=== PATIENT | male | born 1940 | race Caucasian/White ===

== ENCOUNTER → 2017-07-28 07:55 | Outpatient (CLI) | payer MEDICARE, SELFPAY ==
[2017-07-28 10:51] LABS: Cholesterol 126 mg/dL (200); High Density Lipoprotein 48 mg/dL; Triglycerides 82 mg/dL; Very Low Density Lipoprotein 16 mg/dL (5-40)
== END ==
PROVIDERS: Family Provider Family Medicine; PCP Family Medicine; Visit Provider Family Medicine
DX: E78.00 Pure hypercholesterolemia, unspecified (principal)
CPT/HCPCS: 36415; 80061

== ENCOUNTER → 2018-01-21 07:41 | Outpatient (CLI) | payer MEDICARE, SELFPAY ==
[2017-02-25 01:54] VITALS: BMI 25.9
[2018-01-21 10:23] LABS: Hematocrit 43.2 % (40-54); Hemoglobin 14.1 g/dl (13.0-16.5); Mean Corp Hgb Conc 32.6 g/gl (32-36); Mean Corpuscular Hgb 30.5 pg (27.0-32.0); Mean Corpuscular Volume 93.3 fL (80-94); Mean Platelet Vol. 9.7 fl (6.2-12.0); Platelet Count 169 K/mm3 (150-450); RBC Distribution Width CV 12.7 % (11.6-14.6); RBC Distribution Width SD 43.3 fl (35.1-43.9); Red Blood Count 4.63 M/mm3 (4.6-6.2); Scan Indicated on CBC? Y/N NO; White Blood Count 5.7 K/mm3 (4.4-11.0)
[2018-01-21 10:32] LABS: Anion Gap 6 (5-15); BUN 16 mg/dL (7-18); BUN/Creat Ratio 15.7 RATIO (10-20); Calcium,Total 9.2 mg/dL (8.5-10.1); Chloride 107 mmol/L (98-107); Cholesterol 136 mg/dL (200); Creatinine, Serum 1.02 mg/dL (0.70-1.30); EST Glomerular Filtration Rate 76 mL/min (>60); Est Glom Filt Rate - Afr Amer 92 mL/min (>60); Glucose 89 mg/dL (74-106); High Density Lipoprotein 54 mg/dL; Potassium 4.4 mmol/L (3.5-5.1); Sodium Level 144 mmol/L (136-145); Triglycerides 78 mg/dL; Very Low Density Lipoprotein 16 mg/dL (5-40)
== END ==
PROVIDERS: Family Provider Family Medicine; PCP Family Medicine; Referring Provider Family Medicine; Visit Provider Family Medicine
DX: E78.00 Pure hypercholesterolemia, unspecified (principal); I77.9 Disorder of arteries and arterioles, unspecified
CPT/HCPCS: 36415; 80048; 80061; 85027

== ENCOUNTER → 2018-02-02 09:51 | Outpatient (CLI) | payer MEDICARE, SELFPAY ==
--- NOTE | 2018-02-02 09:55 | CDU_ITS ---
Reason For Study: carotid artery disease Rt. Velocities/BP Lt. Velocities/BP Prox CCA 103/18.2 cm/sec. Prox CCA 112/20.5 cm/sec. Mid CCA 106/22.3 cm/sec. Mid CCA 79.7/14.7 cm/sec. Dist CCA 88.5/18.8 cm/sec. Dist CCA 73.3/14.1 cm/sec. Prox ICA 69.8/20.5 cm/sec. Prox ICA 69.8/13.5 cm/sec. Mid ICA 89.7/28.7 cm/sec. Mid ICA 69.2/21.7 cm/sec. Dist ICA 101/33.4 cm/sec. Dist ICA 82.7/26.4 cm/sec. Rt. ICA/CCA = 1.0. Lt. ICA/CCA = 1.0. Prox ECA 69.2/11.7 cm/sec. Prox ECA 77.4/12.3 cm/sec. Rt. Vert. 37.7/11.4 cm/sec. Lt. Vert. 39.3/9.82 cm/sec. Right Extracranial There is intimal thickening but no significant atherosclerotic plaque noted in the right common carotid artery. There is heterogeneous, irregular atherosclerotic plaque noted in the right internal carotid artery. There is intimal thickening but no significant atherosclerotic plaque noted in the right external carotid artery. Antegrade flow is noted in the right vertebral artery. Left Extracranial There is intimal thickening but no significant atherosclerotic plaque noted in the left common carotid artery. There is heterogeneous, smooth atherosclerotic plaque noted in the left internal carotid artery. There is intimal thickening but no significant atherosclerotic plaque noted in the left external carotid artery. Antegrade flow is noted in the left vertebral artery. Procedure Carotid Duplex [id number]. The exam was diagnostic. Exam performed in department. Interpretation Summary Minimal irregular plague in the proximal right internal carotid with <50% stenosis. Minimal smooth plague within the proximal left internal carotid with <50% stenosis. Normal flow bilateral external carotids Patent and antegrade bilateral vertebrals Ordering Physician: Benito Salas Performed By: Pepito Martinez RVT
== END ==
PROVIDERS: Family Provider Family Medicine; PCP Family Medicine; Referring Provider Family Medicine; Visit Provider Family Medicine
DX: R55 Syncope and collapse (principal); I77.9 Disorder of arteries and arterioles, unspecified
CPT/HCPCS: 93880

== ENCOUNTER → 2018-06-29 | Outpatient (CLI) | payer MEDICARE, SELFPAY ==
[2018-06-29 10:54] LABS: AST(SGOT) 16 U/L (15-37); Cholesterol 120 mg/dL (200); Glucose 89 mg/dL (74-106); High Density Lipoprotein 50 mg/dL; PSA,Total - Annual Screen 1.22 ng/mL (0.00-4.00); Triglycerides 102 mg/dL; Very Low Density Lipoprotein 20 mg/dL (5-40)
== END | disposition home or self-care (01) ==
PROVIDERS: Family Provider Family Medicine; PCP Family Medicine; Referring Provider Family Medicine; Visit Provider Family Medicine
DX: I77.9 Disorder of arteries and arterioles, unspecified (principal); Z12.5 Encounter for screening for malignant neoplasm of prostate; E78.00 Pure hypercholesterolemia, unspecified
CPT/HCPCS: 36415; 80061; 82947; 84153; 84450; G0103

== ENCOUNTER → 2018-08-17 | Outpatient (CLI) | payer MEDICARE, SELFPAY ==
[2017-02-25 01:54] VITALS: BMI 25.9
--- NOTE | 2018-08-17 11:48 | RAD_ITS ---
STUDY: X-RAY CHEST REASON FOR EXAM: Male, 77 years old. Hemoptysis TECHNIQUE: PA and lateral views of the chest. COMPARISON: None. FINDINGS: The lungs are clear and expanded. There is no demonstrated pleural abnormality. Normal size heart. Normal mediastinum and deja. Normal visualized pulmonary arteries. Normal visualized aortic arch and descending thoracic aorta. Normal visualized thoracic spine. Normal visualized ribs, clavicles, and shoulders. There is no demonstrated abnormality of the visualized soft tissue structures of the upper abdomen. RAD/Chest PA and Lateral IMPRESSION: Normal x-ray examination of the chest. Electronically Signed: Dino Gilman MD at 12:19 EDT , Service support ,
== END | disposition home or self-care (01) ==
LOC: MTRAD 11:46
PROVIDERS: Family Provider Family Medicine; PCP Family Medicine; Referring Provider Family Medicine; Visit Provider Family Medicine
DX: R04.2 Hemoptysis (principal)
CPT/HCPCS: 71046

== ENCOUNTER → 2019-02-03 11:01 | Outpatient (CLI) | payer MEDICARE, SELFPAY ==
[2017-02-25 01:54] VITALS: BMI 25.9
--- NOTE | 2019-02-03 11:05 | RAD_ITS ---
STUDY: X-RAY - RIGHT KNEE REASON FOR EXAM: Male, 78 years old. Pain TECHNIQUE: 4 view(s) of the knee. COMPARISON: None. FINDINGS: Normal visualized distal femur. There is depressed medial tibial condyle without fracture line soft tissue swelling likely chronic. Normal fibula Normal proximal tibiofibular articulation. Narrowed medial femorotibial compartment. Normal lateral femorotibial compartment. Normal patellofemoral articulation. The soft tissue structures are unremarkable. RAD/Knee 4 or More Views IMPRESSION: Degenerative changes. No evidence for acute fracture Electronically Signed: Bronson Florez MD at 22:53 EST , Service support ,
== END ==
PROVIDERS: Family Provider Family Medicine; PCP Family Medicine; Referring Provider Family Medicine; Visit Provider Family Medicine
DX: M17.11 Unilateral primary osteoarthritis, right knee (principal)
CPT/HCPCS: 73564

== ENCOUNTER 2019-04-18 11:00 | Outpatient (RCR) | payer MEDICARE, SELFPAY ==
--- NOTE | 2019-03-23 13:38 | HP.PTEVAL_ITS ---
Patient's Visit Information RACHEL CAGE is a 78 year old M referred to Physical Therapy by Jerald Umanzor MD with a diagnosis of Right Knee Pain. Date of Evaluation: 03/23/19 Physical Therapist: Grisel Williamson DPT - Visit Plan Frequency: 2x /Week Duration: 4 Weeks Plan: Focus on LE and core s/s - Subjective Findings: Patient reports that he was here for PT in 2016 for knee pain- then went back last year to the MD for right knee pain and they gave him an anti- inflam and it went away- this episode has been a couple of months. Insidious onset- Pain is located on the right knee under the knee cap, and posterior knee. Pain depends on what he is doing. Agg: Sitting and then go to stand up it takes awhile to get moving again then he is okay, bending his knee. Usually walks on his TM for 4-5 days a week-down the stairs bothered him. occasionally he was having pain radiating down the leg to the ankle but that has subsided. He did not do another round of steriods. Has not had an injection in the knee. Has not seen Ortho here through his primary care. X-rays which showed mild degeneration. Worst: 3/10 Best: 0/10. Describes the pain as dull and achy and sharp and shooting depending on what he is doing. Compensating with the left LE. Sleep: not disturbed. PMHx: cholesterol. Meds: Baby asprin, torvastatin - Objective Posture: FH, RS, increased kyphosis. Gait: no deviation. HR/TR: able. SLS: 3 sec each side then LOB. Palpation: tender along medial joint line. Sensation: WNL. ROM:5-100 degrees pain at end range flexion. Strength: Ankle: 5/5, Knee: extn: 4+/5, Flxb: 4/5 Hip: 4+/5 throughout. Core: fair. Flex HS: severe, Gastroc: moderate. Special Test: Blanca: positive - Goals Goal 1:: Patient will be I with HEP and progression Goal Time Frame: 4-6 Weeks Goal 2:: Patient will maintain proper posture t/o tx session to demo increased lumbar s/s Goal Time Frame: 4-6 Weeks Goal 3:: Patient will asc/desc 8 stairs with good control Goal Time Frame: 4-6 Weeks Goal 4:: Patient will report 0/10 pain for 1 week Goal Time Frame: 4-6 Weeks - Rehabilitation Potential Physical Therapy Diagnosis: Patient presents with hypomobility- he has decreased pain free ROM, strength, flex and muscular endurance leading to increased pain with aDL's. Rehabilitation Potential: Good - Anticipated Interventions Patient/Client Instruction: Educate patient on: Benefits of Fitness Program Therapeutic Exercise to Include: Strength training, Endurance training, Balance training, Agility training, Body mechanics, Postural training, Flexibilty training, Gait and locomotor training, Passive ROM, Active ROM, Dynamic Lumbar Stabilization TENS: Yes Cryotherapy (ice pack, ice massage): Yes Thermo therapy (hot pack): Yes Ultrasound (thermal/non thermal): Yes Thank you for the opportunity to evaluate your patient. For Medicare and Medicare HMO plans, please review the plan of care and approve it. It will need to be FAXED BACK to us at [phone] for Medicare purposes. For Medicare only, by signing this I certify the plan of care. Please let me know if there are questions or concerns regarding this plan of care. Physician Signature: Date:
--- NOTE | 2019-04-18 11:22 | HP.PTDCSUM ---
HP - PT D/C Summary It has been my pleasure to treat RACHEL CAGE under orders from Jerald Umanzor MD, for the diagnosis of Right Knee Pain for a total of 8 visit(s). Discharge Date: Please see the following information for a summary of their discharge status. - Subjective Subjective: Patient reports that he is still having problems with the ROM- he gets a sharp/shooting pain. Pain is located along medial and lateral joint line. Does not have an apt to go back and see the MD-Has not had a cortisone injection in the knee- but did do pills about a year ago. Has not seen Ortho only his PCP. - Pain R knee Pain Intensity (Out of 10): 2 R powell Pain Intensity (Out of 10): 1 - Overall Improvement % Improvement: 1 - Objective Objective/Function: Posture: FH, RS, increased kyphosis. Gait: no deviation. HR/TR: able. SLS: 3 sec each side then LOB. Palpation: tender along medial joint line. Sensation: WNL. ROM:5-90 degrees pain at end range flexion. Strength: Ankle: 5/5, Knee: extn: 4+/5, Flxb: 4/5 Hip: 4+/5 throughout. Core: fair. Flex HS: severe, Gastroc: moderate. Special Test: Blanca: positive - Goals Goal 1:: Patient will be I with HEP and progression Goal Progress: Goal Met Goal 2:: Patient will maintain proper posture t/o tx session to demo increased lumbar s/s Goal Progress: Progressing Goal 3:: Patient will asc/desc 8 stairs with good control Goal Progress: Progressing Goal 4:: Patient will report 0/10 pain for 1 week Goal Progress: Not Progressing - Plan Plan: Discharge- return to MD for further evaluation - D/C Information If there are questions or concerns regarding this patient's physical therapy, please feel free to call me at [phone]. Thank you for the referral of this patient. Sincerely, Grisel Williamson DPT
== END 2019-04-18 19:00 | disposition home or self-care (01) ==
LOC: PT 11:00
PROVIDERS: PCP Family Medicine; Referring Provider Family Medicine; Visit Provider Family Medicine
DX: M25.561 Pain in right knee (principal); M17.11 Unilateral primary osteoarthritis, right knee
CPT/HCPCS: 97110; 97161; 97164

== ENCOUNTER → 2019-08-03 08:56 | Outpatient (CLI) | payer MEDICARE, SELFPAY ==
[2017-02-25 01:54] VITALS: BMI 25.9
[2019-08-03 10:37] LABS: ALB/GLOB Ratio 1.2 RATIO (0.9-2.4); AST(SGOT) 19 U/L (15-37); Alanine Aminotransfer ALT/SGPT 31 U/L (16-61); Albumin, Serum 3.9 g/dL (3.2-5.0); Alkaline Phosphatase 61 U/L (45-117); Anion Gap 4 (5-15); BUN 16 mg/dL (7-18); BUN/Creat Ratio 17.9 RATIO (10-20); Calcium,Total 9.1 mg/dL (8.5-10.1); Chloride 105 mmol/L (98-107); Cholesterol 123 mg/dL (200); EST Glomerular Filtration Rate 88 mL/min (>60); Est Glom Filt Rate - Afr Amer 106 mL/min (>60); Globulin 3.2 g/dL (2.2-4.2); Glucose 105 mg/dL (74-106); High Density Lipoprotein 52 mg/dL; Potassium 4.3 mmol/L (3.5-5.1); Protein, Total 7.1 g/dL (6.4-8.2); Sodium Level 140 mmol/L (136-145); Triglycerides 77 mg/dL; Very Low Density Lipoprotein 15 mg/dL (5-40)
== END ==
PROVIDERS: PCP Family Medicine; Referring Provider Family Medicine; Visit Provider Family Medicine
DX: E78.00 Pure hypercholesterolemia, unspecified (principal)
CPT/HCPCS: 36415; 80053; 80061

== ENCOUNTER → 2019-08-09 09:37 | Outpatient (CLI) | payer MEDICARE, SELFPAY ==
--- NOTE | 2019-08-09 09:45 | CDU_ITS ---
Reason For Study: carotid artery stenosis Rt. Velocities/BP Lt. Velocities/BP Prox CCA 124.0/16.3 cm/sec. Prox CCA 116.2/10..6 cm/sec. Mid CCA 76.0/13.4 cm/sec. Mid CCA 94.1/11.8 cm/sec. Dist CCA 78.5/18.3 cm/sec. Dist CCA 72.0/15.5 cm/sec. Prox ICA 68.0/13.1 cm/sec. Prox ICA 94.4/14.6 cm/sec. Mid ICA 88.5/18.2 cm/sec. Mid ICA 83.4/20.8 cm/sec. Dist ICA 150.9/43.1 cm/sec. Dist ICA 80.9/18.3 cm/sec. Rt. ICA/CCA = 150.9/124.0=1.2. Lt. ICA/CCA = 94.4/116.2=0.8. Prox ECA 80.9/4.8 cm/sec. Prox ECA 99.0/9.3 cm/sec. Rt. Vert. 46.2/*15.6 cm/sec. Lt. Vert. 58.8/14.6 cm/sec. Right Extracranial There is intimal thickening but no significant atherosclerotic plaque noted in the right common carotid artery. There is heterogeneous, irregular atherosclerotic plaque noted in the right internal carotid artery. There is intimal thickening but no significant atherosclerotic plaque noted in the right external carotid artery. Antegrade flow is noted in the right vertebral artery. Left Extracranial There is intimal thickening but no significant atherosclerotic plaque noted in the left common carotid artery. There is heterogeneous, smooth atherosclerotic plaque noted in the left internal carotid artery. There is intimal thickening but no significant atherosclerotic plaque noted in the left external carotid artery. Antegrade flow is noted in the left vertebral artery. Procedure Carotid Duplex [id number]. Exam performed in department. Interpretation Summary Minimal irregular plaque at the proximal right internal carotid artery <50% stenosis proximal right internal carotid Velocities elevated in the distal right internal carotid but this is at the extent of the imaging and I am not sure of any significance <50% stenosis right external carotid Minimal smooth plaque within the left carotid bulb and proximal internal carotid artery with less than 50% stenosis. <50% stenosis left exterrnal carotid Patent, antegrade vertebrals bilaterally No significant change from February 02, 2018 Ordering Physician: Jerald Umanzor Referring Physician: Jerald Umanzor Performed By: Nallely Roblero, RDCS, RVT
== END ==
PROVIDERS: PCP Family Medicine; Referring Provider Family Medicine; Visit Provider Family Medicine
DX: I65.23 Occlusion and stenosis of bilateral carotid arteries (principal); I73.9 Peripheral vascular disease, unspecified
CPT/HCPCS: 93880

== ENCOUNTER → 2019-12-23 08:40 | Outpatient (CLI) | payer MEDICARE, SELFPAY ==
--- NOTE | 2019-12-23 08:50 | US_ITS ---
STUDY: SUPERFICIAL ULTRASOUND - RIGHT POPLITEAL FOSSA. REASON FOR EXAM: Male, 79 years old. RT KNEE MASS IN POP FOSSA -- R/O BAKERS CYST TECHNIQUE: A superficial ultrasound was performed with real-time and static mendez-scale imaging. COMPARISON: None. FINDINGS: There is a 3 cm x 2.9 cm x 1 cm popliteal cyst. US/Ext Non Vasc Limited/Soft Tiss IMPRESSION: 3 cm x 2.9 cm x 1 cm popliteal cyst. Electronically Signed: Demetris Freeman, at 13:33 EST , Service support ,
== END ==
PROVIDERS: PCP Family Medicine; Referring Provider Family Medicine; Visit Provider Family Medicine
DX: M71.21 Synovial cyst of popliteal space [Baker], right knee (principal)
CPT/HCPCS: 76882

== ENCOUNTER → 2020-08-07 08:09 | Outpatient (CLI) | payer MEDICARE, SELFPAY ==
[2017-02-25 01:54] VITALS: BMI 25.9
[2020-08-07 10:43] LABS: ALB/GLOB Ratio 1.3 RATIO (0.9-2.4); AST(SGOT) 16 U/L (15-37); Alanine Aminotransfer ALT/SGPT 28 U/L (16-61); Alkaline Phosphatase 62 U/L (45-117); Anion Gap 5 (5-15); BUN 18 mg/dL (7-18); BUN/Creat Ratio 16.8 RATIO (10-20); Calcium,Total 8.9 mg/dL (8.5-10.1); Chloride 106 mmol/L (98-107); Cholesterol 129 mg/dL (200); Creatinine, Serum 1.07 mg/dL (0.70-1.30); EST Glomerular Filtration Rate 71 mL/min (>60); Est Glom Filt Rate - Afr Amer 86 mL/min (>60); Glucose 113 mg/dL (74-106); High Density Lipoprotein 56 mg/dL; Potassium 4.2 mmol/L (3.5-5.1); Sodium Level 140 mmol/L (136-145); Triglycerides 82 mg/dL; Very Low Density Lipoprotein 16 mg/dL (5-40)
== END ==
PROVIDERS: PCP Family Medicine; Referring Provider Family Medicine; Visit Provider Family Medicine
DX: E78.00 Pure hypercholesterolemia, unspecified (principal)
CPT/HCPCS: 36415; 80053; 80061

== ENCOUNTER → 2020-12-20 12:41 | Outpatient (CLI) | payer MEDICARE, SELFPAY ==
--- NOTE | 2020-12-20 12:45 | RAD_ITS ---
STUDY: X-RAY - LEFT SHOULDER REASON FOR EXAM: Male, 80 years old. Shoulder pain. TECHNIQUE: 4 view(s) of the shoulder. COMPARISON: None. FINDINGS: Osteopenia. Moderate arthrosis of the glenohumeral joint with small osteophytes. Mild arthrosis of the AC joint. Normal acromion. Sclerosis and cystic change of the greater tuberosity of the humeral head. The soft tissue structures are unremarkable. Normal visualized pulmonary apex. 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 Sclerosis and cystic change of the greater tuberosity of the humeral head. No acute abnormality or erosive changes. Electronically Signed: Buck Mcfarland MD at 13:14 EDT , Service support ,
== END ==
PROVIDERS: PCP Family Medicine; Referring Provider Family Medicine; Visit Provider Family Medicine
DX: M25.512 Pain in left shoulder (principal)
CPT/HCPCS: 73030

== ENCOUNTER 2021-01-17 10:40 | Outpatient (RCR) | payer MEDICARE, SELFPAY ==
--- NOTE | 2021-01-17 12:12 | HP.PTEVAL_ITS ---
Patient's Visit Information RACHEL CAGE is a 80 year old M referred to Physical Therapy by Dr. Jerald Umanzor MD with a diagnosis of l shoulder pain. Date of Evaluation: 01/17/21 Physical Therapist: Franklin Isabel DPT, OCS, CSCS - Visit Plan Duration: one f/u visit Plan: f/u in 3 weeks as needed to ensure progress with ROM and strength. - Subjective Banged up L shoulder halloween night and it hurts. Doctor said he needs to strengthen the shoulder muscles. Doctor said bursitis. Had cotisone shot 3 days ago which may have helped ROM. it was hurt tripping on front door step threshold. Balance is fine. Landed on L shoulder. x rays were OK. Pain now is 0/10 most of time and only if he reaches up and out. Transiently 9/10. retired. Activities are normal outside of sexual activity is diificult sometimes and he avoids lifting and raking. - Pain L shoulder Pain Intensity (Out of 10): 0 Pain Intensity Range: 0, 9 - Objective Posture is forward head and scap B, slightly elevated L scap. Tender supraspinatus insertion in bursal area. cervical AROM is WFL and without pain. AROM R shoulder normal and painfree. AROM L shoulder elelvation 135 flexion and 140 abd with painful arc. ext rotation 40 L and 65 R, IR full but painful L. elbow and wrist B WNL. PROM to 150 felxion before pain. + empty can L. + painful arc L. -ext rotation lag test L. slight + drop arm L. strength R 4+/5, L ext rotation 3+ pain, IR 4+, bi and tri 4+, flexion 4- pain, abd 4- and painful on L. + HK and neer impingement test. - Goals Goal 1:: full aROM without pain L shoulder Goal Time Frame: 2-4 Weeks Goal 2:: I appropriate strength ex and progression to supplement his injection and improved posture. Goal Time Frame: 2-4 Weeks Goal 3:: Patient feel 90% back to normal activity Goal Time Frame: 2-4 Weeks - Rehabilitation Potential Physical Therapy Diagnosis: L shoulder pain limiting function and comfort. Rehabilitation Potential: Fair - Anticipated Interventions Patient/Client Instruction: Educate patient on: Condition, Plan of Care For the Purpose of:: To decrease pain, To increase ROM, To improve muscle performance and motor function Therapeutic Exercise to Include: Strength training, Postural training, Passive ROM, Active ROM For the Purpose of:: To decrease pain, To increase ROM, To improve muscle performance and motor function Thank you for the opportunity to evaluate your patient. For Medicare and Medicare HMO plans, please review the plan of care and approve it. It will need to be FAXED BACK to us at [phone] for Medicare purposes. For Medicare only, by signing this I certify the plan of care. Please let me know if there are questions or concerns regarding this plan of care. Physician Signature: Da te:
--- NOTE | 2021-04-03 11:15 | HP.PT.NRP ---
RACHEL CAGE was seen in my office for initial evaluation on 01/17/21. The following Plan of Care was established for this patient: Initial Duration: one f/u visit Patient/Client Instruction: Educate patient on: Condition, Plan of Care For the Purpose of:: To decrease pain, To increase ROM, To improve muscle performance and motor function Therapeutic Exercise to Include: Strength training, Postural training, Passive ROM, Active ROM For the Purpose of:: To decrease pain, To increase ROM, To improve muscle performance and motor function This patient was last seen in our office 01/17/21. Pertinent comments regarding their Physical therapy will appear below: Pt seen one visit of POC and was to f/u three weeks later to ensure progress. He did not schedule or attend that visit. At this point, it has been over two months and i will discontinue due to nonattendance. At this point I will be discontinuing this patient from physical therapy. I would be happy to see this patient again in the future if found appropriate by the physician. Thank you! Franklin Isabel, DPT, OCS, CSCS
== END 2021-01-17 19:00 | disposition home or self-care (01) ==
LOC: PT 10:40
PROVIDERS: PCP Family Medicine; Referring Provider Family Medicine; Visit Provider Family Medicine
DX: M25.519 Pain in unspecified shoulder (principal)
CPT/HCPCS: 97110; 97161

== ENCOUNTER 2021-02-09 09:40 | Emergency (ER) | payer MEDICARE, SELFPAY ==
[2021-02-09 09:41] VITALS: BP 166/87; PULSE 73; RESP 16; TEMP 36.6; O2SAT 98; BMI 26.4
--- NOTE | 2021-02-09 09:50 | EKG12_ITS ---
Test Reason : DIZZINESS Blood Pressure : / mmHG Vent. Rate : 069 BPM Atrial Rate : 069 BPM P-R Int : 206 ms QRS Dur : 104 ms QT Int : 386 ms P-R-T Axes : 056 017 062 degrees QTc Int : 413 ms Normal sinus rhythm Normal ECG Confirmed by PRASHANTH REYES MD ([id number]), make up editor SIA SHEFFIELD ([id number]) on 02/12/2021 9:56:16 AM Referred By: PC Confirmed By:PRASHANTH REYES MD
--- NOTE | 2021-02-09 10:11 | CT_ITS ---
STUDY: CTA HEAD AND NECK WITH CONTRAST REASON FOR EXAM: Male, 80 years old. vertigo RADIATION DOSAGE (If Supplied By Facility): CTDIvol = ( 24.01 ) mGy, DLP = ( 1558.66 ) mGycm TECHNIQUE: CT angiography was performed with a multi-detector CT scanner. Data acquisition was obtained from the skull base through the vertex following intravenous administration of IV 100mL Isovue-370. MIP images were reconstructed from the axial data set. Post-processing of the angiographic images was performed, with multiplanar reformation and 3D reconstruction. Individualized dose optimization techniques were used for this CT. COMPARISON: No relevant priors. FINDINGS: Aorta has a normal branching pattern. Right brachycephalic, right subclavian, right common carotid, left common carotid and left occluded arteries are patent. There is mild atherosclerosis with scattered calcified and lipid rich plaque. Vertebral arteries arise bilaterally from the subclavian arteries and are patent in the cervical intraosseous segments. Right vertebral is dominant, left is smaller. Intradural vertebral arteries, basilar, superior cerebellar and posterior cerebral arteries and proximal branches are patent. Bilateral base of skull carotids, bifurcations, anterior and middle cerebral arteries and proximal branches are patent. 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 Left posterior communicating artery is moderate, right not well seen likely miniscule. Dural venous sinuses are patent. Refer to same day CT head report for description of right frontal abnormality. There is a 1 cm thyroglossal duct cyst along the superior border of the thyroid cartilage. Vocal cords are normal. Pharyngeal mucosal surfaces are normal. Cervical spine is intact and aligned with multilevel mild thecal sac stenosis, moderate at C6-C7. There are scattered multilevel various degree moderate/moderate severe foraminal stenoses bilaterally. IMPRESSION: 1. Patent craniocervical arteries. 2. Right frontal lobe abnormality, refer to CT head report. 3. 1 cm thyroglossal duct cyst. ENT outpatient referral advised. 4. Moderate spondylotic C6-C7 thecal sac compression. Outpatient neurosurgical referral advised. Electronically Signed: Candie Jackson MD at 11:16 EST Tel , Service support , STUDY: CT BRAIN WITHOUT CONTRAST REASON FOR EXAM: Male, 80 years old. Vertigo dizziness TBI RADIATION DOSAGE (If Supplied By Facility): CTDIvol = ( 44.99 ) mGy, DLP = ( 796.11 ) mGycm TECHNIQUE: Transaxial CT imaging of the brain was performed without administration of intravenous contrast material. Individualized dose optimization techniques were used for this CT. COMPARISON: 24 February 2017 FINDINGS: Appearance is comparable to prior from 3 years ago. There is extensive right frontal encephalomalacia. There is underlying right anterior cribriform plate dehiscence with a mildly hyperdense rounded structure extending from the anterior ethmoid sinus intracranially. Intracranial portion measures 2.1 cm. This likely represents ethmoid sinus mucocele or polypoid mucosal change. Remainder the paranasal sinuses are clear. Orbits are normal. There is moderate chronic white matter ischemic ventricular hypodensity. There are no extra parenchymal fluid collections, hydrocephalus or herniation. Skull vault is intact. CT/CTA Head AND Neck W/ Contrast IMPRESSION: 1. No acute abnormality. 2. Stable since 3 years prior. 3. Right frontal encephalomalacia. 4. 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 Outpatient neurosurgical and ENT referral advised. 5. Moderate chronic white matter atherosclerotic change. Electronically Signed: Candie Jackson MD at 11:19 EST Tel , Service support ,
[2021-02-09 10:18] LABS: Bacteria 0 SEEN /hpf (None Seen); Mucous, Urine 0 SEEN /hpf (<or=2+); Red Blood Cells-Urine 0 SEEN /hpf (0-5); Squamous Epithelial Cells - UA 0 SEEN /hpf (0-5); White Blood Cells 0 SEEN /hpf (0-5)
[2021-02-09 10:19] LABS: Absolute Lymphocyte Count 2.06 X10^3/uL (0.83-4.51); Basophil# 0.03 X10^3/uL; Basophil% 0.5 % (0-1); Eosinophil# 0.09 X10^3/uL; Eosinophils% 1.6 % (0-5); Hematocrit 43.5 % (40-54); Hemoglobin 14.9 g/dL (13.0-16.5); Lymphocyte # 2.06 X10^3/ul (0.83-4.51); Lymphocyte % 37.1 % (19-41); Mean Corp Hgb Conc 34.3 g/dL (32-36); Mean Corpuscular Hgb 31.2 pg (27.0-32.0); Mean Platelet Vol. 9.4 fl (6.2-12.0); Monocyte# 0.42 X10^3/uL; Monocyte% 7.6 % (0-10); NRBC Flagged by Analyzer 0 % (0-5); Neutrophil # 2.95 X10^3/uL (2.7-7.7); Platelet Count 174 K/mm3 (150-450); RBC Distribution Width CV 12.6 % (11.6-14.6); RBC Distribution Width SD 41.5 fl (35.1-43.9); Red Blood Count 4.78 M/mm3 (4.6-6.2); White Blood Count 5.6 K/mm3 (4.4-11.0)
[2021-02-09] MEDS: Meclizine HCl 25 MG Tablet PO (10:19)
[2021-02-09 10:21] LABS: Color, Urine Yellow (Yellow); Glucose, Dipstick Normal (Normal); Ketone-Dipstick Negative (Negative); Leukocyte Esterase-Dipstick Negative /ul (Negative); Nitrite-Dipstick Negative (Negative); Occult Blood-Urine Negative /ul (Negative); Protein-Dipstick Negative (Negative); Specific Gravity, Urine 1.015 (1.002-1.030); Urine Bilirubin Dipstick Negative (Negative); Urine Clarity Clear (Clear); Urine Urobilinogen Normal (Normal)
--- NOTE | 2021-02-09 10:25 | EX.ED.DYSGE1 ---
HPI History of Present Illness Chief Complaint: Dizziness Informant: patient Narrative Narrative: Patient is a 80-year-old male with history of traumatic brain injury with encephalomalacia and hyperlipidemia as well as vertigo presenting with dizziness. Patient states normally when he gets up in the morning he sits in his bed for about 10 seconds and then stands up and goes about his day. He notes this morning when he tried to sit up in bed he felt very dizzy. He states it felt like the room was spinning/he was on a boat. This lasted for over an hour. He called EMS who brought him to the emergency room. 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 He is worried he has complete occlusion of his carotid arteries now. Chart review shows that patient was admitted for rule out posterior circulation stroke due to vertigo but his work-up was largely negative and he was discharged home to follow-up with ENT. Carotid duplex reviewed from 08/09/2019 shows less than 50% stenosis of bilateral external carotid arteries. PFSH PFSH Home Medications aspirin 81 mg PO DAILY@0800 02/15/14 [History Last Taken 02/24/17] atorvastatin 20 mg PO QHS #30 tab 02/25/17 [Rx Last Taken Unknown] meclizine 25 mg PO TID PRN #14 tab 02/09/21 [Rx Last Taken Unknown] meloxicam 7.5 mg PO DAILY 02/09/21 [History Last Taken Unknown] Allergy/AdvReac Type Severity Reaction Status Date / Time No Known Allergies Allergy Verified 02/09/21 09:45 Social History Smoking Status: Never smoker ROS ROS ED Review of Systems ROS Unobtainable: other Details: dizziness Constitutional Constitutional ED: Denies chills or fever(s) Eyes Eyes: Denies blurry vision, change in vision or diplopia ENT ENT ED: Denies ear pain, rhinorrhea or sore throat Cardiovascular Cardiovascular: Denies chest pain or palpitations Respiratory/Chest Respiratory/Chest: Denies cough or dyspnea Gastrointestinal Gastrointestinal: Denies abdominal pain, nausea or vomiting Genitourinary Genitourinary ED: Denies dysuria or hematuria Musculoskeletal Musculoskeletal: Denies arthralgias or myalgias Integumentary Denies rash Neurologic Neurologic: Denies headache(s), paresthesias or weakness EXAM Physical Exam Const Vital Signs: 02/09/21 09:41 02/09/21 09:43 Temperature 97.9 F Temperature Source Temporal Pulse Rate 73 Respiratory Rate 16 Respiratory Effort Normal Non-Labored Respiratory Pattern Normal Blood Pressure 166/87 H Blood Pressure Mean 113 Pulse Ox 98 Oxygen Delivery Method Room Air Positive well nourished and well developed General Appearance ED: well developed HEENT Reports TM's clear and moist mucous membranes Negative for trauma or tenderness Tympanic Membrane ED: Yes TM's clear Eyes PERRL and EOMs intact bilaterally Eyes Narrative: Bilateral horizontal fatiguing nystagmus, rightward gaze more pronounced leftward gaze Neck supple and no JVD Chest Wall inspection of chest normal Resp normal respiratory effort and clear to auscultation bilaterally Cardio regular rate, regular rhythm and no murmurs GI normal to inspection, nondistended, normoactive bowel sounds Extremity normal to inspection General Extremety ED: Negative for edema or tenderness General Extremity: Negative for edema Neuro oriented x3, CN's II-XII intact bilaterally and no sensory deficits noted Neuro Narrative: NIH equals 0. Normal coordination. Normal [id number]. Sensorium / Orientation: alert Motor Exam: strength 5/5 throughout Psych mental status grossly normal Skin no rashes or lesions noted and no wounds MDM MDM MDM Narrative Medical decision making narrative: Patient evaluated for an episode of what sounds like vertigo earlier this morning. His symptoms of pretty much resolved since then. He had a similar episode 3 years ago where he was admitted. He had a MRI to rule out posterior circulation at that time. It was felt to likely be peripheral vertigo and he was discharged home. Patient has a normal neurologic exam. He is steady on his feet. He is given a dose of meclizine. He does have incidental findings on his CT, see comments below. Patient will be given a prescription for Antivert and referral to ENT personal findings. He is counseled on this. Patient is asymptomatic while in the emergency room. I do not feel that extended observation in the hospital or further MRI is indicated as I suspect this is peripheral vertigo. Lab Data Labs: Laboratory Results - last 24 hr 02/09/21 02/09/21 02/09/21 09:45 09:45 10:15 WBC 5.6 RBC 4.78 Hgb 14.9 Hct 43.5 MCV 91.0 MCH 31.2 MCHC 34.3 RDW Std Deviation 41.5 RDW Coeff of Eduard 12.6 Plt Count 174 MPV 9.4 Immature Gran % (Auto) 0.200 Neut % (Auto) 53.0 Lymph % (Auto) 37.1 Grundy % (Auto) 7.6 Eos % (Auto) 1.6 Baso % (Auto) 0.5 Absolute Neuts (auto) 3.0 Absolute Lymphs (auto) 2.06 Nucleated RBC % 0 Sodium 141 Potassium 3.9 Chloride 106 Carbon Dioxide 29.0 Anion Gap 6 BUN 14 Creatinine 1.01 Estim Creat Clear Calc 64.20 Est GFR (MDRD) Af Amer 92 Est GFR (MDRD) Non-Af 76 BUN/Creatinine Ratio 13.9 Glucose 117 H Calcium 9.2 Total Bilirubin 0.80 AST 32 ALT 39 Alkaline Phosphatase 68 Troponin I High Sens 13 Total Protein 7.7 Albumin 4.2 Globulin 3.5 Albumin/Globulin Ratio 1.2 Urine Color Yellow Urine Clarity Clear Urine pH 6.0 Ur Specific [place] 1.015 Urine Protein Negative Urine Glucose (UA) Normal Urine Ketones Negative Urine Occult Blood Negative Urine Nitrite Negative Urine Bilirubin Negative Urine Urobilinogen Normal Ur Leukocyte Esterase Negative Urine RBC 0 SEEN Urine WBC 0 SEEN Ur Squamous Epith Cells 0 SEEN Urine Bacteria 0 SEEN Urine Mucus 0 SEEN Radiography Diagnostic Testing: Clinical Impression(s) from Imaging Studies Head/Neck CTA 02/09/21 10:11 IMPRESSION: 1. No acute abnormality. 2. Stable since 3 years prior. 3. Right frontal encephalomalacia. 4. 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 Outpatient neurosurgical and ENT referral advised. 5. Moderate chronic white matter atherosclerotic change. Electronically Signed: Candie Jackson MD at 11:19 EST Tel , Service support , Rhythm Strip Rhythm Strip: Sinus Rhythm Rate: 69 Ectopy: None EKG Initial EKG: Attestation: I personally reviewed and interpreted this EKG as follows: Interpretation: Sinus Rhythm Comments: Normal sinus rhythm at rate of 69 SC interval 206 Normal QRS and QTc Normal axis Normal ST segments Discharge Plan Triage Chief Complaint: Dizziness ED Provider: Godman,Maryellen Dx/Rx/DC Orders Clinical Impression: Vertigo Instructions: ED BPV Vertigo Prescriptions: New meclizine 25 mg tablet 25 mg PO TID PRN (Reason: dizziness) Qty: 14 RF: 0 No Action aspirin 81 MG tablet,chewable 81 mg PO DAILY@0800 RF: 0 atorvastatin 20 MG tablet 20 mg PO QHS Qty: 30 RF: 0 meloxicam 7.5 mg tablet 7.5 mg PO DAILY RF: 0 Primary Care Provider: Jerald Umanzor Referrals: Jerald Umanzor MD [Primary Care Provider] - Franklin Chi MD [STAFF PHYSICIAN] - As soon as possible Activity Restrictions/Additional Instructions: Your CT showed an incidental finding of your cribriform plate which is near the sinuses. Please follow-up with ENT doctor for further evaluation of this as well as your vertigo. Disposition Disposition: Home, Self Care
[2021-02-09 10:32] LABS: ALB/GLOB Ratio 1.2 RATIO (0.9-2.4); AST(SGOT) 32 U/L (15-37); Alanine Aminotransfer ALT/SGPT 39 U/L (16-61); Albumin, Serum 4.2 g/dL (3.2-5.0); Alkaline Phosphatase 68 U/L (45-117); Anion Gap 6 (5-15); BUN 14 mg/dL (7-18); BUN/Creat Ratio 13.9 RATIO (10-20); Calcium,Total 9.2 mg/dL (8.5-10.1); Chloride 106 mmol/L (98-107); Creatinine, Serum 1.01 mg/dL (0.70-1.30); EST Glomerular Filtration Rate 76 mL/min (>60); Est Glom Filt Rate - Afr Amer 92 mL/min (>60); Globulin 3.5 g/dL (2.2-4.2); Glucose 117 mg/dL (74-106); Potassium 3.9 mmol/L (3.5-5.1); Protein, Total 7.7 g/dL (6.4-8.2); Sodium Level 141 mmol/L (136-145); Troponin-I HS 13 pg/mL (3.0-78.0)
== END 2021-02-09 12:16 | disposition home or self-care (01) ==
PROVIDERS: Emergency Provider Emergency Medicine; PCP Family Medicine
DX: R42 Dizziness and giddiness (principal); G93.89 Other specified disorders of brain; E78.5 Hyperlipidemia, unspecified; I65.23 Occlusion and stenosis of bilateral carotid arteries; M47.812 Spondylosis without myelopathy or radiculopathy, cervical region; Q89.2 Congenital malformations of other endocrine glands; Z87.820 Personal history of traumatic brain injury; Z79.82 Long term (current) use of aspirin; Z79.899 Other long term (current) drug therapy
CPT/HCPCS: 70496; 70498; 80053; 81001; 84484; 85025; 93005; 99285; Q9967; A4216

== ENCOUNTER 2021-04-12 10:20 | Day surgery (SDC) | payer MEDICARE, SELFPAY ==
[2021-04-12] VITALS (8 sets, daily range): BP systolic 136–165; BP diastolic 73–93; PULSE 68–91; RESP 16; TEMP 36.4–37.3; O2SAT 96–100; BMI 26.7
--- NOTE | 2021-04-12 11:08 | HP.PCM_ITS ---
History and Physical Date of Admission: 04/12/21 HISTORY AND PHYSICAL ? RACHEL Sandoval 1940 ? ? REFERRING PHYSICIAN: Self ? CHIEF COMPLAINT: Consult (Bilateral Inguinal Hernias) ? HPI: Rachel is a 79 year old male with a complaint of a bulge ?and discomfort ?in his right inguinal region and left inguinal region. ?The patient notes discomfort in this area mostly in the right inguinal area occasionally with coughing or lifting. ?The symptoms have increased, over the past 6 months. ? The patient notes no symptoms of bowel obstruction and denies nausea or vomiting. The patient was seen by his primary care physician ?who felt the patient has a hernia. ?Rachel was referred for evaluation and treatment. ? The patient presents today wanting information about repair of his hernias. ?The patient is an avid golfer would like to postpone hernia repair at least till the end of golf season. ? ? PAST MEDICAL HISTORY PAST MEDICAL HISTORY Diagnosis Date ? Arthritis ? ? Benign paroxysmal positional vertigo ? ? Hyperlipemia ? ? Inguinal hernia ? ? ? PAST SURGICAL HISTORY PAST SURGICAL HISTORY Procedure Laterality Date ? APPENDECTOMY ? 02/15/14 ? SHOULDER SURGERY HX ? ? ? age 19 ? ? ? CURRENT MEDICATIONS Current Outpatient Medications Medication Sig ? MELOXICAM ORAL Take by mouth as needed. ? meclizine HCl (MECLIZINE ORAL) Take by mouth. Did not Start yet ? Tadalafil (CIALIS) 20 mg tab(s) Take 20 mg by mouth once daily. Takes as needed. ? ? atorvastatin (LIPITOR) 20 mg tablet Take 20 mg by mouth once daily. ? Zinc Gluconate 100 mg tab Take by mouth. ? Sennosides (SENNA) 8.6 mg cap Take by mouth. ? MULTI-VITAMIN ORAL Take by mouth. ? GLUC WEEKS 2KCL/CHONDR/VIT C/DANIELLE (HSUFJYGL-LTNBMRWNNRB-BOL C-MN ORAL) Take by mouth. ? aspirin, enteric coated (ASPIRIN, ENTERIC COATED) 81 mg EC tablet Take 81 mg by mouth once daily. ? SAW PALMETTO ORAL Take by mouth. ? CALCIUM CARBONATE/VITAMIN D3 (CALCIUM + D ORAL) Take by mouth. ? No current facility-administered medications for this visit. ? ? ALLERGIES: Patient has no known allergies. ? PERSONAL HISTORY: SOCIAL HISTORY Social History ? Tobacco Use ? Smoking status: Never Smoker ? Smokeless tobacco: Never Used Vaping Use ? Vaping Use: Never used Substance Use Topics ? Alcohol use: No ? Drug use: Never ? FAMILY HISTORY: FAMILY HISTORY FAMILY HISTORY Problem Relation Age of Onset ? Cancer Mother ? ? unsure type ? Cancer Father ? ? unsure type ? No Known Problems Sister ? ? No Known Problems Brother ? ? No Known Problems Brother ? ? No Known Problems Brother ? ? No Known Problems Maternal Grandmother ? ? No Known Problems Maternal Grandfather ? ? No Known Problems Paternal Grandmother ? ? No Known Problems Paternal Grandfather ? ? ? REVIEW OF SYMPTOMS: The review of systems data was entered by the nurse and reviewed by me ? Nursing Notes: Cyndi Nair 03/25/2021 3:07 PM Signed REVIEW OF SYSTEMS: General: The patient denies fatigue, denies weight loss, denies weight gain, denies feeling hot, and denies feelings of cold. Eyes: The patient denies glaucoma, denies eye injury/surgery, wears glasses or contacts. Ear/Nose/Throat: The patient denies allergies, denies hayfever, denies ear infections, and denies bloody noses. Cardiovascular: The patient denies chest pain, denies heart disease, denies high blood pressure,denies cardiac stent, denies prior heart attack, denies irregular heart beat, NOTES high cholesterol, denies poor circulation, denies heart failure, other cardiac issues, denies claudication, denies cold feet, denies peripheral arterial stent. Respiratory: The patient denies tuberculosis, denies pneumonia, denies frequent cough, denies pulmonary embolism, denies shortness of breath, and denies coughing up blood. Gastrointestinal: The patient denies difficulty swallowing, denies acid reflux, denies ulcers, denies vomiting, denies jaundice/hepatitis, denies gallbladder problems, denies black or tarry stools, NOTES hemorrhoids, denies bleeding from rectum, denies diverticulitis, denies constipation, denies diarrhea, denies loss of stool control, and NOTES hernias. Kidney/Bladder: The patient denies kidney stones, denies urine infections, and denies bloody urine. Skin: The patient denies a history of skin cancer, denies bleeding/changing moles, and denies a history of skin rash. Neurologic: The patient denies a history of epilepsy/convulsions, denies headaches, denies head/spinal injuries, and denies stroke/TIA. Psychiatric: The patient denies psychiatric medications, denies depression, and denies voices, denies substance abuse. Endocrine: The patient denies thyroid disorders, denies diabetes, and denies hormonal problems. Hematologic: The patient denies a history of bruising, denies bleeding, and denies anemia, denies blood clots. Infections: The patient denies a history of measles and mumps, denies rheumatic fever, and denies sexually transmitted diseases. Musculoskeletal: The patient denies back pain/injury, denies back problems, denies sciatica, NOTES knee/foot trouble, NOTES arthritis, or denies gout. ? ? When was patient's last Mammogram screening? N/A ? Last Colonoscopy: None ? Cyndi Nair ? PHYSICAL EXAMINATION: ? General: The patient is 80 year old male, well nourished, well hydrated in no acute distress. The patient is oriented to time, place, and person. ? VITALS: Blood pressure 152/98, pulse 95, temperature 36.9 ?C (98.5 ?F), height 180.3 cm (5' 11), weight 85.7 kg (189 lb), SpO2 98 %. Body mass index is 26.36 kg/m?. ? HEENT: Normal cephalic, ataumatic, pupils are equally round, sclera are anicteric, mucous membranes are moist, oropharynx is clear. Neck has no masses, asymmetry or lymphadenopathy. Thyroid is unremarkable. ? Respiratory: Clear to auscultation and percussion. Normal respiratory excursion and pattern. ? Cardiac: Examination is regular rate and rhythm. ? Abdominal exam: Soft, nontender, with no palpable masses. No hepatosplenomegaly. A moderate reducible bilateral inguinal hernias present, no umbilical hernia is noted ? Rectal exam: exam deferred ? Extremities: no clubbing, cyanosis or edema. No adenopathy. ? Other: ? ? LABORATORY VALUES: As Noted ? RADIOLOGIC STUDIES: As Noted ? Assessment IMPRESSION: bilateral inguinal hernias ? PLAN: My plan is to perform a robotic assisted laparoscopic bilateral inguinal hernia repair with mesh. The planned surgical procedure was discussed extensively with the patient. The risks, benefits, anticipated outcomes and possible complications were mentioned. Rachel michelands that all hernia repair surgery has a chance of recurrence and/or chronic post operative pain. My staff has also explained the procedure in understandable terms and the patient was given the option to take printed material concerning the planned procedure. The patient had the opportunity to ask questions concerning the planned procedure. The patient freely consents to the planned procedure. ? Diagnoses: (K40.20) Non-recurrent bilateral inguinal hernia without obstruction or gangrene (primary encounter diagnosis) ? Anticipated CPT Code: laparoscopic bilateral inguinal hernia repair with mesh - 79617 x 2-000 ? Anticipated Anesthetic: General ? Patient weight: Blood pressure 152/98, pulse 95, temperature 36.9 ?C (98.5 ?F), height 180.3 cm (5' 11), weight 85.7 kg (189 lb), SpO2 98 %. BMI: Body mass index is 26.36 kg/m?. ? Planned antibiotic: Ancef 2gm IVPB senior application programmer to OR ? SCDs needed - Yes Return to Clinic: The patient is instructed to follow-up with me 1 week post operatively. ? COVID (Procedure Consent) Procedure Criteria ? Procedure Criteria: Yes Elective The surgeon/proceduralist and patient have discussed in detail the risk of exposure to and/or potential harm posed by the COVID-19 virus with having a surgery/procedure at this time versus the risk of? delaying the surgery/procedure. It is not possible to know either the risk of delaying the surgery or procedure or chance of getting an infection with perfect accuracy, but a joint decision was made between the patient and the surgeon/proceduralist ?to proceed at this time with the scheduled surgery/procedure as indicated on the consent form. ? ? Silver Layton III, MD I have re-examined the patient. There are no clinical changes since date of exam.
[2021-04-12] MEDS: Lactated Ringers 1,000 ML 30 ML IV ×2 (11:11→13:30)
[2021-04-12] MEDS: Cefazolin 2 GM in 0.9% Normal Saline 100 ML IV (12:44)
[2021-04-12] MEDS: Bupivacaine Mpf 0.5% 30 ML VIAL (14:05)
--- NOTE | 2021-04-12 14:23 | PCM.OPRPT ---
Problems Associated Problem List Diagnoses (1) Bilateral inguinal hernia without obstruction or gangrene: Report of Operation Date of Procedure: 04/12/21 Pre-Operative Diagnosis: Bilateral inguinal hernias Post-Operative Diagnosis: Same Surgery/Procedure Performed:: Robotic assisted laparoscopic bilateral inguinal hernia repair with mesh Surgeon: Silver Layton electronics computer mechanic: Ruperto Martinez Type of Anesthesia: General Anesthesiologist: Clement Ennis Estimated Blood Loss (mL): < 25 cc Description of Procedure: Patient was brought into the operating room. Placed in the supine position. Under excellent general anesthetic a Wood catheter was placed abdomen was then sterilely prepped and draped in the usual fashion. Local was injected above the umbilicus. Dissection was carried down to the fascia. The fascia was grasped with a [place]. Varies needle was placed inside the abdomen. The abdomen was insufflated to 15 torr. #8 trocar was placed it was flank by 2 other #8 trochars both placed under direct visualization. Patient was then placed in the headdown position. The robot was brought in and docked appropriately. I broke scrub and then went to the console. Scissors were placed in the right hand grasper was placed in the left hand. I dissected the peritoneum on the right dissecting down to Rohit's ligament bringing a direct inguinal hernia back into the operating field. I then dissected further laterally dissecting the cord and vessel structures free and then further laterally after that. I then went to the left side in similar fashion scored the peritoneum. Dissected down to Rohit's ligament and the pubic tubercle dissecting all this free and then bringing back in another smaller direct inguinal hernia. I then dissected the cord and vessel structures freed and then dissected further laterally. I placed 2 large protack meshes into the operating field covering the defect completely on both the left and right side. They laid completely flat. I had excellent hemostasis. I then reperitonealized the area starting on the right side with a 3 OV lock and on the left side in similar fashion. Both needles were retrieved without difficulty. Instruments were retrieved trochars were removed good and the stasis was noted. Skin incisions were closed with subcuticular stitches of 4-0 Monocryl. Steri-Strips were applied sterile dressings were applied. Wood catheter was removed. Patient tolerated the procedure well. Admit VTE Documentation VTE Present on Admission: No VTE Mechan Device Prophylaxis: SCD's VTE Pharm Prophylaxis ordered?: No Reason prophylaxis not ordered:: Treatment Not Indicated
--- NOTE | 2021-04-12 15:02 | DCINST_ITS ---
Discharge Instructions Procedure Hernia Diet Discharge Diet: Light diet - advance as tolerated Activity Discharge Activity: Return to Normal Activity, May Drive (when you are no longer taking narcotic pain medications.) and May Shower (with the bandage in place 1-2 days after surgery.) Lifting Restrictions: 20 pounds for 8 weeks. Additional Activity Instructions:: Climbing stairs is fine, walking is e ncouraged. Sitting in bed may be uncomfortable. Sitting up using your lateral muscles (sitting up sideways) is usually more comfortable. Do not drive, work heavy equipment of sign legal documents for 24 hours. If your hernia repair was an ingunial repair, you may have scrotal swelling, an ice pack and/or athletic support can provide more comfort. Pain medications may cause nausea, you should typically eat light foods as you take your pain medications. Pain medications may also cause constipation. If you have difficulty with this, discuss with your doctor. Dressing / Incision Call your doctor if your incision/area has: Continuous Slow Oozing, Sudden Increased Bleeding, Increased Pain/ Swelling, Increased Redness and Foul Smelling Discharge Call your doctor if you observe: Fever of 101 or Higher Suture Line Care: Avoid Pulling/Pushing and Avoid Pinching/Bending Additional Dressing/Incision Instructions:: Leave the operative bandage on for 2-3 days. When you remove the bandage, leave the steri-strips on place until your follow up appointment or they fall off. Follow Up Care Please Follow Up With: Danni Andre PA-C When: Call office to schedule an appointment to be seen in 7 days. Test Results: Test results from this visit will be discussed in further detail at your follow-up appointment, if applicable. Discharge Plan Admission Attending Provider: Silver Layton Primary Care Provider: Jerald Umanzor Discharge Orders/Prescriptions Prescriptions: New oxycodone-acetaminophen [Percocet] 5-325 mg tablet 1 tab PO Q4H PRN (Reason: pain) 5 Days Qty: 20 RF: 0 No Action aspirin 81 MG tablet,chewable 81 mg PO DAILY@0800 RF: 0 atorvastatin 20 MG tablet 20 mg PO QHS Qty: 30 RF: 0 meloxicam 7.5 mg tablet 7.5 mg PO DAILY PRN (Reason: shoulder pain) RF: 0 meclizine 25 mg tablet 25 mg PO TID PRN (Reason: dizziness) Qty: 14 RF: 0 senna 600 mg Tablet 600 mg PO QHS RF: 0 Men's Multivitamin 400-20-300 mcg Tablet 1 tab PO DAILY RF: 0 Referrals / Follow Up: Jerald Umanzor MD [Primary Care Provider] - Danni Andre PAAbdulkadirC [PHYSICIAN CUSTOMER OPERATIONS REPRESENTATIVE] - Disposition Disposition (needs filled in before D/C Order can be placed): Home, Self Care
== END 2021-04-12 23:59 | disposition home or self-care (01) ==
LOC: SDC 10:25 → AC 10:25
PROVIDERS: PCP Family Medicine; Referring Provider Surgery; Visit Provider Surgery
PROC: (CPT 840; principal; 2021-04-12 12:10)
DX: K40.20 Bilateral inguinal hernia, without obstruction or gangrene, not specified as recurrent (principal); E78.5 Hyperlipidemia, unspecified; M19.90 Unspecified osteoarthritis, unspecified site; Z79.82 Long term (current) use of aspirin; Z79.899 Other long term (current) drug therapy
CPT/HCPCS: 00840; 49650; S2900; J7120; J2405

== ENCOUNTER 2021-08-23 09:45 | Outpatient (RCR) | payer MEDICARE, SELFPAY ==
--- NOTE | 2021-08-23 10:31 | HP.PTEVAL_ITS ---
Patient's Visit Information RACHEL CAGE is a 80 year old M referred to Physical Therapy by Dr. Jerald Umanzor MD with a diagnosis of BPPV. Date of Evaluation: 08/23/21 Physical Therapist: Franklin Isabel, ZAKIAT, OCS, CSCS - Visit Plan Plan: d/c, pt to contact doctor if dizzyness worsens or limits activity. presents with possible orthostatic hypotension problems but no obvious vestibular issues. No further PT required. - Subjective Has still some minor issues with veritgo. Had an issue 3 yrs ago where he got dizzy and called 911 which happened again this past [place]. Those lasted a few hours of spinning. it went away itself. has been apprehensive with movement since then. Looking up to gargle is hesitant. If looks up to fast he can feel it described as quick loss of equilibrium lasting a few seconds. feels good walking in between. no falls due to dizzyness. Activities: pretty normal. Standing too quick can cause it . blood pressure is normal on meds. Retired. Works out a little bit. Enjoys [employer] and [employer]. Sleep is good. - Objective Walks in and out of PT I, trasnfers I and normal. has some quick dizzyness sitting up from lying down for 2 seconds. cervical aROM WFL and without pain. UE aROM WFL. - B hallpike juan alberto. - roll test. no nystagmus or dizzyness until sitting up from each side. Oculomotor: no nystagmus with gaze or head shake. - skew eye deviation. - ocular tilt. - head thrust. normal convergence. normal pursuit. normal saccades. VOR is asymptomatic H and V 30 seconds and good eye movement. Overall vestibular system looks clear. Explained possibilities of orthostatic causing dizzyness and what to look for in this and safety with arising. - Balance/Special Test Scores Functional Gait Assessment Score: 29 % Disability: 3.3400 Dizziness Score: 16 - Rehabilitation Potential Physical Therapy Diagnosis: No obvious signs of vestibular problems - Anticipated Interventions Thank you for the opportunity to evaluate your patient. For Medicare and Medicare HMO plans, please review the plan of care and approve it. It will need to be FAXED BACK to us at [phone] for Medicare purposes. For Medicare only, by signing this I certify the plan of care. Please let me know if there are questions or concerns regarding this plan of care. Physician Signature: Date:
== END 2021-08-23 19:00 | disposition home or self-care (01) ==
LOC: PT 09:45
PROVIDERS: PCP Family Medicine; Visit Provider Family Medicine
DX: H81.10 Benign paroxysmal vertigo, unspecified ear (principal)
CPT/HCPCS: 97162

== ENCOUNTER → 2021-10-15 | Outpatient (CLI) | payer MEDICARE, SELFPAY ==
[2021-10-15 08:31] LABS: Bacteria 0 SEEN /hpf (None Seen); Mucous, Urine 0 SEEN /hpf (<or=2+); Red Blood Cells-Urine 0 SEEN /hpf (0-5); Squamous Epithelial Cells - UA 0 SEEN /hpf (0-5); White Blood Cells 0 SEEN /hpf (0-5)
[2021-10-15 10:16] LABS: Color, Urine Yellow (Yellow); Glucose, Dipstick Normal (Normal); Ketone-Dipstick Negative (Negative); Leukocyte Esterase-Dipstick Negative /ul (Negative); Nitrite-Dipstick Negative (Negative); Occult Blood-Urine Negative /ul (Negative); Protein-Dipstick Negative (Negative); Specific Gravity, Urine 1.015 (1.002-1.030); Urine Bilirubin Dipstick Negative (Negative); Urine Clarity Clear (Clear); Urine Urobilinogen Normal (Normal); Urine pH 6.5 (5.0 - 8.0)
[2021-10-15 10:29] LABS: ALB/GLOB Ratio 1.1 RATIO (0.9-2.4); AST(SGOT) 14 U/L (15-37); Alanine Aminotransfer ALT/SGPT 30 U/L (16-61); Albumin, Serum 3.8 g/dL (3.2-5.0); Alkaline Phosphatase 64 U/L (45-117); Anion Gap 7 (5-15); BUN 15 mg/dL (7-18); BUN/Creat Ratio 14.9 RATIO (10-20); Calcium,Total 9.1 mg/dL (8.5-10.1); Chloride 104 mmol/L (98-107); Cholesterol 127 mg/dL (200); Creatinine, Serum 1.01 mg/dL (0.70-1.30); EST Glomerular Filtration Rate 76 mL/min (>60); Est Glom Filt Rate - Afr Amer 92 mL/min (>60); Globulin 3.5 g/dL (2.2-4.2); Glucose 92 mg/dL (74-106); High Density Lipoprotein 53 mg/dL; Potassium 4.1 mmol/L (3.5-5.1); Protein, Total 7.3 g/dL (6.4-8.2); Sodium Level 143 mmol/L (136-145); Triglycerides 84 mg/dL; Very Low Density Lipoprotein 17 mg/dL (5-40)
== END | disposition home or self-care (01) ==
PROVIDERS: PCP Family Medicine; Referring Provider Family Medicine; Visit Provider Family Medicine
DX: R42 Dizziness and giddiness (principal); E78.00 Pure hypercholesterolemia, unspecified
CPT/HCPCS: 36415; 80053; 80061; 81001

== ENCOUNTER → 2022-06-19 | Outpatient (CLI) | payer MEDICARE, SELFPAY ==
--- NOTE | 2022-06-18 | LES_PTH ---
PATIENT: RACHEL CAGE LOC: [facility] U#:[id number] AGE/SX: 81/M ROOM: RE06/19/[address]: Dr. George Umanzor MD : 1940 BED: DIS: 06/19/2022 SPEC #: [id number] RECD: 06/19/22 10:02 STATUS: ZHAO BURNSSuyapa #: [id number] TANYA: 06/18/22 00:[address]: George Umanzor DEPT: SURGICAL PATHOLOGY RECD BY: Carine Franklin Tissues: A - Skin of chest B - Skin of face, NOS Procedures: Surgery Specimen Level IV HEADER OPERATION: Punch biopsy chest, biopsy left cheek PRE-OP DIAGNOSIS: ? melanoma, ? BCC TISSUE SUBMITTED: A ? Chest, B ? Left cheek MICROSCOPIC DIAGNOSIS A. Skin lesion of chest, punch biopsy: Benign melanophages present. No evidence of malignancy. See comment. B. Skin lesion of left cheek, shave biopsy: Very superficial fragments of squamous epithelium with solar elastosis, hyperkeratosis and parakeratosis. Organisms consistent with tenia. Organisms consistent with Demodex folliculorum. See comment. AM:lance 06/20/2022 COMMENT A. Immunohistochemistry ([id number]) supports the above diagnosis. B. The lesion is present at the site. Complete excision is recommended for definitive classification. MICROSCOPIC DESCRIPTION Slides are reviewed. GROSS DESCRIPTION A - Received in fixative is one container labeled with the patient's name and designated chest. The specimen consists of a dark curtis punch biopsy of skin measuring 0.5 x 0.5 x 0.3 cm. The specimen is totally submitted in one cassette. B - Received in fixative is one container labeled with the patient's name and designated left cheek. The specimen consists of a light curtis shave biopsy of skin measuring 0.3 x 0.3 x 0.1 cm. The specimen is totally submitted in one cassette. / AM:lance 06/19/2022 TC:3 CPT: 65134 x2
--- NOTE | 2022-06-18 | IMM_PTH ---
PATIENT: RACHEL CAGE LOC: [facility] U#:[id number] AGE/SX: 81/M ROOM: RE06/19/[address]: Dr. George Umanzor MD : 1940 BED: DIS: 06/19/2022 SPEC #: [id number] RECD: 06/20/22 13:32 STATUS: ZHAO RESuyapa #: [id number] TANYA: 06/18/22 00:[address]: George Umanzor DEPT: IMMUNOHISTOCHEMISTRY RECD BY: Pamela Mckeon Tissues: A - Skin of chest Procedures: CK5-6 (add) MELAN-A (add) S100 (initial) CD68 (ADD) PHYSICIAN & INSTITUTION [place] [id number] SPECIMEN INFORMATION: Tissue Source: A - Chest Clinical Info: Chest lesion Specimen Number: [id number] CPT code: 86759, 58113 x3 METHODOLOGY: Deparaffinized sections of prefer/formalin-fixed tissue or PAP/DQ stained slides are incubated with monoclonal/polyclonal antibodies/oligonucleotide probes. Localization is made via biotin free immunoperoxidase method. Appropriate controls are performed and reacted as expected. Results on target cell population are indicated in the following table: RESULTS: ANTIBODY / CLONE RESULT Block A S-100 (4C4.9) negative Melan A (A103) negative CD68 (KP-1) negative CK5-6 (D5 & 1684) negative These tests were developed and their performance characteristics determined by [facility]. They may not have been cleared or approved by the U.S. Food and Drug Administration. The FDA has determined that such clearance or approval is not necessary. The above immunohistochemical/dualISH markers are ordered and reviewed by the Pathologist. INTERPRETATION: A. Chest, punch biopsy: No evidence of malignancy. AM:lance 06/23/2022
== END | disposition home or self-care (01) ==
LOC: LABSPEC 10:17
PROVIDERS: PCP Family Medicine; Referring Provider Family Medicine; Visit Provider Family Medicine
DX: C43.39 Malignant melanoma of other parts of face (principal)
CPT/HCPCS: 88305; 88341; 88342

== ENCOUNTER 2022-12-09 12:30 | Outpatient (RCR) | payer MEDICARE, SELFPAY ==
--- NOTE | 2022-09-23 13:15 | HP.PTEVAL ---
Patient's Visit Information Visit Information Visit Information: RACHEL CAGE is a 81 year old M referred to Physical Therapy by Dr. Chino Doe MD with a diagnosis of Bilateral Knee Pain. Date of Evaluation: 09/23/22 Physical Therapist: Grisel Williamson DPT Visit Plan Frequency: 1x/Week Duration: 6 Weeks Plan: Patient to be I with HEP- follow up in 4 weeks- call if questions HEP Given IE: SLS, HR/RT,Sit to Stand, HS Stretch, Gastroc Stretch, Step Up, Step Down, Inchworms Subjective Subjective: Patient reports that he has knee pain on both- bone on bone when he goes up/down the stairs. He went to the MD for injections 6-8 months ago which helped 95% better- they are now 85% better- they are pretty much staying the same. Coming down stairs is more iffy than going up- its more that its unstable- right more than left. On a normal basis they don't bother him. He is more here just to get a tune up of the exercises from 3 years ago that he still has. Occasionally he is does the inchworms with a green band. Worst: 03/28 Agg: going down the stairs, twisting when he is turning it catches. Most of the time he is painfree. He does not wear any sort of braces. He is not normally active. He likes to golf 1x a week- he golfs all over- rides in a cart-18 holes. Does not feel that his knees are a limiting factor of his life. No cane or walker. Sleep: not disturbed- does have leg cramps- only drinks 1-2 bottles of water a day. No falls- rarely- very conscious of his dizziness and gets up slowly. Fully I with all ADL's. Objective Objective: Objective: Posture: FH, RS- can correct but does not maintain Gait: no deviation noted HR/TR: able without UE A Edema: no significant swelling noted today SLS: 15 sec- mild increase in sway Stairs: asc/desc 8'' recip with 1 HR- poor control with descent Palpation: not tender to touch ROM:0-145 degrees Strength: Core: fair minus, Hip: 4+/5 throughout, Knee: Extn: 4+ Flex: 4+ Ankle: 5/5 Flex: HS: severe Gastroc: severe Sit to Stand: able without UE Balance/Special Test Scores Lower Extremity Functional Score: 55 Goals Goal 1:: Patient will be I with HEP and progression Goal Time Frame: 4-6 Weeks Goal 2:: Patient will asc/desc 8 recip with good mechanics and no HR Goal Time Frame: 4-6 Weeks Goal 3:: Patient will SLS for 30 sec without LOB Goal Time Frame: 4-6 Weeks Goal 4:: Patient will report 80% Improvement Goal Time Frame: 4-6 Weeks Rehabilitation Potential Physical Therapy Diagnosis: Patient presents with hypomobility- he has decreased LE and core strength/stabilization, flex and muscular endurance leading to decreased ability to perform ADL's Rehabilitation Potential: Good Anticipated Interventions Patient/Client Instruction: Educate patient on: Benefits of Fitness Program Therapeutic Exercise to Include: Strength training, Endurance training, Balance training, Coordination, Agility training, Body mechanics, Postural training, Flexibilty training, Gait and locomotor training, Dynamic Lumbar Stabilization and Scapular Strength/Stabilization Text: Thank you for the opportunity to evaluate your patient. For Medicare and Medicare HMO plans, please review the plan of care and approve it. It will need to be FAXED BACK to us at [phone] for Medicare purposes. For Medicare only, by signing this I certify the plan of care. Please let me know if there are questions or concerns regarding this plan of care. Physician Signature: Date:
--- NOTE | 2022-12-09 14:24 | HP.PTEVAL2_ITS ---
Patient's Visit Information Visit Information Visit Information: RACHEL CAGE is a 82 year old M referred to Physical Therapy by Dr. Chino Doe MD with a diagnosis of SPINAL STENOSIS LUMBAR REGION,SPONDYLOSIS ,LUMBAR REGION ,DDD LUMBAR. Date of Evaluation: 12/09/22 Physical Therapist: Rachel Marley, PT, Cert MDT, OCS Visit Plan Frequency: 2x /Week Duration: 4 Weeks Plan: WILL TRY HEP ON OWN PT INTERVETIONS POSTURAL EX'S ,DLS ,LE FLEXABILITY AND MODIFICATION ACTIVITY Subjective Subjective: This 82 y/o male presents to physical therapy with lumbar pain. Patient had episode of back pain when attempting to get OOB ~ 1 month seen recommended PT and did x-rays showed spinal stenosis and DDD. No medication. Aggravating factors not specific. Alleviating factors rest watch how I lift. Denies paresthesia/tingling. Bowel/bladder - Sleeping good. No h/o back pain. Patient recently seen for knees . Patient pain goals to manage pain. Patient has no h/o PT except knees and vertigo. Location right lumbar. Patient goals no pain. SOCIAL: VOCATION: retired HOBBIES: golfing Objective Objective: POSTURE: mild forward posture GAIT: reciprocal pattern mild forward posture NEURO: denies paresthesia/tingling ,reflexes L3-4,L4-5,L5-S1 1/3 PALAPTION: unremarkable FLEXABLITY : hamstrings min tight MMT: quads/hamstrings /hip flexion 4/5 ,ankle 5/5 LUMBAR ROM: flexion min/mod loss ,side glides mod loss Special Tests Slump test left side: Negative Slump test right side: Negative Left Straight Leg Raise: Negative Right Straight Leg Raise: Negative Flexion - Mechanical Response: No effect Flexion - Symptoms During Testing: No effect Flexion - Symptoms After Testing: No effect Extension - Mechanical Response: No effect Extension - Symptoms During Testing: No effect Extension - Symptoms After Testing: No effect Right Side Glides - Mechanical Response: No effect Right Side [place] - Symptoms During Testing: No effect Right Side [place] - Symptoms After Testing: No effect Left Side [place] - Mechanical Response: No effect Left Side [place] - Symptoms During Testing: No effect Left Side [place] - Symptoms After Testing: No effect Goals Goal 1:: Patient to be I with HEP LUMBAR Goal Time Frame: 4-6 Weeks Goal 2:: Patient to improve lumbar ROM for function of recovery for ADLS and golfing Goal Time Frame: 4-6 Weeks Goal 3:: Patient to demonstrate 50% improvement with increase function and less pain. Goal Time Frame: 4-6 Weeks Goal 4:: Patient to improve lumbar oswestry score by 5 points or > improve QOL. Goal Time Frame: 4-6 Weeks Rehabilitation Potential Physical Therapy Diagnosis: This patient stenosis with episode of lumbar pain with decrease ROM ,postural and flexibility thus will benefit from PT and HEP Rehabilitation Potential: Good Anticipated Interventions Patient/Client Instruction: Educate patient on: Condition and Plan of Care For the Purpose of:: To decrease pain, To increase ROM, To improve muscle performance and motor function, To improve ability to perform ADL's, To increase tolerance to activity/condition/position, To improve ability of physical actions for home/community/work/leisure, To improve health of tissue and To prevent re- injury Therapeutic Exercise to Include: Strength training, Endurance training, Coordination, Postural training, Flexibilty training and Dynamic Lumbar Stabilization For the Purpose of:: To decrease pain, To increase ROM, To improve muscle performance and motor function, To increase tolerance to activity/condition/position, To improve ability of physical actions for home/community/work/leisure, To improve health of tissue, To decrease soft tissue restriction, To increase flexibility/ROM, To improve balance and To improve tolerance to ADL's text: Thank you for the opportunity to evaluate your patient. For Medicare and Medicare HMO plans, please review the plan of care and approve it. It will need to be FAXED BACK to us at [phone] for Medicare purposes. For Medicare only, by signing this I certify the plan of care. Please let me know if there are questions or concerns regarding this plan of care. Physician Signature: Date:
== END 2022-12-09 19:00 | disposition home or self-care (01) ==
LOC: PT 12:30
PROVIDERS: PCP Family Medicine; Referring Provider Specialist; Visit Provider Specialist
DX: M17.0 Bilateral primary osteoarthritis of knee
CPT/HCPCS: 97110; 97162

== ENCOUNTER → 2024-01-28 | Outpatient (CLI) | payer MEDICARE, SELFPAY ==
[2024-01-28 15:58] LABS: ALB/GLOB Ratio 1.2 RATIO (0.9-2.4); AST(SGOT) 15 U/L (15-37); Alanine Aminotransfer ALT/SGPT 21 U/L (16-61); Alkaline Phosphatase 72 U/L (45-117); Anion Gap 5 (5-15); BUN 16 mg/dL (7-18); BUN/Creat Ratio 17.6 RATIO (10-20); Calcium,Total 9.4 mg/dL (8.5-10.1); Chloride 104 mmol/L (98-107); Cholesterol 128 mg/dL (200); Creatinine, Serum 0.91 mg/dL (0.70-1.30); EST Glomerular Filtration Rate 85 mL/min (>60); Est Glom Filt Rate - Afr Amer 103 mL/min (>60); Globulin 3.4 g/dL (2.2-4.2); Glucose 100 mg/dL (74-106); High Density Lipoprotein 55 mg/dL; Potassium 3.8 mmol/L (3.5-5.1); Protein, Total 7.4 g/dL (6.4-8.2); Sodium Level 138 mmol/L (136-145); Triglycerides 110 mg/dL; Very Low Density Lipoprotein 22 mg/dL (5-40)
== END | disposition home or self-care (01) ==
PROVIDERS: PCP Family Medicine; Referring Provider Family Medicine; Visit Provider Family Medicine
DX: E78.5 Hyperlipidemia, unspecified (principal)
CPT/HCPCS: 36415; 80053; 80061

== ENCOUNTER 2024-05-06 15:39 | Emergency (ER) | payer MEDICARE, SELFPAY ==
[2024-05-06] VITALS (7 sets, daily range): BP systolic 133–168; BP diastolic 70–100; PULSE 76–101; RESP 14–20; TEMP 35.7–36.8; O2SAT 97–98; BMI 25.4; BMI 24.7
--- NOTE | 2024-05-06 16:04 | CT_ITS ---
EXAM: STROKE BRAIN/HEAD WITHOUT CONT CLINICAL HISTORY: 83 y/o M with NEURO DEFICIT, ACUTE, STROKE SUSPECTED. Patient reports approximately 20-30 minute episode of difficulty with word finding last night. COMPARISON: CTA head and neck 02/09/2021 TECHNIQUE: Routine CT imaging of the head without IV contrast. Additional multiplanar reformats were obtained. Dose reduction techniques were used including intermediate exposure control (AEC),iterative reconstruction technique, and/or mA and/or KV dose adjustments based on patient's size. FINDINGS: Mild generalized cerebral and cerebellar volume loss with concordant prominence of the ventricles and subarachnoid spaces. Moderate patchy supratentorial white matter hypodensities. 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 The mendez-white matter interfaces are otherwise maintained. No acute intracranial hemorrhage or herniation. Mucous retention cyst or polyp within the right anterior ethmoid air cell. The orbits, visualized paranasal sinuses and mastoids are otherwise unremarkable. No acute calvarial fracture or scalp hematoma. CT/STROKE Brain/Head without Cont IMPRESSION: 1. No acute intracranial finding. 2. Findings of chronic microvascular ischemic changes and age-related changes. Findings were discussed via telephone by Dr. Cee with Dr. Waters at 5:05 p. m. on 05/06/2024. Reading Location: [id number]
--- NOTE | 2024-05-06 16:04 | EKG12_ITS ---
Test Reason : Blood Pressure : */* mmHG Vent. Rate : 92 BPM Atrial Rate : 92 BPM P-R Int : 220 ms QRS Dur : 106 ms QT Int : 364 ms P-R-T Axes : 27 14 61 degrees QTcB Int : 450 ms Sinus rhythm with 1st degree A-V block Otherwise normal ECG Confirmed by AMY STATON, PRASHANTH ([id number]), commissioning editor SIA SHEFFIELD ([id number]) on 05/09/2024 6:45:46 AM Referred By: Confirmed By: PRASHANTH REYES MD
--- NOTE | 2024-05-06 16:05 | CT_ITS ---
PROCEDURE: STROKE CTA HEAD AND NECK W/CON 05/06/2024 REASON FOR EXAM: NEURO DEFICIT, ACUTE, STROKE SUSPECTED TECHNIQUE: CTA imaging of the head and neck from the aortic arch to the skull vertex with intravenous contrast. Coronal and Sagittal reconstruction series were provided. 3D, 3D post processing, 3D reconstructions, Maximum intensity projection (MIPs) Volume rendering and Shaded surface rendering was provided. CONTRAST: Isovue-300 VOLUME: 100ML One or more dose reduction techniques were used (e.g., Automated exposure control, adjustment of the mA and/or kV according to patient size, use of iterative reconstruction technique). RADIATION DOSE SUMMARY: CTDlvol: 46 mGy DLP: 709 mGycm COMPARISON: Same-day CT head, CTA head and neck 02/09/2021. FINDINGS: See separately dictated same day CT head for discussion of nonvascular findings. Moderate mixed atherosclerotic plaque throughout the aortic arch and its branch vessels. Standard aortic arch branch vessel pattern. Dominant right vertebral artery. The bilateral vertebral arteries are patent without focal stenosis or occlusion. Mild calcific atherosclerosis of the right common carotid artery resulting in less than 50% narrowing by NASCET criteria. Moderate mixed atherosclerotic plaque of the left common carotid artery resulting in approximately 50% narrowing by NASCET criteria. Minimal calcific plaque of the bilateral internal carotid and intracranial carotid arteries. No focal stenosis or occlusion. The anterior, middle and posterior cerebral arteries are widely patent. Patent left [id number]. No arteriovenous malformation or aneurysm. Major venous structures: Unremarkable. Other findings: Partially visualized left apical pleural thickening. Cervical spondylosis. Multiple periapical lucencies. CT/STROKE CTA Head AND Neck W/Con IMPRESSION: 1. No large vessel occlusion, AVM or aneurysm. 2. Approximately 50% narrowing of the left common carotid artery. Unremarkable right common carotid artery. 3. Partially visualized left apical pleural thickening, which is indeterminate in etiology. Correlation with patient history and prior imaging recommended. Reading Location: [id number]
--- NOTE | 2024-05-06 16:20 | EDS_ITS ---
HPI History of Present Illness Chief Complaint: Neuro S/Sx Detail of Chief Complaint: Expressive aphasia Informant: patient and spouse/S.O. Onset/Context/Timing Onset: Yesterday (2199) Context: Sudden Onset Timing: Intermittent and Lasts (15 to 20 minutes) Quality and Location: Positive for Expressive Aphasia Onset: Last evening 2199 Current Severity: Gone Maximum Severity: Severe Worsened by: Nothing Relieved by: Nothing Associated Symptoms Associated Symptoms: Positive for Headache (Patient did report mild right-sided headache. Headache has resolved); Negative for Nausea, Vomiting or Chest Pain Narrative Narrative: Patient is an 83-year-old male. He has history of elevated cholesterol. He has arthritis. He states he had trouble speaking last evening. This started abruptly and lasted approximately 15 to 20 minutes. states his words did not make sense. They were not slurred. He did have a slight right-sided headache. He has no history of headaches. He is never smoked. There is no history of recent trauma. He is on a baby aspirin and statin. He denied double vision blurred vision loss of vision. He states he has pr oblems with vision left eye and needs cataract surgery. He denies ringing in ears or decreased hearing. He no trouble with swallowing. He denies cardiac or respiratory symptoms. He denied abdominal pain, nausea vomiting or diarrhea. He denied paresthesia, anesthesia or motor weakness upper lower extremity. He does have history of vertigo and takes meclizine for dizziness. He denies history of TIA or CVA. Review of prior records indicates he had an echo which were revealed no PFO in 2018. He had Dopplers of his carotids 2019 which revealed less than 50% stenosis. Prior similar symptoms: No Recent Illness/Hospitalization: No PFSH PFSH Medical History Viral URI History of steroid therapy Wears glasses Arthritis Vertigo Non-smoker Leg cramps History of echocardiogram Home Medications ?Medication ?Instructions ?Recorded ?Last Taken ?Type aspirin 81 mg chewable tablet 81 mg PO DAILY@0800 HEAR T 02/15/14 04/06/21 History atorvastatin 20 mg tablet 20 mg PO QHS #30 tabs Unknown Rx meclizine 25 mg tablet 25 mg PO TID PRN dizziness # 14 tabs 02/09/21 Unknown Rx meloxicam 7.5 mg tablet 7.5 mg PO DAILY PRN shoulder pain 02/09/21 Unknown History cpgosuie-fqwukary-katmy acid 400 1 tab PO DAILY supple ment 04/05/21 Unknown History mcg-vit K 20 mcg-lycop 300 mcg tablet (Men's Multivitamin) senna 600 mg tablet 600 mg PO QHS stool softener 04/05/21 Unknown History oxycodone-acetaminophen 5 mg-325 1 tab PO Q4H PRN pain 5 days #20 04/12/21 Unknown Rx mg tablet (Percocet) tabs atorvastatin 40 mg tablet 40 mg PO DAILY #30 tabs 04/17 03/12 Unknown Rx Allergy/AdvReac Type Severity Reaction Status Date / Time No Known Allergies Allergy Verified 05/06/24 15:40 Family History no significant family his Surgical History History of appendectomy History of shoulder surgery Social History (Updated 05/06/24 @ 16:[address] Issa Waters MD) household members: spouse Smoking Status: Never smoker ROS ROS ED Constitutional Constitutional ED: Denies chills, fever(s), subjective or sweats Eyes Eyes: Denies blurry vision, change in vision or diplopia ENT ENT ED: Denies ear pain, rhinorrhea or sore throat Cardiovascular Cardiovascular: Denies chest pain or palpitations Respiratory/Chest Respiratory/Chest: Denies cough, dyspnea or dyspnea on exertion Gastrointestinal Gastrointestinal: Denies abdominal pain, nausea or vomiting Musculoskeletal Musculoskeletal: Denies arthralgias or myalgias Integumentary Denies rash Neurologic Neurologic: Reports headache(s); Denies paresthesias or weakness Hematologic/Lymphatic Hematologic/Lymphatic: Denies easy bleeding or easy bruising EXAM Physical Exam Const Vital Signs: 05/06/24 15:40 05/06/24 16:04 05/06/24 16:15 Temperature 96.2 F L Temperature Source Temporal Pulse Rate 101 H 95 Respiratory Rate 14 Blood Pressure 133/70 H 162/100 H Blood Pressure Mean 91 120 Pulse Ox 98 98 Oxygen Delivery Method Room Air Room Air Room Air 05/06/24 16:34 05/06/24 17:04 05/06/24 17:30 Temperature Temperature Source Pulse Rate 79 76 76 Respiratory Rate 16 14 20 H Blood Pressure 151/95 H 168/93 H 149/86 H Blood Pressure Mean 113 118 107 Pulse Ox 98 97 97 Oxygen Delivery Method Room Air 05/06/24 18:14 Temperature Temperature Source Pulse Rate 76 Respiratory Rate 16 Blood Pressure 153/87 H Blood Pressure Mean 109 Pulse Ox 97 Oxygen Delivery Method Negative for well nourished or well developed General Appearance ED: NAD; Negative for well developed HEENT Reports moist mucous membranes atraumatic Eyes PERRL and EOMs intact bilaterally Eyes Narrative: There is no nystagmus. General Eye ED: Negative for pale conjunctiva or scleral icterus Neck no lymphadenopathy, supple and no JVD Neck Narrative: There are no carotid bruits. Chest Wall inspection of chest normal Resp normal respiratory effort and clear to auscultation bilaterally Cardio no murmurs Rate: regular rate Rhythm: regular rhythm Heart Sounds: S1 normal and S2 normal GI normal to inspection, nondistended, normoactive bowel sounds, soft to palpation, non-tender, non-distended and no masses Extremity normal to inspection Extremity Narrative: Right knee is slightly larger in size. He had prior surgery in the right side. Neuro oriented x3, CN's II-XII intact bilaterally and no sensory deficits noted [place] Coma Scale: document GCS findings Spontaneous Obeys Commands Oriented 15 Sensorium / Orientation: alert Motor Exam: strength 5/5 throughout Psych mental status grossly normal Skin General Skin Exam: Negative for jaundice Lesions: no lesions Rashes: no rashes NIHSS NIHSS Initial: 1a Level of Consciousness: 0 1b LOC Questions (Score 2 if aphasic/stupor): 0 1c LOC Commands (Only score 1st attempt): 0 2 Best Gaze (If aphasic, use reflexive mvmts.): 0 3 Visual: 0 4 Facial Palsy: 0 5 Motor Arm Right (UN = amputation/fusion): 0 5 Motor Arm Left: 0 6 Motor Leg Right: 0 6 Motor Leg Left: 0 7 Limb ataxia (Only + if out of proportion): 0 8 Sensory (Aphasia/stupor=0 or 1, coma=2): 0 9 Best Language: 0 10 Dysarthria (mute, coma=2, intubated=UN): 0 11 Extinction and Inattention (only scored if +): 0 Total Score: 0 MDM MDM MDM Narrative Medical decision making narrative: Patient presents with symptoms consistent with expressive aphasia last evening. Stroke order set was initiated. Will discuss case with stroke neurologist. Patient has low risk for future events. Will discuss specifically with neurologist whether patient needs to be admitted for rapid inpatient evaluation versus outpatient evaluation. Lab Data Labs: Laboratory Results - last 24 hr 05/06/24 05/06/24 16:10 18:16 WBC 4.9 RBC 4.17 L Hgb 12.6 L Hct 38.2 L MCV 91.6 MCH 30.2 MCHC 33.0 RDW Std Deviation 43.5 RDW Coeff of Eduard 12.9 Plt Count 205 MPV 9.4 Immature Gran % (Auto) 0.200 Neut % (Auto) 57.8 Lymph % (Auto) 28.7 [place] % (Auto) 10.7 H Eos % (Auto) 1.6 Baso % (Auto) 1.0 Absolute Neuts (auto) 2.8 Absolute Lymphs (auto) 1.40 Nucleated RBC % 0 PT 13.9 INR 1.1 APTT 34.8 Sodium 139 Potassium 4.2 Chloride 103 Carbon Dioxide 26.8 Anion Gap 10 BUN 18 Creatinine 0.92 Estim Creat Clear Calc 67.07 Est GFR (MDRD) Non-Af 84 BUN/Creatinine Ratio 19.1 Glucose 103 H Calcium 9.2 Troponin T High Sens 17 Troponin T Hi Sens 2 Hr 18 Radiography Diagnostic Testing: Clinical Impression(s) from Imaging Studies Brain CT 05/06/24 16:04 IMPRESSION: 1. No acute intracranial finding. 2. Findings of chronic microvascular ischemic changes and age-related changes. Findings were discussed via telephone by Dr. Cee with Dr. Waters at 5:05 p.m. on 05/06/2024. Reading Location: [facility] Head/Neck CTA 05/06/24 16:05 IMPRESSION: 1. No large vessel occlusion, AVM or aneurysm. 2. Approximately 50% narrowing of the left common carotid artery. Unremarkable right common carotid artery. 3. Partially visualized left apical pleural thickening, which is indeterminate in etiology. Correlation with patient history and prior imaging recommended. Reading Location: [facility] Management Discussion w/another healthcare provider: [place] Line Attendant (Spoke with the stroke neurologist at [facility]. He is in agreement patient can be worked up as an outpatien t. He agrees to increase in his statin dose.), Radiologist (Radiologist contacted me regarding the CT of the head without contrast and CTA of the head and neck. These reported verbally as negative. The written report for the unenhanced scan has been completed and reviewed.) and PCP (Spoke with Dr. George Villalba. He will complete workup as an outpatient. He was informed of patient's history physical recommendations by neurologist.) Treatment and Re-Evaluation Narrative: [place] was asked to page the [facility] stroke neurologist regarding patient and asked specifically if he will need an inpatient workup or if he can be safely discharged for outpatient workup with close follow-up with his doctor. If the latter is the case we will contact his physician Dr. George Umanzor. Stroke Documentation Questions Stroke Team Activated: No Reviewed Inclusion/Exclusion criteria: No IV Thrombolytic Administered: No No contraindications from thrombolytic administration: No Discharge Plan Triage Chief Complaint: Neuro S/Sx ED Provider: Issa Waters Dx/Rx/DC Orders Clinical Impression: Brain TIA, Expressive aphasia, Hypercholesterolemia, Elevated blood-pressure reading without diagnosis of hypertension Instructions: ED Hypertension, To Be Confirmed, ED TIA: Transient Ischemic Attack Prescriptions: New atorvastatin 40 mg tablet 40 mg PO DAILY Qty: 30 2RF No Action aspirin 81 MG tablet,chewable 81 mg PO DAILY@0800 Patient Comments: heart health atorvastatin 20 MG tablet 20 mg PO QHS Qty: 30 0RF meloxicam 7.5 mg tablet 7.5 mg PO DAILY PRN (Reason: shoulder pain) Patient Comments: Take1 TABLET by mouth twice a day meclizine 25 mg tablet 25 mg PO TID PRN (Reason: dizziness) Qty: 14 0RF senna 600 mg Tablet 600 mg PO QHS Men's Multivitamin 400-20-300 mcg Tablet 1 tab PO DAILY oxycodone-acetaminophen [Percocet] 5-325 mg tablet 1 tab PO Q4H PRN (Reason: pain) 5 Days Qty: 20 0RF Primary Care Provider: George Umanzor Referrals: George Umanzor MD [Primary Care Provider] - Print Language: Hong Konger Disposition Disposition: Home, Self Care
[2024-05-06 16:31] LABS: Absolute Neutrophil Count 2.8 X10^3/uL (2.0-7.7); Basophil# 0.05 X10^3/uL; Eosinophil# 0.08 X10^3/uL; Eosinophils% 1.6 % (0-5); Hematocrit 38.2 % (40-54); Hemoglobin 12.6 g/dL (13.0-16.5); Lymphocyte % 28.7 % (19-41); Mean Corpuscular Hgb 30.2 pg (27.0-32.0); Mean Corpuscular Volume 91.6 fL (80-94); Mean Platelet Vol. 9.4 fl (6.2-12.0); Monocyte# 0.52 X10^3/uL; Monocyte% 10.7 % (0-10); NRBC Flagged by Analyzer 0 % (0-5); Neutrophil # 2.81 X10^3/uL (2.7-7.7); Neutrophil % 57.8 % (47-70); Platelet Count 205 K/mm3 (150-450); RBC Distribution Width CV 12.9 % (11.6-14.6); RBC Distribution Width SD 43.5 fl (35.1-43.9); Red Blood Count 4.17 M/mm3 (4.6-6.2); White Blood Count 4.9 K/mm3 (4.4-11.0)
[2024-05-06 16:35] LABS: International Normalized Ratio 1.1; Prothrombin Time (Protime)PT. 13.9 SECONDS (11.7-14.9)
[2024-05-06 16:36] LABS: Partial Thromboplast Time 34.8 Seconds (24.1-36.2)
[2024-05-06 16:45] LABS: Anion Gap 10 (5-15); BUN 18 mg/dL (4-19); BUN/Creat Ratio 19.1 RATIO (10-20); Calcium,Total 9.2 mg/dL (7.6-11.0); Carbon Dioxide 26.8 mmol/L (21.0-32.0); Chloride 103 mmol/L (98-108); Creatinine, Serum 0.92 mg/dL (0.70-1.20); EST Glomerular Filtration Rate 84 (>60); Estimated Creatinine Clearance 67.07 ml/min (50-250); Glucose 103 mg/dL (70-99); Potassium 4.2 mmol/L (3.3-5.1); Sodium Level 139 mmol/L (133-145); Troponin T High Sensitivity 17 ng/L (<=22)
--- NOTE | 2024-05-06 17:54 | ED.RN ---
per dr. bright [facility]
[2024-05-06 18:54] LABS: Troponin T High Sens 2 HR 18 ng/L (<=22)
== END 2024-05-06 19:41 | disposition home or self-care (01) ==
PROVIDERS: Emergency Provider Emergency Medicine; PCP Family Medicine; Visit Provider Emergency Medicine
DX: I63.9 Cerebral infarction, unspecified (principal); R47.01 Aphasia; E78.00 Pure hypercholesterolemia, unspecified; Z79.82 Long term (current) use of aspirin; R03.0 Elevated blood-pressure reading, without diagnosis of hypertension; Z90.49 Acquired absence of other specified parts of digestive tract
CPT/HCPCS: 70450; 70496; 70498; 80048; 84484; 85025; 85610; 85730; 93005; 99284; Q9967; A4216

== ENCOUNTER 2024-05-14 15:17 | Observation (INO) | payer MEDICARE, SELFPAY ==
[2024-05-14] VITALS (12 sets, daily range): BP systolic 147–166; BP diastolic 71–92; PULSE 77–98; RESP 16–18; TEMP 36.3–36.7; O2SAT 96–99; BMI 25.3; BMI 24.9
--- NOTE | 2024-05-14 15:23 | CT_ITS ---
PROCEDURE: STROKE BRAIN/HEAD WITHOUT CONT N/A REASON FOR EXAM: NEURO DEFICIT, ACUTE, STROKE SUSPECTED TECHNIQUE: Head CT without intravenous contrast. Coronal and Sagittal reconstruction series were provided. One or more dose reduction techniques were used (e.g., Automated exposure control, adjustment of the mA and/or kV according to patient size, use of iterative reconstruction technique. RADIATION DOSE SUMMARY: CTDlvol: 44.99 mGy DLP: 812.98 mGycm FINDINGS: Brain: No mass, mass effect or intra-axial hemorrhage. No extra-axial hemorrhage. There is moderate periventricular and deep white matter hypoattenuation suggesting microangiopathy (small-vessel ischemic disease). CSF Spaces: Ventricles and sulci are prominent indicating age-related involution. 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 No acute process. No hemorrhage. Reading [facility]
--- NOTE | 2024-05-14 15:23 | CT_ITS ---
PROCEDURE: STROKE CTA HEAD AND NECK W/CON 05/14/2024 REASON FOR EXAM: NEURO DEFICIT, ACUTE, STROKE SUSPECTED TECHNIQUE: CTA imaging of the head and neck from the aortic arch to the skull vertex with intravenous contrast. Coronal and Sagittal reconstruction series were provided. 3D, 3D post processing, 3D reconstructions, Maximum intensity projection (MIPs) Volume rendering and Shaded surface rendering was provided. CONTRAST: VOLUME: 100mL IV One or more dose reduction techniques were used (e.g., Automated exposure control, adjustment of the mA and/or kV according to patient size, use of iterative reconstruction technique). # of known CTs in the past 12 months: 1 # of known Cardiac Nuclear Medicine Studies in the past 12 months: 0 RADIATION DOSE SUMMARY: CTDlvol: 18.55 mGy DLP: 726.54 mGycm CONTRAST: VOLUME: 100mL IV COMPARISON: Stroke CTA of 05/06/2024 FINDINGS: Aortic Arch: Moderate mixed plaque throughout the aortic arch and its branch vessels. Usual aortic arch branch vessel configuration. The right vertebral artery. Both vertebral arteries are patent lacking any focal stenosis or occlusion Carotids: Mild calcific plaque in the right CCA resulting in less than 50% narrowing by NASCET criteria. Moderate mixed plaque of the left CCA resulting in approximately 50% narrowing by NASCET criteria. Minimal calcific plaque at the bilateral ICA and intracranial carotid arteries. No focal stenosis or occlusion. The anterior middle and posterior cerebral arteries are widely patent. Patent left [id number] no arterial venous malformation or aneurysm. Major venous structures: Unremarkable. Other: Partially visible left apical pleural thickening, cervical spondylosis and multiple periapical lucencies. CT/STROKE CTA Head AND Neck W/Con IMPRESSION: 1. No large vessel occlusion, AVM or aneurysm.. 2. Narrowing of the left common carotid approaching 50%. Unremarkable right C CA. 9 partially visualized left apical pleural thickening of indeterminate etiology [facility]
--- NOTE | 2024-05-14 15:23 | EKG12_ITS ---
Test Reason : STROKE TEAM Blood Pressure : */* mmHG Vent. Rate : 75 BPM Atrial Rate : 75 BPM P-R Int : 196 ms QRS Dur : 96 ms QT Int : 390 ms P-R-T Axes : 51 10 56 degrees QTcB Int : 435 ms Normal sinus rhythm Normal ECG When compared with ECG of 06-May-2024 16:16, No significant change was found Confirmed by Collin See ([id number]), associate editor SIA SHEFFIELD ([id number]) on 05/19/2024 10:03:57 AM Referred By: Confirmed By: Collin See
--- NOTE | 2024-05-14 15:27 | ED.VIS.STROK ---
HPI History of Present Illness Chief Complaint: Stroke Alert Informant: patient and friend Narrative Narrative: Presents to the ED private vehicle stroke team initiated in triage.patient reported 30 minutes prior to arrival 2:45 PM no slight right-sided headache and feeling of his left hand falling asleep and same symptoms left facial region. There was no weakness. No speech changes. Patient on baby aspirin therapy. He then states 1 week ago he was in the ED he states he had dizziness and trouble getting his words out worked up in the ED and diagnosed with TIA. States he was not admitted. Denies any dizziness or speech issues today. After evaluation the patient did review records, diagnosed with TIA 8 days ago symptoms started day before for what he explained. CT brain negative CT angiogram approximate 50% left common carotid stenosis. No LVO. He had a statin increased per discussion with stroke neurologist plan for outpatient workup at that time. PFSH PFS Medical History Viral URI History of steroid therapy Wears glasses Arthritis Vertigo Non-smoker Leg cramps History of echocardiogram Home Medications ?Medication ?Instructions ?Recorded ?Last Taken ?Type aspirin 81 mg chewable tablet 81 mg PO DAILY@0800 HEART 02/15/14 04/06/21 History meloxicam 7.5 mg tablet 7.5 mg PO DAILY PRN shoulder pain 02/09/21 Unknown History atorvastatin 40 mg tablet 40 mg PO DAILY #30 tabs 05/06/24 Unknown Rx cholecalciferol (vitamin D3) 25 25 mcg PO DAILY 05/14/24 05/13/24 History mcg (1,000 unit) capsule (Vitamin D3) oxycodone 5 mg tablet 5 - 10 mg PO Q6H PRN pain 05/14/24 04/30/24 History Allergy/AdvReac Type Severity Reaction Status Date / Time No Known Allergies Allergy Verified 05/14/24 15:18 Surgical History History of appendectomy History of shoulder surgery Social History household members: spouse Smoking Status: Never smoker ROS ROS ED Constitutional Constitutional ED: Denies chills, fever(s) or sweats ENT ENT ED: Denies sore throat Cardiovascular Cardiovascular: Denies chest pain, leg edema, palpitations or racing heartbeat Respiratory/Chest Respiratory/Chest: Denies cough, dyspnea or dyspnea on exertion Gastrointestinal Gastrointestinal: Denies abdominal pain, diarrhea, nausea or vomiting Genitourinary Genitourinary ED: Denies dysuria, hematuria or urinary frequency Musculoskeletal Musculoskeletal: Denies back pain, extremity pain or neck pain Integumentary Denies rash or wounds Neurologic Neurologic: Reports headache(s) and paresthesias; Denies weakness EXAM Physical Exam Const Vital Signs: 05/14/24 15:17 05/14/24 15:18 05/14/24 15:38 Temperature 97.8 F Temperature Source Oral Pulse Rate 82 80 Respiratory Rate 16 16 Blood Pressure 160/85 H 160/85 H Blood Pressure Mean 110 110 Pulse Ox 98 98 Oxygen Delivery Method Room Air Room Air Room Air Oxygen Flow Rate (L/min) 05/14/24 15:38 05/14/24 15:53 05/14/24 16:11 Temperature Temperature Source Pulse Rate 77 77 Respiratory Rate 18 18 18 Blood Pressure 149/86 H 166/87 H Blood Pressure Mean 107 113 Pulse Ox 96 96 Oxygen Delivery Method Room Air Room Air Oxygen Flow Rate (L/min) 18 05/14/24 16:23 05/14/24 16:30 Temperature Temperature Source Pulse Rate 81 78 Respiratory Rate 16 16 Blood Pressure 160/88 H 149/88 H Blood Pressure Mean 112 108 Pulse Ox 97 97 Oxygen Delivery Method Room Air Room Air Oxygen Flow Rate (L/min) Positive well nourished and well developed General Appearance ED: well developed and NAD HEENT Reports moist mucous membranes normocephalic and atraumatic Eyes General Eye ED: Yes normal appearance of both eyes Neck full ROM Chest Wall Chest: Negative for tenderness Resp normal respiratory effort and normal air movement Effort and Inspection: symmetric chest movement; Negative for respiratory distress Cardio regular rate, regular rhythm and no murmurs Peripheral Pulses: pulses 2+ throughout GI normal to inspection, nondistended, normoactive bowel sounds and non-tender Palpation: Negative for guarding or rebound tenderness present Extremity normal to inspection General Extremety ED: Negative for edema or tenderness General Extremity: Negative for edema Neuro oriented x3, CN's II-XII intact bilaterally and no sensory deficits noted Sensorium / Orientation: awake and alert Skin no rashes or lesions noted and no wounds NIHSS NIHSS Initial: 1a Level of Consciousness: 0 1b LOC Questions (Score 2 if aphasic/stupor): 0 1c LOC Commands (Only score 1st attempt): 0 2 Best Gaze (If aphasic, use reflexive mvmts.): 0 3 Visual: 0 4 Facial Palsy: 0 5 Motor Arm Right (UN = amputation/fusion): 0 5 Motor Arm Left: 0 6 Motor Leg Right: 0 6 Motor Leg Left: 0 7 Limb ataxia (Only + if out of proportion): 0 8 Sensory (Aphasia/stupor=0 or 1, coma=2): 0 9 Best Language: 0 10 Dysarthria (mute, coma=2, intubated=UN): 0 11 Extinction and Inattention (only scored if +): 0 Total Score: 0 MDM MDM MDM Narrative Medical decision making narrative: Interventions / MDM: Differential diagnosis: TIA, paresthesias Diagnosis considered but do not suspect: Intracranial hemorrhage however CT negative. My EKG interpretation: Sinus rate of 75, no ST changes. Imaging independently reviewed and interpreted by myself: CT brain: No intracranial hemorrhage also discussed with radiologist. CT angiogram head and neck: External documents reviewed:ED visit from 05/06 2024, CT head and CT angiogram Of head on 05/06/24 noting left common carotid 50% stenosis. Test considered but not ordered:N/A ED course: Stroke team continued, sent for CT head and CT angiogram. Current NIH of 0. 1538: Patient returned from CT on my try read of CT brain no intracranial hemorrhage. CT angiogram results are pending. Further discussion with him he did follow-up with his PCP this past Thursday he has a 14-day Holter monitor placed. He has been taking his medications. No MRI studies have been ordered. He had carotid stenosis at 50% he states no for a while. 1615: Patient evaluate by telestroke with nursing in the room. Recommended MRI studies. No TNK as symptoms resolved. CT angiogram results noting stable carotid stenosis percent on the left. Discussed with hospitalist Dr. Green for admission. Re-evaluation: stable Disposition discussed with patient/family/significant other: Patient in the interim received call from radiologist, no intracranial hemorrhage microvascular disease on CT brain. Case discussed with consulting clinician: N/A This note was generated with [employer] (formerly [employer]ation software. It may contain incorrect words, spelling, and punctuation that were not noted in checking the note before signing. Lab Data Attestation: I reviewed the patient's lab results. Labs: Laboratory Results - last 24 hr 05/14/24 15:25 WBC 6.3 RBC 4.35 L Hgb 13.3 Hct 39.4 L MCV 90.6 MCH 30.6 MCHC 33.8 RDW Std Deviation 42.5 RDW Coeff of Eduard 12.9 Plt Count 204 MPV 9.1 Immature Gran % (Auto) 0.300 Neut % (Auto) 54.4 Lymph % (Auto) 33.7 [place] % (Auto) 9.7 Eos % (Auto) 1.3 Baso % (Auto) 0.6 Absolute Neuts (auto) 3.4 Absolute Lymphs (auto) 2.11 Nucleated RBC % 0 PT 13.9 INR 1.1 APTT 36.0 Sodium 140 Potassium 4.2 Chloride 104 Carbon Dioxide 25.2 Anion Gap 11 BUN 14 Creatinine 0.87 Estim Creat Clear Calc 70.92 Est GFR (MDRD) Non-Af 87 BUN/Creatinine Ratio 16.1 Glucose 106 H Calcium 9.3 Troponin T High Sens 20 D Radiography Diagnostic Testing: Clinical Impression(s) from Imaging Studies Brain CT 05/14/24 15:23 IMPRESSION: 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 No acute process. No hemorrhage. Reading Location: [facility] Head/Neck CTA 05/14/24 15:23 IMPRESSION: 1. No large vessel occlusion, AVM or aneurysm.. 2. Narrowing of the left common carotid approaching 50%. Unremarkable right CCA. 9 partially visualized left apical pleural thickening of indeterminate etiology Reading Location: [facility] Critical Care Time Critical Care Time: Yes Critical care time (excluding procedures): 30-74 minutes, Discussing w/Patient &/or Family/First Breaker Feeder, Discussing w/Consultants, Arranging Admission or Transfer, Performing Direct Patient Care at Bedside and - (31 minutes) Discharge Plan Triage Chief Complaint: Stroke Alert ED Provider: Abiel Dunne Dx/Rx/DC Orders Clinical Impression: Paresthesia, Brain TIA, Headache, Carotid artery disease Primary Care Provider: George Umanzor Disposition Disposition: Acute Care Hospital [facility]
[2024-05-14 15:37] LABS: Absolute Lymphocyte Count 2.11 X10^3/uL (0.83-4.51); Absolute Neutrophil Count 3.4 X10^3/uL (2.0-7.7); Basophil# 0.04 X10^3/uL; Basophil% 0.6 % (0-1); Eosinophil# 0.08 X10^3/uL; Eosinophils% 1.3 % (0-5); Hematocrit 39.4 % (40-54); Hemoglobin 13.3 g/dL (13.0-16.5); Lymphocyte # 2.11 X10^3/ul (0.83-4.51); Lymphocyte % 33.7 % (19-41); Mean Corp Hgb Conc 33.8 g/dL (32-36); Mean Corpuscular Hgb 30.6 pg (27.0-32.0); Mean Corpuscular Volume 90.6 fL (80-94); Mean Platelet Vol. 9.1 fl (6.2-12.0); Monocyte# 0.61 X10^3/uL; Monocyte% 9.7 % (0-10); NRBC Flagged by Analyzer 0 % (0-5); Neutrophil # 3.41 X10^3/uL (2.7-7.7); Neutrophil % 54.4 % (47-70); Platelet Count 204 K/mm3 (150-450); RBC Distribution Width CV 12.9 % (11.6-14.6); RBC Distribution Width SD 42.5 fl (35.1-43.9); Red Blood Count 4.35 M/mm3 (4.6-6.2); White Blood Count 6.3 K/mm3 (4.4-11.0)
--- NOTE | 2024-05-14 15:40 | CM.ED ---
Social Work: Date of referral: 05/14/24 Reason for referral: Stroke Alert workers compensation claims adjuster responded to stroke alert and stayed with patient's significant other (S/O) outside of triage while patient was receiving medical care/treatment. workers compensation claims adjuster provided emotional support; S/O stated they were just here last week. S/O was calm, responded to emotional support and denied any further needs at this time. Kathleen Whitaker, ACCOUNTS CLERK, PNEUMATIC TUBE OPERATOR
[2024-05-14 15:48] LABS: International Normalized Ratio 1.1; Prothrombin Time (Protime)PT. 13.9 SECONDS (11.7-14.9)
[2024-05-14 16:12] LABS: Anion Gap 11 (5-15); BUN 14 mg/dL (4-19); BUN/Creat Ratio 16.1 RATIO (10-20); Calcium,Total 9.3 mg/dL (7.6-11.0); Carbon Dioxide 25.2 mmol/L (21.0-32.0); Chloride 104 mmol/L (98-108); Creatinine, Serum 0.87 mg/dL (0.70-1.20); EST Glomerular Filtration Rate 87 (>60); Estimated Creatinine Clearance 70.92 ml/min (50-250); Glucose 106 mg/dL (70-99); Potassium 4.2 mmol/L (3.3-5.1); Sodium Level 140 mmol/L (133-145); Troponin T High Sensitivity 20 ng/L (<=22)
--- NOTE | 2024-05-14 16:44 | PCM.HP.STD ---
HPI - General General Date of Admission: 05/14/24 Date of Service: 05/14/24 Chief Complaint: numbness on left hand and left face HPI Narrative RACHEL CAGE, is a Patient is an 83-year-old male with a history of arthritis and hyperlipidemia who presented [facility] 05/14/2024 as a stroke alert initiated in triage. 30 minutes prior to arrival at 2:45 PM patient noticed abnormal feeling in his left hand and felt the same symptoms in the left facial region with no speech changes or weakness but did feel little bit lightheaded. Patient chronically on a baby aspirin and reported that 1 week ago he was in the ED with dizziness and trouble getting his words out and was diagnosed with a TIA but was not admitted at that time as he was stable and he had his statin increased as per discussion with the stroke neurologist at that time with plan for outpatient workup. Patient's symptoms resolved after 10 to 20 minutes and were not present in the ED. In the ED NIH of 0, CT of the head with no acute process and CT angio with no LVO, does have carotid stenosis reports that this is not new. Reportedly after his recent TIA diagnosis he followed up with his PCP and had a 14-day Holter monitor placed and reports compliance with this medication. No MRIs have been ordered. Teleneurologist in the ED evaluated, patient completely asymptomatic with resolution of symptoms. Was felt that this may be TIA versus migraine was recommended to give 300 mg of Plavix once and aspirin 81 mg and admit to the hospital for further workup. In the ED patient vitally stable and labs unremarkable hospitalist contacted for admission. Patient evaluated with family member at bedside, he reports that in around 245 he developed a feeling of numbness and tingling/almost like the area fell asleep on his left hand particularly near his second and third finger and down slightly onto his hand with no symptoms traveling up his hand or in his fourth or fifth fingers, at the same time he developed left-sided perioral numbness and tingling, he felt a little bit lightheaded which resolved and denies any headache during this time. Symptoms completely resolved after 10 to 20 minutes and have not recurred. These are different than the symptoms he had 8 days ago when he had dizziness and difficulty getting words out. ROS otherwise negative. [facility]LY [facility] Medical History Viral URI History of steroid therapy Wears glasses Arthritis Vertigo Non-smoker Leg cramps History of echocardiogram Home Medications ?Medication ?Instructions ?Recorded ?Last Taken ?Type aspirin 81 mg chewable tablet 81 mg PO DAILY@0800 HEART 02/15/14 05/13/24 History meloxicam 7.5 mg tablet 7.5 mg PO DAILY PRN shoulder pain 02/09/21 05/13/24 History atorvastatin 40 mg tablet 40 mg PO DAILY #30 tabs 05/06/24 05/13/24 Rx cholecalciferol (vitamin D3) 25 25 mcg PO DAILY 05/14/24 05/13/24 History mcg (1,000 unit) capsule (Vitamin D3) oxycodone 5 mg tablet 5 - 10 mg PO Q6H PRN pain 05/14/24 04/30/24 History Allergy/AdvReac Type Severity Reaction Status Date / Time No Known Allergies Allergy Verified 05/14/24 15:18 Surgical History History of appendectomy History of shoulder surgery Social History household members: spouse Smoking Status: Never smoker ROS ROS Narrative General: Denies fever/chills HENT: Denies headache, denies stuffy nose, denies sore throat EYES: Denies changes in vision Resp: Denies cough, denies shortness of breath Cardiac: Denies chest pain GI: Denies abdominal pain, denies changes in bowel, denies nausea/vomiting : Denies changes in urination Extremity: Denies swelling MSK: Denies weakness Neuro: Denies any numbness/tingling, lightheaded feeling and paresthesias on left side of face and hand have resolved, occasionally will feel off balance for a couple of seconds but this is not changed and is not new Heme: Denies any bleeding or bruising Skin: Denies rashes Psychiatric: No complaints voiced Vital Signs Vital Signs Vital Signs: 05/14/24 15:17 05/14/24 15:18 05/14/24 15:38 Temperature 97.8 F Temperature Source Oral Pulse Rate 82 80 Respiratory Rate 16 16 Blood Pressure 160/85 H 160/85 H Blood Pressure Mean 110 110 Pulse Ox 98 98 Oxygen Delivery Method Room Air Room Air Room Air Oxygen Flow Rate (L/min) 05/14/24 15:38 05/14/24 15:53 05/14/24 16:11 Temperature Temperature Source Pulse Rate 77 77 Respiratory Rate 18 18 18 Blood Pressure 149/86 H 166/87 H Blood Pressure Mean 107 113 Pulse Ox 96 96 Oxygen Delivery Method Room Air Room Air Oxygen Flow Rate (L/min) 18 Weight Weight: 82.463 kg Body Mass Index (BMI) 25.3 Physical Exam Narrative General: Alert, oriented, no apparent distress HEENT: Atraumatic, normocephalic Eyes: Anicteric, normal conjunctiva, extraocular movements intact, pupils equal Neck: Supple Respiratory: Clear to auscultation bilaterally, normal respiratory effort Cardiovascular: Regular rate and rhythm GI: Soft, nontender, nondistended Extremities: No edema Musculoskeletal: Strength 5 out of 5 in right upper extremity, 5 out of 5 left upper extremity, 5 out of 5 right lower extremity, 5 out of 5 left lower extremity Neuro: No overt focal neurological deficits, cranial nerves II through XII intact, [id number] without significant difficulty bilaterally though very slightly slower with the left hand, did seem to pause for a couple of seconds after asking patient to do something before he did it almost as if he had a little bit of difficulty comprehending but unsure if there could be a hearing component or if this is a processing component Skin: No rashes appreciated Psych: Cooperative Results Lab / Micro Data 05/14/24 15:25 05/14/24 15:25 Labs: Laboratory Results - last 24 hr 05/14/24 15:25: WBC 6.3, RBC 4.35 L, Hgb 13.3, Hct 39.4 L, MCV 90.6, MCH 30.6, MCHC 33.8, RDW Std Deviation 42.5, RDW Coeff of Eduard 12.9, Plt Count 204, MPV 9.1, Immature Gran % (Auto) 0.300, Neut % (Auto) 54.4, Lymph % (Auto) 33.7, [place] % (Auto) 9.7, Eos % (Auto) 1.3, Baso % (Auto) 0.6, Absolute Neuts (auto) 3.4, Absolute Lymphs (auto) 2.11, Nucleated RBC % 0, PT 13.9, INR 1.1, APTT 36.0, Sodium 140, Potassium 4.2, Chloride 104, Carbon Dioxide 25.2, Anion Gap 11, BUN 14, Creatinine 0.87, Estim Creat Clear Calc 70.92, Est GFR (MDRD) Non-Af 87, BUN/Creatinine Ratio 16.1, Glucose 106 H, Calcium 9.3, Troponin T High Sens 20 D Imaging Radiology Impression Brain CT 05/14/24 15:23 IMPRESSION: 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 No acute process. No hemorrhage. Reading Location: [facility] Head/Neck CTA 05/14/24 15:23 IMPRESSION: 1. No large vessel occlusion, AVM or aneurysm.. 2. Narrowing of the left common carotid approaching 50%. Unremarkable right CCA. 9 partially visualized left apical pleural thickening of indeterminate etiology Reading Location: [facility] Assessment & Plan Assessment/Plan (1) Neurologic abnormality: PLAN: Plan # Left hand and left perioral paresthesias with brief lightheadedness -Admit to tele -CT head w/ no acute process -CTA head and neck with no LVO -MRI ordered -NIH q4hr -Loaded with Plavix per neuro recommendations, asa, statin -Echo ordered -PT/OT/Speech eval -Teleneuro consult ordered -Hold BP medications to allow for permissive hypertension for 24 hours unless SBP greater than 220 or DBP greater than 120 or until stroke is ruled out #DVT ppx: SCDs Franchesca Green MD Charges/Coding Visit Charges Inpatient E&M: 95072 Init Hosp L1
[2024-05-14] MEDS: Clopidogrel Bisulfate 300 MG Tablet PO (18:59)
[2024-05-14 19:34] LABS: Bedside Glucose 109 mg/dL (74-106)
[2024-05-14] MEDS: Atorvastatin Calcium 40 MG Tablet PO (20:53)
[2024-05-14] MEDS: 0.9% Saline Lock 10 ML Syringe IV (20:53)
[2024-05-14 21:12] LABS: Troponin T High Sens 2 HR 16 ng/L (<=22)
[2024-05-14 22:44] LABS: Troponin T High Sens 4 HR 17 ng/L (<=22)
[2024-05-15 00:30] VITALS: BP 158/95; PULSE 77; RESP 14; TEMP 36.7; O2SAT 98
[2024-05-15 07:14] LABS: Absolute Lymphocyte Count 1.45 X10^3/uL (0.83-4.51); Absolute Neutrophil Count 2.6 X10^3/uL (2.0-7.7); Basophil# 0.05 X10^3/uL; Eosinophil# 0.14 X10^3/uL; Eosinophils% 2.9 % (0-5); Lymphocyte # 1.45 X10^3/ul (0.83-4.51); Mean Corp Hgb Conc 34.2 g/dL (32-36); Mean Corpuscular Hgb 30.7 pg (27.0-32.0); Mean Corpuscular Volume 89.6 fL (80-94); Mean Platelet Vol. 9.7 fl (6.2-12.0); Monocyte# 0.54 X10^3/uL; Monocyte% 11.2 % (0-10); NRBC Flagged by Analyzer 0 % (0-5); Neutrophil # 2.64 X10^3/uL (2.7-7.7); Neutrophil % 54.7 % (47-70); Platelet Count 204 K/mm3 (150-450); RBC Distribution Width CV 12.8 % (11.6-14.6); RBC Distribution Width SD 42.2 fl (35.1-43.9); Red Blood Count 4.24 M/mm3 (4.6-6.2); White Blood Count 4.8 K/mm3 (4.4-11.0)
[2024-05-15 07:37] LABS: Hemoglobin A1c 5.6 % (<=5.6)
[2024-05-15 07:48] LABS: Anion Gap 12 (5-15); BUN 10 mg/dL (4-19); BUN/Creat Ratio 13.9 RATIO (10-20); Calcium,Total 9.3 mg/dL (7.6-11.0); Carbon Dioxide 22.6 mmol/L (21.0-32.0); Chloride 105 mmol/L (98-108); Cholesterol 113 mg/dL (<=200); Creatinine, Serum 0.75 mg/dL (0.70-1.20); EST Glomerular Filtration Rate 91 (>60); Estimated Creatinine Clearance 77.13 ml/min (50-250); Glucose 91 mg/dL (70-99); High Density Lipoprotein 46 mg/dL; Low Density Lipoprotein Calc. 52 mg/dL; Potassium 4.1 mmol/L (3.3-5.1); Sodium Level 140 mmol/L (133-145); Triglycerides 76 mg/dL; Very Low Density Lipoprotein 15 mg/dL (5-40); cholesterol:hdl ratio screen 2.45
[2024-05-15 08:15] LABS: International Normalized Ratio 1.1; Prothrombin Time (Protime)PT. 14.2 SECONDS (11.7-14.9)
[2024-05-15] MEDS: Aspirin 81 MG TAB.CHEW PO (08:26)
[2024-05-15 08:30] VITALS: BP 160/93; PULSE 86; RESP 17; TEMP 36.6; O2SAT 97
--- NOTE | 2024-05-15 08:57 | PCM.PN.HOSP ---
Reason for Visit Reason for Visit: Diagnoses Other symptoms and signs involving the nervous system (05/14/24) Subjective Subjective No further numbness. Objective Data Objective Data Vital Signs: Vital Signs Temp Pulse Resp BP Pulse Ox O2 Del Method O2 Flow Rate 36.6 C 86 17 160/93 H 97 Room Air 18 05/15/24 08:30 05/15/24 08:30 05/15/24 08:30 05/15/24 08:30 05/15/24 08:30 05/15/24 08:30 05/14/24 15:53 Oxygen Flow Rate (L/min) 18 Oxygen Delivery Method Room Air Weight: 81.1 kg Body Mass Index (BMI) 24.9 Intake & Output: Intake and Output for Last 24 Hours 05/13/24 05/14/24 05/15/24 23:59 23:59 23:59 Intake Total 420 / 420 Balance 420 / 420 Lab / Micro Data 05/15/24 04:48 05/15/24 04:48 Labs: Laboratory Results - last 24 hr 05/14/24 15:20: POC Glucose 109 H 05/14/24 15:25: WBC 6.3, RBC 4.35 L, Hgb 13.3, Hct 39.4 L, MCV 90.6, MCH 30.6, MCHC 33.8, RDW Std Deviation 42.5, RDW Coeff of Eduard 12.9, Plt Count 204, MPV 9.1, Immature Gran % (Auto) 0.300, Neut % (Auto) 54.4, Lymph % (Auto) 33.7, [place] % (Auto) 9.7, Eos % (Auto) 1.3, Baso % (Auto) 0.6, Absolute Neuts (auto) 3.4, Absolute Lymphs (auto) 2.11, Nucleated RBC % 0, PT 13.9, INR 1.1, APTT 36.0, Sodium 140, Potassium 4.2, Chloride 104, Carbon Dioxide 25.2, Anion Gap 11, BUN 14, Creatinine 0.87, Estim Creat Clear Calc 70.92, Est GFR (MDRD) Non-Af 87, BUN/Creatinine Ratio 16.1, Glucose 106 H, Calcium 9.3, Troponin T High Sens 20 D, Troponin T Hi Sens 2 Hr Cancelled, Troponin T Hi Sens 4Hr Cancelled 05/14/24 20:35: Troponin T Hi Sens 2 Hr 16 05/14/24 22:21: Troponin T Hi Sens 4Hr 17 05/15/24 04:48: WBC 4.8, RBC 4.24 L, Hgb 13.0, Hct 38.0 L, MCV 89.6, MCH 30.7, MCHC 34.2, RDW Std Deviation 42.2, RDW Coeff of Eduard 12.8, Plt Count 204, MPV 9.7, Immature Gran % (Auto) 0.200, Neut % (Auto) 54.7, Lymph % (Auto) 30.0, [place] % (Auto) 11.2 H, Eos % (Auto) 2.9, Baso % (Auto) 1.0, Absolute Neuts (auto) 2.6, Absolute Lymphs (auto) 1.45, Nucleated RBC % 0, PT 14.2, INR 1.1, Sodium 140, Potassium 4.1, Chloride 105, Carbon Dioxide 22.6, Anion Gap 12, BUN 10, Creatinine 0.75, Estim Creat Clear Calc 77.13, Est GFR (MDRD) Non-Af 91, BUN/Creatinine Ratio 13.9, Glucose 91, Hemoglobin A1c 5.6 L, Calcium 9.3, Triglycerides 76, Cholesterol 113, LDL Cholesterol, Calc 52, VLDL Cholesterol 15, HDL Cholesterol 46, Cholesterol/HDL Ratio 2.45, TSH 12.300 H Radiography Diagnostic Testing: Radiology Impression Brain CT 05/14/24 15:23 IMPRESSION: 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 No acute process. No hemorrhage. Reading Location: [facility] Head/Neck CTA 05/14/24 15:23 IMPRESSION: 1. No large vessel occlusion, AVM or aneurysm.. 2. Narrowing of the left common carotid approaching 50%. Unremarkable right CCA. 9 partially visualized left apical pleural thickening of indeterminate etiology Reading Location: [facility] Physical Exam Const alert and no apparent distress HEENT head/scalp atraumatic and moist oral mucous membranes HEENT Narrative: normal gait. Neuro moves all extremities Sensorium / Orientation: awake Assessment & Plan Assessment/Plan (1) Brain TIA: PLAN: Left face and hand paresthesias Neuro consulted Check TTE, therapy evals. 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 Charges/Coding Visit Charges Inpatient E&M: 60185 Subs Hosp L2
[2024-05-15 12:25] VITALS: BP 140/86; PULSE 94; RESP 16; TEMP 36.6; O2SAT 99
--- NOTE | 2024-05-15 14:48 | NEURO.PNOTE ---
Assessment and Plan: Neuro Assessment/Plan 83 y/o man with h/o arthritis, DLD p/w after an episode of numbness/tingling in left hand (first two fingers) for 2 mins and then left perioral numbness along with mild lightheadedness. He reports of another episode a week ago with trouble with balance/dizziness and trouble getting out words. Workup- A1c-5.6. LDL-52. CTA- left CCA-50% stenosis. MRI brain - no acute stroke. Diagnosis: Possible TIA Plan: Increase ASA to 325mg daily along with statin. Follow up TTE. OT/PT/[facility] Please call us for any acute finding. I personally attended this patient and spent a total time of 35 minutes evaluating this patient including clinical assessment, review of chart, medical history imaging, and determining appropriate treatment and workup. Subject: Neurology Subjective No acute events overnight. This AM, patient reports feeling better with NIHSS-0. Workup- A1c-5.6. LDL-52. CTA- left CCA-50% stenosis. MRI brain - no acute stroke. NIHSS NIHSS Nursing Documentation NIHSS Nursing Documentation: NIHSS: Ischemic Stroke/TIA Start: 05/14/24 17:45 Text: For PCU Patients: NIH and Neuro Check every 4 Status: Active hours, PRN and with change in RN caregiver. Freq: [id number] Protocol: Activity Type Activity Date Activity User E-sign Co-sign Detail Recorded Client Recorded Date Recorded By Document 05/15/24 12:25 ML [id number] 05/15/24 12:30 ML 05/15/24 12:25 NIH Stroke Scale [NIHSS] A score of 0 is normal or asymptomatic . Total possible score is 42. Inpatient: RN or Physician to activate a stroke alert for onset of new stroke symptoms or with NIHSS increase >/= 3 points. Following change in neurological status, NIHSS will be performed per physician order or more frequently PRN. -1a. Level of Consciousness Alert; keenly responsive -1b. LOC Questions Answers BOTH questions correctly. -1c. LOC Commands Performs both tasks correctly . -2. Best Gaze Normal -3. Visual No visual loss -4. Facial Palsy Normal symmetrical movements -5a. Left Arm No drift; arm holds 90 (or 45 ) degrees for full 10 seconds -5b. Right Arm No drift; arm holds 90 (or 45 ) degrees for full 10 seconds -6a. Left Leg No drift; leg holds 30-degree position for full 5 seconds -6b. Right Leg No drift; leg holds 30-degree position for full 5 seconds -7. Limb Ataxia Absent -8. Sensory Normal; no sensory loss -9. Best Language No aphasia; normal -10. Dysarthria Normal -11. Extinction and Inattention No abnormality -Total 0 Query Text:A score of 0 is normal or asymptomatic. Total possible score is 42 . ED: Notify Physician for NIHSS increase by > / = 3 points. Inpatient: RN or Physician to activate a stroke alert for NIHSS increase of > / = 3 points. Coma Scale [Assess] -Eye Opening Spontaneous -Motor Obeys Commands -Verbal Oriented [Total] -Coma Scale Total 15 NIHSS 1a. Level of Consciousness: Alert; keenly responsive 1b. LOC Questions: Answers BOTH questions correctly. 1c. LOC Commands: Performs both tasks correctly. 2. Best Gaze: Normal 3. Visual: No visual loss 4. Facial Palsy: Normal symmetrical movements 5a. Left Arm: No drift; arm holds 90 (or 45) degrees for full 10 seconds 5b. Right Arm: No drift; arm holds 90 (or 45) degrees for full 10 seconds 6a. Left Leg: No drift; leg holds 30-degree position for full 5 seconds 6b. Right Leg: No drift; leg holds 30-degree position for full 5 seconds 7. Limb Ataxia: Absent 8. Sensory: Normal; no sensory loss 9. Best Language: No aphasia; normal 10. Dysarthria: Normal 11. Extinction and Inattention: No abnormality Total: 0 EEG Results Procedure Details EEG Procedure Details: RACHEL CAGE is a 83 year old M with a past medical history of , who presents for evaluation of Electroencephalogram on DATE at TIME Objective Data Objective Data Vital Signs: Vital Signs Temp Pulse Resp BP Pulse Ox O2 Del Method O2 Flow Rate 97.9 F 94 16 140/86 H 99 Room Air 18 05/15/24 12:05/15/24 12:05/15/24 12:05/15/24 12:05/15/24 12:05/15/24 12:05/14/24 15:53 Oxygen Flow Rate (L/min) 18 Oxygen Delivery Method Room Air Weight: 81.1 kg Body Mass Index (BMI) 24.9 Intake & Output: Intake and Output for Last 24 Hours 05/13/24 05/14/24 05/15/24 23:59 23:59 23:59 Intake Total 420 / 420 Balance 420 / 420 Lab / Micro Data 05/15/24 04:48 05/15/24 04:48 Labs: Laboratory Results - last 24 hr 05/14/24 15:20: POC Glucose 109 H 05/14/24 15:25: WBC 6.3, RBC 4.35 L, Hgb 13.3, Hct 39.4 L, MCV 90.6, MCH 30.6, MCHC 33.8, RDW Std Deviation 42.5, RDW Coeff of Eduard 12.9, Plt Count 204, MPV 9.1, Immature Gran % (Auto) 0.300, Neut % (Auto) 54.4, Lymph % (Auto) 33.7, [place] % (Auto) 9.7, Eos % (Auto) 1.3, Baso % (Auto) 0.6, Absolute Neuts (auto) 3.4, Absolute Lymphs (auto) 2.11, Nucleated RBC % 0, PT 13.9, INR 1.1, APTT 36.0, Sodium 140, Potassium 4.2, Chloride 104, Carbon Dioxide 25.2, Anion Gap 11, BUN 14, Creatinine 0.87, Estim Creat Clear Calc 70.92, Est GFR (MDRD) Non-Af 87, BUN/Creatinine Ratio 16.1, Glucose 106 H, Calcium 9.3, Troponin T High Sens 20 D, Troponin T Hi Sens 2 Hr Cancelled, Troponin T Hi Sens 4Hr Cancelled 05/14/24 20:35: Troponin T Hi Sens 2 Hr 16 05/14/24 22:21: Troponin T Hi Sens 4Hr 17 05/15/24 04:48: WBC 4.8, RBC 4.24 L, Hgb 13.0, Hct 38.0 L, MCV 89.6, MCH 30.7, MCHC 34.2, RDW Std Deviation 42.2, RDW Coeff of Eduard 12.8, Plt Count 204, MPV 9.7, Immature Gran % (Auto) 0.200, Neut % (Auto) 54.7, Lymph % (Auto) 30.0, [place] % (Auto) 11.2 H, Eos % (Auto) 2.9, Baso % (Auto) 1.0, Absolute Neuts (auto) 2.6, Absolute Lymphs (auto) 1.45, Nucleated RBC % 0, PT 14.2, INR 1.1, Sodium 140, Potassium 4.1, Chloride 105, Carbon Dioxide 22.6, Anion Gap 12, BUN 10, Creatinine 0.75, Estim Creat Clear Calc 77.13, Est GFR (MDRD) Non-Af 91, BUN/Creatinine Ratio 13.9, Glucose 91, Hemoglobin A1c 5.6 L, Calcium 9.3, Triglycerides 76, Cholesterol 113, LDL Cholesterol, Calc 52, VLDL Cholesterol 15, HDL Cholesterol 46, Cholesterol/HDL Ratio 2.45, TSH 12.300 H Radiography Diagnostic Testing: Radiology Impression Brain CT 05/14/24 15:23 IMPRESSION: 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 No acute process. No hemorrhage. Reading Location: [facility] Head/Neck CTA 05/14/24 15:23 IMPRESSION: 1. No large vessel occlusion, AVM or aneurysm.. 2. Narrowing of the left common carotid approaching 50%. Unremarkable right CCA. 9 partially visualized left apical pleural thickening of indeterminate etiology Reading Location: [facility] Brain MRI 05/15/24 17:01 IMPRESSION: No restricted diffusion to indicate acute infarct. 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 Reading Location: [facility] Physical Exam Narrative General: The patient appears nutritionally appropriate, well-groomed, and appears comfortable in no acute distress. Mental Status:? The patient?s mental status was normal including orientation.? Language was intact.? Cranial nerves:? Visual arnold full, and extra-ocular motion was intact. Symmetric face. Motor: Normal strength in all extremities. Sensation: Intact to touch in all extremities.? Coordination:? Bilateral finger to nose was normal.? There was no dysmetria. Gait:? deferred.
[2024-05-15] MEDS: Aspirin 325 MG Tablet PO (15:35)
[2024-05-15 15:40] VITALS: BP 146/86; PULSE 88; RESP 16; TEMP 36.6; O2SAT 98
--- NOTE | 2024-05-15 15:43 | PCM.DC.SUM ---
Providers Date of Admission: 05/14/24 Primary Care Physician: Dr. George Umanzor MD Consultations 05/14/24 17:45 Consult: Tele-Neurology Routine Consulting Provider: [facility] Reason for Consult: TIA r/o, stroke call in ED EMERGENT Consult: No MD Notified: Yes Date Notified: 05/14/24 Time Notified: 22:44 Method of Notification: Answering Service Nursing Unit Staff Notify [facility] of Tele-Neurology Consult: Yes Reason For Visit: TIA/CVA R/O Diagnosis Discharge Diagnosis (1) Brain TIA: Status: Acute Code(s): G45.9 - Transient cerebral ischemic attack, unspecified Plan: Left face and hand paresthesias Neuro consulted Check TTE, therapy evals. 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 Medications at Discharge Home Medications meloxicam 7.5 mg tablet 7.5 mg PO DAILY PRN shoulder pain 02/09/21 atorvastatin 40 mg tablet 40 mg PO DAILY #30 tabs 05/06/24 cholecalciferol (vitamin D3) 25 mcg (1,000 unit) capsule (Vitamin D3) 25 mcg PO DAILY 05/14/24 oxycodone 5 mg tablet 5 - 10 mg PO Q6H PRN pain 05/14/24 aspirin 325 mg tablet 325 mg PO BREAKFAST #0 tabs 05/15/24 Hospital Course Operations None Procedures None Summary of Care Provided Minutes Spent on Discharge: 40 Hospital Course: Patient presents with left index and middle finger and left face paresthesias. Symptoms resolved and patient had no further issues. So he presented to the emergency room for further workup for stroke. She underwent CAT scan of the head, CT of the head and neck and brain MRI. No acute stroke were noted however patient has had history of left MCA and right WAYNE stroke. Previous MRI from 2018, and on posttraumatic changes to the right side which is likely where that prior stroke was. Patient adamantly denies any head trauma. Patient was seen by neurology who recommends a TTE as well as full dose aspirin from the regular aspirin that he is taking daily. Patient had symptoms about a week ago that was seen by his primary care doctor and had an echo ordered. Echo is already ordered for May 31. Given the fact that no acute stroke was noted and patient is asymptomatic at this time I think it is reasonable for him to be discharged home to have his echocardiogram and then to follow-up with neurology as outpatient. Patient was in agreement to the plan but patient was offered the opportunity to stay in the hospital to have 2D echocardiogram performed on the . Weight / BMI Weight Weight: 81.1 kg Body Mass Index (BMI) 24.9 ABG / Lab / Microbiology Data 05/15/24 04:48 05/15/24 04:48 Laboratory: Laboratory Results - last 24 hr 05/14/24 15:20: POC Glucose 109 H 05/14/24 15:25: PT 13.9, INR 1.1, APTT 36.0, Sodium 140, Potassium 4.2, Chloride 104, Carbon Dioxide 25.2, Anion Gap 11, BUN 14, Creatinine 0.87, Estim Creat Clear Calc 70.92, Est GFR (MDRD) Non-Af 87, BUN/Creatinine Ratio 16.1, Glucose 106 H, Calcium 9.3, Troponin T High Sens 20 D, Troponin T Hi Sens 2 Hr Cancelled, Troponin T Hi Sens 4Hr Cancelled 05/14/24 20:35: Troponin T Hi Sens 2 Hr 16 05/14/24 22:21: Troponin T Hi Sens 4Hr 17 05/15/24 04:48: WBC 4.8, RBC 4.24 L, Hgb 13.0, Hct 38.0 L, MCV 89.6, MCH 30.7, MCHC 34.2, RDW Std Deviation 42.2, RDW Coeff of Eduard 12.8, Plt Count 204, MPV 9.7, Immature Gran % (Auto) 0.200, Neut % (Auto) 54.7, Lymph % (Auto) 30.0, [place] % (Auto) 11.2 H, Eos % (Auto) 2.9, Baso % (Auto) 1.0, Absolute Neuts (auto) 2.6, Absolute Lymphs (auto) 1.45, Nucleated RBC % 0, PT 14.2, INR 1.1, Sodium 140, Potassium 4.1, Chloride 105, Carbon Dioxide 22.6, Anion Gap 12, BUN 10, Creatinine 0.75, Estim Creat Clear Calc 77.13, Est GFR (MDRD) Non-Af 91, BUN/Creatinine Ratio 13.9, Glucose 91, Hemoglobin A1c 5.6 L, Calcium 9.3, Triglycerides 76, Cholesterol 113, LDL Cholesterol, Calc 52, VLDL Cholesterol 15, HDL Cholesterol 46, Cholesterol/HDL Ratio 2.45, TSH 12.300 H Radiography Diagnostic Testing: Radiology Impression Brain CT 05/14/24 15:23 IMPRESSION: 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 No acute process. No hemorrhage. Reading Location: [employer] Head/Neck CTA 05/14/24 15:23 IMPRESSION: 1. No large vessel occlusion, AVM or aneurysm.. 2. Narrowing of the left common carotid approaching 50%. Unremarkable right CCA. 9 partially visualized left apical pleural thickening of indeterminate etiology Reading Location: [employer] Brain MRI 05/15/24 17:01 IMPRESSION: No restricted diffusion to indicate acute infarct. 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 Reading Location: [facility] D/C Instructions Discharge Diet: Low fat / Low cholesterol DC O2, CPAP, BIPAP Needs Home O2 Discharge instructions: No Meaningful Use Info Meaningful Use Meaningful Use Diagnoses (Choose all that apply): Ischemic CVA CVA Therapy Assessed for PT,OT and/or ST?: Yes Ischemic Stroke Antithrombotic order at d/c?: Yes Dx of Atrial fib/flutter?: No Anticoagulant at discharge?: No Reason anticoagulant not ordered: Treatment not Indicated Statin Dosing Therapy Reference: STATIN DOSE THERAPY REFERENCE: * Patients > 75 years receive moderate or high dose statin therapy. * Patients 75 years or YOUNGER should receive HIGH intensity statin dose unless contraindicated. You will be required to document reason for non-treatment if statin daily dose does not meet guidelines. HIGH DOSE STATIN THERAPY DAILY Atorvastatin > than or = to 40 mg Rosuvastatin > than or = to 20 mg Amlodipine + Atorvastatin > than or = to 2.5/40 mg Ezetimibe + Simvastatin 10/80 mg Simvastatin 80mg Statins at discharge?: Yes Primary Dx Acute Ischemic CVA?: Yes IV thrombolytic ordered during stay?: No Reason IV thrombolytic not ordered: Treatment not Indicated Discharge Plan Admission Admit Date/Time: 05/14/24 16:44 Primary Reason for Your Visit: TIA Attending Provider: Franklin Pablo Primary Care Provider: George Umanzor Consulting Providers: Everett Sparks; Albert Kay; Kiki Woodson; Miryam Norwood; Rebekah Marshall; Patrick Lambert; Yumiko Kate; Navin Barba; Pablo Wells; Gil Willoughby; Haleigh Lovett; Ankit Philippe; Julee Palmer; Dominick Tejeda; Surinder Cox; Rocky Encarnacion; Bhargavi Velazquez; Maynor Peterson; Carolina Vences; Dameon Colindres; Franchesca Green Instructions Additional Instructions / Restrictions: Yet symptoms concerning for a TIA. TIA or strokelike symptoms at last less in 24 hours usually for only minutes to hours. Your MRI of the brain shows that you have had prior strokes that have occurred sometime ago, longer than when you initially had symptoms a week ago. Neurology has recommended that you have full dose aspirin and continued other medications. Also recommended that you have your echocardiogram and you have already scheduled for May 31. And also follow-up with outpatient neurology with Dr. Rodriguez here or the following: [facility] [phone]. [facility] [phone]. [facility] [phone]. [facility] [phone]. [facility] [place] [phone] Discharge Orders/Prescriptions Prescriptions: New aspirin 325 mg Tablet 325 mg PO BREAKFAST Qty: 0 0RF Continued meloxicam 7.5 mg tablet 7.5 mg PO DAILY PRN (Reason: shoulder pain) Patient Comments: Take1 TABLET by mouth twice a day atorvastatin 40 mg tablet 40 mg PO DAILY Qty: 30 2RF cholecalciferol (vitamin D3) [Vitamin D3] 25 mcg (1,000 unit) capsule 25 mcg PO DAILY oxycodone 5 mg tablet 5 - 10 mg PO Q6H PRN Discontinued aspirin 81 MG tablet,chewable 81 mg PO DAILY@0800 Patient Comments: heart health Referrals / Follow Up: George Umanzor MD [Primary Care Provider] - Within 2 Weeks [facility] [Provider Group] - Within 1 Month Disposition Disposition (needs filled in before D/C Order can be placed): Home, Self Care Charges/Coding Visit Charges Inpatient E&M: 25601 Disch Hosp >30min
[2024-05-15 15:45] VITALS: BMI 24.9
[2024-05-15 15:46] VITALS: BMI 24.9
--- NOTE | 2024-05-15 17:01 | MRI_ITS ---
PROCEDURE: BRAIN WITHOUT CONTRAST 05/15/2024 REASON FOR EXAM: Transient ischemic attack. Neurological signs and symptoms. TECHNIQUE: Brain MRI without and with intravenous contrast with additional dedicated imaging of the IACs. CONTRAST: Noncontrast exam. COMPARISON: CT brain yesterday FINDINGS: Brain: Likely old left MCA territory infarct. Old right WAYNE territory infarct. 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 No mass, mass effect or evidence of acute or chronic hemorrhage. Diffusion weighted images: No restricted diffusion. Ventricles: Ventricles and sulci very prominent consistent with age related involution. Major Intracranial Vessels: Usual vascular flow voids are identified in the vertebrobasilar system and anterior circulation. Sinuses: No significant sinus disease appreciated. Mastoids: No significant mastoid effusions IACs: Internal auditory canals or adequate size. 7th and 8th cranial nerves are seen going into the left IAC. Only a single nerve can be identified entering the right IAC MRI/Brain without Contrast IMPRESSION: No restricted diffusion to indicate acute infarct. 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 Reading Location[facility]
== END 2024-05-15 15:15 | disposition home or self-care (01) ==
LOC: ED 16:17 → PCU 16:51
PROVIDERS: Admitting Provider Internal Medicine; Emergency Provider Emergency Medicine; PCP Family Medicine
DX: G45.9 Transient cerebral ischemic attack, unspecified (principal); Z79.1 Long term (current) use of non-steroidal anti-inflammatories (NSAID); Z79.82 Long term (current) use of aspirin; Z79.899 Other long term (current) drug therapy
CPT/HCPCS: 36415; 70450; 70496; 70498; 70551; 80048; 80061; 82962; 83036; 84443; 84484; 85025; 85610; 85730; 92522; 93005; 94762; 97802; 99221; 99285; Q9967; A4216; G0378

== ENCOUNTER → 2024-05-31 | Outpatient (CLI) | payer MEDICARE, SELFPAY ==
--- NOTE | 2024-05-31 12:32 | ECHOD_ITS ---
Reason For Study Reason For Study: TIA Procedure This was a 2D Doppler, Color Flow transthoracic echocardiogram. Exam performed in department. Left Ventricle Normal LV size. The left ventricular ejection fraction is 55 %. No regional wall motion abnormalities noted. Right Ventricle Normal RV size. Normal systolic function. Atria Normal left atrium. Normal right atrium. Mitral Valve Bileaflet diffuse mitral valve thickening. Tricuspid Valve Normal tricuspid valve. Mild (1+) tricuspid valve insufficiency. Pulmonary artery systolic pressure is 30 mmHg. Aortic Valve Trisinus/trileaflet aortic valve. Pulmonic Valve Normal pulmonic valve. Great Vessels Normal aortic root. The pulmonary artery is normal size. Inferior vena cava collapse with respiration. Pericardium/Pleural No pericardial effusion. Moderate size left pleural effusion. MMode/2D Measurements & Calculations LVIDd: 4.7 cm IVSd: 0.92 cm Ao root diam: 3.1 cm LVIDs: 2.9 cm LVPWd: 0.85 cm RVDd: 3.7 cm FS: 38.4 % LAV(MOD-bp): 30.1 ml LVAd ap4: 26.0 cm2 SV(MOD-sp4): 38.8 ml LAV(MOD-bp) Indexed: 14.7 ml/m2 LVLd ap4: 7.7 cm SI(MOD-sp4): 19.0 ml/m2 LAV(MOD-sp2): 36.8 ml EDV(MOD-sp4): 72.8 ml LAV(MOD-sp4): 23.4 ml EDV(sp4-el): 75.1 ml LVAs ap4: 16.0 cm2 LVLs ap4: 6.4 cm ESV(MOD-sp4): 34.0 ml ESV(sp4-el): 34.0 ml EF(MOD-sp4): 53.3 % EF(sp4-el): 54.7 % SV(sp4-el): 41.1 ml LA A4 area: 11.4 cm2 LA dimension(2D): 3.0 cm RA A4 area: 11.4 cm2 Time Measurements MV dec time: 0.29 sec Doppler Measurements & Calculations MV E max rodney: 61.0 cm/sec Lat Peak E' Rodney: 11.4 cm/sec Med Peak E' Rodney: 7.0 cm/sec MV A max rodney: 72.4 cm/sec E/E' lat: 5.3 E/E' med: 8.7 MV E/A: 0.84 MV V2 max: 96.6 cm/sec MV P1/2t max rodney: 76.8 cm/sec Ao V2 max: 110.5 cm/sec MV max P.7 mmHg MV P1/2t: 105.9 msec Ao max P.9 mmHg MV V2 mean: 52.0 cm/sec Ao V2 mean: 78.2 cm/sec MV mean P.3 mmHg MV dec slope: 212.5 cm/sec2 Ao mean P.8 mmHg MV V2 VTI: 23.8 cm MVA(P1/2t): 2.1 cm2 Ao V2 VTI: 26.0 cm AV (velocity ratio): 0.79 LV V1 max: 92.7 cm/sec TR max rodney: 259.0 cm/sec LV V1 max P.4 mmHg TR max P.8 mmHg LV V1 mean P.8 mmHg LV V1 mean: 62.5 cm/sec LV V1 VTI: 20.6 cm ECHO/Echo Complete Interpretation Summary Normal LV size. The left ventricular ejection fraction is 55 %. Bileaflet diffuse mitral valve thickening. Pulmonary artery systolic pressure is 30 mmHg. Ordering Physician: George Umanzor Referring Physician: George Umanzor Performed By: Darren Larry RCS
== END | disposition home or self-care (01) ==
LOC: CVS 12:31
PROVIDERS: PCP Family Medicine; Referring Provider Family Medicine; Visit Provider Family Medicine
DX: G45.9 Transient cerebral ischemic attack, unspecified (principal)
CPT/HCPCS: 93306

== ENCOUNTER → 2024-07-25 | Outpatient (CLI) | payer MEDICARE, SELFPAY ==
--- OUTSIDE RECORDS SUMMARY | 2024-07-25 23:40 | XMS RPT_ITS | CCD ---
Author Organization [facility] CliniSymi Care Team Providers Care Commercial Energy Rater Name Role Phone NOÉ STATON, DR MOREJON Primary Care Physician Danni Lowery Unavailable Unavailable Noé STATON, Dr. Morejon Primary Care Provider Noé STATON, Dr. Morejon Attending Provider [phone] Dr. Jean-Pierre Umanzor MD Referring Provider [phone] Kitty JAVA DEVELOPER-C, Pepito Attending Provider Dr. Issa Waters MD Emergency Provider Dr. Issa Waters MD Attending Provider [phone] Dr. Abiel Dunne DO Emergency Provider [phone] Peter STATON, Dr. Sorensen Admit Provider Peter STATON, Dr. Sorensen Attending Provider Dr. Franchesca Green MD Other Provider Everett Sparks MD Other Provider Unavailable Dr. Albert Kay MD Other Provider Kiki Woodson MD Other Provider Unavailable Dr. Miryam Norwood DO Other Provider [phone] Dr. Rebekah Marshall MD Other Provider Dr. Patrick Lambert MD Other Provider Dr. Yumiko Kate MD Other Provider Dr. Navin Barba MD Other Provider Dr. Rachel Wells MD Other Provider Case STATON, Dr. Cordero Other Provider Haleigh Lovett MD Other Provider [phone] Denae STATON, Dr. Pham Other Provider Spencer STATON, Dr. Ladd Other Provider Ileana STATON, Dr. Tan Other Provider [phone] Kenny STATON, Dr. Surinder Lucio Other Provider Shashank STATON, Dr. Hidalgo Other Provider Caroline STATON, Dr. Burk Other Provider Nicholas STATON, Dr. Mcguire Other Provider Ru STATON, Dr. Figueroa Other Provider Unavailable Bernadine STATON, Yousef Other Provider Unavailable Bev SIMS, Dr. Reid Attending Provider Dr. Franklin Pablo DO Other Provider [phone] NOÉ STATON, DR MOREJON Primary Care Corine CHERY MD, DR TIERNEY Rangel Attending Alma Delia Michelle MD, DR MOREJON Primary Care Corine CHERY MD, DR TIERNEY Rangel Attending Alma Delia Michelle MD, DR MOREJON Primary [facility] Corine CHERY MD, DR TIERNEY Rangel Attending Alma Delia Xiong MD, DR TIERNEY Rangel Attending Alma Delia Michelle MD, DR MOREJON [facility] Corine RODRIGUEZ LINUX VMWARE ADMINISTRATOR-COAL CONVEYOR OPERATOR, KATHLEEN M Consulting Merced CHERY MD, DR TIERNEY Rangel Admitting Alma Delia Michelle MD, DR MOREJON Primary Care Corine CHERY MD, DR TIERNEY Rangel Attending Alma Delia Michelle MD, DR MOREJON Primary Care Corine CHERY MD, DR TIERNEY Rangel Attending Alma Delia Michelle MD, Dr. Morejon Primary Care Provider Noé STATON, Dr. Morejon Referring Provider Noé STATON, Dr. Morejon Attending Provider Martina STATON, Dr. Reilly Attending Provider [phone] Everett Sparks Consulting Unavailable Jean-Pierre Umanzor Primary Care Unavailable Green, Franchesca Admitting Unavailable Franklin Pablo Attending Unavailable Adeli, Amir Consulting Unavailable Hinduja, Kiki Consulting Unavailable Cuco, Miryam Consulting Unavailable Zha, Rebekah Consulting Unavailable Petra, Patrick Consulting Unavailable Humble, Yumiko Consulting Unavailable Bittar, Navin Consulting Unavailable Wells, Rachel Consulting Unavailable Willoughby, Gil Consulting Unavailable Belinda, Haleigh Consulting Unavailable Gusdax, Ankit Consulting Unavailable Spencer, Julee Consulting Unavailable Ridha, Mohamed Consulting Unavailable Zaghlouleh, Mhd Naveed Consulting UnavailRocky Hilliard Consulting Unavailable Velazquez, Rami Consulting Unavailable Nicholas, Maynor Consulting Unavailable Ru, Carolina Consulting Unavailable Hannawi, Yousef Consulting Unavailable Peter, Franchesca Consulting Unavailable [facility] Primary [facility] Unavailable Tommie Mack Attending Unavailable Everett Sparks Consulting Unavailable [facility] Primary Care Unavailable Franchesca Green Admitting Unavailable Franklin Pablo Attending Unavailable Adeli, Amir Consulting Unavailable Hinduja, Kiki Consulting Unavailable Cuco, Miryam Consulting Unavailable Zha, Rebekah Consulting Unavailable Petra, Patrick Consulting Unavailable Humble, Yumiko Consulting Unavailable Bittar, Navin Consulting Unavailable Wells, Rachel Consulting Unavailable Willoughby, Gil Consulting Unavailable Belinda, Haleigh Consulting Unavailable Ankit Philippe Consulting Unavailable Spencer, Julee Consulting Unavailable Ridha, Mohamed Consulting Unavailable Zaghlouleh, Mhd Naveed Consulting UnavailRocky Hilliard Consulting Unavailable Velazquez, Rami Consulting Unavailable Nicholas, Maynor Consulting Unavailable Ru, Carolina Consulting Unavailable Hannawi, Yousef Consulting Unavailable Green, Franchesca Consulting Unavailable Bev Franklin Consulting Unavailable Franchesca Green Attending Unavailable Donnie Levy Attending Unavailable Jean-Pierre Umanzor Referring Unavailable [facility] Primary Care Unavailable [facility] Unavailable Pepito Tang Attending Unavailable [facility]é, [facility] Referring Unavailable [facility] Primary [facility] Unavailable Luisito Umanzorer Referring Unavailable Jean-Pierre Umanzor Attending [facility]available [facility] Luisito Umanzorer Referring Unavailable Jean-Pierre Umanzor Attending Unavailable Issa Waters Attending Unavailable [facility] Unavailable Medications Current Medications Medication Drug Class(es) Dates Sig (Normalized) Sig (Original) acetaminophen 1000 mg oral tablet (1 source) Start: 03-16-2024 take 1 tablet by mouth once daily Tylenol Dose : 1,000 mg = 2 tab(s), Oral, TID, not to exceed 3000 mg/day, 0 Refill(s) Start Date: 03/16/24 Status: Ordered Repeat number: 1 aspirin 325 mg oral tablet (13 sources) Platelet Aggregation Inhibitor, Nonsteroidal Anti-inflammatory Drug Start: 05-15-2024 take 1 tablet by mouth at breakfast Aspirin 325 mg Tablet Active 325 mg PO WITH BREAKFAST 0 May 15, 2024 12:00am Start: 03-16-2024 End: 04-15-2024 take 1 tablet by mouth once daily aspirin Dose : 81 mg = 1 tab(s), Oral, BIDM, Take 81 mg aspirin twice daily with food for 4 weeks postoperatively for DVT prophylaxis. After 4 weeks will then go back to normal 81 mg aspirin daily, 0 Refill(s) Start Date: 03/16/24 Stop Date: 04/15/24 Status: Ordered Repeat number: 1 Start: 02-23-2024 aspirin 81 mg oral delayed release tablet Dose : 81 mg = 1 tab(s), Oral, Daily, 0 Refill(s) Start Date: 02/23/24 Status: Ordered Repeat number: 1 Start: 02-15-2014 End: 05-15-2024 take 1 tablet by mouth once daily Aspirin 81 MG tablet,chewable Discontinued 81 mg PO DAILY@0800 February 15, 2014 1:00am May 15, 2024 3:49pm atorvastatin 40 mg oral tablet (15 sources) HMG-CoA Reductase Inhibitor Start: 05-06-2024 take 1 tablet by mouth once daily Atorvastatin 40 mg tablet Active 40 mg PO DAILY May 06, 2024 12:00am Start: 02-25-2017 End: 05-14-2024 take 1 tablet by mouth at bedtime Atorvastatin 20 MG tablet Discontinued 20 mg PO AT BEDTIME February 25, 2017 1:00am May 14, 2024 4:32pm Biotin (2 sources) Start: 02-23-2024 Biotin 5000 mc g oral capsule Dose : 5,000 mcg = 1 cap(s), Oral, Daily, 0 Refill(s) Start Date: 02/23/24 Status: Ordered Repeat number: 1 Calcium, Magnesium and Zinc oral tablet (3 sources) Start: 02-23-2024 take 1 tablet by mouth once daily Calcium, Magnesium and Zinc oral tablet Dose = 1 tab(s), Oral, qDay, # 30 tab(s), 0 Refill(s) Start Date: 02/23/24 Status: Ordered Quantity: 30.0 Unit: tab(s) Repeat number: 1 Centrum Silver oral tablet (3 sources) Start: 02-23-2024 take 1 tablet by mouth once daily Centrum Silver oral tablet Dose = 1 tab(s), Oral, qDay, # 30 tab(s), 0 Refill(s) Start Date: 02/23/24 Status: Ordered Quantity: 30.0 Unit: tab(s) Repeat number: 1 cholecalciferol 0.025 mg oral capsule (3 sources) Vitamin D Start: 05-14-2024 take 1 capsule by mouth once daily Cholecalciferol (Vitamin D3) (Vitamin D3) 25 mcg (1,000 unit) capsule Active 25 ug PO DAILY May 14, 2024 12:00am Chondroitin Sulfates / Glucosamine (2 sources) Start: 02-23-2024 Glucosamine Chondroitin Oral, qDay, 0 Refill(s) Start Date: 02/23/24 Status: Ordered Repeat number: 1 SENOKOT-S (3 sources) Start: 03-16-2024 End: 03-18-2024 Senokot S Dose = 2 tab(s), Oral, BID, Take until first bowel movement, then as needed, 0 Refill(s) Start Date: 03/16/24 Stop Date: 03/18/24 Status: Ordered Repeat number: 1 Start: 02-23-2024 take 1 tablet by ta once daily at bedtime Senokot S 50 mg-8.6 mg oral tablet Dose = 2 tab(s), Oral, qHS, # 30 tab(s), 0 Refill(s) Start Date: 02/23/24 Status: Ordered Quantity: 30.0 Unit: tab(s) Repeat number: 1 famotidine 20 mg oral tablet (1 source) Histamine-2 Receptor Antagonist Start: 03-16-2024 End: 04-15-2024 Pepcid 20 mg oral tablet Dose : 20 mg = 1 tab(s), Oral, qDay, # 30 tab(s), 0 Refill(s), Pharmacy: [id number], 180.3, cm, 03/15/24 14:55:00 EST, Height, kg, 03/15/24 14:55:00 EST, Dosing Weight Start Date: 03/16/24 Stop Date: 04/15/24 Status: Ordered Quantity: 30.0 Unit: tab(s) Repeat number: 1 herbal/nutritional product (2 sources) Start: 02-23-2024 herbal/nutriti on al product Binu Dumont, 0 Refill(s) Start Date: 02/23/24 Status: Ordered Repeat number: 1 meloxicam 7.5 mg oral tablet (9 sources) Nonsteroidal Anti-inflammatory Drug Start: 02-09-2021 End: 04-15-2024 take 1 tablet by mouth once daily as needed for pain Meloxicam 7.5 mg tablet Active 7.5 mg PO DAILY as needed for shoulder pain February 09, 2021 1:00am oxyCODONE hydrochloride 5 mg oral tablet (4 sources) Opioid Agonist Start: 05-14-2024 take 5-10 mg by mouth every six hours as needed Oxycodone 5 mg tablet Active 5 - 10 mg PO EVERY 6 HOURS NEEDED May 14, 2024 12:00am Start: 03-16-2024 End: 03-23-2024 take 1-2 tablets by mouth every four hours as needed for pain oxyCODONE 5 mg oral tablet ( IMMEDIATE release ) See Instructions, PRN as needed for pain, 1-2 tab(s) Oral q4h, # 42 tab(s), 0 Refill(s), 03/23/24 8:13:00 AM EST, Pharmacy: [id number], Status post total right knee replacement, 180.3, cm, 03/15/24 14:55:00 EST, Height, 84.1, kg, 03/15/24 14:55:00 EST, Dosing Weight Start Date: 03/16/24 Stop Date: 03/23/24 Status: Ordered Quantity: 42.0 Unit: tab(s) Repeat number: 1 Indication: Presence of right artificial knee joint tadalafil 20 mg oral tablet (3 sources) Phosphodiesterase 5 Inhibitor Start: 02-23-2024 Tadalafil (Eqv-Cialis) 20 mg oral tablet Take 1 (one) Tablet by mouth as needed Start Date: 02/23/24 Status: Ordered Repeat number: 1 Completed/Discontinued Medications Medication Drug Class(es) Dates Sig (Normalized) Sig (Original) acetaminophen 325 mg / oxyCODONE hydrochloride 5 mg oral tablet (8 sources) Opioid Agonist Start: 04-12-2021 End: 05-14-2024 Oxycodone-Acetamino phen (Percocet) 5-325 mg tablet Discontinued 1 {tbl} PO Q4H as needed for pain 05 07April 12, 2021 May 14, 2024 4:33pm meclizine hydrochloride 25 mg oral tablet (8 sources) Antiemetic Start: 02-09-2021 End: 05-14-2024 take 1 tablet by mouth three times daily as needed for dizziness Meclizine 25 mg tablet Discontinued 25 mg PO THREE TIMES A DAY as needed for dizziness February 09, 2021 1:00am May 14, 2024 4:32pm Rezfjrfu-Uel-Jtbtb-V it K-Lycop (Men's Multivitamin) 400-20-300 mcg Tablet (8 sources) Start: 04-05-2021 End: 05-14-2024 Hdwzaaaf-Qxm-Wngmu- Vit K-Lycop (Men's Multivitamin) 400-20-300 mcg Tablet Discontinued 1 {tbl} PO DAILY April 05, 2021 1:00am May 14, 2024 4:33pm Start: 04-05-2021 Hoglltew-Fyd-U olic-Vit K-Lycop (Men's Multivitamin) 400-20-300 mcg Tablet Active 1 {tbl} PO DAILY April 05, 2021 1:00am Start: 04-05-2021 take 1 tablet by ta th once daily Xwpruhzv-Kvl-Zfiid-Vit K-Lycop (Men's Multivitamin) 400-20-300 mcg Tablet Active 1 TABLET PO DAILY April 05, 2021 12:00am Start: 04-05-2021 take 1 tablet by ta th once daily Xpnqwudt-Xeo-Kfblx-Vit K-Lycop (Men's Multivitamin) 400-20-300 mcg Tablet Active 1 TABLET PO DAILY April 05, 2021 1:00am Senna Leaves (8 sources) Start: 04-05-2021 End: 05-14-2024 take 1 tablet by mouth at bedtime Senna 600 mg Tablet Discontinued 600 mg PO AT BEDTIME April 05, 2021 1:00am May 14, 2024 4:34pm Start: 04-05-2021 take 1 tablet by mouth at bedt gage Senna 600 mg Tablet Active 600 mg PO AT BEDTIME April 05, 2021 1:00am Start: 04-05-2021 take 600 mg by mouth at bedtim e Senna Active 600 MG PO AT BEDTIME April 05, 2021 12:00am Start: 04-05-2021 take 600 mg by mouth at bedtim e Senna Active 600 MG PO AT BEDTIME April 05, 2021 1:00am Problems Active Problems Problem Classification Problem Date Documented Date Episodic/Chronic Abdominal hernia (8 sources) Bilateral inguinal hernia; Translations: [Bilateral inguinal hernia, without obstruction or gangrene, not specified as recurrent] 04-12-2021 Episodic Acute cerebrovascular disease (1 source) Cerebral infarction, unspecified; Translations: [Cerebral infarction, unspecified] Onset: 05-13-2024 Chronic Conditions associated with dizziness or vertigo (9 sources) Vertigo; Translations: [Dizziness and giddiness] Onset: 03-16-2024 02-17-2021 Episodic Conduction disorders (4 sources) First degree atrioventricular block; Translations: [Atrioventricular block, first degree] 05-06-2024 Chronic Disorders of lipid metabolism (6 sources) Hyperlipidemia; Translations: [Hyperlipidemia, unspecified] Onset: 03-01-2024 Chronic Headache; including migraine (6 sources) Headache; Translations: [Headache] 05-14-2024 Episodic Osteoarthritis (3 sources) Unilateral primary osteoarthritis, left knee; Translations: [Bilateral primary osteoarthritis of knee] Onset: 03-15-2024 Chronic Other acquired deformities (1 source) Varus deformity, not elsewhere classified, left knee; Translations: [Varus deformity, not elsewhere classified, left knee] Onset: 04-29-2024 Episodic Other circulatory disease (6 sources) Disorder of carotid artery; Translations: [Disorder of arteries and arterioles, unspecified] 05-14-2024 Chronic Other circulatory disease (4 sources) Elevated blood-pressure reading without diagnosis of hypertension; Translations: [Elevated blood-pressure reading, without diagnosis of hypertension] 05-06-2024 Episodic Other connective tissue disease (1 source) Artificial knee joint present; Translations: [Presence of right artificial knee joint] Onset: 03-16-2024 Chronic Other connective tissue disease (6 sources) Neurological deficit; Translations: [Other symptoms and signs involving the nervous system] 05-14-2024 Episodic Other connective tissue disease (1 source) Other symptoms and signs involving the nervous system; Translations: [Other symptoms and signs involving the nervous system] Onset: 05-16-2024 Episodic Other nervous system disorders (4 sources) Expressive dysphasia; Translations: [Aphasia] 05-06-2024 Chronic Other nervous system disorders (6 sources) Paresthesia; Translations: [Paresthesia of skin] 05-14-2024 Episodic Other non-traumatic joint disorders (4 sources) Swelling of knee joint; Translations: [Effusion, right knee] 11-20-2023 Episodic Syncope (8 sources) Near syncope; Translations: [Syncope and collapse] 02-25-2017 Episodic Transient cerebral ischemia (12 sources) Transient cerebral ischemia; Translations: [Transient cerebral ischemic attack, unspecified] Onset: 05-15-2024 05-06-2024 Chronic Past or Other Problems Problem Classification Problem Date Documented Da te Episodic/Chronic Other upper respiratory infections (9 sources) Viral upper respiratory tract infection; Translations: [Acute upper respiratory infection, unspecified] Onset: 02-15-2024 02-15-2024 Episodic Results Test Name Value Interpretation Reference Range Facility [facility] 05-31-2024 [facility] Cardiovascular Services [address] [place] [id number] Echo Complete 05/31/24 1256 MR#: [id number] Acct: [id number] Name: RACHEL SANDOVAL Rep #: [id number] : 1940 83 From: Tommie Mack MD Attending Dr: Dr. Jean-Pierre Umanzor MD Status: REG [facility] Ordering Dr: Jean-Pierre Umanzor MD Date: 05/31/24 Location: [facility] Sex: M C Admitted: Reason For Study Reason For Study: TIA Procedure This was a 2D Doppler, Color Flow transthoracic echocardiogram. Exam performed in department. Left Ventricle Normal LV size. The left ventricular ejection fraction is 55 %. No regional wall motion abnormalities noted. Right Ventricle Normal RV size. Normal systolic function. Atria Normal left atrium. Normal right atrium. Mitral Valve Bileaflet diffuse mitral valve thickening. Tricuspid Valve Normal tricuspid valve. Mild (1+) tricuspid valve insufficiency. Pulmonary artery systolic pressure is 30 mmHg. Aortic Valve Trisinus/trileaflet aortic valve. Pulmonic Valve Normal pulmonic valve. Great Vessels Normal aortic root. The pulmonary artery is normal size. Inferior vena cava collapse with respiration. Pericardium/Pleural No pericardial effusion. Moderate size left pleural effusion. MMode/2D Measurements Calculations LVIDd: 4.7 cm IVSd: 0.92 cm Ao root diam: 3.1 cm LVIDs: 2.9 cm LVPWd: 0.85 cm RVDd: 3.7 cm FS: 38.4 % LAV(MOD-bp): 30.1 ml LVAd ap4: 26.0 cm2 SV(MOD-sp4): 38.8 ml LAV(MOD-bp) Indexed: 14.7 ml/m2 LVLd ap4: 7.7 cm SI(MOD-sp4): 19.0 ml/m2 LAV(MOD-sp2): 36.8 ml EDV(MOD-sp4): 72.8 ml LAV(MOD-sp4): 23.4 ml EDV(sp4-el): 75.1 ml LVAs ap4: 16.0 cm2 LVLs ap4: 6.4 cm ESV(MOD-sp4): 34.0 ml ESV(sp4-el): 34.0 ml EF(MOD-sp4): 53.3 % EF(sp4-el): 54.7 % SV(sp4-el): 41.1 ml LA A4 area: 11.4 cm2 LA dimension(2D): 3.0 cm RA A4 area: 11.4 cm2 Time Measurements MV dec time: 0.29 sec Doppler Measurements Calculations MV E max мария: 61.0 cm/sec Lat Peak E' Мария: 11.4 cm/sec Med Peak E' Мария: 7.0 cm/sec MV A max мария: 72.4 cm/sec E/E' lat: 5.3 E/E' med: 8.7 MV E/A: 0.84 MV V2 max: 96.6 cm/sec MV P1/2t max мария: 76.8 cm/sec Ao V2 max: 110.5 cm/sec MV max P.7 mmHg MV P1/2t: 105.9 msec Ao max P.9 mmHg MV V2 mean: 52.0 cm/sec Ao V2 mean: 78.2 cm/sec MV mean P.3 mmHg MV dec slope: 212.5 cm/sec2 Ao mean P.8 mmHg MV V2 VTI: 23.8 cm MVA(P1/2t): 2.1 cm2 Ao V2 VTI: 26.0 cm AV (velocity ratio): 0.79 LV V1 max: 92.7 cm/sec TR max мария: 259.0 cm/sec LV V1 max P.4 mmHg TR max P.8 mmHg LV V1 mean P.8 mmHg LV V1 mean: 62.5 cm/sec LV V1 VTI: 20.6 cm ECHO/Echo Complete Interpretation Summary Normal LV size. The left ventricular ejection fraction is 55 %. Bileaflet diffuse mitral valve thickening. Pulmonary artery systolic pressure is 30 mmHg. Ordering Physician: Jean-Pierre Umanzor Referring Physician: Jean-Pierre Umanzor Performed By: Darren Larry RCS 05/31/24 1632 Date Tommie Mack MD CC: Dr. Jean-Pierre Umanzor MD Date Dictated: 05/31/24 1256 Date Transcribed: 05/31/24 163 Child Support Officer: Signed Normal [facility] Echocardiogram study reportO rdered By: Tommie Mack on 05-31-2024 Study report [facility] Cardiovascular Services [address] [place] [place] [address] Echo Complete 05/31/24 1256 MR#: [id number] Acct: [id number] Name: RACHEL SANDOVAL Rep #:[id number] : 1940 83 From: Tommie Fitzpatrick Attending Dr: Dr. Jean-Pierre Umanzor MD Status: REG I Ordering Dr: Jean-Pierre Umanzor MD Orestes e: 05/31/24 Location: [facility] Sex: M C Admitted: Reason For Study Reason For Study: TIA Procedure This was a 2D Doppler, Color Flow transthoracic echocardiogram. Exam performed in department. Left Ventricle Normal LV size. The left ventricular ejection fraction is 55 %. No regional wallmotion abnormalities noted. Right Ventricle Normal RV size. Normal systolic function. Atria Normal left atrium. Normal right atrium. Mitral Valve Bileaflet diffuse mitral valve thickening. Tricuspid Valve Normal tricuspid valve. Mild (1+) tricuspid valve insufficiency. Pulmonary artery systolic pressure is 30 mmHg. Aortic Valve Trisinus/trileaflet aortic valve. Pulmonic Valve Normal pulmonic valve. Great Vessels Normal aortic root. The pulmonary artery is normal size. Inferior vena cava collapse with respiration. Pericardium/Pleural No pericardial effusion. Moderate size left pleural effusion. MMode/2D Measurements & Calculations LVIDd: 4.7 cm IVSd: 0.92 cm Ao root diam: 3.1 cm LVIDs: 2.9 cm LVPWd: 0.85 cm RVDd: 3.7 cm FS: 38.4 % LAV(MOD-bp): 30.1 ml LVAd ap4: 26.0 cm2 SV(MOD-sp4): 38.8 ml LAV(MOD-bp) Indexed: 14.7 ml/m2 LVLd ap4: 7.7 cm SI(MOD-sp4): 19.0 ml/m2 LAV(MOD-sp2): 36.8 ml EDV(MOD-sp4): 72.8 ml LAV(MOD-sp4): 23.4 ml EDV(sp4-el): 75.1 ml LVAs ap4: 16.0 cm2 LVLs ap4: 6.4 cm ESV(MOD-sp4): 34.0 ml ESV(sp4-el): 34.0 ml EF(MOD-sp4): 53.3 % EF(sp4-el): 54.7 % SV(sp4-el): 41.1 ml LA A4 area: 11.4 cm2 LA dimension(2D): 3.0 cm RA A4 area: 11.4 cm2 Time Measurements MV dec time: 0.29 sec Doppler Measurements & Calculations MV E max мария: 61.0 cm/sec Lat Peak E' Мария: 11.4 cm/sec Med Peak E' Мария: 7.0 cm/sec MV A max мария: 72.4 cm/sec E/E' lat: 5.3 E/E' med: 8.7 MV E/A: 0.84 MV V2 max: 96.6 cm/sec MV P1/2t max мария: 76.8 cm/sec Ao V2 max: 110.5 cm/sec MV max P.7 mmHg MV P1/2t: 105.9 msec Ao max P.9 mmHg MV V2 mean: 52.0 cm/sec Ao V2 mean: 78.2 cm/sec MV mean P.3 mmHg MV dec slope: 212.5 cm/sec2 Ao mean P.8 mmHg MV V2 VTI: 23.8 cm MVA(P1/2t): 2.1 cm2 Ao V2 VTI: 26.0 cm AV (velocity ratio): 0.79 LV V1 max: 92.7 cm/sec TR max мария: 259.0 cm/sec LV V1 max P.4 mmHg TR max P.8 mmHg LV V1 mean P.8 mmHg LV V1 mean: 62.5 cm/sec LV V1 VTI: 20.6 cm ECHO/Echo Complete Interpretation Summary Normal LV size. The left ventricular ejection fraction is 55 %. Bileaflet diffuse mitral valve thickening. Pulmonary artery systolic pressure is 30 mmHg. Ordering Physician: Jean-Pierre Umanzor Referring Physician: Jean-Pierre Umanzor Performed By: Darren Larry RCS 05/31/24 1632 Date _ Tommie Mack MD CC: Dr. Jean-Pierre Umanzor MD ~ Date Dictated: 05/31/24 1256 Date Transcribed: 05/31/24 1633 Child Support Officer: Signed [facility] Work Phone: Absolute neutrophil countOrd ered By: Franchesca Green on 05-15-2024 Neutrophils (Bld) [#/Vol] 2.6 10*3/uL 2.0-7.7 [facility] Anion gap in Serum or Plasma Ordered By: Franchesca Green on 05-15-2024 Anion gap [Moles/Vol] 12 mmol/L 06-30 [facility] BUN/creatinine ratioOrdered By: Franchesca Green on 05-15-2024 Urea nitrogen/Creatinine [Mass ratio] 13.9 mg/mg 12-05 [facility] Basic Metabolic Profile (BMP )on 05-15-2024 BUN/CRE 13.9 RATIO Normal 12-05 [facility] Comment on above: Order Comment: Order Date: 01/18/24 Order Info: [id number] - CMP Order Info: [id number] - LIPID Performed By: #### L 500.4050, L500.4100 #### [facility] [address] [facility] [place], [address] Calcium [Mass/Vol] 9.3 mg/dL Normal 7.6-11.0 [facility] Comment on above: Order Comment: Order Date: 01/18/24 Order Info: [id number] - CMP Order Info: [id number] - LIPID Performed By: #### L 500.4050, L500.4100 #### [facility] [address] [place], [address] Chloride [Moles/Vol] 105 mmol/L Normal 98-108 [facility] Comment on above: Order Comment: Order Date: 01/18/24 Order Info: [id number] - CMP Order Info: [id number] - LIPID Performed By: #### L [id number], L500.4100 #### [facility] [address] [place], [address] CO2 [Moles/Vol] 22.6 mmol/L Normal 21.0-32.0 [facility] Comment on above: Order Comment: Order Date: 01/18/24 Order Info: [id number] - CMP Order Info: [id number] - LIPID Performed By: #### L [id number], L500.4100 #### [facility] [address] [place], [address] Creatinine [Mass/Vol] 0.75 mg/dL Normal 0.70-1.20 [facility] Comment on above: Order Comment: Order Date: 01/18/24 Order Info: [id number] CMP Order Info: [id number] - LIPID Performed By: #### L [id number], L500.4100 #### [facility] [address] [place], [address] ECRCL 77.13 ml/min Normal 50-250 [facility] Comment on above: Order Comment: Order Date: 01/18/24 Order Info: [id number] - CMP Order Info: [id number] - LIPID Performed By: #### L [id number], L500.4100 #### [facility] [address] [place], [address] GAP 12 Normal 5-15 [facility] Comment on above: Order Comment: Order Date: 01/18/24 Order Info: [id number] - CMP Order Info: [id number] - LIPID Performed By: #### L 500.4050, L500.4100 #### [facility] [address] [place], [address] GFR/1.73 sq M.predicted among non-blacks MDRD (S/P/Bld) [Vol rate/Area] 91 mL/min/{1.73_m2} Normal >60 [facility] Comment on above: Order Comment: Order Date: 01/18/24 Order Info: [id number] - CMP Order Info: [id number] - LIPID Result Comment: mL/m in/1.73m2 CKD-EPI Creatinine Equation (2020) Performed By: #### L 500.4050, L500.4100 #### [facility] [address] [place], [address] Glucose [Mass/Vol] 91 mg/dL Normal 70-99 [facility] Comment on above: Order Comment: Order Date: 01/18/24 Order Info: [id number]- - CMP Order Info: [id number] - LIPID Performed By: #### L 500.4050, L500.4100 #### [facility] [address] [place], [address] Potassium [Moles/Vol] 4.1 mmol/L Normal 3.3-5.1 [facility] Comment on above: Order Comment: Order Date: 01/18/24 Order Info: [id number]- - CMP Order Info: [id number] - LIPID Performed By: #### L 500.4050, L500.4100 #### [facility] [address] [place], [address] Sodium [Moles/Vol] 140 mmol/L Normal 133-145 [facility] Comment on above: Order Comment: Order Date: 01/18/24 Order Info: [id number]- - CMP Order Info: [id number] - LIPID Performed By: #### L 500.4050, L500.4100 #### [facility] [address] [place], [address] Urea nitrogen [Mass/Vol] 10 mg/dL Normal 4-19 [facility] Comment on above: Order Comment: Order Date: 01/18/24 Order Info: [id number] - CMP Order Info: [id number] - LIPID Performed By: #### L 500.4050, L500.4100 #### [facility] [address] [place], [address] Basophil percentageOrdered B y: Franchesca Green on 05-15-2024 Basophils/100 WBC (Bld) 1.0 % 0-1 [facility] Brain without Contraston Brain without Contrast [facility] Services [address] [place] [address] Brain without Contrast MR#: [id number] Acct: [id number] Name: RACHEL SANDOVAL Rep #: [id number] : 1940 M 83 From: Rocky Spaulding DO PCP: Dr. Jean-Pierre Umanzor MD Status: ADM JAY Study: Brain without Contrast Date of Exam: 05/15/24 Exam# [id number] Ordering Dr: Franchesca Green MD PROCEDURE: BRAIN WITHOUT CONTRAST 05/15/2024 REASON FOR EXAM: Transient ischemic attack. Neurological signs and symptoms. TECHNIQUE: Brain MRI without and with intravenous contrast with additional dedicated imaging of the IACs. CONTRAST: Noncontrast exam. COMPARISON: CT brain yesterday FINDINGS: Brain: Likely old left MCA territory infarct. Old right WAYNE territory infarct. 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 No mass, mass effect or evidence of acute or chronic hemorrhage. Diffusion weighted images: No restricted diffusion. Ventricles: Ventricles and sulci very prominent consistent with age related involution. Major Intracranial Vessels: Usual vascular flow voids are identified in the vertebrobasilar system and anterior circulation. Sinuses: No significant sinus disease appreciated. Mastoids: No significant mastoid effusions IACs: Internal auditory canals or adequate size. 7th and 8th cranial nerves are seen going into the left IAC. Only a single nerve can be identified entering the right IAC MRI/Brain without Contrast IMPRESSION: No restricted diffusion to indicate acute infarct. 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 Reading Location: [facility] CC: Dr. Jean-Pierre Umanozr MD; Dr. Franchesca Green MD Child Support Officer: Signed Normal [facility] CBC W/Diff, Automatedon 04-18 Absolute Lymph 1.45 X10 3/uL Normal 0.83-4.51 [facility] Comment on above: Performed By: #### L 500.4050, L500.4100 #### [facility] [address] [place], [address] Absolute Neut 2.6 X10 3/uL Normal 2.0-7.7 [facility] Comment on above: Performed By: #### L 500.4050, L500.4100 #### [facility] [address] [place], [address] Basophils/100 WBC (Bld) 1.0 % Normal 0-1 [facility] Comment on above: Performed By: #### L 500.4050, L500.4100 #### [facility] [address] [place], [address] Eosinophils/100 WBC (Bld) 2.9 % Normal 0-5 [facility] Comment on above: Performed By: #### L 500.4050, L500.4100 #### [facility] [address] [place], [address] Erythrocyte distribution width (RBC) [Ratio] 12.8 % Normal 11.6-14.6 [facility] Comment on above: Performed By: #### L 500.4050, L500.4100 #### [facility] [address] [place], [address] Hematocrit (Bld) [Volume fraction] 38.0 % Low 40-54 [facility] Comment on above: Performed By: #### L 500.4050, L500.4100 #### [facility] [address] [place], [address] Hemoglobin (Bld) [Mass/Vol] 13.0 g/dL Normal 13.0-16.5 [facility] Comment on above: Performed By: #### L 500.4050, L500.4100 #### [facility] [address] [place], [address] IG% 0.200 Normal 0.0-0.9 [facility] Comment on above: Result Comment: IG% - Immature Granulocytes (promyelocytes, myelocytes and metamyelocytes) > 1% indicates that a LEFT SHIFT is Present. Performed By: #### L 500.4050, L500.4100 #### [facility] [address] [place], [address] Lymphocytes/100 WBC (Bld) 30.0 % Normal 19-41 [facility] Comment on above: Performed By: #### L 500.4050, L500.4100 #### [facility] [address] [place], [address] MCH (RBC) [Entitic mass] 30.7 pg Normal 27.0-32.0 [facility] Comment on above: Performed By: #### L 500.4050, L500.4100 #### [facility] [address] [place], [address] MCHC (RBC) [Mass/Vol] 34.2 g/dL Normal 32-36 [facility] Comment on above: Performed By: #### L 500.4050, L500.4100 #### [facility] [address] [place], [address] MCV (RBC) [Entitic vol] 89.6 fL Normal 80-94 [facility] Comment on above: Performed By: #### L 500.4050, L500.4100 #### [facility] [address] [place], [address] Monocytes/100 WBC (Bld) 11.2 % High 0-10 [facility] Comment on above: Performed By: #### L 500.4050, L500.4100 #### [facility] [address] [place], [address] Neutrophils/100 WBC (Bld) 54.7 % Normal 47-70 [facility] Comment on above: Performed By: #### L 500.4050, L500.4100 #### [facility] [address] [place], [address] Nucleated RBC (Bld) [#/Vol] 0 10*3/uL Normal 0-5 [facility] Comment on above: Performed By: #### L 500.4050, L500.4100 #### [facility] [address] [place], [address] Platelet mean volume (Bld) [Entitic vol] 9.7 fL Normal 6.2-12.0 [facility] Comment on above: Performed By: #### L 500.4050, L500.4100 #### [facility] [address] [place], [address] Platelets (Bld) [#/Vol] 204 10*3/uL Normal 150-450 [facility] Comment on above: Performed By: #### L 500.4050, L500.4100 #### [facility] [address] [place], [address] RBC (Bld) [#/Vol] 4.24 10*6/uL Low 4.6-6.2 [facility] Comment on above: Performed By: #### L 500.4050, L500.4100 #### [facility] [address] [place], [address] RDW SD 42.2 fl Normal 35.1-43.9 [facility] Comment on above: Performed By: #### L 500.4050, L500.4100 #### [facility] [address] [place], [address] WBC (Bld) [#/Vol] 4.8 10*3/uL Normal 4.4-11.0 [facility] Comment on above: Performed By: #### L 500.4050, L500.4100 #### [facility] [address] [place], [place], [id number] Calculated very low density lipoprotein (VLDL) cholesterol measurementOrdered By: Franchesca Green on 05-15-2024 VLDL Cholesterol 15 mg/dL 5-40 [facility] Carbon dioxide, total [Moles /volume] in Central venous bloodOrdered By: Franchesca Green on 05-15-2024 CO2 [Moles/Vol] 22.6 mmol/L 21.0-32.0 [facility] Chloride assayOrdered By: Sandra Green on 05-15-2024 Chloride [Moles/Vol] 105 mmol/L 98-108 [facility] Eosinophil percentageOrdered By: Franchesca Green on 05-15-2024 Eosinophils/100 WBC (Bld) 2.9 % 0-5 [facility] Erythrocyte distribution wid th ratioOrdered By: Franchesca Green on 05-15-2024 Erythrocyte distribution width (RBC) [Ratio] 12.8 % 11.6-14.6 [facility] Erythrocyte distribution wid th standard deviationOrdered By: Franchesca Green on 05-15-2024 Erythrocyte distribution width (RBC) [Entitic vol] 42.2 fL 35.1-43.9 [facility] Estimation of creatinine lizz aranceOrdered By: Franchesca Green on 05-15-2024 Estimated Creatinine Clearance Calc 77.13 ml/min 50-250 [facility] GFR/1.73 sq M.predicted martin g non-blacks MDRD (S/P/Bld) [Vol rate/Area]Ordered By: Franchesca Green on 05-15-2024 Estimated GFR (MDRD) Non-Af Amer 91 >60 [facility] Comment on above: mL/min/1.73m2 CKD-EP I Creatinine Equation (2020) Hematocrit Auto (Bld) [Volum e fraction]Ordered By: Franchesca Green on 05-15-2024 Hematocrit (Bld) [Volume fraction] 38.0 % Low 40-54 [facility] Hemoglobin A1con 05-15-2024 HbA1c (Bld) [Mass fraction] 5.6 % Low <=5.6 [facility] Comment on above: Performed By: #### L 500.4050, L500.4100 #### [facility] [address] [place], [address] Hemoglobin A1c percentageOrd ered By: Frnachesca Green on 05-15-2024 HbA1c (Bld) [Mass fraction] 5.6 % Low >5.7 [facility] Hemoglobin measurementOrdere d By: Franchesca Green on 05-15-2024 Hemoglobin (Bld) [Mass/Vol] 13.0 g/dL 13.0-16.5 [facility] Immature granulocytes/100 WB C Auto (Bld)Ordered By: Franchesca Green on 05-15-2024 Immature granulocytes/100 WBC (Bld) 0.200 % 0.0-0.9 [facility] Comment on above: IG% - Immature Granu locytes (promyelocytes, myelocytes and metamyelocytes) > 1% indicates that a LEFT SHIFT is Present. International normalized rat io (INR) calculationOrdered By: Franchesca Green on 05-15-2024 INR Coag (Bld) [Relative time] 1.1 {INR} [facility] LDL calc ser/plasOrdered By: Franchesca Green on 05-15-2024 LDL Cholesterol, Calculated 52 mg/dL [facility] Comment on above: Vudvoucocj=320-855 m g/dL & Higher Nvjb=815 mg/dL or greater Lipid Profileon 05-15-2024 CHOL:HDL 2.45 Normal [facility] Comment on above: Order Comment: Order Date: 01/18/24 Order Info: [id number] - CMP Order Info: [id number] - LIPID Performed By: #### L 500.4050, L500.4100 #### [facility] [address] [place], [place], [address] Cholesterol [Mass/Vol] 113 mg/dL Normal <=200 [facility] Comment on above: Order Comment: Order Date: 01/18/24 Order Info: [id number] - CMP Order Info: [id number] - LIPID Result Comment: Chol esterol level, Desirable <200 mg/dL Borderline high cholesterol 200-239 mg/dL High cholesterol >=240 mg/dL Recommendations of the NCEP Adult Treatment Panel for the following risk-cutoff thresholds for the [place] population. Performed By: #### L 500.4050, L500.4100 #### [facility] [address] [place], [address] Cholesterol in HDL [Mass/Vol] 46 mg/dL Normal [facility] Comment on above: Order Comment: Order Date: 01/18/24 Order Info: [id number] - CMP Order Info: [id number] - LIPID Result Comment: Kandis onal Cholesterol Education Program (NCEP) guidelines: <40 mg/dL: Low HDL-cholesterol (major risk factor for CHD) >= 60 mg/dL: High HDL-cholesterol (negative risk factor for CHD) HDL-cholesterol is affected by a number of factors, e.g. smoking, exercise, hormones, sex and age. Performed By: #### L 500.4050, L500.4100 #### [facility] [address] [place], [address] Cholesterol in LDL [Mass/Vol] 52 mg/dL Normal [facility] Comment on above: Order Comment: Order Date: 01/18/24 Order Info: [id number] - CMP Order Info: [id number] - LIPID Result Comment: Bord inndvc=547-151 mg/dL Higher Lvmo=449 mg/dL or greater Performed By: #### L 500.4050, L500.4100 #### [facility] [address] [place], [address] Cholesterol in VLDL [Mass/Vol] 15 mg/dL Normal 5-40 [facility] Comment on above: Order Comment: Order Date: 01/18/24 Order Info: [id number] - CMP Order Info: [id number] - LIPID Performed By: #### L 500.4050, L500.4100 #### [facility] [address] [place], [address] Triglyceride [Mass/Vol] 76 mg/dL Normal [facility] Comment on above: Order Comment: Order Date: 01/18/24 Order Info: [id number] - CMP Order Info: [id number] - LIPID Result Comment: The drugs N-Acetylcysteine and Metamizole may falsely depress this assay. Normal range: <150 mg/dL Borderline High: 150-199 mg/dL High: 200-499 mg/dL Very High: >500 mg/dL Performed By: #### L 500.4050, L500.4100 #### [facility] [address] [place], [place], [address] Lymphocytes Auto (Unsp spec) [#/Vol]Ordered By: Franchesca Green on 05-15-2024 Lymphocytes (Bld) [#/Vol] 1.45 10*3/uL 0.83-4.51 [facility] Lymphocytes/100 WBC Auto (Un sp spec)Ordered By: Franchesca Green on 05-15-2024 Lymphocytes/100 WBC (Bld) 30.0 % 19-41 [facility] MCV (mean corpuscular volume ) determinationOrdered By: Franchesca Green on 05-15-2024 MCV (RBC) [Entitic vol] 89.6 fL 80-94 [facility] Magnetic resonance imaging r eportOrdered By: Rocky Spaulding on 05-15-2024 Study report [facility] Imaging Services [address] [place], [place] [address] Brain without Contrast MR#: [id number] Acct: [id number] Name: RACHEL SANDOVAL Rep #: [id number] : 1940 M 83 From: Pet er Peer DO PCP: Dr. Jean-Pierre Umanzor MD Status: ADM JAY Study:Brain without Contrast Date of Exam: 05/15/24 Exam# [id number] Ordering Dr: Eden Green MD PROCEDURE: BRAIN WITHOUT CONTRAST 05/15/2024 REASON FOR EXAM: Transient ischemic attack. Neurological signs and symptoms. TECHNIQUE: Brain MRI without and with intravenous contrast with additional dedicated imaging of the IACs. CONTRAST: Noncontrast exam. COMPARISON: CT brain yesterday FINDINGS: Brain: Likely old left MCA territory infarct. Old right WAYNE territory infarct. 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 No mass, mass effect or evidence of acute or chronic hemorrhage. Diffusion weighted images: No restricted diffusion. Ventricles: Ventricles and sulci very prominent consistent with age related involution. Major Intracranial Vessels: Usual vascular flow voids are identified in the vertebrobasilar system and anterior circulation. Sinuses: No significant sinus disease appreciated. Mastoids: No significant mastoid effusions IACs: Internal auditory canals or adequate size. 7th and 8th cranial nerves areseen going into the left IAC. Only a single nerve can be identified entering the right IAC MRI/Brain without Contrast IMPRESSION: No restricted diffusion to indicate acute infarct. 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 [facility] CC: Dr. Jean-Pierre Umanzor MD; Dr. Franchesca Green MD ~ Child Support Officer: Signed [facility] Mean corpuscular hemoglobin (MCH) determinationOrdered By: Franchesca Green on 05-15-2024 MCH (RBC) [Entitic mass] 30.7 pg 27.0-32.0 [facility] Mean corpuscular hemoglobin concentration (MCHC) determinationOrdered By: Franchesca Green on 05-15-2024 MCHC (RBC) [Mass/Vol] 34.2 g/dL 32-36 [facility] Mean platelet volume determi nationOrdered By: Franchesca Green on 05-15-2024 Platelet mean volume (Bld) [Entitic vol] 9.7 fL 6.2-12.0 [facility] Monocyte percentageOrdered B y: Franchesca Green on 05-15-2024 Monocytes/100 WBC (Bld) 11.2 % High 0-10 [facility] Neutrophil percentageOrdered By: Franchesca Green on 05-15-2024 Neutrophils/100 WBC (Bld) 54.7 % 47-70 [facility] Nucleated red blood cell per centageOrdered By: Franchesca Green on 05-15-2024 Nucleated RBC/100 WBC (Bld) [Ratio] 0 % 0-5 [facility] Platelet countOrdered By: Sandra Green on 05-15-2024 Platelets (Bld) [#/Vol] 204 10*3/uL 150-450 [facility] Potassium (Unsp spec) [Mass/ Vol]Ordered By: Franchesca Green on 05-15-2024 Potassium [Moles/Vol] 4.1 mmol/L 3.3-5.1 [facility] Prothrombin Time w/INRon INR Coag (PPP) [Relative time] 1.1 {INR} Normal [facility] Comment on above: Performed By: #### L 500.4050, L500.4100 #### [facility] [address] [place], [address] PT Coag (PPP) [Time] 14.2 s Normal 11.7-14.9 [facility] Comment on above: Performed By: #### L 500.4050, L500.4100 #### [facility] [address] [place], [address] Prothrombin timeOrdered By: Franchesca Green on 05-15-2024 PT Coag (PPP) [Time] 14.2 s 11.7-14.9 [facility] RBC Auto (Bld) [#/Vol]Ordere d By: Franchesca Green on 05-15-2024 RBC (Bld) [#/Vol] 4.24 10*6/uL Low 4.6-6.2 [facility] Screening total cholesterol/ high density lipoprotein (HDL) cholesterol ratioOrdered By: Franchesca Green on 05-15-2024 Cholesterol.total/Maria Alejandra sterol in HDL [Mass ratio] 2.45 {ratio} [facility] Serum creatinine measurement (mass/volume)Ordered By: Franchesca Green on 05-15-2024 Creatinine [Mass/Vol] 0.75 mg/dL 0.70-1.20 [facility] Serum glucose measurement (m ass/volume)Ordered By: Franchesca Green on 05-15-2024 Glucose [Mass/Vol] 91 mg/dL 70-99 [facility] Serum or plasma calcium fabiana urement (mass/volume)Ordered By: Franchesca Green on 05-15-2024 Calcium [Mass/Vol] 9.3 mg/dL 7.6-11.0 [facility] Serum or plasma cholesterol in HDL measurement (mass/volume)Ordered By: Franchesca Green on 05-15-2024 Cholesterol in HDL [Mass/Vol] 46 mg/dL >40 [facility] Comment on above: National Cholesterol Education Program (NCEP) guidelines:<40 mg/dL: Low HDL-cholesterol (major risk factor for CHD)>= 60 mg/dL: High HDL-cholesterol (negative risk factor for CHD)HDL-cholesterol is affected by a number of factors, e.g. smoking, exercise, hormones, sex and age. Serum or plasma cholesterol measurement (mass/volume)Ordered By: Franchesca Green on 05-15-2024 Cholesterol [Mass/Vol] 113 mg/dL <201 [facility] Comment on above: Cholesterol level, D esirable <200 mg/dLBorderline high cholesterol 200-239 mg/dLHigh cholesterol >=240 mg/dLRecommendations of the NCEP Adult Treatment Panel for the following risk-cutoff thresholds for the [place] population. Serum or plasma urea nitroge n measurement (mass/volume)Ordered By: Franchesca Green on 05-15-2024 Urea nitrogen [Mass/Vol] 10 mg/dL 4-19 [facility] Sodium levelOrdered By: Yassine Green on 05-15-2024 Sodium [Moles/Vol] 140 mmol/L 133-145 [facility] TSH DL <= 0.005 mIU/L QnOrde red By: Franchesca Green on 05-15-2024 Thyroid Stimulating Hormone (TSH) 12.300 uIU/mL High 0.300-4.200 [facility] Thyroid Stim Hormone (TSH)on 05-15-2024 TSH 12.300 uIU/mL High 0.300-4.200 [facility] Comment on above: Order Comment: Order Date: 01/18/24 Order Info: [id number] - CMP Order Info: [id number] - LIPID Performed By: #### L 500.4050, L500.4100 #### [facility] [address] [place], [place], [address] Triglycerides measurementOrd ered By: Franchesca Green on 05-15-2024 Triglyceride [Mass/Vol] 76 mg/dL <199 [facility] Comment on above: The drugs N-Acetylcy steine and Metamizole may falsely depress this assay. Normal range: <150 mg/dLBorderline High: 150-199 mg/dLHigh: 200-499 mg/dLVery High: >500 mg/dL White blood cell (WBC) count Ordered By: Franchesca Green on 05-15-2024 WBC (Bld) [#/Vol] 4.8 10*3/uL 4.4-11.0 [facility] 12 Lead EKGon 05-14-2024 12 Lead EKG [facility] Cardiovascular Services [address] [place] [address] 12 Lead EKG 05/14/24 1609 MR#: [id number] Acct: [id number] Name: RACHEL SANDOVAL Rep #: [id number] : 1940 83 From: Collin See MD Attending Dr: Dr. Franklin Pablo DO Status: DIS JAY Ordering Dr: Abiel Dunne DO Date: 05/14/24 Location: [facility] Sex: M C Admitted: 05/14/24 Test Reason : STROKE TEAM Blood Pressure : */* mmHG Vent. Rate : 75 BPM Atrial Rate : 75 BPM P-R Int : 196 ms QRS Dur : 96 ms QT Int : 390 ms P-R-T Axes : 51 10 56 degrees QTcB Int : 435 ms Normal sinus rhythm Normal ECG When compared with ECG of 06-May-2024 16:16, No significant change was found Confirmed by Collin See ([id number]), commercial production editor DANNI SHEFFIELD ([id number]) on 05/19/2024 10:03:57 AM Referred By: Confirmed By: Collin See 05/19/24 1004 Date Collin See MD CC: Dr. Jean-Pierre Umanzor MD; Dr. Franklin Pablo DO; Dr. Abiel Dunne DO Signed Normal [facility] Absolute neutrophil countOrd ered By: Abiel Dunne on 05-14-2024 Neutrophils (Bld) [#/Vol] 3.4 10*3/uL 2.0-7.7 [facility] Anion gap in Serum or Plasma Ordered By: Abiel Dunne on 05-14-2024 Anion gap [Moles/Vol] 11 mmol/L - [facility] BUN/creatinine ratioOrdered By: Abiel Dunne on 05-14-2024 Urea nitrogen/Creatinine [Mass ratio] 16.1 mg/mg - [facility] Basic Metabolic Profile (BMP )on 05-14-2024 BUN/CRE 16.1 RATIO Normal - [facility] Comment on above: Performed By: #### L 500.4050, L500.4100 #### [facility] [address] [place], [address] Calcium [Mass/Vol] 9.3 mg/dL Normal 7.6-11.0 [facility] Comment on above: Performed By: #### L 500.4050, L500.4100 #### [facility] [address] [place], [address] Chloride [Moles/Vol] 104 mmol/L Normal 98-108 [facility] Comment on above: Performed By: #### L 500.4050, L500.4100 #### [facility] [address] [place], [address] CO2 [Moles/Vol] 25.2 mmol/L Normal 21.0-32.0 [facility] Comment on above: Performed By: #### L 500.4050, L500.4100 #### [facility] [address] [place], [address] Creatinine [Mass/Vol] 0.87 mg/dL Normal 0.70-1.20 [facility] Comment on above: Performed By: #### L 500.4050, L500.4100 #### [facility] [address] [place], [address] ECRCL 70.92 ml/min Normal 50-250 [facility] Comment on above: Performed By: #### L 500.4050, L500.4100 #### [facility] [address] [place], [address] GAP 11 Normal 5-15 [facility] Comment on above: Performed By: #### L 500.4050, L500.4100 #### [facility] [address] [place], [address] GFR/1.73 sq M.predicted among non-blacks MDRD (S/P/Bld) [Vol rate/Area] 87 mL/min/{1.73_m2} Normal >60 [facility] Comment on above: Result Comment: mL/m in/1.73m2 CKD-EPI Creatinine Equation (2020) Performed By: #### L 500.4050, L500.4100 #### [facility] [address] [place], [address] Glucose [Mass/Vol] 106 mg/dL High 70-99 [facility] Comment on above: Performed By: #### L 500.4050, L500.4100 #### [facility] [address] [place], [address] Potassium [Moles/Vol] 4.2 mmol/L Normal 3.3-5.1 [facility] Comment on above: Performed By: #### L 500.4050, L500.4100 #### [facility] [address] [place], [address] Sodium [Moles/Vol] 140 mmol/L Normal 133-145 [facility] Comment on above: Performed By: #### L 500.4050, L500.4100 #### [facility] [address] [place], [address] Urea nitrogen [Mass/Vol] 14 mg/dL Normal 4-19 [facility] Comment on above: Performed By: #### L 500.4050, L500.4100 #### [facility] [address] [place], [address] Basophil percentageOrdered B y: Abiel Dunne on 05-14-2024 Basophils/100 WBC (Bld) 0.6 % 0-1 [facility] Bedside Glucoseon 05-14-2024 FINGERSTICK GLU 109 mg/dL High 74-106 [facility] Comment on above: Result Comment: CARLOS A MATIAS OF PATIENT CARE PER NURSING PROTOCOL Performed By: #### L 500.4050, L500.4100 #### [facility] [address] [place], [address] CBC W/Diff, Automatedon 04-17 Absolute Lymph 2.11 X10 3/uL Normal 0.83-4.51 [facility] Comment on above: Performed By: #### L 500.4050, L500.4100 #### [facility] [address] [place], [address] Absolute Neut 3.4 X10 3/uL Normal 2.0-7.7 [facility] Comment on above: Performed By: #### L 500.4050, L500.4100 #### [facility] [address] [place], [address] Basophils/100 WBC (Bld) 0.6 % Normal 0-1 [facility] Comment on above: Performed By: #### L 500.4050, L500.4100 #### [facility] [address] [place], [address] Eosinophils/100 WBC (Bld) 1.3 % Normal 0-5 [facility] Comment on above: Performed By: #### L 500.4050, L500.4100 #### [facility] [address] [place], [address] Erythrocyte distribution width (RBC) [Ratio] 12.9 % Normal 11.6-14.6 [facility] Comment on above: Performed By: #### L 500.4050, L500.4100 #### [facility] [address] [place], [address] Hematocrit (Bld) [Volume fraction] 39.4 % Low 40-54 [facility] Comment on above: Performed By: #### L 500.4050, L500.4100 #### [facility] [address] [place], [address] Hemoglobin (Bld) [Mass/Vol] 13.3 g/dL Normal 13.0-16.5 [facility] Comment on above: Performed By: #### L 500.4050, L500.4100 #### [facility] [address] [place], [address] IG% 0.300 Normal 0.0-0.9 [facility] Comment on above: Result Comment: IG% - Immature Granulocytes (promyelocytes, myelocytes and metamyelocytes) > 1% indicates that a LEFT SHIFT is Present. Performed By: #### L 500.4050, L500.4100 #### [facility] [address] [place], [address] Lymphocytes/100 WBC (Bld) 33.7 % Normal 19-41 [facility] Comment on above: Performed By: #### L 500.4050, L500.4100 #### [facility] [address] [place], [address] MCH (RBC) [Entitic mass] 30.6 pg Normal 27.0-32.0 [facility] Comment on above: Performed By: #### L 500.4050, L500.4100 #### [facility] [address] [place], [address] MCHC (RBC) [Mass/Vol] 33.8 g/dL Normal 32-36 [facility] Comment on above: Performed By: #### L 500.4050, L500.4100 #### [facility] [address] [place], [address] MCV (RBC) [Entitic vol] 90.6 fL Normal 80-94 [facility] Comment on above: Performed By: #### L 500.4050, L500.4100 #### [facility] [address] [place], [address] Monocytes/100 WBC (Bld) 9.7 % Normal 0-10 [facility] Comment on above: Performed By: #### L 500.4050, L500.4100 #### [facility] [address] [place], [address] Neutrophils/100 WBC (Bld) 54.4 % Normal 47-70 [facility] Comment on above: Performed By: #### L 500.4050, L500.4100 #### [facility] [address] [place], [address] Nucleated RBC (Bld) [#/Vol] 0 10*3/uL Normal 0-5 [facility] Comment on above: Performed By: #### L 500.4050, L500.4100 #### [facility] [address] [place], [address] Platelet mean volume (Bld) [Entitic vol] 9.1 fL Normal 6.2-12.0 [facility] Comment on above: Performed By: #### L 500.4050, L500.4100 #### [facility] [address] [place], [address] Platelets (Bld) [#/Vol] 204 10*3/uL Normal 150-450 [facility] Comment on above: Performed By: #### L 500.4050, L500.4100 #### [facility] [address] [place], [address] RBC (Bld) [#/Vol] 4.35 10*6/uL Low 4.6-6.2 [facility] Comment on above: Performed By: #### L 500.4050, L500.4100 #### [facility] [address] [place], [address] RDW SD 42.5 fl Normal 35.1-43.9 [facility] Comment on above: Performed By: #### L 500.4050, L500.4100 #### [facility] [address] [place], [address] WBC (Bld) [#/Vol] 6.3 10*3/uL Normal 4.4-11.0 [facility] Comment on above: Performed By: #### L 500.4050, L500.4100 #### [facility] [address] [place], [address] Carbon dioxide, total [Moles /volume] in Central venous bloodOrdered By: Abiel Dunne on 05-14-2024 CO2 [Moles/Vol] 25.2 mmol/L 21.0-32.0 [facility] Chloride assayOrdered By: Juan A Dunne on 05-14-2024 Chloride [Moles/Vol] 104 mmol/L 98-108 [facility] Emergency Department Summary on 05-14-2024 Emergency Department Summary [facility] Medical Records Department [address] [place] [address] Emergency Department Summary 05/14/24 MR#: [id number] Acct: [id number] Name: RACHEL SANDOVAL Rep #: [id number] : 1940 83 From: Abiel Rangel PCP: Dr. Jean-Pierre Umanzor MD Status:ADM JAY Location: [address] History of Present Illness Chief Complaint: Stroke Alert Informant: patient and friend Narrative Narrative: Presents to the ED private vehicle stroke team initiated in triage.patient reported 30 minutes prior to arrival 2:45 PM no slight right-sided headache and feeling of his left hand falling asleep and same symptoms left facial region. There was no weakness. No speech changes. Patient on baby aspirin therapy. He then states 1 week ago he was in the ED he states he had dizziness and trouble getting his words out worked up in the ED and diagnosed with TIA. States he was not admitted. Denies any dizziness or speech issues today. After evaluation the patient did review records, diagnosed with TIA 8 days ago symptoms started day before for what he explained. CT brain negative CT angiogram approximate 50% left common carotid stenosis. No LVO. He had a statin increased per discussion with stroke neurologist plan for outpatient workup at that time. [facility] Medical History Viral URI History of steroid therapy Wears glasses Arthritis Vertigo Non-smoker Leg cramps History of echocardiogram Home Medications ???Medication ???Instructions ???Recorded ???Last Taken ???Type aspirin 81 mg chewable tablet 81 mg PO DAILY@0800 HEART 02/15/14 04/06/21 History meloxicam 7.5 mg tablet 7.5 mg PO DAILY PRN shoulder pain 02/09/21 Unknown History atorvastatin 40 mg tablet 40 mg PO DAILY #30 tabs 05/06/24 U nknown Rx cholecalciferol (vitamin D3) 25 25 mcg PO DAILY 05/14/24 05/13/24 History mcg (1,000 unit) capsule (Vitamin D3) oxycodone 5 mg tablet 5 - 10 mg PO Q6H PRN pain 05/14/24 04/30/24 History Allergy/AdvReac Type Severity Reaction Status Date / Time No Known Allergies Allergy Verified 05/14/24 15:18 Surgical History History of appendectomy History of shoulder surgery Social History household members: spouse Smoking Status: Never smoker ROS ROS ED Constitutional Constitutional ED: Denies chills, fever(s) or sweats ENT ENT ED: Denies sore throat Cardiovascular Cardiovascular: Denies chest pain, leg edema, palpitations or racing heartbeat Respiratory/Chest Respiratory/Chest: Denies cough, dyspnea or dyspnea on exertion Gastrointestinal Gastrointestinal: Denies abdominal pain, diarrhea, nausea or vomiting Genitourinary Genitourinary ED: Denies dysuria, hematuria or urinary frequency Musculoskeletal Musculoskeletal: Denies back pain, extremity pain or neck pain Integumentary Denies rash or wounds Neurologic Neurologic: Reports headache(s) and paresthesias; Denies weakness EXAM Physical Exam Const Vital Signs: 05/14/24 15:17 05/14/24 15:18 05/14/24 15:38 Temperature 97.8 F Temperature Source Oral Pulse Rate 82 80 Respiratory Rate 16 16 Blood Pressure 160/85 H 160/85 H Blood Pressure Mean 110 110 Pulse Ox 98 98 Oxygen Delivery Method Room Air Room Air Room Air Oxygen Flow Rate (L/min) 05/14/24 15:38 05/14/24 15:53 05/14/24 16:11 Temperature Temperature Source Pulse Rate 77 77 Respiratory Rate 18 18 18 Blood Pressure 149/86 H 166/87 H Blood Pressure Mean 107 113 Pulse Ox 96 96 Oxygen Delivery Method Room Air Room Air Oxygen Flow Rate (L/min) 18 05/14/24 16:23 05/14/24 16:30 Temperature Temperature Source Pulse Rate 81 78 Respiratory Rate 16 16 Blood Pressure 160/88 H 149/88 H Blood Pressure Mean 112 108 Pulse Ox 97 97 Oxygen Delivery Method Room Air Room Air Oxygen Flow Rate (L/min) Positive well nourished and well developed General Appearance ED: well developed and NAD HEENT Reports moist mucous membranes normocephalic and atraumatic Eyes General Eye ED: Yes normal appearance of both eyes Neck full ROM Chest Wall Chest: Negative for tenderness Resp normal respiratory effort and normal air movement Effort and Inspection: symmetric chest movement; Negative for respiratory distress Cardio regular rate, regular rhythm and no murmurs Peripheral Pulses: pulses 2+ throughout GI normal to inspection, nondistended, normoactive bowel sounds and non-tender Palpation: Negative for guarding or rebound tenderness present Extremity normal to inspection General Extremety ED: Negative for edema or tenderness General Extremity: Negative for rekha (more content not included)... Normal [facility] Eosinophil percentageOrdered By: Abiel Dunne on 05-14-2024 Eosinophils/100 WBC (Bld) 1.3 % 0-5 [facility] Erythrocyte distribution wid th ratioOrdered By: Abiel Dunne on 05-14-2024 Erythrocyte distribution width (RBC) [Ratio] 12.9 % 11.6-14.6 [facility] Erythrocyte distribution wid th standard deviationOrdered By: Abiel Dunne on 05-14-2024 Erythrocyte distribution width (RBC) [Entitic vol] 42.5 fL 35.1-43.9 [facility] Estimation of creatinine lizz aranceOrdered By: Abiel Dunne on 05-14-2024 Estimated Creatinine Clearance Calc 70.92 ml/min 50-250 [facility] GFR/1.73 sq M.predicted martin g non-blacks MDRD (S/P/Bld) [Vol rate/Area]Ordered By: Abiel Dunne on 05-14-2024 Estimated GFR (MDRD) Non-Af Amer 87 >60 [facility] Comment on above: mL/min/1.73m2 CKD-EP I Creatinine Equation (2020) [facility] deOrdered By: Franchesca Green on 05-14-2024 Bedside Glucose (Misc Panel) 109 mg/dL High 74-106 [facility] Comment on above: MANAGEMENT OF PATIEN T CARE PER NURSING PROTOCOL H AND P Exam - Hospitaliston 05-14-2024 H&P Exam - Hospitalist [facility] Medical Records Department [address] [place] [address] H P Exam - Hospitalist 05/14/24 1644 MR#: [id number] Acct: [id number] Name: RACHEL SANDOVAL Rep #: [id number] : 1940 83 From: Franchesca Green MD PCP: Dr. Jean-Pierre Umanzor MD Status:ADM JAY Location: [place] [address] HPI - General General Date of Admission: 05/14/24 Date of Service: 05/14/24 Chief Complaint: numbness on left hand and left face HPI Narrative RACHEL SANDOVAL is a Patient is an 83-year-old male with a history of arthritis and hyperlipidemia who presented [facility] 05/14/2024 as a stroke alert initiated in triage. 30 minutes prior to arrival at 2:45 PM patient noticed abnormal feeling in his left hand and felt the same symptoms in the left facial region with no speech changes or weakness but did feel little bit lightheaded. Patient chronically on a baby aspirin and reported that 1 week ago he was in the ED with dizziness and trouble getting his words out and was diagnosed with a TIA but was not admitted at that time as he was stable and he had his statin increased as per discussion with the stroke neurologist at that time with plan for outpatient workup. Patient's symptoms resolved after 10 to 20 minutes and were not present in the ED. In the ED NIH of 0, CT of the head with no acute process and CT angio with no LVO, does have carotid stenosis reports that this is not new. Reportedly after his recent TIA diagnosis he followed up with his PCP and had a 14-day Holter monitor placed and reports compliance with this medication. No MRIs have been ordered. Teleneurologist in the ED evaluated, patient completely asymptomatic with resolution of symptoms. Was felt that this may be TIA versus migraine was recommended to give 300 mg of Plavix once and aspirin 81 mg and admit to the hospital for further workup. In the ED patient vitally stable and labs unremarkable hospitalist contacted for admission. Patient evaluated with family member at bedside, he reports that in around 245 he developed a feeling of numbness and tingling/almost like the area fell asleep on his left hand particularly near his second and third finger and down slightly onto his hand with no symptoms traveling up his hand or in his fourth or fifth fingers, at the same time he developed left-sided perioral numbness and tingling, he felt a little bit lightheaded which resolved and denies any headache during this time. Symptoms completely resolved after 10 to 20 minutes and have not recurred. These are different than the symptoms he had 8 days ago when he had dizziness and difficulty getting words out. ROS otherwise negative. [facility] Medical History Viral URI History of steroid therapy Wears glasses Arthritis Vertigo Non-smoker Leg cramps History of echocardiogram Home Medications ???Medication ???Instructions ???Recorded ???Last Taken ???Type aspirin 81 mg chewable tablet 81 mg PO DAILY@0800 HEART 02/15/14 05/13/24 History meloxicam 7.5 mg tablet 7.5 mg PO DAILY PRN shoulder pain 02/09/21 05/13/24 History atorvastatin 40 mg tablet 40 mg PO DAILY #30 tabs 05/06/24 0 05/13/24 Rx cholecalciferol (vitamin D3) 25 25 mcg PO DAILY 05/14/24 05/13/24 History mcg (1,000 unit) capsule (Vitamin D3) oxycodone 5 mg tablet 5 - 10 mg PO Q6H PRN pain 05/14/24 04/30/24 History Allergy/AdvReac Type Severity Reaction Status Date / Time No Known Allergies Allergy Verified 05/14/24 15:18 Surgical History History of appendectomy History of shoulder surgery Social History household members: spouse Smoking Status: Never smoker ROS ROS Narrative General: Denies fever/chills HENT: Denies headache, denies stuffy nose, denies sore throat EYES: Denies changes in vision Resp: Denies cough, denies shortness of breath Cardiac: Denies chest pain GI: Denies abdominal pain, denies changes in bowel, denies nausea/vomiting : Denies changes in urination Extremity: Denies swelling MSK: Denies weakness Neuro: Denies any numbness/tingling, lightheaded feeling and paresthesias on left side of face and hand have resolved, occasionally will feel off balance for a couple of seconds but this is not changed and is not new Heme: Denies any bleeding or bruising Skin: Denies rashes Psychiatric: No complaints voiced Vital Signs Vital Signs Vital Signs: 05/14/24 15:17 05/14/24 15:18 05/14/24 15:38 Temperature 97.8 F Temperature Source Oral Pulse Rate 82 80 Respiratory Rate 16 16 Blood Pressure 160/85 H 160/85 H Blood Pressure Mean 110 110 Pulse Ox 98 98 Oxygen Delivery Method Room Air Room Air Room Air Oxygen Flow Rate (L/min) (more content not included)... Normal [facility] Hematocrit Auto (Bld) [Volum e fraction]Ordered By: Abiel Dunne on 05-14-2024 Hematocrit (Bld) [Volume fraction] 39.4 % Low 40-54 [facility] Hemoglobin measurementOrdere d By: Abiel Dunne on 05-14-2024 Hemoglobin (Bld) [Mass/Vol] 13.3 g/dL 13.0-16.5 [facility] Immature granulocytes/100 WB C Auto (Bld)Ordered By: Abiel Dunne on 05-14-2024 Immature granulocytes/100 WBC (Bld) 0.300 % 0.0-0.9 [facility] Comment on above: IG% - Immature Granu locytes (promyelocytes, myelocytes and metamyelocytes) > 1% indicates that a LEFT SHIFT is Present. International normalized rat io (INR) calculationOrdered By: Abiel Dunne on 05-14-2024 INR Coag (Bld) [Relative time] 1.1 {INR} [facility] L499.0042on 05-14-2024 Trop T High Sen 16 ng/L Normal <=22 [facility] Comment on above: Performed By: #### L 499.0042 #### [facility] [address] [place], [address] Trop T High Sen Normal <=22 [facility] Comment on above: Result Comment: Canc elled via OM: Order edited - Discontinuing original order Performed By: #### L 499.0042 #### [facility] [address] [place], [address] Performed By: #### L 500.4050, L500.4100 #### [facility] [address] [place], [address] L499.0043on 05-14-2024 Trop T High Sen 17 ng/L Normal <=22 [facility] Comment on above: Performed By: #### L 500.4050, L500.4100 #### [facility] [address] [place], [address] L501.4021on 05-14-2024 Trop T High Sen 20 ng/L Normal <=22 [facility] Comment on above: Performed By: #### L 500.4050, L500.4100 #### [facility] [address] [place], [address] Lymphocytes Auto (Unsp spec) [#/Vol]Ordered By: Abiel Dunne on 05-14-2024 Lymphocytes (Bld) [#/Vol] 2.11 10*3/uL 0.83-4.51 [facility] Lymphocytes/100 WBC Auto (Un sp spec)Ordered By: Abiel Dunne on 05-14-2024 Lymphocytes/100 WBC (Bld) 33.7 % 19-41 [facility] MCV (mean corpuscular volume ) determinationOrdered By: Abiel Dunne on 05-14-2024 MCV (RBC) [Entitic vol] 90.6 fL 80-94 [facility] Mean corpuscular hemoglobin (MCH) determinationOrdered By: Abiel Dunne on 05-14-2024 MCH (RBC) [Entitic mass] 30.6 pg 27.0-32.0 [facility] Mean corpuscular hemoglobin concentration (MCHC) determinationOrdered By: Abiel Dunne on 05-14-2024 MCHC (RBC) [Mass/Vol] 33.8 g/dL 32-36 [facility] Mean platelet volume determi nationOrdered By: Abiel Dunne on 05-14-2024 Platelet mean volume (Bld) [Entitic vol] 9.1 fL 6.2-12.0 [facility] Monocyte percentageOrdered B y: Abiel Dunne on 05-14-2024 Monocytes/100 WBC (Bld) 9.7 % 0-10 [facility] Neutrophil percentageOrdered By: Abiel Dunne on 05-14-2024 Neutrophils/100 WBC (Bld) 54.4 % 47-70 [facility] No Panel InformationOrdered By: Abiel Dunne on 05-14-2024 Troponin T High Sensitivity 20 ng/L <22 [facility] Comment on above: Delta: 17 on 5-1610 Nucleated red blood cell per centageOrdered By: Abiel Dunne on 05-14-2024 Nucleated RBC/100 WBC (Bld) [Ratio] 0 % 0-5 [facility] Partial Thromboplast Timeon 05-14-2024 aPTT Coag (Bld) [Time] 36.0 s Normal 24.1-36.2 [facility] Comment on above: Performed By: #### L 500.4055, L500.4100 #### [facility] [address] [place], [address] Platelet countOrdered By: Juan A Dunne on 05-14-2024 Platelets (Bld) [#/Vol] 204 10*3/uL 150-450 [facility] Potassium (Unsp spec) [Mass/ Vol]Ordered By: Abiel Dunne on 05-14-2024 Potassium [Moles/Vol] 4.2 mmol/L 3.3-5.1 [facility] Prothrombin Time w/INRon INR Coag (PPP) [Relative time] 1.1 {INR} Normal [facility] Comment on above: Performed By: #### L 500.4050, L500.4100 #### [facility] [address] [place], [address] PT Coag (PPP) [Time] 13.9 s Normal 11.7-14.9 [facility] Comment on above: Performed By: #### L 500.4050, L500.4100 #### [facility] [address] [facility] [place], [address] Prothrombin timeOrdered By: Abiel Dunne on 05-14-2024 PT Coag (PPP) [Time] 13.9 s 11.7-14.9 [facility] RBC Auto (Bld) [#/Vol]Ordere d By: Abiel Dunne on 05-14-2024 RBC (Bld) [#/Vol] 4.35 10*6/uL Low 4.6-6.2 [facility] STROKE Brain/Head without Co nton 05-14-2024 STROKE Brain/Head without Cont [facility] Imaging Services [address] [place], [place] [id number] STROKE Brain/Head without Cont MR#: [id number] Acct: [id number] Name: ADITIRACHEL TITUS Sahara Rep #: [id number] : 1940 M 83 From: Rocky Spaulding DO PCP: Dr. Jean-Pierre Umanzor MD Status: REG ER Study: STROKE Brain/Head without Cont Date of Exam: 0 05/14/24 Exam# [id number] Ordering Dr: Abiel Dunne DO PROCEDURE: STROKE BRAIN/HEAD WITHOUT CONT N/A REASON FOR EXAM: NEURO DEFICIT, ACUTE, STROKE SUSPECTED TECHNIQUE: Head CT without intravenous contrast. Coronal and Sagittal reconstruction series were provided. One or more dose reduction techniques were used (e.g., Automated exposure control, adjustment of the mA and/or kV according to patient size, use of iterative reconstruction technique. RADIATION DOSE SUMMARY: CTDlvol: 44.99 mGy DLP: 812.98 mGycm FINDINGS: Brain: No mass, mass effect or intra-axial hemorrhage. No extra-axial hemorrhage. There is moderate periventricular and deep white matter hypoattenuation suggesting microangiopathy (small-vessel ischemic disease). CSF Spaces: Ventricles and sulci are prominent indicating age-related involution. 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 No acute process. No hemorrhage. Reading Location: [facility] CC: Dr. Jean-Pierre Umanzor MD; Dr. Abiel Dunne DO Child Support Officer: Signed Normal [facility] STROKE CTA Head AND Neck W/C onon 05-14-2024 STROKE CTA Head AND Neck W/Con [facility] Imaging Services [address] [place] [address] STROKE CTA Head AND Neck W/Con MR#: [id number] Acct: [id number] Name: RACHEL SANDOVAL Rep #: [id number] : 1940 83 From: Rocky Spaulding DO PCP: Dr. Jean-Pierre Umanzor MD Status: [facility] ER Study: STROKE CTA Head AND Neck W/Con Date of Exam: 0 05/14/24 Exam# [id number] Ordering Dr: Abiel Dunne DO PROCEDURE: STROKE CTA HEAD AND NECK W/CON 05/14/2024 REASON FOR EXAM: NEURO DEFICIT, ACUTE, STROKE SUSPECTED TECHNIQUE: CTA imaging of the head and neck from the aortic arch to the skull vertex with intravenous contrast. Coronal and Sagittal reconstruction series were provided. 3D, 3D post processing, 3D reconstructions, Maximum intensity projection (MIPs) Volume rendering and Shaded surface rendering was provided. CONTRAST: VOLUME: 100mL IV One or more dose reduction techniques were used (e.g., Automated exposure control, adjustment of the mA and/or kV according to patient size, use of iterative reconstruction technique). # of known CTs in the past 12 months: 1 # of known Cardiac Nuclear Medicine Studies in the past 12 months: 0 RADIATION DOSE SUMMARY: CTDlvol: 18.55 mGy DLP: 726.54 mGycm CONTRAST: VOLUME: 100mL IV COMPARISON: Stroke CTA of 05/06/2024 FINDINGS: Aortic Arch: Moderate mixed plaque throughout the aortic arch and its branch vessels. Usual aortic arch branch vessel configuration. The right vertebral artery. Both vertebral arteries are patent lacking any focal stenosis or occlusion Carotids: Mild calcific plaque in the right CCA resulting in less than 50% narrowing by NASCET criteria. Moderate mixed plaque of the left CCA resulting in approximately 50% narrowing by NASCET criteria. Minimal calcific plaque at the bilateral ICA and intracranial carotid arteries. No focal stenosis or occlusion. The anterior middle and posterior cerebral arteries are widely patent. Patent left vuhjll-mm-[id number] no arterial venous malformation or aneurysm. Major venous structures: Unremarkable. Other: Partially visible left apical pleural thickening, cervical spondylosis and multiple periapical lucencies. CT/STROKE CTA Head AND Neck W/Con IMPRESSION: 1. No large vessel occlusion, AVM or aneurysm.. 2. Narrowing of the left common carotid approaching 50%. Unremarkable right CCA. 9 partially visualized left apical pleural thickening of indeterminate etiology [facility] CC: Dr. Jean-Pierre Umanzor MD; Dr. Abiel Dunne DO Child Support Officer: Signed Normal [facility] Serum creatinine measurement (mass/volume)Ordered By: Abiel Dunne on 05-14-2024 Creatinine [Mass/Vol] 0.87 mg/dL 0.70-1.20 [facility] Serum glucose measurement (m ass/volume)Ordered By: Abiel Dunne on 05-14-2024 Glucose [Mass/Vol] 106 mg/dL High 70-99 [facility] Serum or plasma calcium fabiana urement (mass/volume)Ordered By: Abiel Dunne on 05-14-2024 Calcium [Mass/Vol] 9.3 mg/dL 7.6-11.0 [facility] Serum or plasma urea nitroge n measurement (mass/volume)Ordered By: Abiel Dunne on 05-14-2024 Urea nitrogen [Mass/Vol] 14 mg/dL 4-19 [facility] Sodium levelOrdered By: Abiel Dunne on 05-14-2024 Sodium [Moles/Vol] 140 mmol/L 133-145 [facility] Troponin T.cardiac High sens itivity method [Mass/Vol]Ordered By: Franchesca Green on 05-14-2024 Troponin T High Sensitivity 4 Hour 17 ng/L <22 [facility] Troponin T High Sensitivity 2 Hour 16 ng/L <22 [facility] White blood cell (WBC) count Ordered By: Abiel Dunne on 05-14-2024 WBC (Bld) [#/Vol] 6.3 10*3/uL 4.4-11.0 [facility] aPTT Coag (PPP) [Time]Ordere d By: Abiel Dunne on 05-14-2024 aPTT Coag (Bld) [Time] 36.0 s 24.1-36.2 [facility] 12 Lead EKGon 05-06-2024 12 Lead EKG [facility] Cardiovascular Services [address] [place] [address] 12 Lead EKG 05/06/24 1616 MR#: [id number] Acct: [id number] Name: RACHEL SANDOVAL Rep #: [id number] : 1940 83 From: Tommie Mack MD Attending Dr: Status: DEP ER Ordering Dr: Issa Waters MD Date: 05/06/24 Location: ED Sex: M C Admitted: Test Reason : Blood Pressure : */* mmHG Vent. Rate : 92 BPM Atrial Rate : 92 BPM P-R Int : 220 ms QRS Dur : 106 ms QT Int : 364 ms P-R-T Axes : 27 14 61 degrees QTcB Int : 450 ms Sinus rhythm with 1st degree A-V block Otherwise normal ECG Confirmed by MARTINA STATON, TOMMIE ([id number]), commercial production editor DANNI SHEFFIELD ([id number]) on 05/09/2024 6:45:46 AM Referred By: Confirmed By: TOMMIE MACK MD 05/09/24 0645 Date Tommie Mack MD CC: Dr. Jean-Pierre Umanzor MD; Dr. Issa Waters MD Signed Normal [facility] Absolute neutrophil countOrd ered By: Issa Waters on 05-06-2024 Neutrophils (Bld) [#/Vol] 2.8 10*3/uL 2.0-7.7 [facility] Anion gap in Serum or Plasma Ordered By: Issa Waters on 05-06-2024 Anion gap [Moles/Vol] 10 mmol/L - [facility] BUN/creatinine ratioOrdered By: Issa Waters on 05-06-2024 Urea nitrogen/Creatinine [Mass ratio] 19.1 mg/mg - [facility] Basic Metabolic Profile (BMP )on 05-06-2024 BUN/CRE 19.1 RATIO Normal 12-05 [facility] Comment on above: Performed By: #### L 300.4310, L500.2500, L300.3900, L100.0100, L501.4021 #### [facility] [address] [place], [address] Calcium [Mass/Vol] 9.2 mg/dL Normal 7.6-11.0 [facility] Comment on above: Performed By: #### L 300.4310, L500.2500, L300.3900, L100.0100, L501.4021 #### [facility] [address] [place], [address] Chloride [Moles/Vol] 103 mmol/L Normal 98-108 [facility] Comment on above: Performed By: #### L 300.4310, L500.2500, L300.3900, L100.0100, L501.4021 #### [facility] [address] [place], [address] CO2 [Moles/Vol] 26.8 mmol/L Normal 21.0-32.0 [facility] Comment on above: Performed By: #### L 300.4310, L500.2500, L300.3900, L100.0100, L501.4021 #### [facility] [address] [place], [address] Creatinine [Mass/Vol] 0.92 mg/dL Normal 0.70-1.20 [facility] Comment on above: Performed By: #### L 300.4310, L500.2500, L300.3900, L100.0100, L501.4021 #### [facility] [address] [place], [address] ECRCL 67.07 ml/min Normal 50-250 [facility] Comment on above: Performed By: #### L 300.4310, L500.2500, L300.3900, L100.0100, L501.4021 #### [facility] [address] [place], [address] GAP 10 Normal 5-15 [facility] Comment on above: Performed By: #### L 300.4310, L500.2500, L300.3900, L100.0100, L501.4021 #### [facility] [address] [place], [address] GFR/1.73 sq M.predicted among non-blacks MDRD (S/P/Bld) [Vol rate/Area] 84 mL/min/{1.73_m2} Normal >60 [facility] Comment on above: Result Comment: mL/m in/1.73m2 CKD-EPI Creatinine Equation (2020) Performed By: #### L 300.4310, L500.2500, L300.3900, L100.0100, L501.4021 #### [facility] [address] [place], [address] Glucose [Mass/Vol] 103 mg/dL High 70-99 [facility] Comment on above: Performed By: #### L 300.4310, L500.2500, L300.3900, L100.0100, L501.4021 #### [facility] [address] [place], [address] Potassium [Moles/Vol] 4.2 mmol/L Normal 3.3-5.1 [facility] Comment on above: Performed By: #### L 300.4310, L500.2500, L300.3900, L100.0100, L501.4021 #### [facility] [address] [place], [address] Sodium [Moles/Vol] 139 mmol/L Normal 133-145 [facility] Comment on above: Performed By: #### L 300.4310, L500.2500, L300.3900, L100.0100, L501.4021 #### [facility] [address] [place], [address] Urea nitrogen [Mass/Vol] 18 mg/dL Normal 4-19 [facility] Comment on above: Performed By: #### L 300.4310, L500.2500, L300.3900, L100.0100, L501.4021 #### [facility] [address] [place], [address] Basophil percentageOrdered B y: Issa Waters on 05-06-2024 Basophils/100 WBC (Bld) 1.0 % 0-1 [facility] CBC W/Diff, Automatedon 03-2 Absolute Lymph 1.40 X10 3/uL Normal 0.83-4.51 [facility] Comment on above: Performed By: #### L 300.4310, L500.2500, L300.3900, L100.0100, L501.4021 #### [facility] [address] [place], [address] Absolute Neut 2.8 X10 3/uL Normal 2.0-7.7 [facility] Comment on above: Performed By: #### L 300.4310, L500.2500, L300.3900, L100.0100, L501.4021 #### [facility] [address] [place], [address] Basophils/100 WBC (Bld) 1.0 % Normal 0-1 [facility] Comment on above: Performed By: #### L 300.4310, L500.2500, L300.3900, L100.0100, L501.4021 #### [facility] [address] [place], [address] Eosinophils/100 WBC (Bld) 1.6 % Normal 0-5 [facility] Comment on above: Performed By: #### L 300.4310, L500.2500, L300.3900, L100.0100, L501.4021 #### [facility] [address] [place], [address] Erythrocyte distribution width (RBC) [Ratio] 12.9 % Normal 11.6-14.6 [facility] Comment on above: Performed By: #### L 300.4310, L500.2500, L300.3900, L100.0100, L501.4021 #### [facility] [address] [place], [address] Hematocrit (Bld) [Volume fraction] 38.2 % Low 40-54 [facility] Comment on above: Performed By: #### L 300.4310, L500.2500, L300.3900, L100.0100, L501.4021 #### [facility] [address] [place], [address] Hemoglobin (Bld) [Mass/Vol] 12.6 g/dL Low 13.0-16.5 [facility] Comment on above: Performed By: #### L 300.4310, L500.2500, L300.3900, L100.0100, L501.4021 #### [facility] [address] [place], [address] IG% 0.200 Normal 0.0-0.9 [facility] Comment on above: Result Comment: IG% - Immature Granulocytes (promyelocytes, myelocytes and metamyelocytes) > 1% indicates that a LEFT SHIFT is Present. Performed By: #### L 300.4310, L500.2500, L300.3900, L100.0100, L501.4021 #### [facility] [address] [place], [address] Lymphocytes/100 WBC (Bld) 28.7 % Normal 19-41 [facility] Comment on above: Performed By: #### L 300.4310, L500.2500, L300.3900, L100.0100, L501.4021 #### [facility] [address] [place], [address] MCH (RBC) [Entitic mass] 30.2 pg Normal 27.0-32.0 [facility] Comment on above: Performed By: #### L 300.4310, L500.2500, L300.3900, L100.0100, L501.4021 #### [facility] [address] [place], [address] MCHC (RBC) [Mass/Vol] 33.0 g/dL Normal 32-36 [facility] Comment on above: Performed By: #### L 300.4310, L500.2500, L300.3900, L100.0100, L501.4021 #### [facility] [address] [place], [address] MCV (RBC) [Entitic vol] 91.6 fL Normal 80-94 [facility] Comment on above: Performed By: #### L 300.4310, L500.2500, L300.3900, L100.0100, L501.4021 #### [facility] [address] [place], [address] Monocytes/100 WBC (Bld) 10.7 % High 0-10 [facility] Comment on above: Performed By: #### L 300.4310, L500.2500, L300.3900, L100.0100, L501.4021 #### [facility] [address] [place], [address] Neutrophils/100 WBC (Bld) 57.8 % Normal 47-70 [facility] Comment on above: Performed By: #### L 300.4310, L500.2500, L300.3900, L100.0100, L501.4021 #### [facility] [address] [place], [address] Nucleated RBC (Bld) [#/Vol] 0 10*3/uL Normal 0-5 [facility] Comment on above: Performed By: #### L 300.4310, L500.2500, L300.3900, L100.0100, L501.4021 #### [facility] [address] [place], [address] Platelet mean volume (Bld) [Entitic vol] 9.4 fL Normal 6.2-12.0 [facility] Comment on above: Performed By: #### L 300.4310, L500.2500, L300.3900, L100.0100, L501.4021 #### [facility] [address] [place], [address] Platelets (Bld) [#/Vol] 205 10*3/uL Normal 150-450 [facility] Comment on above: Performed By: #### L 300.4310, L500.2500, L300.3900, L100.0100, L501.4021 #### [facility] [address] [place], [address] RBC (Bld) [#/Vol] 4.17 10*6/uL Low 4.6-6.2 [facility] Comment on above: Performed By: #### L 300.4310, L500.2500, L300.3900, L100.0100, L501.4021 #### [facility] [address] [place], [address] RDW SD 43.5 fl Normal 35.1-43.9 [facility] Comment on above: Performed By: #### L 300.4310, L500.2500, L300.3900, L100.0100, L501.4021 #### [facility] [address] [place], [address] WBC (Bld) [#/Vol] 4.9 10*3/uL Normal 4.4-11.0 [facility] Comment on above: Performed By: #### L 300.4310, L500.2500, L300.3900, L100.0100, L501.4021 #### [facility] [address] [place], [address] Carbon dioxide, total [Moles /volume] in Central venous bloodOrdered By: Issa Waters on 05-06-2024 CO2 [Moles/Vol] 26.8 mmol/L 21.0-32.0 [facility] Chloride assayOrdered By: Maryuri Waters on 05-06-2024 Chloride [Moles/Vol] 103 mmol/L 98-108 [facility] Emergency Department Summary on 05-06-2024 Emergency Department Summary [facility] Medical Records Department [address] [place] [address] Emergency Department Summary 05/06/24 MR#: [id number] Acct: [id number] Name: RACHEL SANDOVAL Rep #: [id number] : 1940 83 From: Issa Waters MD PCP: Dr. Jean-Pierre Umanzor MD Status:REG ER Location: ED HPI History of Present Illness Chief Complaint: Neuro S/Sx Detail of Chief Complaint: Expressive aphasia Informant: patient and spouse/S.O. Onset/Context/Timing Onset: Yesterday (2199) Context: Sudden Onset Timing: Intermittent and Lasts (15 to 20 minutes) Quality and Location: Positive for Expressive Aphasia Onset: Last evening 2199 Current Severity: Gone Maximum Severity: Severe Worsened by: Nothing Relieved by: Nothing Associated Symptoms Associated Symptoms: Positive for Headache (Patient did report mild right-sided headache. Headache has resolved); Negative for Nausea, Vomiting or Chest Pain Narrative Narrative: Patient is an 83-year-old male. He has history of elevated cholesterol. He has arthritis. He states he had trouble speaking last evening. This started abruptly and lasted approximately 15 to 20 minutes. states his words did not make sense. They were not slurred. He did have a slight right-sided headache. He has no history of headaches. He is never smoked. There is no history of recent trauma. He is on a baby aspirin and statin. He denied double vision blurred vision loss of vision. He states he has problems with vision left eye and needs cataract surgery. He denies ringing in ears or decreased hearing. He no trouble with swallowing. He denies cardiac or respiratory symptoms. He denied abdominal pain, nausea vomiting or diarrhea. He denied paresthesia, anesthesia or motor weakness upper lower extremity. He does have history of vertigo and takes meclizine for dizziness. He denies history of TIA or CVA. Review of prior records indicates he had an echo which were revealed no PFO in 2018. He had Dopplers of his carotids 2019 which revealed less than 50% stenosis. Prior similar symptoms: No Recent Illness/Hospitalizatio n: No PFSH PFSH Medical History Viral URI History of steroid therapy Wears glasses Arthritis Vertigo Non-smoker Leg cramps History of echocardiogram Home Medications ???Medication ???Instructions ???Recorded ???Last Taken ???Type aspirin 81 mg chewable tablet 81 mg PO DAILY@0800 HEART 02/15/14 04/06/21 History atorvastatin 20 mg tablet 20 mg PO QHS #30 tabs 02/25/17 Unk nown Rx meclizine 25 mg tablet 25 mg PO TID PRN dizziness #14 tab s 02/09/21 Unknown Rx meloxicam 7.5 mg tablet 7.5 mg PO DAILY PRN shoulder pain 02/09/21 Unknown History aeurmbxx-zxasqoim-himh c acid 400 1 tab PO DAILY supplement 04/05/21 Unknown History mcg-vit K 20 mcg-lycop 300 mcg tablet (Men's Multivitamin) senna 600 mg tablet 600 mg PO QHS stool softener 04/05 Unknown History oxycodone-acetaminophe n 5 mg-325 1 tab PO Q4H PRN pain 5 days #20 0 04/12/21 Unknown Rx mg tablet (Percocet) tabs atorvastatin 40 mg tablet 40 mg PO DAILY #30 tabs 05/06/24 U nknown Rx Allergy/AdvReac Type Severity Reaction Status Date / Time No Known Allergies Allergy Verified 05/06/24 15:40 Family History no significant family his Surgical History History of appendectomy History of shoulder surgery Social History (Updated 05/06/24 @ 16:[address] Issa Waters MD) household members: spouse Smoking Status: Never smoker ROS ROS ED Constitutional Constitutional ED: Denies chills, fever(s), subjective or sweats Eyes Eyes: Denies blurry vision, change in vision or diplopia ENT ENT ED: Denies ear pain, rhinorrhea or sore throat Cardiovascular Cardiovascular: Denies chest pain or palpitations Respiratory/Chest Respiratory/Chest: Denies cough, dyspnea or dyspnea on exertion Gastrointestinal Gastrointestinal: Denies abdominal pain, nausea or vomiting Musculoskeletal Musculoskeletal: Denies arthralgias or myalgias Integumentary Denies rash Neurologic Neurologic: Reports headache(s); Denies paresthesias or weakness Hematologic/Lymphatic Hematologic/Lymphatic: Denies easy bleeding or easy bruising EXAM Physical Exam Const Vital Signs: 05/06/24 15:40 05/06/24 16:04 05/06/24 16:15 Temperature 96.2 F L Temperature Source Temporal Pulse Rate 101 H 95 Respiratory Rate 14 Blood Pressure 133/70 H 162/100 H Blood Pressure Mean 91 120 Pulse Ox 98 98 Oxygen Delivery Method Room Air Room Air Room Air 05/06/24 16:34 05/06/24 17:04 05/06/24 17:30 Temperature Temperature Source Pulse Rate 79 76 76 Respiratory Rate 16 14 20 H Blood Pressure 151/95 H 168/93 H 14 (more content not included)... Normal [facility] Eosinophil percentageOrdered By: Issa Waters on 05-06-2024 Eosinophils/100 WBC (Bld) 1.6 % 0-5 [facility] Erythrocyte distribution wid th ratioOrdered By: Issajose Waters on 05-06-2024 Erythrocyte distribution width (RBC) [Ratio] 12.9 % 11.6-14.6 [facility] Erythrocyte distribution wid th standard deviationOrdered By: Issajose Waters on 05-06-2024 Erythrocyte distribution width (RBC) [Entitic vol] 43.5 fL 35.1-43.9 [facility] Estimation of creatinine lizz aranceOrdered By: Issa Waters on 05-06-2024 Estimated Creatinine Clearance Calc 67.07 ml/min 50-250 [facility] GFR/1.73 sq M.predicted martin g non-blacks MDRD (S/P/Bld) [Vol rate/Area]Ordered By: Issa Waters on 05-06-2024 Estimated GFR (MDRD) Non-Af Amer 84 >60 [facility] Comment on above: mL/min/1.73m2 CKD-EP I Creatinine Equation (2020) Hematocrit Auto (Bld) [Volum e fraction]Ordered By: Issa Waters 05-06-2024 Hematocrit (Bld) [Volume fraction] 38.2 % Low 40-54 [facility] Hemoglobin measurementOrdere d By: Issa Waters 05-06-2024 Hemoglobin (Bld) [Mass/Vol] 12.6 g/dL Low 13.0-16.5 [facility] Immature granulocytes/100 WB C Auto (Bld)Ordered By: Issajose Waters 05-06-2024 Immature granulocytes/100 WBC (Bld) 0.200 % 0.0-0.9 [facility] Comment on above: IG% - Immature Granu locytes (promyelocytes, myelocytes and metamyelocytes) > 1% indicates that a LEFT SHIFT is Present. International normalized rat io (INR) calculationOrdered By: Issa Waters on 05-06-2024 INR Coag (Bld) [Relative time] 1.1 {INR} [facility] L499.0042on 05-06-2024 Trop T High Sen 18 ng/L Normal <=22 [facility] Comment on above: Performed By: #### L 499.0042 #### [facility] [address] [place], [address] L499.0043on 05-06-2024 Trop T High Sen Normal <=22 [facility] Comment on above: Result Comment: Canc elled via OM: Order cancelled - Patient discharged Performed By: #### L 499.0043 #### [facility] [address] [place], [address] L501.4021on 05-06-2024 Trop T High Sen 17 ng/L Normal <=22 [facility] Comment on above: Performed By: #### L 300.4310, L500.2500, L300.3900, L100.0100, L501.4021 #### [facility] [address] [place], [address] Lymphocytes Auto (Unsp spec) [#/Vol]Ordered By: Issa Waters on 05-06-2024 Lymphocytes (Bld) [#/Vol] 1.40 10*3/uL 0.83-4.51 [facility] Lymphocytes/100 WBC Auto (Un sp spec)Ordered By: Issa Waters on 05-06-2024 Lymphocytes/100 WBC (Bld) 28.7 % 19-41 [facility] MCV (mean corpuscular volume ) determinationOrdered By: Issa Waters on 05-06-2024 MCV (RBC) [Entitic vol] 91.6 fL 80-94 [facility] Mean corpuscular hemoglobin (MCH) determinationOrdered By: Issa Waters on 05-06-2024 MCH (RBC) [Entitic mass] 30.2 pg 27.0-32.0 [facility] Mean corpuscular hemoglobin concentration (MCHC) determinationOrdered By: Issa Waters on 05-06-2024 MCHC (RBC) [Mass/Vol] 33.0 g/dL 32-36 [facility] Mean platelet volume determi nationOrdered By: Issajose Waters on 05-06-2024 Platelet mean volume (Bld) [Entitic vol] 9.4 fL 6.2-12.0 [facility] Monocyte percentageOrdered B y: Issa Waters on 05-06-2024 Monocytes/100 WBC (Bld) 10.7 % High 0-10 [facility] Neutrophil percentageOrdered By: [facility] Alexander Campuso on 05-06-2024 Neutrophils/100 WBC (Bld) 57.8 % 47-70 [facility] No Panel InformationOrdered By: [facility] Alexander Campuso on 05-06-2024 Troponin T High Sensitivity 17 ng/L <22 [facility] Nucleated red blood cell per centageOrdered By: Issa Waters on 05-06-2024 Nucleated RBC/100 WBC (Bld) [Ratio] 0 % 0-5 [facility] Partial Thromboplast Timeon 05-06-2024 aPTT Coag (Bld) [Time] 34.8 s Normal 24.1-36.2 [facility] Comment on above: Performed By: #### L 300.4310, L500.2500, L300.3900, L100.0100, L501.4021 #### [facility] [address] [place], [address] Platelet countOrdered By: [facility] Jt on 05-06-2024 Platelets (Bld) [#/Vol] 205 10*3/uL 150-450 [facility] Potassium (Unsp spec) [Mass/ Vol]Ordered By: Issajose Waters on 05-06-2024 Potassium [Moles/Vol] 4.2 mmol/L 3.3-5.1 [facility] Prothrombin Time w/INRon INR Coag (PPP) [Relative time] 1.1 {INR} Normal [facility] Comment on above: Performed By: #### L 300.4310, L500.2500, L300.3900, L100.0100, L501.4021 #### [facility] [address] [place], [address] PT Coag (PPP) [Time] 13.9 s Normal 11.7-14.9 [facility] Comment on above: Performed By: #### L 300.4310, L500.2500, L300.3900, L100.0100, L501.4021 #### [facility] [address] [place], [address] Prothrombin timeOrdered By: Issa Waters on 05-06-2024 PT Coag (PPP) [Time] 13.9 s 11.7-14.9 [facility] RBC Auto (Bld) [#/Vol]Ordere d By: Issa Waters on 05-06-2024 RBC (Bld) [#/Vol] 4.17 10*6/uL Low 4.6-6.2 [facility] STROKE Brain/Head without Co nton 05-06-2024 STROKE Brain/Head without Cont [facility] Imaging Services [address] [place], [place] [address] STROKE Brain/Head without Cont MR#: [id number] Acct: [id number] Name: RACHEL SANDOVAL Rep #: [id number] : 1940 M 83 From: Zoraida Briceño nd, MD PCP: Dr. Jean-Pierre Umanzor MD Status: [facility] ER Study: STROKE Brain/Head without Cont Date of Exam: 0 05/06/24 Exam# [id number] Ordering Dr: Issa Waters MD EXAM: STROKE BRAIN/HEAD WITHOUT CONT CLINICAL HISTORY: 83 y/o M with NEURO DEFICIT, ACUTE, STROKE SUSPECTED. Patient reports approximately 20-30 minute episode of difficulty with word finding last night. COMPARISON: CTA head and neck 02/09/2021 TECHNIQUE: Routine CT imaging of the head without IV contrast. Additional multiplanar reformats were obtained. Dose reduction techniques were used including intermediate exposure control (AEC),iterative reconstruction technique, and/or mA and/or KV dose adjustments based on patient's size. FINDINGS: Mild generalized cerebral and cerebellar volume loss with concordant prominence of the ventricles and subarachnoid spaces. Moderate patchy supratentorial white matter hypodensities. 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 The mendez-white matter interfaces are otherwise maintained. No acute intracranial hemorrhage or herniation. Mucous retention cyst or polyp within the right anterior ethmoid air cell. The orbits, visualized paranasal sinuses and mastoids are otherwise unremarkable. No acute calvarial fracture or scalp hematoma. CT/STROKE Brain/Head without Cont IMPRESSION: 1. No acute intracranial finding. 2. Findings of chronic microvascular ischemic changes and age-related changes. Findings were discussed via telephone by Dr. Cee with Dr. Waters at 5:05 p.m. on 05/06/2024. Reading Location: [id number] CC: Dr. Jean-Pierre Umanzor MD; Dr. Issa Waters MD Child Support Officer: Signed Normal [facility] STROKE CTA Head AND Neck W/C onon 05-06-2024 STROKE CTA Head AND Neck W/Con [facility] Imaging Services [address] [place], [place] [id number] STROKE CTA Head AND Neck W/Con MR#: [id number] Acct: [id number] Name: RACHEL SANDOVAL Rep #: [id number] : 1940 M 83 From: Zoraida Briceño nd, MD PCP: Dr. Jean-Pierre Umanzor MD Status: REG ER Study: STROKE CTA Head AND Neck W/Con Date of Exam: 0 05/06/24 Exam# [id number] Ordering Dr: Issa Waters MD PROCEDURE: STROKE CTA HEAD AND NECK W/CON 05/06/2024 REASON FOR EXAM: NEURO DEFICIT, ACUTE, STROKE SUSPECTED TECHNIQUE: CTA imaging of the head and neck from the aortic arch to the skull vertex with intravenous contrast. Coronal and Sagittal reconstruction series were provided. 3D, 3D post processing, 3D reconstructions, Maximum intensity projection (MIPs) Volume rendering and Shaded surface rendering was provided. CONTRAST: Isovue-300 VOLUME: 100ML One or more dose reduction techniques were used (e.g., Automated exposure control, adjustment of the mA and/or kV according to patient size, use of iterative reconstruction technique). RADIATION DOSE SUMMARY: CTDlvol: 46 mGy DLP: 709 mGycm COMPARISON: Same-day CT head, CTA head and neck 02/09/2021. FINDINGS: See separately dictated same day CT head for discussion of nonvascular findings. Moderate mixed atherosclerotic plaque throughout the aortic arch and its branch vessels. Standard aortic arch branch vessel pattern. Dominant right vertebral artery. The bilateral vertebral arteries are patent without focal stenosis or occlusion. Mild calcific atherosclerosis of the right common carotid artery resulting in less than 50% narrowing by NASCET criteria. Moderate mixed atherosclerotic plaque of the left common carotid artery resulting in approximately 50% narrowing by NASCET criteria. Minimal calcific plaque of the bilateral internal carotid and intracranial carotid arteries. No focal stenosis or occlusion. The anterior, middle and posterior cerebral arteries are widely patent. Patent left [id number]. No arteriovenous malformation or aneurysm. Major venous structures: Unremarkable. Other findings: Partially visualized left apical pleural thickening. Cervical spondylosis. Multiple periapical lucencies. CT/STROKE CTA Head AND Neck W/Con IMPRESSION: 1. No large vessel occlusion, AVM or aneurysm. 2. Approximately 50% narrowing of the left common carotid artery. Unremarkable right common carotid artery. 3. Partially visualized left apical pleural thickening, which is indeterminate in etiology. Correlation with patient history and prior imaging recommended. Reading Location: [facility] CC: Dr. Jean-Pierre Umanzor MD; Dr. Issa Waters MD Child Support Officer: Signed Normal [facility] Serum creatinine measurement (mass/volume)Ordered By: Issa Waters on 05-06-2024 Creatinine [Mass/Vol] 0.92 mg/dL 0.70-1.20 [facility] Serum glucose measurement (m ass/volume)Ordered By: Issa Waters on 05-06-2024 Glucose [Mass/Vol] 103 mg/dL High 70-99 [facility] Serum or plasma calcium fabiana urement (mass/volume)Ordered By: Issa Waters on 05-06-2024 Calcium [Mass/Vol] 9.2 mg/dL 7.6-11.0 [facility] Serum or plasma urea nitroge n measurement (mass/volume)Ordered By: Issa Waters on 05-06-2024 Urea nitrogen [Mass/Vol] 18 mg/dL 4-19 [facility] Sodium levelOrdered By: Issa Waters on 05-06-2024 Sodium [Moles/Vol] 139 mmol/L 133-145 [facility] Troponin T.cardiac High sens itivity method [Mass/Vol]Ordered By: Issa Waters on 05-06-2024 Troponin T High Sensitivity 2 Hour 18 ng/L <22 [facility] White blood cell (WBC) count Ordered By: Issa Waters on 05-06-2024 WBC (Bld) [#/Vol] 4.9 10*3/uL 4.4-11.0 [facility] aPTT Coag (PPP) [Time]Ordere d By: Issa Waters on 05-06-2024 aPTT Coag (Bld) [Time] 34.8 s 24.1-36.2 [facility] MABOon 05-02-2024 ABO/Rh Interp Negative Invalid Interpretation Code [facility] Comment on above: Performed By: #### A GTY #### [address] [address] .Auto Diffon 04-29-2024 Basophil, Absolute 0.0 10 3/mcL Normal 0.0-0.2 [facility] Comment on above: Performed By: #### A DIFF, GFR, CBC, BMP, ANEU, ABSGEL, ALB #### [address] [address] #### ABOM, ANTID, AUTOC #### [address] [address] Basophils/100 WBC (Bld) 0.9 % Normal 0.0-2.5 [facility] Comment on above: Performed By: #### A DIFF, GFR, CBC, BMP, ANEU, ABSGEL, ALB #### [address] [address] #### ABOM, ANTID, AUTOC #### [address] [address] Eosinophil, Absolute 0.0 10 3/mcL Normal 0.0-0.7 [facility] Comment on above: Performed By: #### A DIFF, GFR, CBC, BMP, ANEU, ABSGEL, ALB #### [place] [address] #### ABOM, ANTID, AUTOC #### [address] [address] Eosinophils/100 WBC (Bld) 0.9 % Normal 0.0-7.0 [facility] Comment on above: Performed By: #### A DIFF, GFR, CBC, BMP, ANEU, ABSGEL, ALB #### [place] [address] #### ABOM, ANTID, AUTOC #### [address] [address] Lymphocyte, Absolute 1.0 10 3/mcL Normal 0.9-4.3 [facility] Comment on above: Performed By: #### A DIFF, GFR, CBC, BMP, ANEU, ABSGEL, ALB #### [place] [address] #### ABOM, ANTID, AUTOC #### [address] [address] Lymphocytes/100 WBC (Bld) 21.3 % Normal 20.0-40.0 [facility] Comment on above: Performed By: #### A DIFF, GFR, CBC, BMP, ANEU, ABSGEL, ALB #### [place] [address] #### ABOM, ANTID, AUTOC #### [address] [address] Monocyte, Absolute 0.5 10 3/mcL Normal 0.1-1.4 [facility] Comment on above: Performed By: #### A DIFF, GFR, CBC, BMP, ANEU, ABSGEL, ALB #### [place] [address] #### ABOM, ANTID, AUTOC #### [address] [address] Monocytes/100 WBC (Bld) 10.0 % Normal 2.0-13.0 [facility] Comment on above: Performed By: #### A DIFF, GFR, CBC, BMP, ANEU, ABSGEL, ALB #### [address] [address] #### ABOM, ANTID, AUTOC #### [address] [address] Neutrophils/100 WBC (Bld) 66.9 % Normal 50.0-75.0 [facility] Comment on above: Performed By: #### A DIFF, GFR, CBC, BMP, ANEU, ABSGEL, ALB #### [address] [address] #### ABOM, ANTID, AUTOC #### [address] [address] .GFRon 04-29-2024 Estimated Glomerular Filtration Rate 82 ml/min/1.73sqm Normal [facility] Comment on above: Result Comment: Stages of Chronic Kidney Disease (CKD) Stage Description eGFR(ml/min/1.73 sq.m.) CKD 1 Normal kidney function or >=90 normal kindney function with possible kidney damage (ex. Proteinuria) CKD 2 Kidney damage with mild loss 60-89 of kidney function CKD 3a Mild to moderate loss of kidney 45-59 function CKD 3b Moderate to severe loss of 30-44 of kindey function CKD 4 Severe loss of kidney function 15-29 CKD 5 Kidney failure <15 Note: (go live 2024) the eGFR calculation was updated to the 2020 CKD-EPI creatinine equation without a race factor to calculate the eGFR results. Performed By: #### A GTY #### [address] [address] .NEUABSon 04-29-2024 Neutrophil, Absolute 3.2 10 3/mcL Normal 2.3-8.1 [facility] Comment on above: Performed By: #### A GTY #### [address] [address] ABIDon 04-29-2024 Antibody ID Anti-M Invalid Interpretation Code [facility] Comment on above: Order Comment: Order ed by Discern Performed By: #### A GTY #### [address] [address] ABS (Gel)on 04-29-2024 ABSC Interp (Gel) Positive Normal [facility] Comment on above: Performed By: #### A GTY #### [address] [address] ALBon 04-29-2024 Albumin Level 4.2 G/dL Normal 3.4-4.8 [facility] Comment on above: Performed By: #### A GTY #### [address] [address] AUTOCon 04-29-2024 Auto Control Negative Normal [facility] Comment on above: Order Comment: Order ed by Discern Performed By: #### A GTY #### [place] [id number] BMPon 04-29-2024 BUN/Creatinine Ratio 17 ratio Normal 7-27 [facility] Comment on above: Performed By: #### A GTY #### [place] [id number] Calcium [Mass/Vol] 9.4 mg/dL Normal 8.4-10.2 [facility] Comment on above: Performed By: #### A GTY #### [place] [id number] Chloride [Moles/Vol] 102 mmol/L Normal 98-107 [facility] Comment on above: Performed By: #### A GTY #### [place] [id number] CO2 [Moles/Vol] 28 mmol/L Normal 23-31 [facility] Comment on above: Performed By: #### A GTY #### [place] [id number] Creatinine [Mass/Vol] 0.93 mg/dL Normal 0.70-1.30 [facility] Comment on above: Result Comment: Test ing performed on Siemens Dimension EXL analyzer using a modified kinetic Sajan technique. Performed By: #### A GTY #### [place] [address] Electrolyte Balance 7.0 mEq/L Normal 4.0-15.0 [facility] Comment on above: Performed By: #### A GTY #### [address] [address] Glucose [Mass/Vol] 104 mg/dL Normal 83-110 [facility] Comment on above: Performed By: #### A GTY #### [place] [address] Potassium [Moles/Vol] 4.1 mmol/L Normal 3.5-5.1 [facility] Comment on above: Performed By: #### A GTY #### [place] [address] Sodium [Moles/Vol] 137 mmol/L Normal 136-145 [facility] Comment on above: Performed By: #### A GTY #### [place] [address] Urea nitrogen [Mass/Vol] 16 mg/dL Normal 7-18 [facility] Comment on above: Performed By: #### A GTY #### [place] [id number] CBCon 04-29-2024 Erythrocyte distribution width (RBC) [Ratio] 14.4 % Normal 11.5-15.5 [facility] Comment on above: Order Comment: Pre-A dmission Testing Performed By: #### A DIFF, GFR, CBC, BMP, ANEU, ABSGEL, ALB #### [place] [address] #### ABOM, ANTID, AUTOC #### [address] [address] Hematocrit (Bld) [Volume fraction] 38.3 % Low 40.0-52.0 [facility] Comment on above: Order Comment: Pre-A dmission Testing Performed By: #### A DIFF, GFR, CBC, BMP, ANEU, ABSGEL, ALB #### [address] [address] #### ABOM, ANTID, AUTOC #### [address] [address] Hgb 13.2 G/dL Normal 13.0-17.5 [facility] Comment on above: Order Comment: Pre-A dmission Testing Performed By: #### A DIFF, GFR, CBC, BMP, ANEU, ABSGEL, ALB #### [address] [address] #### ABOM, ANTID, AUTOC #### [place] [id number] MCH (RBC) [Entitic mass] 30.9 pg Normal 27.0-33.0 [facility] Comment on above: Order Comment: Pre-A dmission Testing Performed By: #### A DIFF, GFR, CBC, BMP, ANEU, ABSGEL, ALB #### [place] [address] #### ABOM, ANTID, AUTOC #### [place] [address] MCHC 34.3 G/dL Normal 32.0-36.0 [facility] Comment on above: Order Comment: Pre-A dmission Testing Performed By: #### A DIFF, GFR, CBC, BMP, ANEU, ABSGEL, ALB #### [place] [address] #### ABOM, ANTID, AUTOC #### [place] [address] MCV (RBC) [Entitic vol] 90.0 fL Normal 81.0-100.0 [facility] Comment on above: Order Comment: Pre-A dmission Testing Performed By: #### A DIFF, GFR, CBC, BMP, ANEU, ABSGEL, ALB #### [place] [address] #### ABOM, ANTID, AUTOC #### [place] [address] Platelet 205 10 3/mcL Normal 150-450 [facility] Comment on above: Order Comment: Pre-A dmission Testing Performed By: #### A DIFF, GFR, CBC, BMP, ANEU, ABSGEL, ALB #### [address] [address] #### ABOM, ANTID, AUTOC #### [place] [address] Platelet mean volume (Bld) [Entitic vol] 7.5 fL Normal 6.4-10.5 [facility] Comment on above: Order Comment: Pre-A dmission Testing Performed By: #### A DIFF, GFR, CBC, BMP, ANEU, ABSGEL, ALB #### [place] [address] #### ABOM, ANTID, AUTOC #### [place] [address] RBC 4.26 10 6/mcL Low 4.50-6.00 [facility] Comment on above: Order Comment: Pre-A dmission Testing Performed By: #### A DIFF, GFR, CBC, BMP, ANEU, ABSGEL, ALB #### [place] [address] #### ABOM, ANTID, AUTOC #### [place] [address] WBC 4.7 10 3/mcL Normal 4.5-10.8 [facility] Comment on above: Order Comment: Pre-A dmission Testing Performed By: #### A DIFF, GFR, CBC, BMP, ANEU, ABSGEL, ALB #### [place] [address] #### ABOM, ANTID, AUTOC #### [place] [address] CT KNEE W/O CONTRAST LEFTon 04-29-2024 CT KNEE W/O CONTRAST LEFT ORIGINAL EXAMINATION: CT OF THE LEFT KNEE WITHOUT CONTRAST 04/29/2024 12:52 pm TECHNIQUE: CT of the left knee was performed without the administration of intravenous contrast. Multiplanar reformatted images are provided for review. Automated exposure control, iterative reconstruction, and/or weight based adjustment of the mA/kV was utilized to reduce the radiation dose to as low as reasonably achievable. MA KO protocol was performed with axial images through the left hip and left ankle. COMPARISON: None. HISTORY ORDERING SYSTEM PROVIDED HISTORY: Reason for Exam: UNILATERAL PRIMARY OSTEOARTHRITIS, LEFT KNEE FINDINGS: There is no acute fracture or dislocation. There is no suspicious lytic or blastic osseous lesion. There is no aggressive periosteal reaction. Partially visualized pelvis demonstrates colonic diverticulosis without CT evidence of diverticulitis. The bladder is distended. Prostate is enlarged measuring up to 5.5 cm. Pubic symphysis is aligned. Fibrocystic lesions in the left femoral anterior head neck junction. There is moderate to severe superolateral joint space narrowing and degenerative changes of the femoroacetabular joint. Vascular calcifications. Small knee joint effusion. There is a large popliteal Marshall's cyst. Thickening of the distal Achilles tendon, correlate for Achilles tendinosis. Tricompartmental osteoarthritis of the left knee severe in the medial compartment with [id number], subchondral sclerosis, subchondral cysts and marginal osteophyte formation. IMPRESSION: Tricompartmental osteoarthritis of the left knee severe in the medial compartment in patient presenting for preop planning. Small knee joint effusion. Large popliteal Marshall's cyst. Enlarged prostate, correlate with PSA and FRANKIE. Colonic diverticulosis without CT evidence of diverticulitis. Additional findings as detailed above. Interpreted by: Karina Plunkett Preliminary Report By: Karina Plunkett Electronically signed By Karina Plunkett Dictated Date: 04/29/2024 3:48:00 PM Prelim Date: 04/29/2024 3:51:55 PM Sign Date: 04/29/2024 3:51:55 PM Ordering Provider: TIERNEY CHERY Normal [facility] MRSAPCRon 04-29-2024 MRSA (PCR) Not detected Normal Not Detected [facility] Comment on above: Result Comment: [place] [id number] Performed By: #### A GTY #### [facility] [address] [place] [address] MRSA PCR Int Normal [facility] Comment on above: Result Comment: MRSA DNA not detected by Real-Time Polymerase Chain Reaction (PCR). A negative result may be due to intermittent colonization. Colonization may vary depending on patient treatment, patient status, or exposure to high-risk environments. As with all PCR based in vitro diagnostic tests, extremely low levels of target below the limit of detection of the assay may be detected, but results may not be reproducible. See Below Performed By: #### A GTY #### [place] [address] Final Surgical Pathology Rep arvind 03-21-2024 Final Surgical Pathology Report . Pathology Reports Accession: Collected Date/Time: Received Date/Time: Pathologist: [id number] 03/15/2024 12:10 EST 03/18/2024 08:14 SILVER STEVENS MD Final Surgical Pathology Report DIAGNOSIS: PREPATELLAR BURSA: - BURSA WITH MILD CHRONIC INFLAMMATION AND FOCAL HEMOSIDERIN DEPOSITION CLINICAL INFORMATION: UNILATERAL PRIMARY OSTEOARTHRITIS, RIGHT KNEE Procedure: ROBOTIC ASSISTED RIGHT TOTAL KNEE ARTHROPLASTY Preoperative diagnosis: UNILATERAL PRIMARY OSTEOARTHRITIS RIGHT KNEE, NOT ELSEWHERE CLASSIFIED, RIGHT KNEE Postoperative diagnosis: UNILATERAL PRIMARY OSTEOARTHRITIS RIGHT KNEE, NOT ELSEWHERE CLASSIFIED, RIGHT KNEE SPECIMEN: A PREPATELLA BURSA - RIGHT KNEE GROSS DESCRIPTION: All parts labelled with patient name and [id number] Received in formalin labelled prepatellar bursa Is a white - mendez rubbery portion of bursa measuring 3.3 x 2.6 x 1.7 cm. Specimen is sectioned to reveal a unilocular hemorrhagic cavity with red-brown blood clot measuring 2.5 x 2.2 x 1.8 cm. RS-1 Lenora Lara, Pathologists' Machine Iii Coremaker (ASCP) Performed by LENORA LARA MICROSCOPIC DESCRIPTION: The microscopic examination is performed, except in the case of Gross Only. Verified by Pathology Report verified by [facility] SILVER HIDALGO Sign out Date: 03/21/2024 15:51 Performing Lab: [facility], [address] [place] [address] Pathology Dept Disclaimer If ancillary studies were utilized, the following Laboratory Developed Test (LDT) disclaimer will apply: Under CLIA requirements, [facility] Pathology Laboratory is qualified to perform high complexity testing. For all ancillary stains, positive and negative controls stain appropriately. Performance characteristics of immunohistochemical and chromogenic in-situ hybridization tests have been determined by [facility]. These tests are used for clinical purposes, They should not be regarded as investigational or for research. Normal [facility] US ANESTHESIA BLOCKon 2024 US ANESTHESIA BLOCK ORIGINAL Images acquired, not reported on this accession number. Normal [facility] .Auto Diffon 03-16-2024 Basophil, Absolute 0.0 10 3/mcL Normal 0.0-0.2 [facility] Comment on above: Performed By: #### A ZOHAIB SMITH #### [address] [address] Basophils/100 WBC (Bld) 0.1 % Normal 0.0-2.5 [facility] Comment on above: Performed By: #### A ZOHAIB SMITH #### [address] [address] Eosinophil, Absolute 0.0 10 3/mcL Normal 0.0-0.7 [facility] Comment on above: Performed By: #### A ZOHAIB SMITH #### [address] [address] Eosinophils/100 WBC (Bld) 0.0 % Normal 0.0-7.0 [facility] Comment on above: Performed By: #### A ZOHAIB SMITH #### [address] [address] Lymphocyte, Absolute 1.0 10 3/mcL Normal 0.9-4.3 [facility] Comment on above: Performed By: #### A ZOHAIB SMITH #### [address] [address] Lymphocytes/100 WBC (Bld) 10.0 % Low 20.0-40.0 [facility] Comment on above: Performed By: #### A ZOHAIB SMITH #### [address] [address] Monocyte, Absolute 0.8 10 3/mcL Normal 0.1-1.4 [facility] Comment on above: Performed By: #### A ZOHAIB SMITH #### [address] [address] Monocytes/100 WBC (Bld) 8.1 % Normal 2.0-13.0 [facility] Comment on above: Performed By: #### A ZOHAIB SMITH #### [address] [address] Neutrophils/100 WBC (Bld) 81.8 % High 50.0-75.0 [facility] Comment on above: Performed By: #### A ZOHAIB SMITH #### [address] [address] .GFRon 03-16-2024 GFR 96 ml/min/1.73sqm Normal [facility] Comment on above: Result Comment: GFR Population mean for , Non- Americans Ages 20-29 = 116 mL/min/1.73 sq.m. Ages 30-39 = 107 mL/min/1.73 sq.m. Ages 40-49 = 99 mL/min/1.73 sq.m. Ages 50-59 = 93 mL/min/1.73 sq.m. Ages 60-69 = 85 mL/min/1.73 sq.m. Ages 70+ = 75 mL/min/1.73 sq.m. Chronic Kidney Disease: Less than 60 mL/min/1.73 square meters End Stage Renal Disease: Less than 15 mL/min/1.73 square meters Performed By: #### A ZOHAIB SMITH #### [address] [address] GFR Non- 79 ml/min/1.73sqm Normal [facility] Comment on above: Result Comment: GFR Population mean for , Non- Americans Ages 20-29 = 116 mL/min/1.73 sq.m. Ages 30-39 = 107 mL/min/1.73 sq.m. Ages 40-49 = 99 mL/min/1.73 sq.m. Ages 50-59 = 93 mL/min/1.73 sq.m. Ages 60-69 = 85 mL/min/1.73 sq.m. Ages 70+ = 75 mL/min/1.73 sq.m. Chronic Kidney Disease: Less than 60 mL/min/1.73 square meters End Stage Renal Disease: Less than 15 mL/min/1.73 square meters Performed By: #### A ZOHAIB SMITH #### [address] [address] .NEUABSon 03-16-2024 Neutrophil, Absolute 8.5 10 3/mcL High 2.3-8.1 [facility] Comment on above: Performed By: #### A ZOHAIB SMIHT #### [address] [address] BMPon 03-16-2024 Calcium [Mass/Vol] 9.3 mg/dL Normal 8.4-10.2 [facility] Comment on above: Performed By: #### A ZOHAIB SMITH #### [place] [address] BUN/Creatinine Ratio 21 ratio Normal 7-27 [facility] Comment on above: Performed By: #### A ZOHAIB SMITH #### [place] [address] Chloride [Moles/Vol] 106 mmol/L Normal 98-107 [facility] Comment on above: Performed By: #### A ZOHAIB SMITH #### [address] [address] CO2 [Moles/Vol] 29 mmol/L Normal 23-31 [facility] Comment on above: Performed By: #### A ZOHAIB SMITH #### [place] [address] Creatinine [Mass/Vol] 0.92 mg/dL Normal 0.70-1.30 [facility] Comment on above: Result Comment: Test ing performed on Siemens Dimension EXL analyzer using a modified kinetic Sajan technique. Performed By: #### A ZOHAIB SMITH #### [address] [address] Electrolyte Balance 7.0 mEq/L Normal 4.0-15.0 [facility] Comment on above: Performed By: #### A ZOHAIB SMITH #### [address] [address] Glucose [Mass/Vol] 127 mg/dL High 83-110 [facility] Comment on above: Performed By: #### A ZOHAIB SMITH #### [address] [address] Potassium [Moles/Vol] 4.9 mmol/L Normal 3.5-5.1 [facility] Comment on above: Performed By: #### A BSEAN, ABOGEL #### [address] [address] Sodium [Moles/Vol] 142 mmol/L Normal 136-145 [facility] Comment on above: Performed By: #### A LUIS, ABOGEL #### [address] [address] Urea nitrogen [Mass/Vol] 19 mg/dL High 7-18 [facility] Comment on above: Performed By: #### A LUIS ABOGEL #### [address] [address] CBCon 03-16-2024 Erythrocyte distribution width (RBC) [Ratio] 13.2 % Normal 11.5-15.5 [facility] Comment on above: Performed By: #### A LUIS ABOGEL #### [address] [address] Hematocrit (Bld) [Volume fraction] 36.9 % Low 40.0-52.0 [facility] Comment on above: Performed By: #### A LUIS ABOGEL #### [address] [address] Hgb 12.8 G/dL Low 13.0-17.5 [facility] Comment on above: Performed By: #### A BSEAN ABOGEL #### [address] [address] MCH (RBC) [Entitic mass] 30.7 pg Normal 27.0-33.0 [facility] Comment on above: Performed By: #### A BSAEN, ABOGEL #### [address] [address] MCHC 34.7 G/dL Normal 32.0-36.0 [facility] Comment on above: Performed By: #### A BSGEL, ABOGEL #### [place] [id number] [place], [place] [address] MCV (RBC) [Entitic vol] 88.5 fL Normal 81.0-100.0 [facility] Comment on above: Performed By: #### A BSGEL, ABOGEL #### [address] [address] Platelet 185 10 3/mcL Normal 150-450 [facility] Comment on above: Performed By: #### A BSGEL, ABOGEL #### [address] [address] Platelet mean volume (Bld) [Entitic vol] 7.8 fL Normal 6.4-10.5 [facility] Comment on above: Performed By: #### A BSGEL, ABOGEL #### [address] [address] RBC 4.17 10 6/mcL Low 4.50-6.00 [facility] Comment on above: Performed By: #### A BSGEL, ABOGEL #### [address] [address] WBC 10.4 10 3/mcL Normal 4.5-10.8 [facility] Comment on above: Performed By: #### A BSGEL, ABOGEL #### [address] [address] LABORATORYOrdered By: SYSTEM SYSTEM on 03-16-2024 Basophils (Bld) [#/Vol] 0.0 103/mcL Normal 0.0 - 0.2 10^3/mcL AO Workflow SS Basophils/100 WBC (Bld) 0.1 % Normal 0.0 - 2.5 % AO Workflow SS Calcium [Mass/Vol] 9.3 mg/dL Normal 8.4 - 10. 2 mg/dL AO ADM SS Chloride [Moles/Vol] 106 mmol/L Normal 98 - 10 7 mmol/L AO ADM SS CO2 [Moles/Vol] 29 mmol/L Normal 23 - 31 mmol/L AO ADM SS Creatinine [Mass/Vol] 0.92 mg/dL Normal 0.70 - 1.30 mg/dL AO ADM SS Comment on above: Interpretive Data: T esting performed on Siemens Dimension EXL analyzer using a modified kinetic Sajan technique. Electrolyte Balance 7.0 mEq/L Normal 4.0 - 15 .0 mEq/L AO ADM SS Eosinophil, Absolute 0.0 103/mcL Normal 0.0 - 0 .7 10^3/mcL AO Workflow SS Eosinophils/100 WBC (Bld) 0.0 % Normal 0.0 - 7.0 % AO Workflow SS Erythrocyte distribution width (RBC) [Ratio] 13.2 % Normal 11.5 - 15.5 % AO Workflow SS GFR/1.73 sq M.predicted among blacks MDRD (S/P/Bld) [Vol rate/Area] 96 ml/min/1.73sqm Invalid Interpretation Code AO Chemistry S Comment on above: Interpretive Data: GFR Population mean for , Non- Americans Ages 20-29 = 116 mL/min/1.73 sq.m. Ages 30-39 = 107 mL/min/1.73 sq.m. Ages 40-49 = 99 mL/min/1.73 sq.m. Ages 50-59 = 93 mL/min/1.73 sq.m. Ages 60-69 = 85 mL/min/1.73 sq.m. Ages 70+ = 75 mL/min/1.73 sq.m. Chronic Kidney Disease: Less than 60 mL/min/1.73 square meters End Stage Renal Disease: Less than 15 mL/min/1.73 square meters GFR/1.73 sq M.predicted among non-blacks MDRD (S/P/Bld) [Vol rate/Area] 79 ml/min/1.73sqm Invalid Interpretation Code AO Chemistry S Comment on above: Interpretive Data: GFR Population mean for , Non- Americans Ages 20-29 = 116 mL/min/1.73 sq.m. Ages 30-39 = 107 mL/min/1.73 sq.m. Ages 40-49 = 99 mL/min/1.73 sq.m. Ages 50-59 = 93 mL/min/1.73 sq.m. Ages 60-69 = 85 mL/min/1.73 sq.m. Ages 70+ = 75 mL/min/1.73 sq.m. Chronic Kidney Disease: Less than 60 mL/min/1.73 square meters End Stage Renal Disease: Less than 15 mL/min/1.73 square meters Glucose [Mass/Vol] 127 mg/dL High 83 - 110 mg/dL AO ADM SS Hematocrit (Bld) [Volume fraction] 36.9 % Low 40.0 - 52.0 % AO Workflow SS Hemoglobin (Bld) [Mass/Vol] 12.8 G/dL Low 13.0 - 17.5 G/dL AO Workflow SS Lymphocytes (Bld) [#/Vol] 1.0 103/mcL Normal 0.9 - 4.3 10^3/mcL AO Workflow SS Lymphocytes/100 WBC (Bld) 10.0 % Low 20.0 - 40.0 % AO Workflow SS MCH (RBC) [Entitic mass] 30.7 pg Normal 27.0 - 33.0 pg AO Workflow SS MCHC 34.7 G/dL Normal 32.0 - 36.0 G/dL AO Workflow SS MCV (RBC) [Entitic vol] 88.5 fL Normal 81.0 - 100.0 fL AO Workflow SS Monocytes (Bld) [#/Vol] 0.8 103/mcL Normal 0.1 - 1.4 10^3/mcL AO Workflow SS Monocytes/100 WBC (Bld) 8.1 % Normal 2.0 - 13.0 % AO Workflow SS Neutrophils (Bld) [#/Vol] 8.5 103/mcL High 2.3 - 8.1 10^3/mcL AO Workflow SS Neutrophils/100 WBC (Bld) 81.8 % High 50.0 - 75.0 % AO Workflow SS Platelet mean volume (Bld) [Entitic vol] 7.8 fL Normal 6.4 - 10.5 fL AO Workflow SS Platelets (Bld) [#/Vol] 185 103/mcL Normal 150 - 450 10^3/mcL AO Workflow SS Potassium [Moles/Vol] 4.9 mmol/L Normal 3.5 - 5.1 mmol/L AO ADM SS RBC (Bld) [#/Vol] 4.17 106/mcL Low 4.50 - 6.0 0 10^6/mcL AO Workflow SS Sodium [Moles/Vol] 142 mmol/L Normal 136 - 145 mmol/L AO ADM SS Urea nitrogen [Mass/Vol] 19 mg/dL High 7 - 18 mg/dL AO ADM SS Urea nitrogen/Creatinine [Mass ratio] 21 ratio Normal 7 - 27 ratio AO ADM SS WBC (Bld) [#/Vol] 10.4 103/mcL Normal 4.5 - 10.8 10^3/mcL AO Workflow SS ABO/Rh (Gel)on 03-15-2024 ABO/Rh Interp Negative Invalid Interpretation Code [facility] Comment on above: Performed By: #### A BSGEL, ABOGEL #### [facility] [address] [place], [place] [address] ABS (Gel)on 03-15-2024 ABSC Interp (Gel) Negative Normal [facility] Comment on above: Performed By: #### A BSGEL, ABOGEL #### [address] [place], [place] [address] LABORATORYOrdered By: Jessica Perez on 03-15-2024 ABO and Rh group Nom (Bld) Blood group A Rh(D) negative Invalid Interpretation Code AO BB Auto SS Blood group antibody screen Ql Negative ABSC (03/15/24 9:51 AM) Normal AO BB Auto SS XR KNEE 1 OR 2 VIEWS RIGHTon 03-15-2024 XR KNEE 1 OR 2 VIEWS RIGHT ORIGINAL EXAMINATION: TWO XRAY VIEWS OF THE RIGHT KNEE 03/15/2024 1:54 pm COMPARISON: None. HISTORY: ORDERING SYSTEM PROVIDED HISTORY: Reason for Exam: Status Post Arthroplasty FINDINGS: A new total right knee prosthesis in functional alignment. There is overlying subcutaneous emphysema and skin clips. No periprosthetic fracture or dislocation is seen. IMPRESSION: Total right knee prosthesis in functional alignment. Interpreted by: Carlos Umaña DO Preliminary Report By: Carlos Umaña DO Electronically signed By Carlos Umaña DO Dictated Date: 03/15/2024 2:07:12 PM Prelim Date: 03/15/2024 2:07:47 PM Sign Date: 03/15/2024 2:07:47 PM Ordering Provider: TIERNEY CHERY Normal [facility] ABO/Rh (Gel)on 02-24-2024 ABO/Rh Interp Negative Invalid Interpretation Code [facility] Comment on above: Performed By: #### A BSGEL, ABOGEL #### [id number] [place], [place] [address] AGTYon 02-24-2024 Antigen Type M- Invalid Interpretation Code [facility] Comment on above: Performed By: #### A GTY #### [place] [address] CT KNEE W/O CONTRAST RIGHTon 02-24-2024 CT KNEE W/O CONTRAST RIGHT ORIGINAL EXAMINATION: CT OF THE RIGHT KNEE WITHOUT CONTRAST 02/23/2024 3:23 pm TECHNIQUE: CT of the right knee was performed without the administration of intravenous contrast. Multiplanar reformatted images are provided for review. Automated exposure control, iterative reconstruction, and/or weight based adjustment of the mA/kV was utilized to reduce the radiation dose to as low as reasonably achievable. MA KO protocol was performed with axial images through the right hip and right ankle. COMPARISON: None. HISTORY ORDERING SYSTEM PROVIDED HISTORY: Reason for Exam: Varus deformity, not elsewhere classified, right knee FINDINGS: There is no acute fracture or dislocation. There is no suspicious lytic or blastic osseous lesion. There is no aggressive periosteal reaction. Small to moderate knee joint effusion. Small popliteal Marshall's cyst. Pronounced prepatellar soft tissue swelling with prepatellar thick-walled fluid collection with some internal debris collection measuring up to 2.6 x 1.2 by 3.3 cm. Tricompartmental osteoarthritis of the right knee moderate to severe in the medial compartment with joint space narrowing, subchondral sclerosis, cysts and small marginal osteophytes. Lateral coronal tibiofemoral subluxation. Moderate right femoroacetabular joint space narrowing. Mild degenerative changes the pubic symphysis. Diverticulosis of the sigmoid colon. The prostate is enlarged with prostatic calcifications, transverse dimension of 5.6 cm. Vascular calcifications. Mild thickening of the distal Achilles tendon, correlate clinically for Achilles tendinosis. Limited evaluation the neurovascular structures with lack of contrast. IMPRESSION: Tricompartmental osteoarthritis of the right knee which is moderate to severe in the medial compartment. Lateral coronal tibiofemoral subluxation. Small to moderate volume knee joint effusion. Small popliteal Marshall's cyst. Prepatellar soft tissue swelling within underlying prepatellar thick-walled fluid collection with some internal debris, measuring up to 2.6 x 1.2 x 3.3 cm, indeterminate could be infectious, inflammatory or neoplastic but most favored to reflect prepatellar bursitis. Correlate clinically. Diverticulosis of the sigmoid colon without evidence of diverticulitis. Enlarged prostate with prostatic calcifications, correlate with PSA and FRANKIE. Additional incidental findings above. Interpreted by: Karina Plunkett Preliminary Report By: Karina Plunkett Electronically signed By Karina Plunkett Dictated Date: 02/24/2024 8:32:53 AM Prelim Date: 02/24/2024 8:38:41 AM Sign Date: 02/24/2024 8:38:41 AM Ordering Provider: TIERNEY Courtney [facility] .Auto Diffon 02-23-2024 Basophil, Absolute 0.0 10 3/mcL Normal 0.0-0.2 [facility] Comment on above: Performed By: #### A ZOHAIB SMITH #### [address] [address] Basophils/100 WBC (Bld) 0.8 % Normal 0.0-2.5 [facility] Comment on above: Performed By: #### A ZOHAIB SMITH #### [address] [address] Eosinophil, Absolute 0.1 10 3/mcL Normal 0.0-0.7 [facility] Comment on above: Performed By: #### A ZOHAIB SMITH #### [address] [address] Eosinophils/100 WBC (Bld) 1.1 % Normal 0.0-7.0 [facility] Comment on above: Performed By: #### A ОЛЬГА SMITHGEL #### [address] [address] Lymphocyte, Absolute 1.5 10 3/mcL Normal 0.9-4.3 [facility] Comment on above: Performed By: #### A ZOHAIB SMITH #### [address] [address] Lymphocytes/100 WBC (Bld) 28.7 % Normal 20.0-40.0 [facility] Comment on above: Performed By: #### A ZOHAIB SMITH #### [address] [address] Monocyte, Absolute 0.5 10 3/mcL Normal 0.1-1.4 [facility] Comment on above: Performed By: #### A ZOHAIB SMITH #### [address] [address] Monocytes/100 WBC (Bld) 9.7 % Normal 2.0-13.0 [facility] Comment on above: Performed By: #### A ОЛЬГА SMITHGEL #### [address] [address] Neutrophils/100 WBC (Bld) 59.7 % Normal 50.0-75.0 [facility] Comment on above: Performed By: #### A ОЛЬГА SMITHGEL #### [address] [address] .GFRon 02-23-2024 GFR 109 ml/min/1.73sqm Normal [facility] Comment on above: Result Comment: GFR Population mean for , Non- Americans Ages 20-29 = 116 mL/min/1.73 sq.m. Ages 30-39 = 107 mL/min/1.73 sq.m. Ages 40-49 = 99 mL/min/1.73 sq.m. Ages 50-59 = 93 mL/min/1.73 sq.m. Ages 60-69 = 85 mL/min/1.73 sq.m. Ages 70+ = 75 mL/min/1.73 sq.m. Chronic Kidney Disease: Less than 60 mL/min/1.73 square meters End Stage Renal Disease: Less than 15 mL/min/1.73 square meters Performed By: #### A BSEAN, ABOGEL #### [address] [address] GFR Non- 90 ml/min/1.73sqm Normal [facility] Comment on above: Result Comment: GFR Population mean for , Non- Americans Ages 20-29 = 116 mL/min/1.73 sq.m. Ages 30-39 = 107 mL/min/1.73 sq.m. Ages 40-49 = 99 mL/min/1.73 sq.m. Ages 50-59 = 93 mL/min/1.73 sq.m. Ages 60-69 = 85 mL/min/1.73 sq.m. Ages 70+ = 75 mL/min/1.73 sq.m. Chronic Kidney Disease: Less than 60 mL/min/1.73 square meters End Stage Renal Disease: Less than 15 mL/min/1.73 square meters Performed By: #### A ZOHAIB SMITH #### [address] [address] .NEUABSon 02-23-2024 Neutrophil, Absolute 3.0 10 3/mcL Normal 2.3-8.1 [facility] Comment on above: Performed By: #### A ZOHAIB SMITH #### [address] [address] ABIDon 02-23-2024 Antibody ID Anti-M Invalid Interpretation Code [facility] Comment on above: Order Comment: Order ed by Quita Performed By: #### A ZOHAIB SMITH #### [address] [address] ABS (Gel)on 02-23-2024 ABSC Interp (Gel) Positive Normal [facility] Comment on above: Performed By: #### A ZOHAIB SMITH #### [address] [address] ALBon 02-23-2024 Albumin Level 3.9 G/dL Normal 3.4-4.8 [facility] Comment on above: Performed By: #### A ZOHAIB SMITH #### [address] [address] AUTOCon 02-23-2024 Auto Control Negative Normal [facility] Comment on above: Order Comment: Order ed by Quita Performed By: #### A ZOHAIB SMITH #### [address] [address] BMPon 02-23-2024 BUN/Creatinine Ratio 18 ratio Normal 7-27 [facility] Comment on above: Performed By: #### A ZOHAIB SMITH #### [address] [address] Calcium [Mass/Vol] 9.8 mg/dL Normal 8.4-10.2 [facility] Comment on above: Performed By: #### A ZOHAIB SMITH #### [address] [address] Chloride [Moles/Vol] 102 mmol/L Normal 98-107 [facility] Comment on above: Performed By: #### A ZOHAIB SMITH #### [address] [address] CO2 [Moles/Vol] 32 mmol/L High 23-31 [facility] Comment on above: Performed By: #### A ZOHAIB SMITH #### [address] [address] Creatinine [Mass/Vol] 0.82 mg/dL Normal 0.70-1.30 [facility] Comment on above: Result Comment: Test ing performed on Siemens Dimension EXL analyzer using a modified kinetic Sajan technique. Performed By: #### A ZOHAIB SMITH #### [address] [address] Electrolyte Balance 7.0 mEq/L Normal 4.0-15.0 [facility] Comment on above: Performed By: #### A ZOHAIB SMITH #### [address] [address] Glucose [Mass/Vol] 107 mg/dL Normal 83-110 [facility] Comment on above: Performed By: #### A ZOHAIB SMITH #### [address] [address] Potassium [Moles/Vol] 4.3 mmol/L Normal 3.5-5.1 [facility] Comment on above: Performed By: #### A ZOHAIB SMITH #### [address] [address] Sodium [Moles/Vol] 141 mmol/L Normal 136-145 [facility] Comment on above: Performed By: #### A ZOHAIB SMITH #### [facility] [address] [place], [place] [address] Urea nitrogen [Mass/Vol] 15 mg/dL Normal 7-18 [facility] Comment on above: Performed By: #### A ZOHAIB SMITH #### [facility] [address] [place], [place] [address] CBCon 02-23-2024 Erythrocyte distribution width (RBC) [Ratio] 13.1 % Normal 11.5-15.5 [facility] Comment on above: Order Comment: Pre-A dmission Testing Performed By: #### A GTY #### [address] [address] Hematocrit (Bld) [Volume fraction] 40.6 % Normal 40.0-52.0 [facility] Comment on above: Order Comment: Pre-A dmission Testing Performed By: #### A GTY #### [place] [address] Hgb 13.9 G/dL Normal 13.0-17.5 [facility] Comment on above: Order Comment: Pre-A dmission Testing Performed By: #### A GTY #### [address] [address] MCH (RBC) [Entitic mass] 30.7 pg Normal 27.0-33.0 [facility] Comment on above: Order Comment: Pre-A dmission Testing Performed By: #### A GTY #### [place] [id number] MCHC 34.3 G/dL Normal 32.0-36.0 [facility] Comment on above: Order Comment: Pre-A dmission Testing Performed By: #### A GTY #### [place] [id number] MCV (RBC) [Entitic vol] 89.6 fL Normal 81.0-100.0 [facility] Comment on above: Order Comment: Pre-A dmission Testing Performed By: #### A GTY #### [address] [address] Platelet 198 10 3/mcL Normal 150-450 [facility] Comment on above: Order Comment: Pre-A dmission Testing Performed By: #### A GTY #### [place] [address] Platelet mean volume (Bld) [Entitic vol] 7.6 fL Normal 6.4-10.5 [facility] Comment on above: Order Comment: Pre-A dmission Testing Performed By: #### A GTY #### [place] [address] RBC 4.53 10 6/mcL Normal 4.50-6.00 [facility] Comment on above: Order Comment: Pre-A dmission Testing Performed By: #### A GTY #### [place] [address] WBC 5.1 10 3/mcL Normal 4.5-10.8 [facility] Comment on above: Order Comment: Pre-A dmission Testing Performed By: #### A GTY #### [place] [address] LABORATORYOrdered By: SYSTEM SYSTEM on 02-23-2024 Albumin BCP dye [Mass/Vol] 3.9 G/dL Normal 3.4 - 4.8 G/dL AO ADM SS Basophils (Bld) [#/Vol] 0.0 103/mcL Normal 0.0 - 0.2 10^3/mcL AO Workflow SS Basophils/100 WBC (Bld) 0.8 % Normal 0.0 - 2.5 % AO Workflow SS Calcium [Mass/Vol] 9.8 mg/dL Normal 8.4 - 10. 2 mg/dL AO ADM SS Chloride [Moles/Vol] 102 mmol/L Normal 98 - 10 7 mmol/L AO ADM SS CO2 [Moles/Vol] 32 mmol/L High 23 - 31 mmol/L AO ADM SS Creatinine [Mass/Vol] 0.82 mg/dL Normal 0.70 - 1.30 mg/dL AO ADM SS Comment on above: Interpretive Data: T esting performed on Siemens Dimension EXL analyzer using a modified kinetic Sajan technique. Electrolyte Balance 7.0 mEq/L Normal 4.0 - 15 .0 mEq/L AO ADM SS Eosinophil, Absolute 0.1 103/mcL Normal 0.0 - 0 .7 10^3/mcL AO Workflow SS Eosinophils/100 WBC (Bld) 1.1 % Normal 0.0 - 7.0 % AO Workflow SS Erythrocyte distribution width (RBC) [Ratio] 13.1 % Normal 11.5 - 15.5 % AO Workflow SS GFR/1.73 sq M.predicted among blacks MDRD (S/P/Bld) [Vol rate/Area] 109 ml/min/1.73sqm Invalid Interpretation Code AO Chemistry S Comment on above: Interpretive Data: GFR Population mean for , Non- Americans Ages 20-29 = 116 mL/min/1.73 sq.m. Ages 30-39 = 107 mL/min/1.73 sq.m. Ages 40-49 = 99 mL/min/1.73 sq.m. Ages 50-59 = 93 mL/min/1.73 sq.m. Ages 60-69 = 85 mL/min/1.73 sq.m. Ages 70+ = 75 mL/min/1.73 sq.m. Chronic Kidney Disease: Less than 60 mL/min/1.73 square meters End Stage Renal Disease: Less than 15 mL/min/1.73 square meters GFR/1.73 sq M.predicted among non-blacks MDRD (S/P/Bld) [Vol rate/Area] 90 ml/min/1.73sqm Invalid Interpretation Code AO Chemistry S Comment on above: Interpretive Data: GFR Population mean for , Non- Americans Ages 20-29 = 116 mL/min/1.73 sq.m. Ages 30-39 = 107 mL/min/1.73 sq.m. Ages 40-49 = 99 mL/min/1.73 sq.m. Ages 50-59 = 93 mL/min/1.73 sq.m. Ages 60-69 = 85 mL/min/1.73 sq.m. Ages 70+ = 75 mL/min/1.73 sq.m. Chronic Kidney Disease: Less than 60 mL/min/1.73 square meters End Stage Renal Disease: Less than 15 mL/min/1.73 square meters Glucose [Mass/Vol] 107 mg/dL Normal 83 - 110 mg/dL AO ADM SS Hematocrit (Bld) [Volume fraction] 40.6 % Normal 40.0 - 52.0 % AO Workflow SS Hemoglobin (Bld) [Mass/Vol] 13.9 G/dL Normal 13.0 - 17.5 G/dL AO Workflow SS Lymphocytes (Bld) [#/Vol] 1.5 103/mcL Normal 0.9 - 4.3 10^3/mcL AO Workflow SS Lymphocytes/100 WBC (Bld) 28.7 % Normal 20.0 - 40.0 % AO Workflow SS MCH (RBC) [Entitic mass] 30.7 pg Normal 27.0 - 33.0 pg AO Workflow SS MCHC 34.3 G/dL Normal 32.0 - 36.0 G/dL AO Workflow SS MCV (RBC) [Entitic vol] 89.6 fL Normal 81.0 - 100.0 fL AO Workflow SS Monocytes (Bld) [#/Vol] 0.5 103/mcL Normal 0.1 - 1.4 10^3/mcL AO Workflow SS Monocytes/100 WBC (Bld) 9.7 % Normal 2.0 - 13.0 % AO Workflow SS Neutrophils (Bld) [#/Vol] 3.0 103/mcL Normal 2.3 - 8.1 10^3/mcL AO Workflow SS Neutrophils/100 WBC (Bld) 59.7 % Normal 50.0 - 75.0 % AO Workflow SS Platelet mean volume (Bld) [Entitic vol] 7.6 fL Normal 6.4 - 10.5 fL AO Workflow SS Platelets (Bld) [#/Vol] 198 103/mcL Normal 150 - 450 10^3/mcL AO Workflow SS Potassium [Moles/Vol] 4.3 mmol/L Normal 3.5 - 5.1 mmol/L AO ADM SS RBC (Bld) [#/Vol] 4.53 106/mcL Normal 4.50 - 6.0 0 10^6/mcL AO Workflow SS Sodium [Moles/Vol] 141 mmol/L Normal 136 - 145 mmol/L AO ADM SS Urea nitrogen [Mass/Vol] 15 mg/dL Normal 7 - 18 mg/dL AO ADM SS Urea nitrogen/Creatinine [Mass ratio] 18 ratio Normal 7 - 27 ratio AO ADM SS WBC (Bld) [#/Vol] 5.1 103/mcL Normal 4.5 - 10.8 10^3/mcL AO Workflow SS LABORATORYOrdered By: Stephanie Brothers on 02-23-2024 Blood group antibody screen Ql Positive ABSC (02/23/24 2:16 PM) Normal AO BB Auto SS LABORATORYOrdered By: Alysia Rendon on 02-23-2024 Indirect antiglobulin test.IgG specific reagent Ql Negative (02/23/24 2:16 PM) Normal BB Manual SS Anti-M Invalid Interpretation Code BB Manual SS LABORATORYOrdered By: Justina Coleman on 02-23-2024 MRSA (PCR) Not Detected 1 (02/23/24 2:16 PM) Normal Not Detected Auto Viro[facility]Sero [facility] Comment on above: Result Comment: [place] [id number] MRSA PCR Int MRSA DNA not detecte d by Real-Time Polymerase Chain Reaction (PCR). A negative result may be due to intermittent colonization. Colonization may vary depending on patient treatment, patient status, or exposure to high-risk environments.As with all PCR based in vitro diagnostic tests, extremely low levels of target below the limit of detection of the assay may be detected, but results may not be reproducible. Invalid Interpretation Code Auto Viro/Sero SS MRSAPCRon 02-23-2024 MRSA (PCR) Not detected Normal Not Detected [facility] Comment on above: Result Comment: [place] [id number] Performed By: #### M RSAPCR #### [facility] [address] [place] [address] MRSA PCR Int Normal [facility] Comment on above: Result Comment: MRSA DNA not detected by Real-Time Polymerase Chain Reaction (PCR). A negative result may be due to intermittent colonization. Colonization may vary depending on patient treatment, patient status, or exposure to high-risk environments. As with all PCR based in vitro diagnostic tests, extremely low levels of target below the limit of detection of the assay may be detected, but results may not be reproducible. See Below Performed By: #### M RSAPCR #### [facility] [address] [place], [place] [id number] Urgent Care Visit Reporton 1 Urgent Care Visit Report [facility] [address], [address] [place] [address] OFFICE VISIT Date of Service: 02/15/24 MR#: [id number] Acct: [id number] Name: RACHEL SANDOVAL Rep #: [id number] : 1940 Provider: MARCELO Tang Age/Sex: 83/M Location: [facility] Status: Signed Intake Vital Signs 11/20/23 12:23 02/15/24 13:07 Height 5 ft 11 in Weight: 186 lb BMI 25.9 BP 146/82 H 130/78 H Blood Pressure Location Lt brachial Lt brachial Position Sitting Sitting Respiration 16 12 Pulse 86 93 Pulse Source Monitor NIBP Temp 98.9 F 97.5 F L Temp Source Temporal Oral Pulse Oximetry (%) 97 97 Oxygen Delivery Method room air room air Intake Visit Reasons: COUGH/SINUS CMP Chief Complaint: cough sinus complaints Reversing [place] Required: No Is patient in pain?: No Allergies No Known Allergies Allergy (Verified 02/15/24 13:08) Medications ???Medication ???Instructions ???Recorded ???Confirmed ???Type aspirin 81 mg chewable tablet 81 mg PO DAILY@0800 HEART 02/15/14 02/15/24 History atorvastatin 20 mg tablet 20 mg PO QHS #30 tabs 02/25/17 02/15/24 Rx meclizine 25 mg tablet 25 mg PO TID PRN dizziness #14 tabs 02/09/21 02/15/24 Rx meloxicam 7.5 mg tablet 7.5 mg PO DAILY PRN shoulder pain 02/09/21 02/15/24 History ttlrczex-wriamyxf-wjxm c acid 400 1 tab PO DAILY supplement 04/05/21 02/15/24 History mcg-vit K 20 mcg-lycop 300 mcg tablet (Men's Multivitamin) senna 600 mg tablet 600 mg PO QHS stool softener 04/05/21 02/15/24 History oxycodone-acetaminophe n 5 mg-325 1 tab PO Q4H PRN pain 5 days #20 04/12/21 02/15/24 Rx mg tablet (Percocet) tabs Have you fallen in the past year?: No Nurse's Note: patient here for sinus congestion, cough for 8-10 days. PFSH Medical History (Updated 02/15/24 @ 13:16 by MARCELO Ni) Viral URI History of steroid therapy Wears glasses Arthritis Vertigo Non-smoker Leg cramps History of echocardiogram Surgical History History of appendectomy History of shoulder surgery Social History Smoking Status: Never smoker HPI HPI Chief Complaint: cough sinus complaints Details: RACHEL SANDOVAL, is a 83 M who presents to the office today for HPI: Patient presents today for concerns of approximately 8 days of improving cough. He notes some rhinorrhea but no specific sinus pain or pressure. Denies any fever at home. Denies any nausea vomiting or diarrhea. ROS: As noted in HPI Physical Exam: VITALS: Reviewed. GEN: Healthy appearing, well-developed, NAD. PSYCH: AOx3. Normal memory, mood, and affect. HEENT -Eyes: -No discharge or redness; -Ears: -Mouth and throat: Moist mucous membranes. NECK: CV: Regular rate and rhythm LUNGS: Normal respiratory effort. Lungs clear bilaterally. SKIN: Warm, well perfused. No skin rashes or abnormal lesions noted. MSK: Normal gait. NEURO: Ambulating with no limitations. Normal muscle strength and tone. No focal deficits. Coding Level of Care Code Off vis,est,level 3 Diagnoses Viral URI J06.9 Assessment and Plan Assessment and Plan (1) Viral URI: Status: Acute Plan: Discussed with patient that symptoms seem most likely viral in origin as he has no fever and his symptoms are otherwise improving. I did recommend [id number]-[id number] cough and cold medications as needed for symptom relief. Informed him that if symptoms begin to worsen and/or he develops a fever he should return for reevaluation and possible chest x-ray at that time. We did discuss possible chest x-ray today however it was mutually agreed it was probably not necessary based on his improving symptoms. 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 Blood urea nitrogen (BUN)/cr eatinine ratioOrdered By: Jean-Pierre Umanzor on 01-28-2024 Urea nitrogen/Creatinine [Mass ratio] 17.6 mg/mg 10-20 [facility] Carbon dioxide measurementOr dered By: Jean-Pierre Umanzor on 01-28-2024 CO2 [Moles/Vol] 29.0 mmol/L 21.0-32.0 [facility] Chloride measurementOrdered By: Jean-Pierre Umanzor on 01-28-2024 Chloride [Moles/Vol] 104 mmol/L 98-107 [facility] Comprehensive Metabolic Prof ilon 01-28-2024 Albumin [Mass/Vol] 4.0 g/dL Normal 3.2-5.0 [facility] Comment on above: Order Comment: Order Date: 01/18/24 Order Info: [id number] - CMP Order Info: [id number] - LIPID Performed By: #### L 500.4050, L500.4100 #### [facility] [address] [place], [place], [id number] Albumin/Globulin [Mass ratio] 1.2 {ratio} Normal 0.9-2.4 [facility] Comment on above: Order Comment: Order Date: 01/18/24 Order Info: [id number] - CMP Order Info: [id number] - LIPID Performed By: #### L 500.4050, L500.4100 #### [facility] [address] [place], [address] ALK P 72 U/L Normal 45-117 [facility] Comment on above: Order Comment: Order Date: 01/18/24 Order Info: 0786- - CMP Order Info: [id number] - LIPID Performed By: #### L 500.4050, L500.4100 #### [facility] [address] [place], [address] ALT [Catalytic activity/Vol] 21 U/L Normal 16-61 [facility] Comment on above: Order Comment: Order Date: 01/18/24 Order Info: 785- - CMP Order Info: [id number] - LIPID Performed By: #### L 500.4050, L500.4100 #### [facility] [address] [place], [address] AST [Catalytic activity/Vol] 15 U/L Normal 15-37 [facility] Comment on above: Order Comment: Order Date: 01/18/24 Order Info: 07- - CMP Order Info: [id number] - LIPID Performed By: #### L 500.4050, L500.4100 #### [facility] [address] [place], [address] Bilirubin [Mass/Vol] 0.70 mg/dL Normal 0.20-1.00 [facility] Comment on above: Order Comment: Order Date: 01/18/24 Order Info: 0786- - CMP Order Info: [id number] - LIPID Result Comment: For patients on eltrombopag therapy, use of Dimension [place] TBIL is not recommended. Performed By: #### L 500.4050, L500.4100 #### [facility] [address] [place], [address] BUN/CRE 17.6 RATIO Normal 10-20 [facility] Comment on above: Order Comment: Order Date: 01/18/24 Order Info: 0786- - CMP Order Info: [id number] - LIPID Performed By: #### L 500.4050, L500.4100 #### [facility] [address] [place], [address] CA,Total 9.4 mg/dL Normal 8.5-10.1 [facility] Comment on above: Order Comment: Order Date: 01/18/24 Order Info: [id number] - CMP Order Info: [id number] - LIPID Performed By: #### L 500.4050, L500.4100 #### [facility] [address] [place], [address] Chloride [Moles/Vol] 104 mmol/L Normal 98-107 [facility] Comment on above: Order Comment: Order Date: 01/18/24 Order Info: 0786- - CMP Order Info: [id number] - LIPID Performed By: #### L 500.4050, L500.4100 #### [facility] [address] [place], [address] CO2 [Moles/Vol] 29.0 mmol/L Normal 21.0-32.0 [facility] Comment on above: Order Comment: Order Date: 01/18/24 Order Info: 0786 - CMP Order Info: [id number] - LIPID Performed By: #### L 500.4050, L500.4100 #### [facility] [address] [place], [address] Creatinine [Mass/Vol] 0.91 mg/dL Normal 0.70-1.30 [facility] Comment on above: Order Comment: Order Date: 01/18/24 Order Info: 0786- - CMP Order Info: [id number] - LIPID Result Comment: The validity of the calculated GFR GFRAA in patients over 70 years has not been determined. Clinical correlation is essential. Performed By: #### L 500.4050, L500.4100 #### [facility] [address] [place], [address] EST GFR - AA 103 mL/min Normal >60 [facility] Comment on above: Order Comment: Order Date: 01/18/24 Order Info: [id number] - CMP Order Info: [id number] - LIPID Result Comment: Afri can [place] GFR Calc Performed By: #### L 500.4050, L500.4100 #### [facility] [address] [place], [address] GAP 5 Normal 5-15 [facility] Comment on above: Order Comment: Order Date: 01/18/24 Order Info: 0786 - CMP Order Info: [id number] - LIPID Performed By: #### L 500.4050, L500.4100 #### [facility] [address] [place], [address] GFR/1.73 sq M.predicted among non-blacks MDRD (S/P/Bld) [Vol rate/Area] 85 mL/min/{1.73_m2} Normal >60 [facility] Comment on above: Order Comment: Order Date: 01/18/24 Order Info: 07 - CMP Order Info: [id number] - LIPID Result Comment: Non- GFR Calc Performed By: #### L 500.4050, L500.4100 #### [facility] [address] [place], [address] Globulin (S) [Mass/Vol] 3.4 g/dL Normal 2.2-4.2 [facility] Comment on above: Order Comment: Order Date: 01/18/24 Order Info: 0786 - CMP Order Info: [id number] - LIPID Performed By: #### L 500.4050, L500.4100 #### [facility] [address] [place], [address] Glucose [Mass/Vol] 100 mg/dL Normal 74-106 [facility] Comment on above: Order Comment: Order Date: 01/18/24 Order Info: 0786- - CMP Order Info: [id number] - LIPID Result Comment: Fast ing Glucose result from 100 to 125 mg/dL suggests IMPAIRED HOMEOSTASIS per A.D.A. criteria. Performed By: #### L 500.4050, L500.4100 #### [facility] [address] [place], [address] Potassium [Moles/Vol] 3.8 mmol/L Normal 3.5-5.1 [facility] Comment on above: Order Comment: Order Date: 01/18/24 Order Info: [id number] - CMP Order Info: [id number] - LIPID Performed By: #### L 500.4050, L500.4100 #### [facility] [address] [place], [address] Sodium [Moles/Vol] 138 mmol/L Normal 136-145 [facility] Comment on above: Order Comment: Order Date: 01/18/24 Order Info: 0786- - CMP Order Info: [id number] - LIPID Performed By: #### L 500.4050, L500.4100 #### [facility] [address] [place], [address] T PROT 7.4 g/dL Normal 6.4-8.2 [facility] Comment on above: Order Comment: Order Date: 01/18/24 Order Info: 0786- - CMP Order Info: [id number] - LIPID Performed By: #### L 500.4050, L500.4100 #### [facility] [address] [place], [address] Urea nitrogen [Mass/Vol] 16 mg/dL Normal 7-18 [facility] Comment on above: Order Comment: Order Date: 01/18/24 Order Info: [id number] - CMP Order Info: [id number] - LIPID Performed By: #### L 500.4050, L500.4100 #### [facility] [address] [place], [address] Estimated glomerular filtrat ion rate (GFR) AmericanOrdered By: Jean-Pierre Umanzor on 01-28-2024 Estimated GFR (MDRD) Amer 103 mL/min >60 [facility] Comment on above: GFR Calc Glomerular filtration rate ( GFR) estimationOrdered By: Jean-Pierre Umanzor on 01-28-2024 Estimated GFR (MDRD) Non-Af Amer 85 mL/min >60 [facility] Comment on above: Non- GFR Calc Glucose measurementOrdered B y: Jean-Pierre Umanzor on 01-28-2024 Glucose [Mass/Vol] 100 mg/dL 74-106 [facility] Comment on above: Fasting Glucose resu lt from 100 to 125 mg/dL suggests IMPAIRED HOMEOSTASIS per A.D.A. criteria. High density lipoprotein (HD L) measurementOrdered By: Jean-Pierre Umanzor on 01-28-2024 Cholesterol in HDL [Mass/Vol] 55 mg/dL >40 [facility] Comment on above: The drugs N-Acetylcy steine and Metamizole may falsely depress this assay. Reference Range HDL <40 mg/dL Low HDL Cholesterol HDL >or= 60 mg/dL High HDL Cholesterol Laboratory - Chemistry and C hemistry - challengeOrdered By: Jean-Pierre Umanzor on 01-28-2024 AST [Catalytic activity/Vol] 15 U/L 15-37 [facility] Lipid Profileon 01-28-2024 Cholesterol [Mass/Vol] 128 mg/dL Normal 200 [facility] Comment on above: Order Comment: Order Date: 01/18/24 Order Info: [id number] - CMP Order Info: [id number] - LIPID Result Comment: <200 mg/dL Desirable 200-240 mg/dL Borderline >240 mg/dL High Risk Performed By: #### L 500.4050, L500.4100 #### [facility] [address] [place], [address] Cholesterol in HDL [Mass/Vol] 55 mg/dL Normal [facility] Comment on above: Order Comment: Order Date: 01/18/24 Order Info: [id number] - CMP Order Info: [id number] - LIPID Result Comment: The drugs N-Acetylcysteine and Metamizole may falsely depress this assay. Reference Range HDL <40 mg/dL Low HDL Cholesterol HDL >or= 60 mg/dL High HDL Cholesterol Performed By: #### L 500.4050, L500.4100 #### [facility] [address] [place], [address] Cholesterol in LDL [Mass/Vol] 51 mg/dL Normal 0-130 [facility] Comment on above: Order Comment: Order Date: 01/18/24 Order Info: [id number] - CMP Order Info: [id number] - LIPID Performed By: #### L 500.4050, L500.4100 #### [facility] [address] [place], [address] Cholesterol in VLDL [Mass/Vol] 22 mg/dL Normal 5-40 [facility] Comment on above: Order Comment: Order Date: 01/18/24 Order Info: [id number] - CMP Order Info: [id number] - LIPID Performed By: #### L 500.4050, L500.4100 #### [facility] [address] [place], [address] Triglyceride [Mass/Vol] 110 mg/dL Normal [facility] Comment on above: Order Comment: Order Date: 01/18/24 Order Info: [id number] - CMP Order Info: [id number] - LIPID Result Comment: The drugs N-Acetylcysteine and Metamizole may falsely depress this assay. Serum Triglycerides Reference Interval Normal <150 mg/dL Borderline high 150 - 199 mg/dL High 200 - 499 mg/dL Very High > or = 500 mg/dL Performed By: #### L 500.4050, L500.4100 #### [facility] [address] [place], [address] Low density lipoprotein (LDL ) cholesterol measurementOrdered By: Jean-Pierre Umanzor on 01-28-2024 Cholesterol in LDL [Mass/Vol] 51 mg/dL 0-130 [facility] Potassium measurementOrdered By: Jean-Pierre Umanzor on 01-28-2024 Potassium [Moles/Vol] 3.8 mmol/L 3.5-5.1 [facility] Serum anion gap measurementO rdered By: Jean-Pierre Umanzor on 01-28-2024 Anion gap [Moles/Vol] 5 mmol/L 5-15 [facility] Serum globulin measurementOr dered By: Jean-Pierre Umanzor on 01-28-2024 Globulin (S) [Mass/Vol] 3.4 g/dL 2.2-4.2 [facility] Serum or plasma alanine trejo otransferase (ALT) measurementOrdered By: Jean-Pierre Umanzor on 01-28-2024 ALT [Catalytic activity/Vol] 21 U/L 16-61 [facility] Serum or plasma albumin fabiana urement (mass/volume)Ordered By: Jean-Pierre Umanzor on 01-28-2024 Albumin [Mass/Vol] 4.0 g/dL 3.2-5.0 [facility] Serum or plasma alkaline ray sphatase measurementOrdered By: Jean-Pierre Umanzor on 01-28-2024 ALP [Catalytic activity/Vol] 72 U/L 45-117 [facility] Serum or plasma calcium fabiana urement (mass/volume)Ordered By: Jean-Pierre Umanzor on 01-28-2024 Calcium [Mass/Vol] 9.4 mg/dL 8.5-10.1 [facility] Serum or plasma cholesterol measurement (mass/volume)Ordered By: Jean-Pierre Umanzor on 01-28-2024 Cholesterol [Mass/Vol] 128 mg/dL <200 [facility] Comment on above: <200 mg/dL Desirable 200-240 mg/dL Borderline >240 mg/dL High Risk Serum or plasma creatinine m easurement (mass/volume)Ordered By: Jean-Pierre Umanzor on 01-28-2024 Creatinine [Mass/Vol] 0.91 mg/dL 0.70-1.30 [facility] Comment on above: The validity of the calculated GFR & GFRAA in patients over 70 years has not been determined. Clinical correlation is essential. Serum or plasma urea nitroge n measurement (mass/volume)Ordered By: Jean-Pierre Umanzor on 01-28-2024 Urea nitrogen [Mass/Vol] 16 mg/dL 7-18 [facility] Sodium levelOrdered By: Oli Umanzor on 01-28-2024 Sodium [Moles/Vol] 138 mmol/L 136-145 [facility] Total proteinOrdered By: Fito Umanzor on 01-28-2024 Protein [Mass/Vol] 7.4 g/dL 6.4-8.2 [facility] Triglycerides measurementOrd ered By: Jean-Pierre Umanzor on 01-28-2024 Triglyceride [Mass/Vol] 110 mg/dL <199 [facility] Comment on above: The drugs N-Acetylcy steine and Metamizole may falsely depress this assay.Serum Triglycerides Reference Interval Normal <150 mg/dL Borderline high 150 - 199 mg/dL High 200 - 499 mg/dL Very High > or = 500 mg/dL Very low density lipoprotein (VLDL) cholesterol measurementOrdered By: Jean-Pierre Umanzor on 01-28-2024 VLDL Cholesterol 22 mg/dL 5-40 [facility] Urgent Care Visit Reporton 1 Urgent Care Visit Report [facility] [address] , [address] [place] [address] OFFICE VISIT Date of Service: 11/20/23 MR#: [id number] Acct: [id number] Name: ADITIRACHEL TITUS Sahara Rep #: [id number] : 1940 Provider: SANDRA Kraft Age/Sex: 82/M Location: [facility] Status: Signed Intake Vital Signs 04/12/21 10:58 11/20/23 12:23 Height 5 ft 11 in 5 ft 11 in Weight: 186 lb BMI 25.9 BP 146/82 H Blood Pressure Location Lt brachial Position Sitting Respiration 16 Pulse 86 Pulse Source Monitor Temp 98.9 F Temp Source Temporal Pulse Oximetry (%) 97 Oxygen Delivery Method room air Intake Visit Reasons: BUMP BEHIND R KNEE Chief Complaint: BUMP RT LEG Reversing [place] Required: No Accompanied by: Self Is patient in pain?: No Allergies No Known Allergies Allergy (Verified 11/20/23 12:25) Have you fallen in the past year?: No PFSH Medical History History of steroid therapy Wears glasses Arthritis Vertigo Non-smoker Leg cramps History of echocardiogram Surgical History History of appendectomy History of shoulder surgery Social History Smoking Status: Never smoker HPI HPI Chief Complaint: BUMP RT LEG Details: RACHEL SANDOVAL, is a 82 M who presents to the office today for evaluation of some swelling on his right knee. Patient states that he wears a knee brace due to arthritis in both of his knees. He does state that he has been told that he needs to have both knees replaced. He states over the past several days he has noticed a bump on the right knee Area. He states it is not painful and he denies any loss of range of motion to his knee. No other associated symptoms or alleviating/aggravatin g factors. ROS Const Constitutional: No other (6 system ROS completed with pertinent findings in the HPI otherwise normal.) Exam Const General: cooperative and healthy appearing Skin General: no rashes or lesions noted Neuro General: patient alert Extrem Other: Bursitis over right patella with mild soft tissue swelling surrounding. Psych Appearance: grossly normal Mental Status: mental status grossly normal Coding Level of Care Code Off vis,new,level 3 Diagnoses Swelling of right knee joint M25.461 Assessment and Plan Assessment and Plan (1) Swelling of right knee joint: Status: Acute Plan: Patient advised she needs to follow-up with orthopedics for further evaluation and treatment and possible drainage of the knee. Advised as he is not currently in pain that the should only try RICE techniques. Advised that if he does start having pain he may use ibuprofen or Tylenol as needed for pain unless contraindicated. Patient verbalized understanding and agreement with all the above. Clinical Quality Measures Falls Risk Screening/Assistive Devices Have you fallen in the past year?: No 11/20/23 1632 Date Donnie Barboza Signature: Date (if applicable) CC: Normal [facility] Basophil percentageon 2021 Basophil percentage 0 SEEN /hpf 0-5 [facility] Work Phone: Bilirubin [Mass/Vol] 0.60 mg/dL 0.20-1.00 [facility] Work Phone: Comment on above: For patients on eltr ombopag therapy, use of Dimension [place] TBIL is not recommended. Chloride [Moles/Vol] 104 mmol/L 98-107 [facility] Work Phone: Cholesterol [Mass/Vol] 127 mg/dL <200 [facility] Work Phone: Comment on above: <200 mg/dL Desirable 200-240 mg/dL Borderline >240 mg/dL High Risk Glucose [Mass/Vol] 92 mg/dL 74-106 [facility] Work Phone: Potassium [Moles/Vol] 4.1 mmol/L 3.5-5.1 [facility] Work Phone: Protein [Mass/Vol] 7.3 g/dL 6.4-8.2 [facility] Work Phone: Sodium [Moles/Vol] 143 mmol/L 136-145 [facility] Work Phone: Triglyceride [Mass/Vol] 84 mg/dL <199 [facility] Work Phone: Comment on above: The drugs N-Acetylcy steine and Metamizole may falsely depress this assay.Serum Triglycerides Reference Interval Normal <150 mg/dL Borderline high 150 - 199 mg/dL High 200 - 499 mg/dL Very High > or = 500 mg/dL Bilirubin Test strip Ql (U)o n 10-15-2021 Bilirubin Ql (U) Negative Negative [facility] Work Phone: Ketones Test strip Ql (U)on 10-15-2021 Ketones Ql (U) Negative Negative [facility] Work Phone: Laboratory - Chemistry and C hemistry - challengeon 10-15-2021 ALP [Catalytic activity/Vol] 64 U/L 45-117 [facility] Work Phone: ALT [Catalytic activity/Vol] 30 U/L 16-61 [facility] Work Phone: CO2 [Moles/Vol] 32.0 mmol/L 21.0-32.0 [facility] Work Phone: Globulin (S) [Mass/Vol] 3.5 g/dL 2.2-4.2 [facility] Work Phone: Urea nitrogen/Creatinine [Mass ratio] 14.9 mg/mg 10-20 [facility] Work Phone: Mucus LM Ql (Urine sed)on Mucus Ql (Urine sed) 0 SEEN /hpf [facility] Work Phone: Nitrite Test strip Ql (U)on 10-15-2021 Nitrite Ql (U) Negative Negative [facility] Work Phone: No Panel Informationon 10-15 Estimated GFR (MDRD) Amer 92 mL/min >60 [facility] Work Phone: Comment on above: GFR Calc Estimated GFR (MDRD) Non-Af Amer 76 mL/min >60 [facility] Work Phone: Comment on above: Non- GFR Calc Protein Test strip Ql (U)on 10-15-2021 Protein Ql (U) Negative Negative [facility] Work Phone: Serum or plasma albumin fabiana urement (mass/volume)on 10-15-2021 Albumin [Mass/Vol] 3.8 g/dL 3.2-5.0 [facility] Work Phone: Serum or plasma albumin/glob ulin mass ratioon 10-15-2021 Albumin/Globulin [Mass ratio] 1.1 {ratio} 0.9-2.4 [facility] Work Phone: Serum or plasma calcium fabiana urement (mass/volume)on 10-15-2021 Calcium [Mass/Vol] 9.1 mg/dL 8.5-10.1 [facility] Work Phone: Serum or plasma cholesterol in HDL measurement (mass/volume)on 10-15-2021 Cholesterol in HDL [Mass/Vol] 53 mg/dL >40 [facility] Work Phone: Comment on above: The drugs N-Acetylcy steine and Metamizole may falsely depress this assay. Reference Range HDL <40 mg/dL Low HDL Cholesterol HDL >or= 60 mg/dL High HDL Cholesterol Serum or plasma cholesterol in VLDL measurement (mass/volume)on 10-15-2021 Cholesterol in VLDL [Mass/Vol] 17 mg/dL 5-40 [facility] Work Phone: Serum or plasma creatinine m easurement (mass/volume)on 10-15-2021 Creatinine [Mass/Vol] 1.01 mg/dL 0.70-1.30 [facility] Work Phone: Comment on above: The validity of the calculated GFR & GFRAA in patients over 70 years has not been determined. Clinical correlation is essential. Serum or plasma low density lipoprotein (LDL) cholesterol measurement (mass/volume)on 10-15-2021 Cholesterol in LDL [Mass/Vol] 57 mg/dL 0-130 [facility] Work Phone: Serum or plasma urea nitroge n measurement (mass/volume)on 10-15-2021 Urea nitrogen [Mass/Vol] 15 mg/dL 7-18 [facility] Work Phone: Squamous epithelial cells de tection in urine sediment by light microscopyon 10-15-2021 Epithelial cells.squamous LM Ql (Urine sed) 0 SEEN /hpf 0-5 [facility] Work Phone: Thin prep Papanicolaou smear with manual screeningon 10-15-2021 Thin prep Papanicolaou smear with manual screening 14 U/L 15-37 [facility] Work Phone: Thin prep Papanicolaou smear with manual screening 7 5-15 [facility] Work Phone: Urine blood detectionon 09-18 RBC Ql (U) Negative Negative [facility] Work Phone: RBC Ql (U) 0 SEEN /hpf 0-5 [facility] Work Phone: Urine clarityon 10-15-2021 Clarity (U) Clear Clear [facility] Work Phone: Urine color determinationon 10-15-2021 Color (U) Yellow Yellow [facility] Work Phone: Urine glucose detectionon Glucose Ql (U) Normal mg/dl Normal [facility] Work Phone: Urine leukocyte esterase det ection by dipstickon 10-15-2021 Leukocyte esterase Test strip Ql (U) Negative Negative [facility] Work Phone: Urine pHon 10-15-2021 pH (U) 6.5 [pH] 5.0 - 8.0 [facility] Work Phone: Urine sediment bacteria coun t by microscopy (number/high power field)on 10-15-2021 Bacteria LM.HPF (Urine sed) [#/Area] 0 /[HPF] None Seen [facility] Work Phone: Urine specific gravity measu rementon 10-15-2021 Specific gravity (U) [Rel density] 1.015 1.002-1.030 [facility] Work Phone: Urobilinogen Auto test strip Ql (U)on 10-15-2021 Urobilinogen Ql (U) Normal mg/dl Normal [facility] Work Phone: CNOVon 04-22-2021 CNOV Office Visit (GENSWS ) RACHEL SANDOVAL ([id number]) 1940 M Date Time Provider Department 04/22/21 2:00 PM DANNI MCCOY During your visit today, we recorded the following information about you: Temperature Pulse Blood pressure Weight 98.9 degrees 86/minute 160/90 86.6 kg Height 1.803 m Danni Mccoy PA-C 04/22/2021 4:59 PM Signed FOLLOW UP VISIT - HERNIA NAME: RACHEL Sandoval CLINIC NO.: [id number] DATE OF SERVICE: 04/22/2021 : 1940 REFERRING PHYSICIAN: Jean-Pierre Umanzor MD Rachel is a patient I am following with Dr. Tyson for a bilateral inguinal hernias. Dr. Tyson performed a robotic assisted laparoscopic bilateral inguinal hernia repair with mesh on 04/12/21 at [facility]. The patient currently notes no major complaints. His appetite has been good. He denies fever, chills or abdominal pain. He does note some mild incisional discomfort. He notes some post-operative swelling on the right, otherwise no bulges at either operative site. Noted separately during review of patient's chart in Epic that in 2014 a pancreatic abnormality was noted incidentally on MRI which had been ordered to evaluate the gallbladder, with recommended 1 year follow up: IMPRESSION: 1. 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 ?Additional followup MRI in one year is recommended. 2. ?Cholelithiasis and stable borderline extrahepatic biliary ductal dilatation. That finding and recommendation were also noted in office visit with Dr. Horta 12/01/14 which was reviewed with patient. Per Dr. Horta's note from that date: PLAN: If the patient notes any problems or signs of biliary colic, the patient should contact me immediately. We discussed the findings of the small pancreatic system these are most likely benign. We covered the fact that there range of benign intermediate and malignant pancreatic issues. I feel his cysts are currently too small to accurately characterize. I do agree with followup MRI in a year. Diagnoses: (K80.20) Calculus of gallbladder without cholecystitis without obstruction (primary encounter diagnosis) (K86.2) Pancreatic cyst (HCC) ? Return to Clinic: The patient is instructed to follow-up with me in 12 months with an additional MRI. ? No further MRIs noted in patient's chart since that time. VITALS: Blood pressure 160/90, pulse 86, temperature 37.2 ?C (98.9 ?F), height 180.3 cm (5' 11), weight 86.6 kg (191 lb), SpO2 100 %. General: patient is alert, cooperative, pleasant and in no acute distress On examination, the abdomen is benign. The incisions are healing well without signs of infection or inflammation. There are no signs of recurrent hernia formation. Assessment IMPRESSION: status post robotic assisted laparoscopic bilateral inguinal hernia repair with mesh PLAN: If the patient notes any problems, he should contact me immediately. he may return to his regular activities as tolerated, with the exception of no lifting greater than 20 pounds for the next 7 weeks. If patient feels the urge to cough or sneeze, they should brace against the repair site with their hands or a pillow. Reviewed prior MRI findings with patient and confirmed that he had not had a repeat MRI at another facility since 2014. Patient stated he did not recall the pancreatic finding or the recommendation for repeat MRI at 1 year. I have discussed with patient repeating an MRI at this time for follow-up of prior incidental finding. He states he will consider this and will contact our office if he decides to proceed with scheduling MRI. Diagnoses: (Z98.890, Z87.19) S/P hernia repair (primary encounter diagnosis) (K86.2) Pancreatic cyst Patient verbalized understanding of all above and agreed with the plan. JARRELL Dumont PA-C 04/22/2021 2:57 PM Signed The following instructions are important for you related to your office visit today with the [facility]. INSTRUCTIONS FOLLOWING YOUR RECENT HERNIA SURGERY You should be returning to your regular diet, If you have having persistent issues with tolerating your diet, please contact our office It is not unusual to have incisional pain for the first 1-2 weeks following surgery. If this persists beyond 2 weeks, contact the office You should leave the Steri-Strips in place until they fall off. You may return to your regular activities. You may drive if you are no longer taking narcotic pain medication. Climbing stairs is fine. Walking in encouraged. Sitting up from bed may be uncomfortable. Sitting up using your lateral abdominal muscles (sitting up sideways) is usually more comfortable. You should perform no lifting greater than 20lbs for the next 6-7 weeks. Usually 8 weeks total (more content not included)... Normal [facility] CNOVon 03-25-2021 CNOV Office Visit (GENSWS ) LORIRACHEL ([id number]) 1940 M Date Time Provider Department 03/25/21 3:10 PM SILVER TYSON During your visit today, we recorded the following information about you: Temperature Pulse Blood pressure Weight 98.5 degrees 95/minute 152/98 85.7 kg Height 1.803 m Cyndi Nair 03/25/2021 3:07 PM Signed REVIEW OF SYSTEMS: General: The patient denies fatigue, denies weight loss, denies weight gain, denies feeling hot, and denies feelings of cold. Eyes: The patient denies glaucoma, denies eye injury/surgery, wears glasses or contacts. Ear/Nose/Throat: The patient denies allergies, denies hayfever, denies ear infections, and denies bloody noses. Cardiovascular: The patient denies chest pain, denies heart disease, denies high blood pressure,denies cardiac stent, denies prior heart attack, denies irregular heart beat, NOTES high cholesterol, denies poor circulation, denies heart failure, other cardiac issues, denies claudication, denies cold feet, denies peripheral arterial stent. Respiratory: The patient denies tuberculosis, denies pneumonia, denies frequent cough, denies pulmonary embolism, denies shortness of breath, and denies coughing up blood. Gastrointestinal: The patient denies difficulty swallowing, denies acid reflux, denies ulcers, denies vomiting, denies jaundice/hepatitis, denies gallbladder problems, denies black or tarry stools, NOTES hemorrhoids, denies bleeding from rectum, denies diverticulitis, denies constipation, denies diarrhea, denies loss of stool control, and NOTES hernias. Kidney/Bladder: The patient denies kidney stones, denies urine infections, and denies bloody urine. Skin: The patient denies a history of skin cancer, denies bleeding/changing moles, and denies a history of skin rash. Neurologic: The patient denies a history of epilepsy/convulsions, denies headaches, denies head/spinal injuries, and denies stroke/TIA. Psychiatric: The patient denies psychiatric medications, denies depression, and denies voices, denies substance abuse. Endocrine: The patient denies thyroid disorders, denies diabetes, and denies hormonal problems. Hematologic: The patient denies a history of bruising, denies bleeding, and denies anemia, denies blood clots. Infections: The patient denies a history of measles and mumps, denies rheumatic fever, and denies sexually transmitted diseases. Musculoskeletal: The patient denies back pain/injury, denies back problems, denies sciatica, NOTES knee/foot trouble, NOTES arthritis, or denies gout. When was patient's last Mammogram screening? N/A Last Colonoscopy: None Cyndi Tyson III, MD 04/02/2021 9:32 AM Signed HISTORY AND PHYSICAL RACHEL Shoemaker Lori 1940 REFERRING PHYSICIAN: Self CHIEF COMPLAINT: Consult (Bilateral Inguinal Hernias) HPI: Rachel is a 79 year old male with a complaint of a bulge and discomfort in his right inguinal region and left inguinal region. The patient notes discomfort in this area mostly in the right inguinal area occasionally with coughing or lifting. The symptoms have increased, over the past 6 months. ? The patient notes no symptoms of bowel obstruction and denies nausea or vomiting. The patient was seen by his primary care physician who felt the patient has a hernia. Rachel was referred for evaluation and treatment. ? The patient presents today wanting information about repair of his hernias. 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 ? PAST MEDICAL HISTORY Diagnosis Date - Arthritis - Benign paroxysmal positional vertigo - Hyperlipemia - Inguinal hernia PAST SURGICAL HISTORY Procedure Laterality Date - APPENDECTOMY 02/15/14 - SHOULDER SURGERY HX age 19 Current Outpatient Medications Medication Sig - MELOXICAM ORAL Take by mouth as needed. - meclizine HCl (MECLIZINE ORAL) Take by mouth. Did not Start yet - Tadalafil (CIALIS) 20 mg tab(s) Take 20 mg by mouth once daily. Takes as needed. - atorvastatin (LIPITOR) 20 mg tablet Take 20 mg by mouth once daily. - Zinc Gluconate 100 mg tab Take by mouth. - Sennosides (SENNA) 8.6 mg cap Take by mouth. - MULTI-VITAMIN ORAL Take by mouth. - GLUC WEEKS 2KCL/CHONDR/VIT C/DANIELLE (GLUCOSAM-CHONDROITIN- VIT C-MN ORAL) Take by mouth. - aspirin, enteric coated (ASPIRIN, ENTERIC COATED) 81 mg EC tablet Take 81 mg by mouth once daily. - SAW PALMETTO ORAL Take by mouth. - CALCIUM CARBONATE/VITAMIN D3 (CALCIUM + D ORAL) Take by mouth. No current facility-administered medications for this visit. ALLERGIES: Patient has no known allergies. PERSONAL HISTORY: Social History Tobacco Use - Smoking status: Never Smoker - Smokeless tobacco: Never Used Vaping Use - Vaping Use: Never used Substance Use Topics - Alcohol use: No - Dr (more content not included)... [email or web address] RACHEL SANDOVAL ([id number]) 1940 M Date Time Provider Department 03/25/21 SILVER TYSON [email or web address] During your visit today, we recorded the following information about you: Yusuf Callahan 03/25/2021 4:02 PM Signed 04-12-2021 Robotic [place] hernia repair [facility] Allergies As of Date: 03/25/2021 (No Known Allergies) Date Reviewed: 03/25/2021 Reviewed by: Cyndi Nair - Fully Assessed Reason for Visit: 04-12-2021 Robotic [place] hernia repair [Other] Prescriptions as of 04/12/2021 - MELOXICAM ORAL Take by mouth as needed. - meclizine HCl (MECLIZINE ORAL) Take by mouth. Did not Start yet - Tadalafil (CIALIS) 20 mg tab(s) Take 20 mg by mouth once daily. Takes as needed. - atorvastatin (LIPITOR) 20 mg tablet Take 20 mg by mouth once daily. - Zinc Gluconate 100 mg tab Take by mouth. - Sennosides (SENNA) 8.6 mg cap Take by mouth. - MULTI-VITAMIN ORAL Take by mouth. - GLUC WEEKS 2KCL/CHONDR/VIT C/DANIELLE (GLUCOSAM-CHONDROITIN- VIT C-MN ORAL) Take by mouth. - aspirin, enteric coated (ASPIRIN, ENTERIC COATED) 81 mg EC tablet Take 81 mg by mouth once daily. - SAW PALMETTO ORAL Take by mouth. - CALCIUM CARBONATE/VITAMIN D3 (CALCIUM + D ORAL) Take by mouth. Problem List As Of Date 03/25/2021 Noted Resolved Cholelithiasis [K80.20] 03/26/2014 Pancreatic cyst (HCC) [K86.2] 03/26/2014 Mixed hyperlipidemia [E78.2] 03/13/2021 Bilateral inguinal hernia without obstruction o*03/13/2021 Encounter Status:Closed [facility] RACHEL SANDOVAL ([id number]) 1940 M Date Time Provider Department 03/13/21 JAMES ISIDRO During your visit today, we recorded the following information about you: Alea Mace LPN 03/13/2021 2:55 PM Signed Faxed [facility] Medical Records to get results of labs, EKG from recent ER visit and MRI/Abdominal pancreatic cyst tests from years ago. Alea Mace LPN 03/14/2021 9:40 AM Signed Received requested records from [facility]. Scanned into Scanned Docs. Alea Mace LPN Allergies As of Date: 03/13/2021 (No Known Allergies) Date Reviewed: 03/13/2021 Reviewed by: James Isidro APRN.COAL CONVEYOR OPERATOR - Fully Assessed Reason for Visit: Request Outside Medical Records [[id number]] Prescriptions as of 03/14/2021 - MELOXICAM ORAL Take by mouth as needed. - meclizine HCl (MECLIZINE ORAL) Take by mouth. Did not Start yet - Tadalafil (CIALIS) 20 mg tab(s) Take 20 mg by mouth once daily. Takes as needed. - atorvastatin (LIPITOR) 20 mg tablet Take 20 mg by mouth once daily. - Zinc Gluconate 100 mg tab Take by mouth. - Sennosides (SENNA) 8.6 mg cap Take by mouth. - MULTI-VITAMIN ORAL Take by mouth. - GLUC WEEKS 2KCL/CHONDR/VIT C/DANIELLE (GLUCOSAM-CHONDROITIN- VIT C-MN ORAL) Take by mouth. - aspirin, enteric coated (ASPIRIN, ENTERIC COATED) 81 mg EC tablet Take 81 mg by mouth once daily. - SAW PALMETTO ORAL Take by mouth. - CALCIUM CARBONATE/VITAMIN D3 (CALCIUM + D ORAL) Take by mouth. Problem List As Of Date 03/13/2021 Noted Resolved Cholelithiasis [K80.20] 03/26/2014 Pancreatic cyst (HCC) [K86.2] 03/26/2014 Mixed hyperlipidemia [E78.2] 03/13/2021 Bilateral inguinal hernia without obstruction o*03/13/2021 Encounter Status:Closed by ALEA MACE LPN on 03/14/21 Normal [facility] HISTORY PHYSICALon HISTORY PHYSICAL HNO ID: [id number] Author: James Isidro APRN.COAL CONVEYOR OPERATOR Service: ? Author Type: Nurse Practitioner Type: HANDP Filed: 03/13/2021 2:44 PM Note Text: HISTORY AND PHYSICAL EXAMINATION SERVICE DATE: 03/13/2021 SERVICE TIME: 1:25 PM PRIMARY CARE PHYSICIAN: Jean-Pierre Umanzor MD REASON FOR VISIT: RACHEL Sandoval is a 80 year old male who is scheduled for Procedure(s): HERNIORRHAPHY INGUINAL ELECTIVE ADULT REDUCIBLE (Bilateral) at the request of Dr. Nghia Horta for consultation. My final recommendation will be communicated back to the requesting physician by way of shared medical record or letter. Subjective The patient has the following: ACTIVE PROBLEM LIST Cholelithiasis Pancreatic Cyst Mixed Hyperlipidemia Bilateral Inguinal Hernia Without Obstruction Or Gangrene COVID-19 Immunization Status COVID-19 VACCINE (Series Information) Completed 01/03/2021 Imm Admin: COVID-19 vaccine, full dose (MODERNA) 06/21/2020 Imm Admin: COVID-19 vaccine, full dose (MODERNA) 05/24/2020 Imm Admin: COVID-19 vaccine, full dose (MODERNA) Only the first 3 history entries have been loaded, but more history exists. CHIEF COMPLAINT: Pre-op exam HPI: THEODORE is a 80 yo seen for PAC due to scheduled above surgery because of bilateral inguinal hernia. 03/07/2021 Dr. Mychal Shah is a 79 year old male with a complaint of a bulge and discomfort in his right inguinal region and left inguinal region. The patient notes discomfort in this area mostly in the right inguinal area occasionally with coughing or lifting. The symptoms have increased, over the past 6 months. ? The patient notes no symptoms of bowel obstruction and denies nausea or vomiting. The patient was seen by his primary care physician who felt the patient has a hernia. Rachel was referred for evaluation and treatment. ? The patient presents today wanting information about repair of his hernias. 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 ? The patient is being seen by me today at the request of Dr. Salas for my opinion and advice regarding minimally symptomatic bilateral inguinal hernias. ? REVIEW OF SYSTEMS: General: No weight loss, malaise or fevers. Neurological: No history of TIA's, stroke, ACCOUNTANT SYSTEMS tumor, impaired sensorium, hemiplegia, paraplegia or quadraplegia. No neurological symptoms or problems. Respiratory: No history of current cough or dyspnea, or pneumonia in the past 6 weeks. No history of respiratory/pulmonary symptoms or problems. Cardiovascular: Positive for: anticoagulation therapy (ASA) and hyperlipidemia (on rx) Negative for: arrhythmia, atrial fibrillation, CAD, chest pain, CHF, congenital heart defect, DVT/PE, hypertension, recent [place], murmur/valvular heart disease and valve surgery. GI: SEE HPI. No history of GI symptoms or problems. No history of esophageal varices, recent ascites, or ETOH greater than 2 drinks per day. : No history of dysuria, frequency or incontinence, stones or chronic kidney disease. No difficulty urinating, nocturia > 1 time per night or hematuria. Endocrine: No history of diabetes. Has not taken steroids within the past 30 days. No history of endocrinological symptoms or problems. Hematology: Positive for: chronic anti-coagulation/plate let meds. Patient is on anti-coagulation/plate let medication(s): Aspirin. Negative for: anemia, bruises/bleeds easily and transfusion of at least 4 units within 72 hours prior to surgery. Oncology: No history of CA metastasis, chemo within 30 days, or radiotherapy within 90 days. No history of oncological symptoms or problems. Psych: No history of psychiatric symptoms or problems. Musculoskeletal: Positive for: joint pain (rx as needed). Skin: Negative for lesions, rash and itching. PAST MEDICAL HISTORY Diagnosis Date - Arthritis - Benign paroxysmal positional vertigo - Hyperlipemia - Inguinal hernia PAST SURGICAL HISTORY Procedure Laterality Date - APPENDECTOMY 02/15/14 - SHOULDER SURGERY HX age 19 FAMILY HISTORY Problem Relation Age of Onset - Cancer Mother unsure type - Cancer Father unsure type - No Known Problems Sister - No Known Problems Brother - No Known Problems Brother - No Known Problems Brother - No Known Problems Maternal Grandmother - No Known Problems Maternal Grandfather - No Known Problems Paternal Grandmother - No Known Problems Paternal Grandfather Social History Tobacco Use - Smoking status: Never Smoker - Smokeless tobacco: Never Used Vaping Use - Vaping Use: Never used Substance Use Topics - Alcohol use: No - Drug use: Never Prior to Admission medications as of 03/13/21 1320 Medication Sig Last Dose Taking MELOXICAM ORAL Take by mouth as needed. Taking Yes Tadalafil (CIALIS) 20 mg tab(s) Take 20 mg by mouth once daily. Takes as needed. Taking Differently Yes atorvastatin (LIPITOR) (more content not included)... Normal [facility] CNOVon 03-07-2021 CNOV Office Visit (GENSWS ) RACHEL SANDOVAL ([id number]) 1940 M Date Time Provider Department 03/07/21 12:40 PM NGHIA HORTA During your visit today, we recorded the following information about you: Temperature Pulse Blood pressure Weight 98.3 degrees 89/minute 148/82 86.6 kg Height 1.803 m Cyndi Nair 03/07/2021 12:30 PM Signed REVIEW OF SYSTEMS: General: The patient denies fatigue, denies weight loss, denies weight gain, denies feeling hot, and denies feelings of cold. Eyes: The patient denies glaucoma, denies eye injury/surgery, does not wear glasses or contacts. Ear/Nose/Throat: The patient denies allergies, denies hayfever, denies ear infections, and denies bloody noses. Cardiovascular: The patient denies chest pain, denies heart disease, denies high blood pressure,denies cardiac stent, denies prior heart attack, denies irregular heart beat, NOTES high cholesterol, denies poor circulation, denies heart failure, other cardiac issues, denies claudication, denies cold feet, denies peripheral arterial stent. Respiratory: The patient denies tuberculosis, denies pneumonia, denies frequent cough, denies pulmonary embolism, denies shortness of breath, and denies coughing up blood. Gastrointestinal: The patient denies difficulty swallowing, denies acid reflux, denies ulcers, denies vomiting, denies jaundice/hepatitis, denies gallbladder problems, denies black or tarry stools, denies hemorrhoids, denies bleeding from rectum, denies diverticulitis, NOTES constipation, denies diarrhea, denies loss of stool control, and denies hernias. Kidney/Bladder: The patient denies kidney stones, denies urine infections, and denies bloody urine. Skin: The patient denies a history of skin cancer, denies bleeding/changing moles, and denies a history of skin rash. Neurologic: The patient denies a history of epilepsy/convulsions, denies headaches, denies head/spinal injuries, and denies stroke/TIA. Psychiatric: The patient denies psychiatric medications, denies depression, and denies voices, denies substance abuse. Endocrine: The patient denies thyroid disorders, denies diabetes, and denies hormonal problems. Hematologic: The patient denies a history of bruising, denies bleeding, and denies anemia, denies blood clots. Infections: The patient denies a history of measles and mumps, denies rheumatic fever, and denies sexually transmitted diseases. Musculoskeletal: The patient denies back pain/injury, denies back problems, denies sciatica, NOTES knee/foot trouble, NOTES arthritis, or denies gout. When was patient's last Mammogram screening? N/A Last Colonoscopy: None Cyndi Horta MD 03/07/2021 1:30 PM Signed The following instructions are important for you related to your office visit today with the [facility]. INSTRUCTIONS FOR YOUR SURGICAL PROCEDURE - We discussed that a hernia is a weakness in the fascia - the strength layer of the abdominal wall. We discussed would rather you hernias repaired with mesh or sutures, open or laparoscopically, it is important to allow your bodies collagen to form a strong permanent repair to minimize the risk of hernia recurrence. It is very important that no heavy lifting be performed for 8 weeks following surgery. We discussed the risks and benefits of your planned procedure. If you have any additional questions, please contact our office immediately. Preadmission testing is an important part of preparation for your procedure. All laboratory studies, x-rays, and additional testing must be available for the preadmission testing staff to help ready you for surgery. You should not take aspirin or other blood thinners for one week prior to surgery unless instructed differently. You should not have anything to eat or drink after midnight the night prior to your surgery. You should wear comfortable clothes for your procedure. Please understand that the operating room schedule is an estimated time for your surgical procedure. Your procedure may be somewhat earlier or somewhat later than the estimated time. You'll be discharged home with postoperative instructions and typically pain medications. Please be aware that many pain medications may cause nausea. You should typically eat light foods as you take your pain medications. Your dressing will usually be able to be removed two to three days following surgery. You may typically shower three days after surgery. If you have Steri-Strips on your incision (little white tapes) you should leave these in place until they fall off. You will typically have a followup office visit 1 to 2 weeks after surgery. Again, if you have any difficulties or concerns, contact our office immediately. If you note any additional difficulties, questions, or concerns, you should contact o (more content not included)... Normal [facility] Esteban 03-07-2021 CNPN Telephone (GENSWS) JASSRACHEL Rangel ([id number]) 1940 M Date Time Provider Department 03/07/21 NGHIA HORTA [employer] During your visit today, we recorded the following information about you: Yusuf Jailene 03/07/2021 2:40 PM Signed [place] inguinal hernia Yusuf Jailene 03/15/2021 8:39 AM Signed Patient called to cancel will call and reschedule when he can work things out Yusuf Jailene Allergies As of Date: 03/07/2021 (No Known Allergies) Date Reviewed: 03/07/2021 Reviewed by: Cyndi Nair - Fully Assessed Reason for Visit: [place] inguinal hernia [Other] Prescriptions as of 03/28/2021 - MELOXICAM ORAL Take by mouth as needed. - meclizine HCl (MECLIZINE ORAL) Take by mouth. Did not Start yet - Tadalafil (CIALIS) 20 mg tab(s) Take 20 mg by mouth once daily. Takes as needed. - atorvastatin (LIPITOR) 20 mg tablet Take 20 mg by mouth once daily. - Zinc Gluconate 100 mg tab Take by mouth. - Sennosides (SENNA) 8.6 mg cap Take by mouth. - MULTI-VITAMIN ORAL Take by mouth. - GLUC WEEKS 2KCL/CHONDR/VIT C/DANIELLE (GLUCOSAM-CHONDROITIN- VIT C-MN ORAL) Take by mouth. - aspirin, enteric coated (ASPIRIN, ENTERIC COATED) 81 mg EC tablet Take 81 mg by mouth once daily. - SAW PALMETTO ORAL Take by mouth. - CALCIUM CARBONATE/VITAMIN D3 (CALCIUM + D ORAL) Take by mouth. Problem List As Of Date 03/07/2021 Noted Resolved Cholelithiasis [K80.20] 03/26/2014 Pancreatic cyst (HCC) [K86.2] 03/26/2014 Encounter Status:Closed by YSUUF CALLAHAN on 03/28/21 [facility] 08-20-2020 CNPN Telephone (GENSWS) RACHEL SANDOVAL ([id number]) 1940 M Date Time Provider Department 08/20/20 NGHIA HORTA During your visit today, we recorded the following information about you: Jessica Renny 08/20/2020 11:45 AM Signed Pt called in wanting to be sent two documents that were mentioned in his progress notes from his appointment. He stated that the progress notes mentioned he had an option during his appt to take printed documentation regarding his procedure. Pt mentioned this was under the plan section of the entire document. Pt stated that he never received the option to have the two documents printed, but would like them to clarify all of his options. If possible please send these through [employer]. Thank you, Jessica Henley RN 08/21/2020 2:38 PM Signed I sent the patient some hernia information via [email or web address] that Dr. Horta discussed with him at his visit. I left a voicemail for him to call if he has any more questions but we do not have any physical brochures in the office. Kelsi Henley RN Allergies As of Date: 08/20/2020 (No Known Allergies) Date Reviewed: 08/16/2020 Reviewed by: Nghia Horta MD - Fully Assessed Reason for Visit: Concerns about documentation [Other] Prescriptions as of 08/21/2020 - Tadalafil (CIALIS) 20 mg tab(s) Take 20 mg by mouth once daily. - atorvastatin (LIPITOR) 20 mg tablet Take 20 mg by mouth once daily. - Zinc Gluconate 100 mg tab Take by mouth. - Sennosides (SENNA) 8.6 mg cap Take by mouth. - MULTI-VITAMIN ORAL Take by mouth. - GLUC WEEKS 2KCL/CHONDR/VIT C/DANIELLE (GLUCOSAM-CHONDROITIN- VIT C-MN ORAL) Take by mouth. - aspirin, enteric coated (ASPIRIN, ENTERIC COATED) 81 mg EC tablet Take 81 mg by mouth once daily. - SAW PALMETTO ORAL Take by mouth. - CALCIUM CARBONATE/VITAMIN D3 (CALCIUM + D ORAL) Take by mouth. Problem List As Of Date 08/20/2020 Noted Resolved Cholelithiasis [K80.20] 03/26/2014 Pancreatic cyst (HCC) [K86.2] 03/26/2014 Encounter Status:Closed by KELSI HENLEY RN on 08/21/20 [facility] CNOVon 08-16-2020 CNOV Office Visit (GENSWS ) RACHEL SANDOVAL ([id number]) 1940 M Date Time Provider Department 08/16/20 10:30 AM NGHIA HORTA GENSWS During your visit today, we recorded the following information about you: Temperature Pulse Blood pressure Weight 99 degrees 91/minute 138/82 86.7 kg Boogie Char COAT MAKER 08/16/2020 10:47 AM Signed REVIEW OF SYSTEMS: General: The patient denies fatigue, denies weight loss, denies weight gain, denies feeling hot, and denies feelings of cold. Eyes: The patient denies glaucoma, denies eye injury/surgery, wears glasses or contacts. Ear/Nose/Throat: The patient denies allergies, denies hayfever, denies ear infections, and denies bloody noses. Cardiovascular: The patient denies chest pain, denies heart disease, denies high blood pressure,denies cardiac stent, denies prior heart attack, denies irregular heart beat, denies high cholesterol, denies poor circulation, denies heart failure, other cardiac issues, denies claudication, denies cold feet, denies peripheral arterial stent. Respiratory: The patient denies tuberculosis, denies pneumonia, denies frequent cough, denies pulmonary embolism, denies shortness of breath, and denies coughing up blood. Gastrointestinal: The patient denies difficulty swallowing, denies acid reflux, denies ulcers, denies vomiting, denies jaundice/hepatitis, denies gallbladder problems, denies black or tarry stools, denies hemorrhoids, denies bleeding from rectum, denies diverticulitis, denies constipation, denies diarrhea, denies loss of stool control, and NOTES hernias. Kidney/Bladder: The patient denies kidney stones, denies urine infections, and denies bloody urine. Skin: The patient denies a history of skin cancer, denies bleeding/changing moles, and denies a history of skin rash. Neurologic: The patient denies a history of epilepsy/convulsions, denies headaches, denies head/spinal injuries, and denies stroke/TIA. Psychiatric: The patient denies psychiatric medications, denies depression, and denies voices, denies substance abuse. Endocrine: The patient denies thyroid disorders, denies diabetes, and denies hormonal problems. Hematologic: The patient denies a history of bruising, denies bleeding, and denies anemia, denies blood clots. Infections: The patient denies a history of measles and mumps, denies rheumatic fever, and denies sexually transmitted diseases. Musculoskeletal: The patient denies back pain/injury, denies back problems, denies sciatica, NOTES knee/foot trouble, denies arthritis, or denies gout. When was patient's last Mammogram screening? N/A Last Colonoscopy: unknown Boogie Horta MD 08/16/2020 12:23 PM Signed HISTORY AND PHYSICAL RACHEL Shoemaker Aditihernan 1940 REFERRING PHYSICIAN: Benito Salas MD CHIEF COMPLAINT: Bilateral inguinal hernias HPI: Rachel is a 79 year old male with a complaint of a bulge and discomfort in his right inguinal region and left inguinal region. The patient notes discomfort in this area mostly in the right inguinal area occasionally with coughing or lifting. The symptoms have increased, over the past 6 months. The patient notes no symptoms of bowel obstruction and denies nausea or vomiting. The patient was seen by his primary care physician who felt the patient has a hernia. Rachel was referred for evaluation and treatment. The patient presents today wanting information about repair of his hernias. 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 The patient is being seen by me today at the request of Dr. Salas for my opinion and advice regarding minimally symptomatic bilateral inguinal hernias. PAST MEDICAL HISTORY Diagnosis Date - Hyperlipemia PAST SURGICAL HISTORY Procedure Laterality Date - APPENDECTOMY 02/15/14 - SHOULDER SURGERY HX age 19 Current Outpatient Medications Medication Sig - Tadalafil (CIALIS) 20 mg tab(s) Take 20 mg by mouth once daily. - atorvastatin (LIPITOR) 20 mg tablet Take 20 mg by mouth once daily. - Zinc Gluconate 100 mg tab Take by mouth. - Sennosides (SENNA) 8.6 mg cap Take by mouth. - GLUC WEEKS 2KCL/CHONDR/VIT C/DANIELLE (GLUCOSAM-CHONDROITIN- VIT C-MN ORAL) Take by mouth. - aspirin, enteric coated (ASPIRIN, ENTERIC COATED) 81 mg EC tablet Take 81 mg by mouth once daily. - SAW PALMETTO ORAL Take by mouth. - MULTI-VITAMIN ORAL Take by mouth. - CALCIUM CARBONATE/VITAMIN D3 (CALCIUM + D ORAL) Take by mouth. No current facility-administered medications for this visit. ALLERGIES: Patient has no known allergies. PERSONAL HISTORY: Social History Tobacco Use - Smoking status: Never Smoker Substance Use Topics - Alcohol use: No - Drug use: Not on file FAMILY HISTORY: FAMILY HISTORY Problem Relation Age of Onset - Cancer Mother unsure type - Cancer Father (more content not included)... Normal [facility] Vital Signs Date Time Vital Sign Value Performing Clinician Faci lity 05-15-2024 15:46-0400 Body mass index (BMI) [Ratio] 24.9 kg/m2 Dr. Jean-Pierre Umanzor MD Work Phone: [facility] 05-15-2024 15:40-0400 Body temperature 97.9 [degF] Dr. Jean-Pierre Umanzor MD Work Phone: [facility] 05-15-2024 15:40-0400 Diastolic blood pressure 86 mm[Hg] Dr. Jean-Pierre Umanzor MD Work Phone: [facility] 05-15-2024 15:40-0400 Heart rate 88 /min Dr. Jean-Pierre Umanzor MD Work Phone: [facility] 05-15-2024 15:40-0400 Respiratory rate 16 /min Dr. Jean-Pierre Umanzor MD Work Phone: [facility] 05-15-2024 15:40-0400 SaO2% (BldA) [Mass fraction] 98 % Dr. Jean-Pierre Umanzor MD Work Phone: 6(614)653-103674 [place] [address] 05-15-2024 15:40-0400 Systolic blood pressure 146 mm[Hg] Dr. Jean-Pierre Umanzor MD Work Phone: 7(327)642-935184 [address] 05-15-2024 10:31-0400 Body height 180.[address] Jean-Pierre Umanzor MD Work Phone: 9(722)022-921199 [place] [address] 05-15-2024 10:31-0400 Body weight 81.[address] Jean-Pierre Umanzor MD Work Phone: 7(183)470-471999 [place] [address] 05-14-2024 17:00-0400 Diastolic blood pressure 73 mm[Hg] Dr. Jean-Pierre Umanzor MD Work Phone: 3(406)686-637774 [place] [address] 05-14-2024 17:00-0400 Heart rate 78 /min Dr. Jean-Pierre Umanzor MD Work Phone: 8(971)358-329574 [place] [address] 05-14-2024 17:00-0400 Respiratory rate 18 /min Dr. Jean-Pierre Umanzor MD Work Phone: 7(238)813-552874 [place] [address] 05-14-2024 17:00-0400 SaO2% (BldA) [Mass fraction] 97 % Dr. Jean-Pierre Umanzor MD Work Phone: [facility] 05-14-2024 17:00-0400 Systolic blood pressure 149 mm[Hg] Dr. Jean-Pierre Umanzor MD Work Phone: 0(243)989-922184 [address] 05-14-2024 16:56-0400 Body temperature 98 [degF] Dr. Jean-Pierre Umanzor MD Work Phone: 5(821)996-187674 [place] [address] 05-14-2024 15:53-0400 Inhaled oxygen flow rate 18 L/min Dr. Jean-Pierre Umanzor MD Work Phone: [facility] 05-14-2024 15:34-0400 Body height 180.[address] Jean-Pierre Umanzor MD Work Phone: [facility] 05-14-2024 15:34-0400 Body mass index (BMI) [Ratio] 25.3 kg/m2 Dr. Jean-Pierre Umanzor MD Work Phone: [facility] 05-14-2024 15:34-0400 Body weight 82.[address] Jean-Pierre Umanzor MD Work Phone: 3(802)126-784074 [place] [address] 05-06-2024 19:39-0400 Body temperature 98.2 [degF] Dr. Jean-Pierre Umanzor MD Work Phone: 4(582)837-243374 [place] [address] 05-06-2024 19:39-0400 Diastolic blood pressure 87 mm[Hg] Dr. Jean-Pierre Umanzor MD Work Phone: 5(138)507-313474 [place] [address] 05-06-2024 19:39-0400 Heart rate 79 /min Dr. Jean-Pierre Umanzor MD Work Phone: 9(562)768-956584 [address] 05-06-2024 19:39-0400 Respiratory rate 18 /min Dr. Jean-Pierre Umanzor MD Work Phone: 4(330)524-390574 [place] [address] 05-06-2024 19:39-0400 SaO2% (BldA) [Mass fraction] 98 % Dr. Jean-Pierre Umanzor MD Work Phone: [facility] 05-06-2024 19:39-0400 Systolic blood pressure 152 mm[Hg] Dr. Jean-Pierre Umanzor MD Work Phone: 7(996)549-938474 [place] [address] 05-06-2024 16:05-0400 Body height 180.[address] Jean-Pierre Umanzor MD Work Phone: 7(028)810-952374 [place] [address] 05-06-2024 16:05-0400 Body mass index (BMI) [Ratio] 24.7 kg/m2 Dr. Jean-Pierre Umanzor MD Work Phone: 5(928)017-139274 [place] [address] 05-06-2024 16:05-0400 Body weight 80.[address] Jean-Pierre Umanzor MD Work Phone: [facility] 03-16-2024 11:01-0500 Body temperature 97.34 [degF] DR TIERNEY CHERY MD [facility] 03-16-2024 11:01-0500 Diastolic Blood Pressure Non-Invasive 69 mm[Hg] DR TIERNEY CHERY MD [facility] 03-16-2024 11:01-0500 Heart rate 92 /min DR TIERNEY CHERY MD [facility] 03-16-2024 11:01-0500 Reason For Taking VItal Signs DR TIERNEY CHERY MD [facility] 03-16-2024 11:01-0500 Respiratory rate 18 /min DR TIERNEY CHERY MD [facility] 03-16-2024 11:01-0500 Systolic Blood Pressure Non-Invasive 141 mm[Hg] DR TIERNEY CHERY MD [facility] 03-16-2024 05:14-0500 Body temperature 98.42 [degF] DR TIERNEY CHERY MD [facility] 03-16-2024 05:14-0500 Diastolic Blood Pressure Non-Invasive 71 mm[Hg] DR TIERNEY CHERY MD [facility] 03-16-2024 05:14-0500 Heart rate 64 /min DR TIERNEY CHERY MD [facility] 03-16-2024 05:14-0500 Respiratory rate 18 /min DR TIERNEY CHERY MD [facility] 03-16-2024 05:14-0500 Systolic Blood Pressure Non-Invasive 142 mm[Hg] DR TIERNEY CHERY MD [facility] 03-16-2024 00:19-0500 Body temperature 97.34 [degF] DR TIERNEY CHERY MD [facility] 03-16-2024 00:19-0500 Diastolic Blood Pressure Non-Invasive 79 mm[Hg] DR TIERNEY CHERY MD [facility] 03-16-2024 00:19-0500 Heart rate 79 /min DR TIERNEY CHERY MD [facility] 03-16-2024 00:19-0500 Reason For Taking VItal Signs DR TIERNEY CHERY MD [facility] 03-16-2024 00:19-0500 Respiratory rate 16 /min DR TIERNEY CEHRY MD [facility] 03-16-2024 00:19-0500 Systolic Blood Pressure Non-Invasive 138 mm[Hg] DR TIERNEY CHERY MD [facility] 03-15-2024 19:40-0500 Heart rate 103 /min DR TIERNEY CHERY MD [facility] 03-15-2024 15:02-0500 Body temperature 96.08 [degF] DR TIERNEY CHERY MD [facility] 03-15-2024 15:02-0500 Reason For Taking VItal Signs DR TIERNEY CHERY MD [facility] 03-15-2024 14:55-0500 Body height 180.[address] TIERNEY CHERY MD [facility] 03-15-2024 14:55-0500 Body weight 84.[address] TIERNEY CHERY MD [facility] 03-15-2024 14:55-0500 Body weight 25.87 kg/m2 DR TIERNEY CHERY MD [facility] 03-15-2024 13:38-0500 Body temperature 96.8 [degF] DR TIERNEY CHERY MD [facility] 03-15-2024 13:30-0500 Respiratory Rate - Anes 0 br/min DR TIERNEY CHERY MD [facility] 03-15-2024 13:25-0500 Respiratory Rate - Anes 18 br/min DR TIERNEY CHERY MD [facility] 03-15-2024 13:20-0500 Respiratory Rate - Anes 17 br/min DR TIERNEY CHERY MD [facility] 03-15-2024 09:40-0500 Body height 180.[address] TIERNEY CHERY MD [facility] 03-15-2024 09:40-0500 Body temperature 97.34 [degF] DR TIERNEY CHERY MD [facility] 03-15-2024 09:40-0500 Body weight 84.[address] TIERNEY CHERY MD [facility] 03-15-2024 09:40-0500 Heart rate 93 /min DR TIERNEY CHERY MD [facility] 02-23-2024 13:20-0500 Blood Pressure Cuff Size DR TIERNEY CHERY MD [facility] 02-23-2024 13:20-[address] TIERNEY CHERY MD [facility] 02-23-2024 13:20-[address] TIERNEY CHERY MD [facility] 02-23-2024 13:20-0500 Body height 180.[address] TIERNEY CHERY MD [facility] 02-23-2024 13:20-0500 Body weight 84.[address] TIERNEY CHERY MD [facility] 02-23-2024 13:20-0500 Body weight 25.87 kg/m2 DR TIERNEY CHERY MD [facility] 02-23-2024 13:20-0500 Diastolic Blood Pressure Non-Invasive 80 mm[Hg] DR TIERNEY CHERY MD [facility] 02-23-2024 13:20-0500 Heart rate 73 /min DR TIERNEY CHERY MD [facility] 02-23-2024 13:20-0500 Systolic Blood Pressure Non-Invasive 144 mm[Hg] DR TIERNEY CHERY MD [facility] 02-15-2024 13:07-0500 Body temperature 97.5 [degF] Dr. Jean-Pierre Umanzor MD Work Phone: [facility] 02-15-2024 13:07-0500 Diastolic blood pressure 78 mm[Hg] Dr. Jean-Pierre Umanzor MD Work Phone: [facility] 02-15-2024 13:07-0500 Heart rate 93 /min Dr. Jean-Pierre Umanzor MD Work Phone: [facility] 02-15-2024 13:07-0500 Respiratory rate 12 /min Dr. Jean-Pierre Umanzor MD Work Phone: [facility] 02-15-2024 13:07-0500 SaO2% (BldA) [Mass fraction] 97 % Dr. Jean-Pierre Umanzor MD Work Phone: [facility] 02-15-2024 13:07-0500 Systolic blood pressure 130 mm[Hg] Dr. Jean-Pierre Umanzor MD Work Phone: [facility] Encounters Encounter Date Encounter Type Care Provider Facility Start: 05-31-2024 Non-patient / Non-visit [facility]. Dotson [facility] Start: 05-31-2024 End: 05-31-[address] Jean-Pierre Umanzor MD Work Phone: [facility] Work Phone: Start: 05-31-2024 End: 05-31-[address] Jean-Pierre Umanzor MD -Cardiovascular Services Work Phone: Start: 05-31-2024 End: 05-31-2024 ambulatory Jean-Pierre Umanzor Facility:[facility] Start: 05-15-2024 Non-patient / Non-visit Dr. Franklin alexander DO -[facility] Work Phone: Start: 05-14-2024 End: 05-15-2024 ambulatory [place] Facility:[facility] Start: 05-14-2024 End: 05-15-2024 Evaluation and management of inpatient Dr. Franchesca Green MD -Progressive Care Unit Work Phone: Start: 05-14-2024 End: 05-15-[address] Jean-Pierre Umanzor MD Work Phone: [facility] Work Phone: Start: 05-06-2024 End: 05-06-2024 Emergency department patient visit Dr. Jean-Pierre Umanzor MD Work Phone: -Emergency Department Work Phone: Start: 04-29-2024 End: 04-29-[address] JEAN-PIERRE UMANZOR MD Facility:[facility] Start: 04-29-2024 End: 04-29-[address] JEAN-PIERRE UMANZOR MD Facility:[facility] Start: 04-29-2024 Encounter for other preprocedural examination DR TIERNEY CHERY MD [facility] Start: 04-26-[address] JEAN-PIERRE UMANZOR MD Facility:[facility] Start: 03-15-2024 End: 03-16-[address] TIERNEY CHERY MD Facility:[facility] Start: 03-15-2024 End: 03-16-[address] TIERNEY CHERY MD [facility] Start: 02-23-2024 End: 02-23-[address] JEAN-PIERRE UMANZOR MD Facility:[facility] Start: 02-23-2024 End: 02-23-[address] TIERNEY CHERY MD [facility] Start: 02-23-2024 End: 02-23-[address] TIERNEY CHERY MD [facility] Start: 02-23-2024 End: 02-23-[address] JEAN-PIERRE UMANZOR MD Facility:[facility] Start: 02-15-2024 End: 02-15-2024 Patient encounter procedure Pepito Isainurys [facility] Work Phone: Start: 02-15-2024 End: 02-15-2024 ambulatory Jean-Pierre Umanzor [facility] Start: 01-28-2024 End: 01-28-[address] Jean-Pierre Umanzor MD -Laboratory, [place] Work Phone: Start: 01-28-2024 End: 01-28-2024 ambulatory Jean-Pierre Umanzor Facility:[facility] Start: 11-20-2023 End: 11-20-2023 ambulatory Donnie FLORES [facility] Start: 12-09-2022 End: 12-09-2022 ambulatory [facility] Work Phone: Start: 12-09-2022 End: 12-09-2022 Discharged Recurring [facility]-Physical Therapy Work Phone: Start: 06-19-2022 End: 06-19-2022 ambulatory [facility] Work Phone: Start: 06-19-2022 End: 06-19-2022 Patient encounter procedure [facility]-Laboratory, [facility] Start: 10-15-2021 End: 10-15-2021 ambulatory [facility] Work Phone: Start: 10-15-2021 End: 10-15-2021 Patient encounter procedure [facility]-Laboratory, [place] Start: 08-23-2021 End: 08-23-2021 Discharged Recurring [facility]-Physical Therapy Procedures Date Procedure Procedure Detail Performing Clinician Start: 05-15-2024 MRI of brain without contrast Dr. Jean-Pierre Umanzor MD Work Phone: Start: 05-14-2024 CT angiography of he ad and neck Dr. Jean-Pierre Umanzor MD Work Phone: Start: 05-14-2024 CT of head without contrast Dr. Jean-Pierre Umanzor MD Work Phone: Start: 05-06-2024 CT angiography of he ad and neck Dr. Jean-Pierre Umanzor MD Work Phone: Start: 05-06-2024 CT of head without contrast Dr. Jean-Pierre Umanzor MD Work Phone: Start: 03-15-[address] TIERNEY CHERY MD Comment on above: right Appendectomy DR TIERNEY Landry MD Inguinal hernia (disorder) Nanette CHERY MD Shoulder region stru cture (body structure) DR TIERNEY CHERY MD Plan of Treatment Date Care Activity Detail Author Start: 05-15-2024 Patient discharge [facility] Start: 05-14-2024 Application of intermittent pneumatic compression device [facility] Start: 05-14-2024 Following clinical pathway protocol [facility] Start: 05-14-2024 Aspiration precautions [facility] Start: 05-14-2024 Assessment of risk of venous thromboembolism [facility] Start: 05-14-2024 Cardiac monitoring [facility] Start: 05-14-2024 Catheterization of vein [facility] Start: 05-14-2024 Consultation [facility] Start: 05-14-2024 Continuous pulse oximetry [facility] Start: 05-14-2024 Elevation of head of bed [facility] Start: 05-14-2024 Exercises [facility] Start: 05-14-2024 Inhalation therapy procedure [facility] Start: 05-14-2024 Insertion of catheter into peripheral vein [facility] Start: 05-14-2024 Notification of physician [facility] Start: 05-14-2024 Oxygen therapy [facility] Start: 05-14-2024 Patient referral to dietitian [facility] Start: 05-14-2024 Providing care according to standard [facility] Start: 05-14-2024 Provision of activity privileges [facility] Start: 05-14-2024 Referral to occupational therapist [facility] Start: 05-14-2024 Referral to service [facility] Start: 05-14-2024 Speech therapy assessment [facility] Start: 05-14-2024 Telemedicine consultation with patient [facility] Start: 05-14-2024 Tobacco use cessation education [facility] Start: 05-14-2024 End: 05-14-2024 [facility] Start: 05-14-2024 Vital signs measurements [facility] Start: 05-14-2024 MRI of brain without contrast Brain without Contrast [facility] Start: 05-14-2024 Verification routine [facility] Start: 05-14-2024 Admission procedure [facility] Start: 05-14-2024 Hospital admission, emergency, from emergency room, medical nature [facility] Start: 05-14-2024 End: 05-14-2024 [facility] Start: 05-14-2024 Oxygen therapy [facility] Start: 05-06-2024 [facility] Start: 05-06-2024 Oxygen therapy [facility] Start: 05-06-2024 [facility] Hemoglobin A1c/Hemoglobin.total in Blood [facility] Patient Education ED Hypertensio n, To Be Confirmed ED TIA: Transient Ischemic Attack [facility] Work Phone: Patient referral [facility] Work Phone: Troponin T.cardiac [Mass/volume] in Serum or Plasma by High sensitivity method [facility] Immunizations Immunization Date Immunization Notes Care Provider Fa cility 12-05-2021 SARS-CoV-2 (CV19)mRNA-[address] TIERNEY CHERY MD [facility] 01-04-2021 Covid (Moderna) [facility] 01-03-2021 SARS-CoV-2 (COVID-19 ) mRNA-[address] TIERNEY CHERY MD [facility] 12-17-2020 SARS-CoV-2 (COVID-19 ) mRNA-[address] TIERNEY CHERY MD [facility] 06-21-2020 SARS-CoV-2 (COVID-19 ) mRNA-[address] TIERNEY CHERY MD [facility] Comment on above: Result Comment: 2024: [id number] 06-13-2020 SARS-CoV-2 (COVID-19 ) mRNA-[address] TIERNEY CHERY MD [facility] 05-24-2020 SARS-CoV-2 (COVID-19 ) mRNA-[address] TIERNEY CHERY MD [facility] Comment on above: Result Comment: 2024: [id number] 05-13-2020 SARS-CoV-2 (COVID-19 ) mRNA-[address] TIERNEY CHERY MD [facility] Payers Date Payer Category Payer Medicare [id number] 2023 Self-pay [id number] 2007 Medicare [id number] 1940 Unknown [id number] 2.16.8 [id number] 1940 Unknown [id number] 2.16.8 [id number] 1940 Unknown [id number] 2.16.8 [id number] 1940 Unknown [id number] 2.16.8 [id number] 1940 Unknown [id number] 2.16.8 [id number] 1940 Unknown [id number] 2.16.8 [id number] Unknown [id number] 2.16.8 [id number] Unknown [id number] 2.16.8 [id number] Unknown [id number] 2.16.8 [id number] Unknown [id number] 2.16.8 [id number] Unknown [id number] 2.16.8 [id number] Unknown [id number] 2.16.8 [id number] Unknown [id number] 2.16.8 [id number] Unknown [id number] 2.16.8 [id number] Unknown [id number] 2.16.8 [id number] Social History Date Type Detail Facility Start: 04-05-2021 End: 04-05-2021 Tobacco smoking status NHIS Unknown if ever smoked [facility] Start: 02-25-2017 None [facility] Start: 02-25-2017 Alone [facility] Start: 02-25-2017 Non-smoker [facility] Start: 1940 Sex Assigned At Male [facility] Start: 02-23-2024 End: 05-15-2024 Tobacco smoking status Never smoked tobacco (finding) [facility] Sexual Orientation [facility] Start: 01-18-2024 End: 06-02-2024 Sex Male (finding) [facility] Medical Equipment Procedure Code Equipment Code Equipment Origin al Text Equipment Identifier Dates MESH,PROGRIP [id number] FDA Start: 04-12-2021 MESH,PROGRIP 16X12 FDA Start: 04-12-2021 MESH,PROGRIP 16X12 FDA Start: 04-12-2021 MESH,PROGRIP 16X12 FDA Start: 04-12-2021 MESH,PROGRIP 16X12 FDA Start: 04-12-2021 MESH,PROGRIP 16X12 FDA Start: 04-12-2021 MESH,PROGRIP 16X12 FDA Start: 04-12-2021 MESH,PROGRIP 16X12 FDA Start: 04-12-2021 MESH,PROGRIP 16X12 FDA Start: 04-12-2021 MESH,PROGRIP 16X12 FDA Start: 04-12-2021 MESH,PROGRIP 16X12 FDA Start: 04-12-2021 MESH,PROGRIP 16X12 FDA Start: 04-12-2021 MESH,PROGRIP 16X12 FDA Start: 04-12-2021 MESH,PROGRIP 16X12 FDA Start: 04-12-2021 MESH,PROGRIP 16X12 FDA Start: 04-12-2021 MESH,PROGRIP 16X12 FDA Start: 04-12-2021 Goals Date Patient Goal Desired Activity /State Functional Status Date Assessment Result Facility 05-15-2024 Functional status Ambulates;Up ad domitila [facility] Work Phone: 03-16-2024 Functional Status Nurse Regina vnag q2hrs Performed Other: 7AM-245PM [facility] 03-16-2024 Functional Status bilateral knee high applied/on [facility] 03-16-2024 Functional Status Independent [facility] 03-16-2024 Functional Status Front wheeled walker [facility] 03-16-2024 Functional Status Multilevel home [facility] 03-16-2024 [facility] Functional Status [facility] 03-15-2024 Functional Status [facility] 03-15-2024 Functional Status Sensory Deficits None A [facility] 03-15-2024 Functional Status ice on, tension pillow in place [facility] 03-15-2024 [facility] Functional Status Sensory Deficits None A [facility] Mental Status Date Assessment Result Facility 05-15-2024 Cognitive function Voice/Name [facility] Work Phone: 05-14-2024 Cognitive function Voice/Name [facility] Work Phone: 05-06-2024 Cognitive function Voice/Name [facility] Work Phone: 03-16-2024 Mental Status Oriented x 4 [facility] 03-15-2024 Mental Status [facility] 03-15-2024 Mental Status [facility] Clinical Notes 08-16-2020 to 05-15-2024 Note Date & Type Note Facility 05-15-2024 Discharge summary [facility] 05-15-2024 Note [facility] Medical Records Department [address] [place] [address] Discharge Summary 05/15/24 1543 MR#: [id number] Acct: [id number] Name: RACHEL SANDOVAL Rep #: [id number] : 1940 83 From: [place] Pablo DO PCP: Dr. Jean-Pierre Umanzor MD Status:ADM JAY Location: [facility] [place] [address] Providers Date of Admission: 05/14/24 Primary Care Physician: Dr. Jean-Pierre Umanzor MD Consultations 05/14/24 17:45 Consult: Tele-Neurology Routine Consulting Provider: [facility] Reason for Consult: TIA r/o, stroke call in ED EMERGENT Consult: No MD Notified: Yes Date Notified: 05/14/24 Time Notified: 22:44 Method of Notification: Answering Service Nursing Unit Staff Notify [facility] of Tele-Neurology Consult: Yes Reason For Visit: TIA/CVA R/O Diagnosis Discharge Diagnosis (1) Brain TIA: Status: Acute Code(s): G45.9 - Transient cerebral ischemic attack, unspecified Plan: Left face and hand paresthesias Neuro consulted Check TTE, therapy evals. 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 Medications at Discharge Home Medications meloxicam 7.5 mg tablet 7.5 mg PO DAILY PRN shoulder pain 02/09/21 atorvastatin 40 mg tablet 40 mg PO DAILY #30 tabs 05/06/24 cholecalciferol (vitamin D3) 25 mcg (1,000 unit) capsule (Vitamin D3) 25 mcg PO DAILY 05/14/24 oxycodone 5 mg tablet 5 - 10 mg PO Q6H PRN pain 05/14/24 aspirin 325 mg tablet 325 mg PO BREAKFAST #0 tabs 05/15/24 Hospital Course Operations None Procedures None Summary of Care Provided Minutes Spent on Discharge: 40 Hospital Course: Patient presents with left index and middle finger and left face paresthesias. Symptoms resolved and patient had no further issues. So he presented to the emergency room for further workup for stroke. She underwent CAT scan of the head, CT of the head and neck and brain MRI. No acute stroke were noted however patient has had history of left MCA and right WAYNE stroke. Previous MRI from 2018, and on posttraumatic changes to the right side which is likely where that prior stroke was. Patient adamantly denies any head trauma. Patient was seen by neurology who recommends a TTE as well as full dose aspirin from the regular aspirin that he is taking daily. Patient had symptoms about a week ago that was seen by his primary care doctor and had an echo ordered. Echo is already ordered for May 31. Given the fact that no acute stroke was noted and patient is asymptomatic at this time I think it is reasonable for him to be discharged home to have his echocardiogram and then to follow-up with neurology as outpatient. Patient was in agreement to the plan but patient was offered the opportunity to stay in the hospital to have 2D echocardiogram performed on the . Weight / BMI Weight Weight: 81.1 kg Body Mass Index (BMI) 24.9 ABG / Lab / Microbiology Data 05/15/24 04:48 05/15/24 04:48 Laboratory: Laboratory Results - last 24 hr 05/14/24 15:20: POC Glucose 109 H 05/14/24 15:25: PT 13.9, INR 1.1, APTT 36.0, Sodium 140, Potassium 4.2, Chloride 104, Carbon Dioxide 25.2, Anion Gap 11, BUN 14, Creatinine 0.87, Estim Creat Clear Calc 70.92, Est GFR (MDRD) Non-Af 87, BUN/Creatinine Ratio 16.1, Glucose 106 H, Calcium 9.3, Troponin T High Sens 20 D, Troponin T Hi Sens 2 Hr Cancelled, Troponin T Hi Sens 4Hr Cancelled 05/14/24 20:35: Troponin T Hi Sens 2 Hr 16 05/14/24 22:21: Troponin T Hi Sens 4Hr 17 05/15/24 04:48: WBC 4.8, RBC 4.24 L, Hgb 13.0, Hct 38.0 L, MCV 89.6, MCH 30.7, MCHC 34.2, RDW Std Deviation 42.2, RDW Coeff of Eduard 12.8, Plt Count 204, MPV 9.7, Immature Gran % (Auto) 0.200, Neut % (Auto) 54.7, Lymph % (Auto) 30.0, Obion % (Auto) 11.2 H, Eos % (Auto) 2.9, Baso % (Auto) 1.0, Absolute Neuts (auto) 2.6, Absolute Lymphs (auto) 1.45, Nucleated RBC % 0, PT 14.2, INR 1.1, Sodium 140, Potassium 4.1, Chloride 105, Carbon Dioxide 22.6, Anion Gap 12, BUN 10, Creatinine 0.75, Estim Creat Clear Calc 77.13, Est GFR (MDRD) Non-Af 91, BUN/Creatinine Ratio 13.9, Glucose 91, Hemoglobin A1c 5.6 L, Calcium 9.3, Triglycerides 76, Cholesterol 113, LDL Cholesterol, Calc 52, VLDL Cholesterol 15, HDL Cholesterol 46, Cholesterol/HDL Ratio 2.45, TSH 12.300 H Radiography Diagnostic Testing: Radiology Impression Brain CT 05/14/24 15:23 IMPRESSION: 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 No acute process. No hemorrhage. Reading Location: [facility] Head/Neck CTA 05/14/24 15:23 IMPRESSION: 1. No large vessel occlusion, AVM or aneurysm.. 2. Narrowing of the left common carotid approaching 50%. Unremarkable right (more content not included)... [facility] 05-15-2024 Progress note [facility] 05-15-2024 Progress note [facility] 05-15-2024 Progress note Note Date/Time May 15, 2024 2:35pm [facility] Medical Records Department [address] [place] [address] Progress Note - Hospitalist 05/15/24 0857 MR#: [id number] Acct: [id number] Name: RACHEL SANDOVAL Rep #:[id number] : 1940 83 From: Franklin Pablo DO PCP: Dr. Jean-Pierre Umanzor MD Status :ADM JAY Location: [place] [address] Reason for Visit Reason for Visit: Diagnoses Other symptoms and signs involving the nervous system (05/14/24) Subjective Subjective No further numbness. Objective Data Objective Data Vital Signs: Vital Signs Temp Pulse Resp BP Pulse Ox O2 Del Method O2 Flow Rate 36.6 C 86 17 160/93 H 97 Room Air 18 05/15/24 08:30 05/15/24 08:30 05/15/24 08:30 05/15/24 08:30 05/15/24 08:30 05/15/24 08:30 05/14/24 15:53 Oxygen Flow Rate (L/min) 18 Oxygen Delivery Method Room Air Weight: 81.1 kg Body Mass Index (BMI) 24.9 Intake & Output: Intake and Output for Last 24 Hours 05/13/24 05/14/24 05/15/24 23:59 23:59 23:59 Intake Total 420 / 420 Balance 420 / 420 Lab / Micro Data 05/15/24 04:48 05/15/24 04:48 Labs: Laboratory Results - last 24 hr 05/14/24 15:20: POC Glucose 109 H 05/14/24 15:25: WBC 6.3, RBC 4.35 L, Hgb 13.3, Hct 39.4 L, MCV 90.6, MCH 30.6, MCHC 33.8, RDW Std Deviation 42.5, RDW Coeff of Eduard 12.9, Plt Count 204, MPV 9.1, Immature Gran % (Auto) 0.300, Neut % (Auto) 54.4, Lymph % (Auto) 33.7, Obion% (Auto) 9.7, Eos % (Auto) 1.3, Baso % (Auto) 0.6, Absolute Neuts (auto) 3.4, Absolute Lymphs (auto) 2.11, Nucleated RBC % 0, PT 13.9, INR 1.1, APTT 36.0, Sodium 140, Potassium 4.2, Chloride 104, Carbon Dioxide 25.2, Anion Gap 11, BUN 14, Creatinine 0.87, Estim Creat Clear Calc 70.92, Est GFR (MDRD) Non-Af 87, BUN/Creatinine Ratio 16.1, Glucose 106 H, Calcium 9.3, Troponin T High Sens 20 D, Troponin T Hi Sens 2 Hr Cancelled, Troponin T Hi Sens 4Hr Cancelled 05/14/24 20:35: Troponin T Hi Sens 2 Hr 16 05/14/24 22:21: Troponin T Hi Sens 4Hr 17 05/15/24 04:48: WBC 4.8, RBC 4.24 L, Hgb 13.0, Hct 38.0 L, MCV 89.6, MCH 30.7, MCHC 34.2, RDW Std Deviation 42.2, RDW Coeff of Eduard 12.8, Plt Count 204, MPV 9.7, Immature Gran % (Auto) 0.200, Neut % (Auto) 54.7, Lymph % (Auto) 30.0, Obion% (Auto) 11.2 H, Eos % (Auto) 2.9, Baso % (Auto) 1.0, Absolute Neuts (auto) 2.6,Absolute Lymphs (auto) 1.45, Nucleated RBC % 0, PT 14.2, INR 1.1, Sodium 140, Potassium 4.1, Chloride 105, Carbon Dioxide 22.6, Anion Gap 12, BUN 10, Creatinine 0.75, Estim Creat Clear Calc 77.13, Est GFR (MDRD) Non-Af 91, BUN/Creatinine Ratio 13.9, Glucose 91, Hemoglobin A1c 5.6 L, Calcium 9.3, Triglycerides 76, Cholesterol 113, LDL Cholesterol, Calc 52, VLDL Cholesterol 15, HDL Cholesterol 46, Cholesterol/HDL Ratio 2.45, TSH 12.300 H Radiography Diagnostic Testing: Radiology Impression Brain CT 05/14/24 15:23 IMPRESSION: 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 No acute process. No hemorrhage. Reading Location: [facility] Head/Neck CTA 05/14/24 15:23 IMPRESSION: 1. No large vessel occlusion, AVM or aneurysm.. 2. Narrowing of the left common carotid approaching 50%. Unremarkable right CCA. 9 partially visualized left apical pleural thickening of indeterminate etiology Reading Location: [facility] Physical Exam Const alert and no apparent distress HEENT head/scalp atraumatic and moist oral mucous membranes HEENT Narrative: normal gait. Neuro moves all extremities Sensorium / Orientation: awake Assessment & Plan Assessment/Plan (1) Brain TIA: PLAN: Left face and hand paresthesias Neuro consulted Check TTE, therapy evals. 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 Charges/Coding Visit Charges Inpatient E&M: 09972 Subs Hosp L2 05/15/24 1435 <Electronically signed by Franklin Pablo DO> Cosigner Signature (if applicable): CC: ~ Signed [facility] Work Phone: [phone]) 222-904803-29-2025 History and physical note Author Franchesca Green [facility] Note Date/Time May 14, 2024 6:0 8pm [facility] Medical Records Department [address] [place] [address] H&P Exam - Hospitalist 05/14/24 1644 MR#: [id number] Acct: [id number] Name: RACHEL SANDOVAL Rep #:[id number] : 1940 83 From: Franchesca Green MD PCP: Dr. Jean-Pierre Umanzor MD Status :ADM JAY Location: [place] [address] HPI - General General Date of Admission: 05/14/24 Date of Service: 05/14/24 Chief Complaint: numbness on left hand and left face HPI Narrative RACHEL SANDOVAL, is a Patient is an 83-year-old male with a history of arthritis and hyperlipidemia who presented [facility] 05/14/2024 as a stroke alert initiated in triage. 30 minutes prior to arrival at 2:45 PM patient noticed abnormal feeling in his left hand and felt the same symptoms in the left facial region with no speech changes or weakness but did feel little bit lightheaded. Patient chronically on a baby aspirin and reported that 1 weekago he was in the ED with dizziness and trouble getting his words out and was diagnosed with a TIA but was not admitted at that time as he was stable and he had his statin increased as per discussion with the stroke neurologist at that time with plan for outpatient workup. Patient's symptoms resolved after 10 to 20 minutes and were not present in the ED. In the ED NIH of 0, CT of the head with no acute process and CT angio with no LVO, does have carotid stenosis reports that this is not new. Reportedly after his recent TIA diagnosis he followed up with his PCP and had a 14-day Holter monitor placed and reports compliance with this medication. No MRIs have been ordered. Teleneurologist inthe ED evaluated, patient completely asymptomatic with resolution of symptoms. Was felt that this may be TIA versus migraine was recommended to give 300 mg of Plavix once and aspirin 81 mg and admit to the hospital for further workup. In the ED patient vitally stable and labs unremarkable hospitalist contacted for admission. Patient evaluated with family member at bedside, he reports that in around 245 he developed a feeling of numbness and tingling/almost like the area fell asleep on his left hand particularly near his second and third finger and down slightly onto his hand with no symptoms traveling up his hand or in his fourth or fifth fingers, at the same time he developed left-sided perioral numbness and tingling, he felt a little bit lightheaded which resolved and denies any headache during this time. Symptoms completely resolved after 10 to 20 minutes and have not recurred. These are different than the symptoms he had 8 days ago when he had dizziness and difficulty getting words out. ROS otherwise negative. [facility] Medical History Viral URI History of steroid therapy Wears glasses Arthritis Vertigo Non-smoker Leg cramps History of echocardiogram Home Medications ?Medication ?Instructions ?Recorded ?Last Taken ?Type aspirin 81 mg chewable tablet 81 mg PO DAILY@0800 HEAR T 02/15/14 05/13/24 History meloxicam 7.5 mg tablet 7.5 mg PO DAILY PRN shoulder pain 02/09/21 05/13/24 History atorvastatin 40 mg tablet 40 mg PO DAILY #30 tabs 04/1705/13/24 Rx cholecalciferol (vitamin D3) 25 25 mcg PO DAILY 05/13/24 History mcg (1,000 unit) capsule (Vitamin D3) oxycodone 5 mg tablet 5 - 10 mg PO Q6H PRN pain 04/30/24 History Allergy/AdvReac Type Severity Reaction Status Date / Time No Known Allergies Allergy Verified 05/14/24 15:18 Surgical History History of appendectomy History of shoulder surgery Social History household members: spouse Smoking Status: Never smoker ROS ROS Narrative General: Denies fever/chills HENT: Denies headache, denies stuffy nose, denies sore throat EYES: Denies changes in vision Resp: Denies cough, denies shortness of breath Cardiac: Denies chest pain GI: Denies abdominal pain, denies changes in bowel, denies nausea/vomiting : Denies changes in urination Extremity: Denies swelling MSK: Denies weakness Neuro: Denies any numbness/tingling, lightheaded feeling and paresthesias on left side of face and hand have resolved, occasionally will feel off balance fora couple of seconds but this is not changed and is not new Heme: Denies any bleeding or bruising Skin: Denies rashes Psychiatric: No complaints voiced Vital Signs Vital Signs Vital Signs: 05/14/24 15:17 05/14/24 15:18 05/14/24 15:38 Temperature 97.8 F Temperature Source Oral Pulse Rate 82 80 Respiratory Rate 16 16 Blood Pressure 160/85 H 160/85 H Blood Pressure Mean 110 110 Pulse Ox 98 98 Oxygen Delivery Method Room Air Room Air Room Air Oxygen Flow Rate (L/min) 05/14/24 15:38 05/14/24 15:53 05/14/24 16:11 Temperature Temperature Source Pulse Rate 77 77 Respiratory Rate 18 18 18 Blood Pressure 149/86 H 166/87 H Blood Pressure Mean 107 113 Pulse Ox 96 96 Oxygen Delivery Method Room Air Room Air Oxygen Flow Rate (L/min) 18 Weight Weight: 82.463 kg Body Mass Index (BMI) 25.3 Physical Exam Narrative General: Alert, oriented, no apparent distress HEENT: Atraumatic, normocephalic Eyes: Anicteric, normal conjunctiva, extraocular movements intact, pupils equal Neck: Supple Respiratory: Clear to auscultation bilaterally, normal respiratory effort Cardiovascular: Regular rate and rhythm GI: Soft, nontender, nondistended Extremities: No edema Musculoskeletal: Strength 5 out of 5 in right upper extremity, 5 out of 5 left upper extremity, 5 out of 5 right lower extremity, 5 out of 5 left lower extremity Neuro: No overt focal neurological deficits, cranial nerves II through XII intact, [id number] without significant difficulty bilaterally though very slightly slower with the left hand, did seem to pause for a couple of seconds after asking patient to do something before he did it almost as if he had a little bit of difficulty comprehending but unsure if there could be a hearing component or if this is a processing component Skin: No rashes appreciated Psych: Cooperative Results Lab / Micro Data 05/14/24 15:25 05/14/24 15:25 Labs: Laboratory Results - last 24 hr 05/14/24 15:25: WBC 6.3, RBC 4.35 L, Hgb 13.3, Hct 39.4 L, MCV 90.6, MCH 30.6, MCHC 33.8, RDW Std Deviation 42.5, RDW Coeff of Eduard 12.9, Plt Count 204, MPV 9.1, Immature Gran % (Auto) 0.300, Neut % (Auto) 54.4, Lymph % (Auto) 33.7, Obion% (Auto) 9.7, Eos % (Auto) 1.3, Baso % (Auto) 0.6, Absolute Neuts (auto) 3.4, Absolute Lymphs (auto) 2.11, Nucleated RBC % 0, PT 13.9, INR 1.1, APTT 36.0, Sodium 140, Potassium 4.2, Chloride 104, Carbon Dioxide 25.2, Anion Gap 11, BUN 14, Creatinine 0.87, Estim Creat Clear Calc 70.92, Est GFR (MDRD) Non-Af 87, BUN/Creatinine Ratio 16.1, Glucose 106 H, Calcium 9.3, Troponin T High Sens 20 D Imaging Radiology Impression Brain CT 05/14/24 15:23 IMPRESSION: 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 No acute process. No hemorrhage. Reading Location: [facility] Head/Neck CTA 05/14/24 15:23 IMPRESSION: 1. No large vessel occlusion, AVM or aneurysm.. 2. Narrowing of the left common carotid approaching 50%. Unremarkable right CCA. 9 partially visualized left apical pleural thickening of indeterminate etiology Reading Location: [facility] Assessment & Plan Assessment/Plan (1) Neurologic abnormality: PLAN: Plan # Left hand and left perioral paresthesias with brief lightheadedness -Admit to tele -CT head w/ no acute process -CTA head and neck with no LVO -MRI ordered -NIH q4hr -Loaded with Plavix per neuro recommendations, asa, statin -Echo ordered -PT/OT/Speech eval -Teleneuro consult ordered -Hold BP medications to allow for permissive hypertension for 24 hours unless SBP greater than 220 or DBP greater than 120 or until stroke is ruled out #DVT ppx: SCDs Franchesca Green MD Charges/Coding Visit Charges Inpatient E&M: 21381 Init Hosp L1 05/14/24 1808 <Electronically signed by Franchesca Green MD> Cosigner Signature (if applicable): CC: Dr. Jean-Pierre Umanzor MD; Dr. Franchesca Green MD~ Signed [facility] Work Phone: [phone] History and physical note [facility] Medical Records Department [address] [place] [address] H&P Exam - Hospitalist 05/14/24 1644 MR#: [id number] Acct: [id number] Name: RACHEL SANDOVAL Rep #:[id number] : 1940 83 From: Franchesca Green MD PCP: Dr. Jean-Pierre Umanzor MD Status :ADM JAY Location: [place] [address] HPI - General General Date of Admission: 05/14/24 Date of Service: 05/14/24 Chief Complaint: numbness on left hand and left face HPI Narrative RACHEL SANDOVAL, is a Patient is an 83-year-old male with a history of arthritis and hyperlipidemia who presented [facility] 05/14/2024 as a stroke alert initiated in triage. 30 minutes prior to arrival at 2:45 PM patient noticed abnormal feeling in his left hand and felt the same symptoms in the left facial region with no speech changes or weakness but did feel little bit lightheaded. Patient chronically on a baby aspirin and reported that 1 weekago he was in the ED with dizziness and trouble getting his words out and was diagnosed with a TIA but was not admitted at that time as he was stable and he had his statin increased as per discussion with the stroke neurologist at that t gage with plan for outpatient workup. Patient's symptoms resolved after 10 to 20 minutes and were not present in the ED. In the ED NIH of 0, CT of the head with no acute process and CT angio with no LVO, does have carotid stenosis reports that this is not new. Reportedly after his recent TIA diagnosis he followed up with his PCP and had a 14-day Holter monitor placed and reports compliance with this medication. No MRIs have been ordered. Teleneurologist inthe ED evaluated, patient completely asymptomatic with resolution of symptoms. Was felt that this may be TIA versus migraine was recommendedto give 300 mg of Plavix once and aspirin 81 mg and admit to the hospital for further workup. In the ED patient vitally stable and labs unremarkable hospitalist contacted for admission. Patient evaluated with family member at bedside, he reports that in around 245 he developed a feeling of numbnessand tingling/almost like the area fell asleep on his left hand particularly near his second and third finger and down slightly onto his hand with no symptoms traveling up his hand or in his fourth orfifth fingers, at the same time he developed left-sided perioral numbness and tingling, he felt a little bit lightheaded which resolved and denies any headache during this time. Symptoms completely resolved after 10 to 20 minutes and have not recurred. These are different than the symptoms he had 8days ago when he had dizziness and difficulty getting words out. ROS otherwise negative. [facility] Medical History Viral URI History of steroid therapy Wears glasses Arthritis Vertigo Non-smoker Leg cramps History of echocardiogram Home Medications ?Medication ?Instructions ?Recorded ?Last Taken ?Type aspirin 81 mg chewable tablet 81 mg PO DAILY@0800 HEAR T 02/15/14 05/13/24 History meloxicam 7.5 mg tablet 7.5 mg PO DAILY PRN shoulder pain 02/09/21 05/13/24 History atorvastatin 40 mg tablet 40 mg PO DAILY #30 tabs 04/1705/13/24 Rx cholecalciferol (vitamin D3) 25 25 mcg PO DAILY 05/13/24 History mcg (1,000 unit) capsule (Vitamin D3) oxycodone 5 mg tablet 5 - 10 mg PO Q6H PRN pain 04/30/24 History Allergy/AdvReac Type Severity Reaction Status Date / Time No Known Allergies Allergy Verified 05/14/24 15:18 Surgical History History of appendectomy History of shoulder surgery Social History household members: spouse Smoking Status: Never smoker ROS ROS Narrative General: Denies fever/chills HENT: Denies headache, denies stuffy nose, denies sore throat EYES: Denies changes in vision Resp: Denies cough, denies shortness of breath Cardiac: Denies chest pain GI: Denies abdominal pain, denies changes in bowel, denies nausea/vomiting : Denies changes in urination Extremity: Denies swelling MSK: Denies weakness Neuro: Denies any numbness/tingling, lightheaded feeling and paresthesias on left side of face and hand have resolved, occasionally will feel off balance fora couple of seconds but this is not changed and is not new Heme: Denies any bleeding or bruising Skin: Denies rashes Psychiatric: No complaints voiced Vital Signs Vital Signs Vital Signs: 05/14/24 15:17 05/14/24 15:18 05/14/24 15:38 Temperature 97.8 F Temperature Source Oral Pulse Rate 82 80 Respiratory Rate 16 16 Blood Pressure 160/85 H 160/85 H Blood Pressure Mean 110 110 Pulse Ox 98 98 Oxygen Delivery Method Room Air Room Air Room Air Oxygen Flow Rate (L/min) 05/14/24 15:38 05/14/24 15:53 05/14/24 16:11 Temperature Temperature Source Pulse Rate 77 77 Respiratory Rate 18 18 18 Blood Pressure 149/86 H 166/87 H Blood Pressure Mean 107 113 Pulse Ox 96 96 Oxygen Delivery Method Room Air Room Air Oxygen Flow Rate (L/min) 18 Weight Weight: 82.463 kg Body Mass Index (BMI) 25.3 Physical Exam Narrative General: Alert, oriented, no apparent distress HEENT: Atraumatic, normocephalic Eyes: Anicteric, normal conjunctiva, extraocular movements intact, pupils equal Neck: Supple Respiratory: Clear to auscultation bilaterally, normal respiratory effort Cardiovascular: Regular rate and rhythm GI: Soft, nontender, nondistended Extremities: No edema Musculoskeletal: Strength 5 out of 5 in right upper extremity, 5 out of 5 left upper extremity, 5 out of 5 right lower extremity, 5 out of 5 left lower extremity Neuro: No overt focal neurological deficits, cranial nerves II through XII intact, [id number] without significant difficulty bilaterally though very slightly slower with the left hand, did seem to pause for a couple of seconds after asking patient to do something before he did it almost as if he had a little bit of difficulty comprehending but unsure if there could be a hearing component or if this is a processing component Skin: No rashes appreciated Psych: Cooperative Results Lab / Micro Data 05/14/24 15:25 05/14/24 15:25 Labs: Laboratory Results - last 24 hr 05/14/24 15:25: WBC 6.3, RBC 4.35 L, Hgb 13.3, Hct 39.4 L, MCV 90.6, MCH 30.6, MCHC 33.8, RDW Std Deviation 42.5, RDW Coeff of Eduard 12.9, Plt Count 204, MPV 9.1, Immature Gran % (Auto) 0.300, Neut % (Auto) 54.4, Lymph % (Auto) 33.7, Obion% (Auto) 9.7, Eos % (Auto) 1.3, Baso % (Auto) 0.6, Absolute Neuts (auto) 3.4, Absolute Lymphs (auto) 2.11, Nucleated RBC % 0, PT 13.9, INR 1.1, APTT 36.0, Sodium 140, Potassium 4.2, Chloride 104, Carbon Dioxide 25.2, Anion Gap 11, BUN 14, Creatinine 0.87, Estim Creat Clear Calc 70.92, Est GFR (MDRD) Non-Af 87, BUN/Creatinine Ratio 16.1, Glucose 106 H, Calcium 9.3, Troponin T High Sens 20 D Imaging Radiology Impression Brain CT 05/14/24 15:23 IMPRESSION: 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 No acute process. No hemorrhage. Reading Location: [facility] Head/Neck CTA 05/14/24 15:23 IMPRESSION: 1. No large vessel occlusion, AVM or aneurysm.. 2. Narrowing of the left common carotid approaching 50%. Unremarkable right CCA. 9 partially visualized left apical pleural thickening of indeterminate etiology Reading Location: [facility] Assessment & Plan Assessment/Plan (1) Neurologic abnormality: PLAN: Plan # Left hand and left perioral paresthesias with brief lightheadedness -Admit to tele -CT head w/ no acute process -CTA head and neck with no LVO -MRI ordered -NIH q4hr -Loaded with Plavix per neuro recommendations, asa, statin -Echo ordered -PT/OT/Speech eval -Teleneuro consult ordered -Hold BP medications to allow for permissive hypertension for 24 hours unless SBP greater than 220 or DBP greater than 120 or until stroke is ruled out #DVT ppx: SCDs Franchesca Green MD Charges/Coding Visit Charges Inpatient E&M: 41634 Init Hosp L1 05/14/24 1113 Cosigner Signature (if applicable): CC: Dr. Jean-Pierre Umanzor MD; Dr. Franchesca Green MD~ Signed [facility]03-29-2025 Discharge summary [facility] Medical Records Department [address] [place] [address] Emergency Department Summary 05/14/24 MR#: [id number] Acct: [id number] Name: RACHEL SANDOVAL Rep #:[id number] : 1940 83 From: Abiel Rangel PCP: Dr. Jean-Pierre Umanzor MD Status :ADM JAY Location: [address] History of Present Illness Chief Complaint: Stroke Alert Informant: patient and friend Narrative Narrative: Presents to the ED private vehicle stroke team initiated in triage.patient reported 30 minutes prior to arrival 2:45 PM no slight right-sided headache andfeeling of his left hand falling asleep and same symptoms left facial region. There was no weakness. No speech changes. Patient on baby aspirin therapy. Pham states 1 week ago he was in the ED he states he had dizziness and trouble getting hiswords out worked up in the ED and diagnosed with TIA. States he wasnot admitted. Denies any dizziness or speech issues today. After evaluation the patient did review records, diagnosed with TIA 8 days ago symptoms started daybefore for what he explained. CT brain negative CT angiogram approximate 50% left common carotid stenosis. No LVO. He had a statin increased per discussion with stroke neurologist plan for outpatientworkup at that time. [facility] Medical History Viral URI History of steroid therapy Wears glasses Arthritis Vertigo Non-smoker Leg cramps History of echocardiogram Home Medications ?Medication ?Instructions ?Recorded ?Last Taken ?Type aspirin 81 mg chewable tablet 81 mg PO DAILY@0800 HEAR T 02/15/14 04/06/21 History meloxicam 7.5 mg tablet 7.5 mg PO DAILY PRN shoulder pain 02/09/21 Unknown History atorvastatin 40 mg tablet 40 mg PO DAILY #30 tabs 04/17 03/12 Unknown Rx cholecalciferol (vitamin D3) 25 25 mcg PO DAILY 05/13/24 History mcg (1,000 unit) capsule (Vitamin D3) oxycodone 5 mg tablet 5 - 10 mg PO Q6H PRN pain 04/30/24 History Allergy/AdvReac Type Severity Reaction Status Date / Time No Known Allergies Allergy Verified 05/14/24 15:18 Surgical History History of appendectomy History of shoulder surgery Social History household members: spouse Smoking Status: Never smoker ROS ROS ED Constitutional Constitutional ED: Denies chills, fever(s) or sweats ENT ENT ED: Denies sore throat Cardiovascular Cardiovascular: Denies chest pain, leg edema, palpitations or racing heartbeat Respiratory/Chest Respiratory/Chest: Denies cough, dyspnea or dyspnea on exertion Gastrointestinal Gastrointestinal: Denies abdominal pain, diarrhea, nausea or vomiting Genitourinary Genitourinary ED: Denies dysuria, hematuria or urinary frequency Musculoskeletal Musculoskeletal: Denies back pain, extremity pain or neck pain Integumentary Denies rash or wounds Neurologic Neurologic: Reports headache(s) and paresthesias; Denies weakness EXAM Physical Exam Const Vital Signs: 05/14/24 15:17 05/14/24 15:18 05/14/24 15:38 Temperature 97.8 F Temperature Source Oral Pulse Rate 82 80 Respiratory Rate 16 16 Blood Pressure 160/85 H 160/85 H Blood Pressure Mean 110 110 Pulse Ox 98 98 Oxygen Delivery Method Room Air Room Air Room Air Oxygen Flow Rate (L/min) 05/14/24 15:38 05/14/24 15:53 05/14/24 16:11 Temperature Temperature Source Pulse Rate 77 77 Respiratory Rate 18 18 18 Blood Pressure 149/86 H 166/87 H Blood Pressure Mean 107 113 Pulse Ox 96 96 Oxygen Delivery Method Room Air Room Air Oxygen Flow Rate (L/min) 18 05/14/24 16:23 05/14/24 16:30 Temperature Temperature Source Pulse Rate 81 78 Respiratory Rate 16 16 Blood Pressure 160/88 H 149/88 H Blood Pressure Mean 112 108 Pulse Ox 97 97 Oxygen Delivery Method Room Air Room Air Oxygen Flow Rate (L/min) Positive well nourished and well developed General Appearance ED: well developed and NAD HEENT Reports moist mucous membranes normocephalic and atraumatic Eyes General Eye ED: Yes normal appearance of both eyes Neck full ROM Chest Wall Chest: Negative for tenderness Resp normal respiratory effort and normal air movement Effort and Inspection: symmetric chest movement; Negative for respiratory distress Cardio regular rate, regular rhythm and no murmurs Peripheral Pulses: pulses 2+ throughout GI normal to inspection, nondistended, normoactive bowel sounds and non-tender Palpation: Negative for guarding or rebound tenderness present Extremity normal to inspection General Extremety ED: Negative for edema or tenderness General Extremity: Negative for edema Neuro oriented x3, CN's II-XII intact bilaterally and no sensory deficits noted Sensorium / Orientation: awake and alert Skin no rashes or lesions noted and no wounds NIHSS NIHSS Initial: 1a Level of Consciousness: 0 1b LOC Questions (Score 2 if aphasic/stupor): 0 1c LOC Commands (Only score 1st attempt): 0 2 Best Gaze (If aphasic, use reflexive mvmts.): 0 3 Visual: 0 4 Facial Palsy: 0 5 Motor Arm Right (UN = amputation/fusion): 0 5 Motor Arm Left: 0 6 Motor Leg Right: 0 6 Motor Leg Left: 0 7 Limb ataxia (Only + if out of proportion): 0 8 Sensory (Aphasia/stupor=0 or 1, coma=2): 0 9 Best Language: 0 10 Dysarthria (mute, coma=2, intubated=UN): 0 11 Extinction and Inattention (only scored if +): 0 Total Score: 0 MDM MDM MDM Narrative Medical decision making narrative: Interventions / MDM: Differential diagnosis: TIA, paresthesias Diagnosis considered but do not suspect: Intracranial hemorrhage however CT negative. My EKG interpretation: Sinus rate of 75, no ST changes. Imaging independently reviewed and interpreted by myself: CT brain: No intracranial hemorrhage alsodiscussed with radiologist. CT angiogram head and neck: External documents reviewed:ED visit from 05/06 2024, CT head and CT angiogram Ofhead on 05/06/24 noting left common carotid 50% stenosis. Test considered but not ordered:N/A ED course: Stroke team continued, sent for CT head and CT angiogram. Current NIH of 0. 1538: Patient returned from CT on my try read of CT brain no intracranial hemorrhage. CT angiogram results are pending. Further discussion with him he did follow-up with his PCP this past Thursday he has a 14-day Holter monitor placed. He has been taking his medications. No MRI studies have been ordered. He had carotid stenosis at 50% he states no for a while. 1615: Patient evaluate by telestroke with nursing in the room. Recommended MRI studies. No TNK as symptoms resolved. CT angiogram results noting stable carotid stenosis percent on the left. Discussed with hospitalistDr. Green for admission. Re-evaluation: stable Disposition discussed with patient/family/significant other: Patient in the interim received call from radiologist, no intracranial hemorrhage microvasculardisease on CT brain. Case discussed with consulting clinician: N/A This note was generated with [employer] dictation software. It may contain incorrectwords, spelling, and punctuation that were not noted in checking the note beforesigning. Lab Data Attestation: I reviewed the patient's lab results. Labs: Laboratory Results - last 24 hr 05/14/24 15:25 WBC 6.3 RBC 4.35 L Hgb 13.3 Hct 39.4 L MCV 90.6 MCH 30.6 MCHC 33.8 RDW Std Deviation 42.5 RDW Coeff of Eduard 12.9 Plt Count 204 MPV 9.1 Immature Gran % (Auto) 0.300 Neut % (Auto) 54.4 Lymph % (Auto) 33.7 Obion % (Auto) 9.7 Eos % (Auto) 1.3 Baso % (Auto) 0.6 Absolute Neuts (auto) 3.4 Absolute Lymphs (auto) 2.11 Nucleated RBC % 0 PT 13.9 INR 1.1 APTT 36.0 Sodium 140 Potassium 4.2 Chloride 104 Carbon Dioxide 25.2 Anion Gap 11 BUN 14 Creatinine 0.87 Estim Creat Clear Calc 70.92 Est GFR (MDRD) Non-Af 87 BUN/Creatinine Ratio 16.1 Glucose 106 H Calcium 9.3 Troponin T High Sens 20 D Radiography Diagnostic Testing: Clinical Impression(s) from Imaging Studies Brain CT 05/14/24 15:23 IMPRESSION: 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 No acute process. No hemorrhage. Reading Location: [facility] Head/Neck CTA 05/14/24 15:23 IMPRESSION: 1. No large vessel occlusion, AVM or aneurysm.. 2. Narrowing of the left common carotid approaching 50%. Unremarkable right CCA. 9 partially visualized left apical pleural thickening of indeterminate etiology Reading Location: [facility] Critical Care Time Critical Care Time: Yes Critical care time (excluding procedures): 30-74 minutes, Discussing w/Patient &/or Family/CareGiver, Discussing w/Consultants, Arranging Admission or Transfer, Performing Direct Patient Care atBedside and - (31 minutes) Discharge Plan Triage Chief Complaint: Stroke Alert ED Provider: Abiel Dunne Dx/Rx/DC Orders Clinical Impression: Paresthesia, Brain TIA, Headache, Carotid artery disease Primary Care Provider: Jean-Pierre Umanzor Disposition Disposition: Acute Care Hospital [facility] What to do if you have Problems For any increased pain, shortness of breath, bleeding, nausea or vomiting, chestpain, or any unexpected problems, contact your Primary Care Provider. Call [facility] ([phone]) or report tothe closest Emergency Room. Call 911 if necessary. 05/14/24 1700 Cosigner Signature (if applicable): CC: Dr. Jean-Pierre Umanzor MD ~ Signed [facility]03-29-2025 Radiology Diagnostic study note [facility] Imaging Services [address] [place], [place] [address] STROKE CTA Head AND Neck W/Con MR#: [id number] Acct: [id number] Name: RACHEL SANDOVAL Rep #: [id number] : 1940 M 83 From: Pet er Peer PCP: Dr. Jean-Pierre Umanzor MD Status: REG ER Study:STROKE CTA Head AND Neck W/Con Date of Exam: 05/14/24 Exam# [id number] Ordering Dr: Abiel Dunne DO PROCEDURE: STROKE CTA HEAD AND NECK W/CON 05/14/2024 REASON FOR EXAM: NEURO DEFICIT, ACUTE, STROKE SUSPECTED TECHNIQUE: CTA imaging of the head and neck from the aortic arch to the skull vertex with intravenous contrast. Coronal and Sagittal reconstruction series were provided. 3D, 3D post processing, 3D reconstructions, Maximum intensity projection (MIPs) Volume rendering and Shaded surface rendering was provided. CONTRAST: VOLUME: 100mL IV One or more dose reduction techniques were used (e.g., Automated exposure control, adjustment of the mA and/or kV according to patient size, use of iterative reconstruction technique). # of known CTs in the past 12 months: 1 # of known Cardiac Nuclear Medicine Studies in the past 12 months: 0 RADIATION DOSE SUMMARY: CTDlvol: 18.55 mGy DLP: 726.54 mGycm CONTRAST: VOLUME: 100mL IV COMPARISON: Stroke CTA of 05/06/2024 FINDINGS: Aortic Arch: Moderate mixed plaque throughout the aortic arch and its branch vessels. Usual aortic arch branch vessel configuration. The right vertebral artery. Both vertebral arteries are patent lacking any focal stenosis or occlusion Carotids: Mild calcific plaque in the right CCA resulting in less than 50% narrowing by NASCET criteria. Moderate mixed plaque of the left CCA resulting in approximately 50% narrowing by NASCET criteria. Minimal calcific plaque at the bilateral ICA and intracranial carotid arteries. No focal stenosis or occlusion. The anterior middle and posterior cerebral arteries are widely patent. Patent left [id number] no arterial venous malformation or aneurysm. Major venous structures: Unremarkable. Other: Partially visible left apical pleural thickening, cervical spondylosis and multiple periapical lucencies. CT/STROKE CTA Head AND Neck W/Con IMPRESSION: 1. No large vessel occlusion, AVM or aneurysm.. 2. Narrowing of the left common carotid approaching 50%. Unremarkable right CCA. 9 partially visualized left apical pleural thickening of indeterminate etiology Reading Location: [facility] CC: Dr. Jean-Pierre Umanzor MD; Dr. Abiel Dunne DO ~ Child Support Officer: Signed [facility]03-29-2025 Radiology Diagnostic study note [facility] Imaging Services [address] [place], [place] [address] STROKE Brain/Head without Cont MR#: [id number] Acct: [id number] Name: RACHEL SANDOVAL Rep #: [id number] : 1940 M 83 From: Pet er Peer PCP: Dr. Jean-Pierre Umanzor MD Status: REG ER Study:STROKE Brain/Head without Cont Date of Exam: 05/14/24 Exam# [id number] Ordering Dr: Abiel Dunne DO PROCEDURE: STROKE BRAIN/HEAD WITHOUT CONT N/A REASON FOR EXAM: NEURO DEFICIT, ACUTE, STROKE SUSPECTED TECHNIQUE: Head CT without intravenous contrast. Coronal and Sagittal reconstruction serieswere provided. One or more dose reduction techniques were used (e.g., Automated exposure control, adjustment of the mA and/or kV according to patient size, use of iterative reconstruction technique. RADIATION DOSE SUMMARY: CTDlvol: 44.99 mGy DLP: 812.98 mGycm FINDINGS: Brain: No mass, mass effect or intra-axial hemorrhage. No extra-axial hemorrhage. There is moderateperiventricular and deep white matter hypoattenuation suggesting microangiopathy (small-vessel ischemic disease). CSF Spaces: Ventricles and sulci are prominent indicating age-related involution. 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 No acute process. No hemorrhage. Reading Location: [facility] CC: Dr. Jean-Pierre Umanzor MD; Dr. Abiel Dunne DO ~ Child Support Officer: Signed [facility]03-29-2025 Discharge summary Author Abiel Dunne [facility] Note Date/Time May 14, 2024 5:0 0pm [facility] Medical Records Department [address] [place] [address] Emergency Department Summary 05/14/24 MR#: [id number] Acct: [id number] Name: RACHEL SANDOVAL Rep #:[id number] : 1940 83 From: Abiel Rangel PCP: Dr. Jean-Pierre Umanzor MD Status :ADM JAY Location: [place] [address] HPI History of Present Illness Chief Complaint: Stroke Alert Informant: patient and friend Narrative Narrative: Presents to the ED private vehicle stroke team initiated in triage.patient reported 30 minutes prior to arrival 2:45 PM no slight right-sided headache andfeeling of his left hand falling asleep and same symptoms left facial region. There was no weakness. No speech changes. Patient on baby aspirin therapy. Brodyhen states 1 week ago he was in the ED he states he had dizziness and trouble getting his words out worked up in the ED and diagnosed with TIA. States he wasnot admitted. Denies any dizziness or speech issues today. After evaluation the patient did review records, diagnosed with TIA 8 days ago symptoms started day before for what he explained. CT brain negative CT angiogram approximate 50% left common carotid stenosis. No LVO. He had a statin increased per discussion with stroke neurologist plan for outpatient workup at that time. [facility] Medical History Viral URI History of steroid therapy Wears glasses Arthritis Vertigo Non-smoker Leg cramps History of echocardiogram Home Medications ?Medication ?Instructions ?Recorded ?Last Taken ?Type aspirin 81 mg chewable tablet 81 mg PO DAILY@0800 HEAR T 02/15/14 04/06/21 History meloxicam 7.5 mg tablet 7.5 mg PO DAILY PRN shoulder pain 02/09/21 Unknown History atorvastatin 40 mg tablet 40 mg PO DAILY #30 tabs 04/17 03/12 Unknown Rx cholecalciferol (vitamin D3) 25 25 mcg PO DAILY 05/13/24 History mcg (1,000 unit) capsule (Vitamin D3) oxycodone 5 mg tablet 5 - 10 mg PO Q6H PRN pain 04/30/24 History Allergy/AdvReac Type Severity Reaction Status Date / Time No Known Allergies Allergy Verified 05/14/24 15:18 Surgical History History of appendectomy History of shoulder surgery Social History household members: spouse Smoking Status: Never smoker ROS ROS ED Constitutional Constitutional ED: Denies chills, fever(s) or sweats ENT ENT ED: Denies sore throat Cardiovascular Cardiovascular: Denies chest pain, leg edema, palpitations or racing heartbeat Respiratory/Chest Respiratory/Chest: Denies cough, dyspnea or dyspnea on exertion Gastrointestinal Gastrointestinal: Denies abdominal pain, diarrhea, nausea or vomiting Genitourinary Genitourinary ED: Denies dysuria, hematuria or urinary frequency Musculoskeletal Musculoskeletal: Denies back pain, extremity pain or neck pain Integumentary Denies rash or wounds Neurologic Neurologic: Reports headache(s) and paresthesias; Denies weakness EXAM Physical Exam Const Vital Signs: 05/14/24 15:17 05/14/24 15:18 05/14/24 15:38 Temperature 97.8 F Temperature Source Oral Pulse Rate 82 80 Respiratory Rate 16 16 Blood Pressure 160/85 H 160/85 H Blood Pressure Mean 110 110 Pulse Ox 98 98 Oxygen Delivery Method Room Air Room Air Room Air Oxygen Flow Rate (L/min) 05/14/24 15:38 05/14/24 15:53 05/14/24 16:11 Temperature Temperature Source Pulse Rate 77 77 Respiratory Rate 18 18 18 Blood Pressure 149/86 H 166/87 H Blood Pressure Mean 107 113 Pulse Ox 96 96 Oxygen Delivery Method Room Air Room Air Oxygen Flow Rate (L/min) 18 05/14/24 16:23 05/14/24 16:30 Temperature Temperature Source Pulse Rate 81 78 Respiratory Rate 16 16 Blood Pressure 160/88 H 149/88 H Blood Pressure Mean 112 108 Pulse Ox 97 97 Oxygen Delivery Method Room Air Room Air Oxygen Flow Rate (L/min) Positive well nourished and well developed General Appearance ED: well developed and NAD HEENT Reports moist mucous membranes normocephalic and atraumatic Eyes General Eye ED: Yes normal appearance of both eyes Neck full ROM Chest Wall Chest: Negative for tenderness Resp normal respiratory effort and normal air movement Effort and Inspection: symmetric chest movement; Negative for respiratory distress Cardio regular rate, regular rhythm and no murmurs Peripheral Pulses: pulses 2+ throughout GI normal to inspection, nondistended, normoactive bowel sounds and non-tender Palpation: Negative for guarding or rebound tenderness present Extremity normal to inspection General Extremety ED: Negative for edema or tenderness General Extremity: Negative for edema Neuro oriented x3, CN's II-XII intact bilaterally and no sensory deficits noted Sensorium / Orientation: awake and alert Skin no rashes or lesions noted and no wounds NIHSS NIHSS Initial: 1a Level of Consciousness: 0 1b LOC Questions (Score 2 if aphasic/stupor): 0 1c LOC Commands (Only score 1st attempt): 0 2 Best Gaze (If aphasic, use reflexive mvmts.): 0 3 Visual: 0 4 Facial Palsy: 0 5 Motor Arm Right (UN = amputation/fusion): 0 5 Motor Arm Left: 0 6 Motor Leg Right: 0 6 Motor Leg Left: 0 7 Limb ataxia (Only + if out of proportion): 0 8 Sensory (Aphasia/stupor=0 or 1, coma=2): 0 9 Best Language: 0 10 Dysarthria (mute, coma=2, intubated=UN): 0 11 Extinction and Inattention (only scored if +): 0 Total Score: 0 MDM MDM MDM Narrative Medical decision making narrative: Interventions / MDM: Differential diagnosis: TIA, paresthesias Diagnosis considered but do not suspect: Intracranial hemorrhage however CT negative. My EKG interpretation: Sinus rate of 75, no ST changes. Imaging independently reviewed and interpreted by myself: CT brain: No intracranial hemorrhage also discussed with radiologist. CT angiogram head and neck: External documents reviewed:ED visit from 05/06 2024, CT head and CT angiogram Ofhead on 05/06/24 noting left common carotid 50% stenosis. Test considered but not ordered:N/A ED course: Stroke team continued, sent for CT head and CT angiogram. Current NIH of 0. 1538: Patient returned from CT on my try read of CT brain no intracranial hemorrhage. CT angiogram results are pending. Further discussion with him he did follow-up with his PCP this past Thursday he has a 14-day Holter monitor placed. He has been taking his medications. No MRI studies have been ordered. He had carotid stenosis at 50% he states no for a while. 1615: Patient evaluate by telestroke with nursing in the room. Recommended MRI studies. No TNK as symptoms resolved. CT angiogram results noting stable carotid stenosis percent on the left. Discussed with hospitalist Dr. Green for admission. Re-evaluation: stable Disposition discussed with patient/family/significant other: Patient in the interim received call from radiologist, no intracranial hemorrhage microvasculardisease on CT brain. Case discussed with consulting clinician: N/A This note was generated with [employer] dictation software. It may contain incorrectwords, spelling, and punctuation that were not noted in checking the note beforesigning. Lab Data Attestation: I reviewed the patient's lab results. Labs: Laboratory Results - last 24 hr 05/14/24 15:25 WBC 6.3 RBC 4.35 L Hgb 13.3 Hct 39.4 L MCV 90.6 MCH 30.6 MCHC 33.8 RDW Std Deviation 42.5 RDW Coeff of Eduard 12.9 Plt Count 204 MPV 9.1 Immature Gran % (Auto) 0.300 Neut % (Auto) 54.4 Lymph % (Auto) 33.7 Obion % (Auto) 9.7 Eos % (Auto) 1.3 Baso % (Auto) 0.6 Absolute Neuts (auto) 3.4 Absolute Lymphs (auto) 2.11 Nucleated RBC % 0 PT 13.9 INR 1.1 APTT 36.0 Sodium 140 Potassium 4.2 Chloride 104 Carbon Dioxide 25.2 Anion Gap 11 BUN 14 Creatinine 0.87 Estim Creat Clear Calc 70.92 Est GFR (MDRD) Non-Af 87 BUN/Creatinine Ratio 16.1 Glucose 106 H Calcium 9.3 Troponin T High Sens 20 D Radiography Diagnostic Testing: Clinical Impression(s) from Imaging Studies Brain CT 05/14/24 15:23 IMPRESSION: 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 No acute process. No hemorrhage. Reading Location: [facility] Head/Neck CTA 05/14/24 15:23 IMPRESSION: 1. No large vessel occlusion, AVM or aneurysm.. 2. Narrowing of the left common carotid approaching 50%. Unremarkable right CCA. 9 partially visualized left apical pleural thickening of indeterminate etiology Reading Location: [facility] Critical Care Time Critical Care Time: Yes Critical care time (excluding procedures): 30-74 minutes, Discussing w/Patient &/or Family/Brand Protection Manager, Discussing w/Consultants, Arranging Admission or Transfer, Performing Direct Patient Care at Bedside and - (31 minutes) Discharge Plan Triage Chief Complaint: Stroke Alert ED Provider: Abiel Dunne Dx/Rx/DC Orders Clinical Impression: Paresthesia, Brain TIA, Headache, Carotid artery disease Primary Care Provider: Jean-Pierre Umanzor Disposition Disposition: Acute Care Hospital [facility] What to do if you have Problems For any increased pain, shortness of breath, bleeding, nausea or vomiting, chestpain, or any unexpected problems, contact your Primary Care Provider. Call [facility] ([phone]) or report to the closest Emergency Room. Call 911 if necessary. 05/14/24 1700 <Electronically signed by Abiel Rangel> Cosigner Signature (if applicable): CC: Dr. Jean-Pierre Umanzor MD ~ Signed [facility] Work Phone: [phone] 993-115503-21-2025 Discharge summary [facility] Medical Records Department [address] [place] [id number] Emergency Department Summary 05/06/24 MR#: [id number] Acct: [id number] Name: RACHEL SANDOVAL Rep #:[id number] : 1940 83 From: Issa Waters MD PCP: Dr. Jean-Pierre Umanzor MD Status :REG ER Location: ED HPI History of Present Illness Chief Complaint: Neuro S/Sx Detail of Chief Complaint: Expressive aphasia Informant: patient and spouse/S.O. Onset/Context/Timing Onset: Yesterday (2199) Context: Sudden Onset Timing: Intermittent and Lasts (15 to 20 minutes) Quality and Location: Positive for Expressive Aphasia Onset: Last evening 2199 Current Severity: Gone Maximum Severity: Severe Worsened by: Nothing Relieved by: Nothing Associated Symptoms Associated Symptoms: Positive for Headache (Patient did report mild right-sided headache. Headache has resolved); Negative for Nausea, Vomiting or Chest Pain Narrative Narrative: Patient is an 83-year-old male. He has history of elevated cholesterol. He hasarthritis. He states he had trouble speaking last evening. This started abruptly and lasted approximately 15 to 20 minutes. states his words did not make sense. They were not slurred. He did have a slight right-sidedheadache. He has no history of headaches. He is never smoked. There is no history of recent trauma.He is on a baby aspirin and statin. He denied double vision blurred vision loss of vision. He states he has problems with vision left eye and needs cataract surgery. He denies ringing in ears or decreased hearing. He no trouble with swallowing. He denies cardiac or respiratory symptoms. He denied abdominal pain, nausea vomiting or diarrhea. He denied paresthesia, anesthesia or motor weakness upper lower extremity. He does have history of vertigo and takes meclizine for dizziness. He denies history of TIA or CVA. Review of prior records indicates he had an echo which were revealed no PFO in 2018. He had Dopplers of his carotids 2019 which revealed less than 50% stenosis. Prior similar symptoms: No Recent Illness/Hospitalization: No PFSH PFSH Medical History Viral URI History of steroid therapy Wears glasses Arthritis Vertigo Non-smoker Leg cramps History of echocardiogram Home Medications ?Medication ?Instructions ?Recorded ?Last Taken ?Type aspirin 81 mg chewable tablet 81 mg PO DAILY@0800 HEAR T 02/15/14 04/06/21 History atorvastatin 20 mg tablet 20 mg PO QHS #30 tabs Unknown Rx meclizine 25 mg tablet 25 mg PO TID PRN dizziness # 14 tabs 02/09/21 Unknown Rx meloxicam 7.5 mg tablet 7.5 mg PO DAILY PRN shoulder pain 02/09/21 Unknown History csxtvhpy-fpafjymq-ekyra acid 400 1 tab PO DAILY supple ment 04/05/21 Unknown History mcg-vit K 20 mcg-lycop 300 mcg tablet (Men's Multivitamin) senna 600 mg tablet 600 mg PO QHS stool softener 04/05/21 Unknown History oxycodone-acetaminophen 5 mg-325 1 tab PO Q4H PRN pain 5 days #20 04/12/21 Unknown Rx mg tablet (Percocet) tabs atorvastatin 40 mg tablet 40 mg PO DAILY #30 tabs 04/17 03/12 Unknown Rx Allergy/AdvReac Type Severity Reaction Status Date / Time No Known Allergies Allergy Verified 05/06/24 15:40 Family History no significant family his Surgical History History of appendectomy History of shoulder surgery Social History (Updated 05/06/24 @ 16:[address] Issa Waters MD) household members: spouse Smoking Status: Never smoker ROS ROS ED Constitutional Constitutional ED: Denies chills, fever(s), subjective or sweats Eyes Eyes: Denies blurry vision, change in vision or diplopia ENT ENT ED: Denies ear pain, rhinorrhea or sore throat Cardiovascular Cardiovascular: Denies chest pain or palpitations Respiratory/Chest Respiratory/Chest: Denies cough, dyspnea or dyspnea on exertion Gastrointestinal Gastrointestinal: Denies abdominal pain, nausea or vomiting Musculoskeletal Musculoskeletal: Denies arthralgias or myalgias Integumentary Denies rash Neurologic Neurologic: Reports headache(s); Denies paresthesias or weakness Hematologic/Lymphatic Hematologic/Lymphatic: Denies easy bleeding or easy bruising EXAM Physical Exam Const Vital Signs: 05/06/24 15:40 05/06/24 16:04 05/06/24 16:15 Temperature 96.2 F L Temperature Source Temporal Pulse Rate 101 H 95 Respiratory Rate 14 Blood Pressure 133/70 H 162/100 H Blood Pressure Mean 91 120 Pulse Ox 98 98 Oxygen Delivery Method Room Air Room Air Room Air 05/06/24 16:34 05/06/24 17:04 05/06/24 17:30 Temperature Temperature Source Pulse Rate 79 76 76 Respiratory Rate 16 14 20 H Blood Pressure 151/95 H 168/93 H 149/86 H Blood Pressure Mean 113 118 107 Pulse Ox 98 97 97 Oxygen Delivery Method Room Air 05/06/24 18:14 Temperature Temperature Source Pulse Rate 76 Respiratory Rate 16 Blood Pressure 153/87 H Blood Pressure Mean 109 Pulse Ox 97 Oxygen Delivery Method Negative for well nourished or well developed General Appearance ED: NAD; Negative for well developed HEENT Reports moist mucous membranes atraumatic Eyes PERRL and EOMs intact bilaterally Eyes Narrative: There is no nystagmus. General Eye ED: Negative for pale conjunctiva or scleral icterus Neck no lymphadenopathy, supple and no JVD Neck Narrative: There are no carotid bruits. Chest Wall inspection of chest normal Resp normal respiratory effort and clear to auscultation bilaterally Cardio no murmurs Rate: regular rate Rhythm: regular rhythm Heart Sounds: S1 normal and S2 normal GI normal to inspection, nondistended, normoactive bowel sounds, soft to palpation,non-tender, non-distended and no masses Extremity normal to inspection Extremity Narrative: Right knee is slightly larger in size. He had prior surgery in the right side. Neuro oriented x3, CN's II-XII intact bilaterally and no sensory deficits noted [place] Coma Scale: document GCS findings Spontaneous Obeys Commands Oriented 15 Sensorium / Orientation: alert Motor Exam: strength 5/5 throughout Psych mental status grossly normal Skin General Skin Exam: Negative for jaundice Lesions: no lesions Rashes: no rashes NIHSS NIHSS Initial: 1a Level of Consciousness: 0 1b LOC Questions (Score 2 if aphasic/stupor): 0 1c LOC Commands (Only score 1st attempt): 0 2 Best Gaze (If aphasic, use reflexive mvmts.): 0 3 Visual: 0 4 Facial Palsy: 0 5 Motor Arm Right (UN = amputation/fusion): 0 5 Motor Arm Left: 0 6 Motor Leg Right: 0 6 Motor Leg Left: 0 7 Limb ataxia (Only + if out of proportion): 0 8 Sensory (Aphasia/stupor=0 or 1, coma=2): 0 9 Best Language: 0 10 Dysarthria (mute, coma=2, intubated=UN): 0 11 Extinction and Inattention (only scored if +): 0 Total Score: 0 MDM MDM MDM Narrative Medical decision making narrative: Patient presents with symptoms consistent with expressive aphasia last evening. Stroke order set was initiated. Will discuss case with stroke neurologist. Patient has low risk for future events. Willdiscuss specifically with neurologist whether patient needs to be admitted for rapid inpatient evaluation versus outpatient evaluation. Lab Data Labs: Laboratory Results - last 24 hr 05/06/24 05/06/24 16:10 18:16 WBC 4.9 RBC 4.17 L Hgb 12.6 L Hct 38.2 L MCV 91.6 MCH 30.2 MCHC 33.0 RDW Std Deviation 43.5 RDW Coeff of Eduard 12.9 Plt Count 205 MPV 9.4 Immature Gran % (Auto) 0.200 Neut % (Auto) 57.8 Lymph % (Auto) 28.7 Obion % (Auto) 10.7 H Eos % (Auto) 1.6 Baso % (Auto) 1.0 Absolute Neuts (auto) 2.8 Absolute Lymphs (auto) 1.40 Nucleated RBC % 0 PT 13.9 INR 1.1 APTT 34.8 Sodium 139 Potassium 4.2 Chloride 103 Carbon Dioxide 26.8 Anion Gap 10 BUN 18 Creatinine 0.92 Estim Creat Clear Calc 67.07 Est GFR (MDRD) Non-Af 84 BUN/Creatinine Ratio 19.1 Glucose 103 H Calcium 9.2 Troponin T High Sens 17 Troponin T Hi Sens 2 Hr 18 Radiography Diagnostic Testing: Clinical Impression(s) from Imaging Studies Brain CT 05/06/24 16:04 IMPRESSION: 1. No acute intracranial finding. 2. Findings of chronic microvascular ischemic changes and age-related changes. Findings were discussed via telephone by Dr. Cee with Dr. Waters at 5:05 p.m. on 05/06/2024. Reading Location: [facility] Head/Neck CTA 05/06/24 16:05 IMPRESSION: 1. No large vessel occlusion, AVM or aneurysm. 2. Approximately 50% narrowing of the left common carotid artery. Unremarkable right common carotidartery. 3. Partially visualized left apical pleural thickening, which is indeterminate in etiology. Correlation with patient history and prior imaging recommended. Reading Location: [facility] Management Discussion w/another healthcare provider: Measurement Specialist (Spoke with the stroke neurologist at [facility]. He is in agreement patient can be worked up as an outpatient. He agrees to increase in his statin dose.), Radiologist (Radiologist contacted me regarding the CT of the head without contrast and CTA of the head and neck. These reported verbally as negative. The written report for the unenhanced scan hasbeen completed and reviewed.) and PCP (Spoke with Dr. Jean-Pierre Villalba. He will complete workup as an outpatient. He was informed of patient's history physical recommendations by neurologist.) Treatment and Re-Evaluation Narrative: [place] was asked to page the [facility] stroke neurologist regarding patient and asked specifically if he will need an inpatient workup or if he can be safely discharged for outpatient workup with close follow-up with his doctor. If the latter is the case we will contact his physician Dr. Jean-Pierre Umanzor. Stroke Documentation Questions Stroke Team Activated: No Reviewed Inclusion/Exclusion criteria: No IV Thrombolytic Administered: No No contraindications from thrombolytic administration: No Discharge Plan Triage Chief Complaint: Neuro S/Sx ED Provider: Issa Waters Dx/Rx/DC Orders Clinical Impression: Brain TIA, Expressive aphasia, Hypercholesterolemia, Elevated blood-pressure reading without diagnosis of hypertension Instructions: ED Hypertension, To Be Confirmed, ED TIA: Transient Ischemic Attack Prescriptions: New atorvastatin 40 mg tablet 40 mg PO DAILY Qty: 30 2RF No Action aspirin 81 MG tablet,chewable 81 mg PO DAILY@0800 Patient Comments: heart health atorvastatin 20 MG tablet 20 mg PO QHS Qty: 30 0RF meloxicam 7.5 mg tablet 7.5 mg PO DAILY PRN (Reason: shoulder pain) Patient Comments: Take1 TABLET by mouth twice a day meclizine 25 mg tablet 25 mg PO TID PRN (Reason: dizziness) Qty: 14 0RF senna 600 mg Tablet 600 mg PO QHS Men's Multivitamin 400-20-300 mcg Tablet 1 tab PO DAILY oxycodone-acetaminophen [Percocet] 5-325 mg tablet 1 tab PO Q4H PRN (Reason: pain) 5 Days Qty: 20 0RF Primary Care Provider: Jean-Pierre Umanzor Referrals: Jean-Pierre Umanzor MD [Primary Care Provider] - Print Language: Kazakh Disposition Disposition: Home, Self Care What to do if you have Problems For any increased pain, shortness of breath, bleeding, nausea or vomiting, chestpain, or any unexpected problems, contact your Primary Care Provider. Call [facility] ([phone]) or report tothe closest Emergency Room. Call 911 if necessary. 05/06/241912 Cosigner Signature (if applicable): CC: Dr. Jean-Pierre Umanzor MD ~ Signed ADDENDUM by Dr. Issa Waters MD on 05/06/24 at 1914 EKG sinus rhythm rate of 92 with a first-degree AV block. DC interval 220 ms. Cures duration 106 ms. QT duration 364 ms. [place] is normal. 05/06/241914 Cosigner Signature (if applicable): cc: Dr. Jean-Pierre Umanzor MD ~* Signed [facility]03-21-2025 Radiology Diagnostic study note [facility] Imaging Services [address] [place] [address] STROKE CTA Head AND Neck W/Con MR#: [id number] Acct: [id number] Name: RACHEL SANDOVAL Rep #: [id number] : 1940 M 83 From: Brea Cee MD PCP: Dr. Jean-Pierre Umanzor MD Status: REG ER Study:STROKE CTA Head AND Neck W/Con Date of Exam: 05/06/24 Exam# [id number] Ordering Dr: Maryuri Waters MD PROCEDURE: STROKE CTA HEAD AND NECK W/CON 05/06/2024 REASON FOR EXAM: NEURO DEFICIT, ACUTE, STROKE SUSPECTED TECHNIQUE: CTA imaging of the head and neck from the aortic arch to the skull vertex with intravenous contrast. Coronal and Sagittal reconstruction series were provided. 3D, 3D post processing, 3D reconstructions, Maximum intensity projection (MIPs) Volume rendering and Shaded surface rendering was provided. CONTRAST: Isovue-300 VOLUME: 100ML One or more dose reduction techniques were used (e.g., Automated exposure control, adjustment of the mA and/or kV according to patient size, use of iterative reconstruction technique). RADIATION DOSE SUMMARY: CTDlvol: 46 mGy DLP: 709 mGycm COMPARISON: Same-day CT head, CTA head and neck 02/09/2021. FINDINGS: See separately dictated same day CT head for discussion of nonvascular findings. Moderate mixed atherosclerotic plaque throughout the aortic arch and its branch vessels. Standard aortic arch branch vessel pattern. Dominant right vertebral artery. The bilateral vertebral arteries arepatent without focal stenosis or occlusion. Mild calcific atherosclerosis of the right common carotid artery resulting in less than 50% narrowing by NASCET criteria. Moderate mixed atherosclerotic plaque of the left common carotid artery resulting in approximately 50% narrowing by NASCET criteria. Minimal calcific plaque of the bilateral internal carotid and intracranial carotid arteries. No focal stenosis or occlusion. The anterior, middle and posterior cerebral arteries are widely patent. Patent left [id number]. No arteriovenous malformation or aneurysm. Major venous structures: Unremarkable. Other findings: Partially visualized left apical pleural thickening. Cervical spondylosis. Multipleperiapical lucencies. CT/STROKE CTA Head AND Neck W/Con IMPRESSION: 1. No large vessel occlusion, AVM or aneurysm. 2. Approximately 50% narrowing of the left common carotid artery. Unremarkable right common carotidartery. 3. Partially visualized left apical pleural thickening, which is indeterminate in etiology. Correlation with patient history and prior imaging recommended. Reading Location: [id number] CC: Dr. Jean-Pierre Umanzor MD; Dr. Issa Waters MD ~ Child Support Officer: Signed [facility]03-21-2025 Radiology Diagnostic study note [facility] Imaging Services [address] [place] [address] STROKE Brain/Head without Cont MR#: [id number] Acct: [id number] Name: RACHEL SANDOVAL Rep #: [id number] : 1940 M 83 From: Brea Cee MD PCP: Dr. Jean-Pierre Umanzor MD Status: REG ER Study:STROKE Brain/Head without Cont Date of Exam: 05/06/24 Exam# [id number] Ordering Dr: Maryuri Waters MD EXAM: STROKE BRAIN/HEAD WITHOUT CONT CLINICAL HISTORY: 83 y/o M with NEURO DEFICIT, ACUTE, STROKE SUSPECTED. Patient reports approximately 20-30 minute episode of difficulty with word finding last night. COMPARISON: CTA head and neck 02/09/2021 TECHNIQUE: Routine CT imaging of the head without IV contrast. Additional multiplanar reformats were obtained. Dose reduction techniques were used including intermediate exposure control (AEC),iterative reconstruction technique, and/or mA and/or KV dose adjustments based on patient's size. FINDINGS: Mild generalized cerebral and cerebellar volume loss with concordant prominence of the ventricles and subarachnoid spaces. Moderate patchy supratentorial white matter hypodensities. 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 The mendez-white matter interfaces are otherwise maintained. No acute intracranial hemorrhage or herniation. Mucous retention cyst or polyp within the right anterior ethmoid air cell. The orbits, visualized paranasal sinuses and mastoids are otherwise unremarkable. No acute calvarial fracture or scalp hematoma. CT/STROKE Brain/Head without Cont IMPRESSION: 1. No acute intracranial finding. 2. Findings of chronic microvascular ischemic changes and age-related changes. Findings were discussed via telephone by Dr. Cee with Dr. Waters at 5:05 p.m. on 05/06/2024. Reading Location: [facility] CC: Dr. Jean-Pierre Umanzor MD; Dr. Issa Waters MD ~ Child Support Officer: Signed [facility]03-21-2025 Discharge summary Author Issa Waters [facility] Note Date/Time May 06, 2024 7:1 5pm [facility] Medical Records Department [address] [place] [address] Emergency Department Summary 05/06/24 MR#: [id number] Acct: [id number] Name: RACHEL SANDOVAL Rep #:[id number] : 1940 83 From: Issa Waters MD PCP: Dr. Jean-Pierre Umanzor MD Status :REG ER Location: ED HPI History of Present Illness Chief Complaint: Neuro S/Sx Detail of Chief Complaint: Expressive aphasia Informant: patient and spouse/S.O. Onset/Context/Timing Onset: Yesterday (2199) Context: Sudden Onset Timing: Intermittent and Lasts (15 to 20 minutes) Quality and Location: Positive for Expressive Aphasia Onset: Last evening 2199 Current Severity: Gone Maximum Severity: Severe Worsened by: Nothing Relieved by: Nothing Associated Symptoms Associated Symptoms: Positive for Headache (Patient did report mild right-sided headache. Headache has resolved); Negative for Nausea, Vomiting or Chest Pain Narrative Narrative: Patient is an 83-year-old male. He has history of elevated cholesterol. He hasarthritis. He states he had trouble speaking last evening. This started abruptly and lasted approximately 15 to 20 minutes. states his words did not make sense. They were not slurred. He did have a slight right-sided headache. He has no history of headaches. He is never smoked. There is no history of recent trauma. He is on a baby aspirin and statin. He denied double vision blurred vision loss of vision. He states he has problems with vision left eye and needs cataract surgery. He denies ringing in ears or decreased hearing. He no trouble with swallowing. He denies cardiac or respiratory symptoms. He denied abdominal pain, nausea vomiting or diarrhea. He denied paresthesia, anesthesia or motor weakness upper lower extremity. He does have history of vertigo and takes meclizine for dizziness. He denies history of TIA or CVA. Review of prior records indicates he had an echo which were revealed no PFO in 2018. He had Dopplers of his carotids 2019 which revealed less than 50% stenosis. Prior similar symptoms: No Recent Illness/Hospitalization: No PFSH PFSH Medical History Viral URI History of steroid therapy Wears glasses Arthritis Vertigo Non-smoker Leg cramps History of echocardiogram Home Medications ?Medication ?Instructions ?Recorded ?Last Taken ?Type aspirin 81 mg chewable tablet 81 mg PO DAILY@0800 HEAR T 02/15/14 04/06/21 History atorvastatin 20 mg tablet 20 mg PO QHS #30 tabs Unknown Rx meclizine 25 mg tablet 25 mg PO TID PRN dizziness # 14 tabs 02/09/21 Unknown Rx meloxicam 7.5 mg tablet 7.5 mg PO DAILY PRN shoulder pain 02/09/21 Unknown History gkhguqnh-jsygiema-jlpsy acid 400 1 tab PO DAILY supple ment 04/05/21 Unknown History mcg-vit K 20 mcg-lycop 300 mcg tablet (Men's Multivitamin) senna 600 mg tablet 600 mg PO QHS stool softener 04/05/21 Unknown History oxycodone-acetaminophen 5 mg-325 1 tab PO Q4H PRN pain 5 days #20 04/12/21 Unknown Rx mg tablet (Percocet) tabs atorvastatin 40 mg tablet 40 mg PO DAILY #30 tabs 04/17 03/12 Unknown Rx Allergy/AdvReac Type Severity Reaction Status Date / Time No Known Allergies Allergy Verified 05/06/24 15:40 Family History no significant family his Surgical History History of appendectomy History of shoulder surgery Social History (Updated 05/06/24 @ 16:[address] Issa Waters MD) household members: spouse Smoking Status: Never smoker ROS ROS ED Constitutional Constitutional ED: Denies chills, fever(s), subjective or sweats Eyes Eyes: Denies blurry vision, change in vision or diplopia ENT ENT ED: Denies ear pain, rhinorrhea or sore throat Cardiovascular Cardiovascular: Denies chest pain or palpitations Respiratory/Chest Respiratory/Chest: Denies cough, dyspnea or dyspnea on exertion Gastrointestinal Gastrointestinal: Denies abdominal pain, nausea or vomiting Musculoskeletal Musculoskeletal: Denies arthralgias or myalgias Integumentary Denies rash Neurologic Neurologic: Reports headache(s); Denies paresthesias or weakness Hematologic/Lymphatic Hematologic/Lymphatic: Denies easy bleeding or easy bruising EXAM Physical Exam Const Vital Signs: 05/06/24 15:40 05/06/24 16:04 05/06/24 16:15 Temperature 96.2 F L Temperature Source Temporal Pulse Rate 101 H 95 Respiratory Rate 14 Blood Pressure 133/70 H 162/100 H Blood Pressure Mean 91 120 Pulse Ox 98 98 Oxygen Delivery Method Room Air Room Air Room Air 05/06/24 16:34 05/06/24 17:04 05/06/24 17:30 Temperature Temperature Source Pulse Rate 79 76 76 Respiratory Rate 16 14 20 H Blood Pressure 151/95 H 168/93 H 149/86 H Blood Pressure Mean 113 118 107 Pulse Ox 98 97 97 Oxygen Delivery Method Room Air 05/06/24 18:14 Temperature Temperature Source Pulse Rate 76 Respiratory Rate 16 Blood Pressure 153/87 H Blood Pressure Mean 109 Pulse Ox 97 Oxygen Delivery Method Negative for well nourished or well developed General Appearance ED: NAD; Negative for well developed HEENT Reports moist mucous membranes atraumatic Eyes PERRL and EOMs intact bilaterally Eyes Narrative: There is no nystagmus. General Eye ED: Negative for pale conjunctiva or scleral icterus Neck no lymphadenopathy, supple and no JVD Neck Narrative: There are no carotid bruits. Chest Wall inspection of chest normal Resp normal respiratory effort and clear to auscultation bilaterally Cardio no murmurs Rate: regular rate Rhythm: regular rhythm Heart Sounds: S1 normal and S2 normal GI normal to inspection, nondistended, normoactive bowel sounds, soft to palpation,non-tender, non-distended and no masses Extremity normal to inspection Extremity Narrative: Right knee is slightly larger in size. He had prior surgery in the right side. Neuro oriented x3, CN's II-XII intact bilaterally and no sensory deficits noted [place] Coma Scale: document GCS findings Spontaneous Obeys Commands Oriented 15 Sensorium / Orientation: alert Motor Exam: strength 5/5 throughout Psych mental status grossly normal Skin General Skin Exam: Negative for jaundice Lesions: no lesions Rashes: no rashes NIHSS NIHSS Initial: 1a Level of Consciousness: 0 1b LOC Questions (Score 2 if aphasic/stupor): 0 1c LOC Commands (Only score 1st attempt): 0 2 Best Gaze (If aphasic, use reflexive mvmts.): 0 3 Visual: 0 4 Facial Palsy: 0 5 Motor Arm Right (UN = amputation/fusion): 0 5 Motor Arm Left: 0 6 Motor Leg Right: 0 6 Motor Leg Left: 0 7 Limb ataxia (Only + if out of proportion): 0 8 Sensory (Aphasia/stupor=0 or 1, coma=2): 0 9 Best Language: 0 10 Dysarthria (mute, coma=2, intubated=UN): 0 11 Extinction and Inattention (only scored if +): 0 Total Score: 0 MDM MDM MDM Narrative Medical decision making narrative: Patient presents with symptoms consistent with expressive aphasia last evening. Stroke order set was initiated. Will discuss case with stroke neurologist. Patient has low risk for future events. Will discuss specifically with neurologist whether patient needs to be admitted for rapid inpatient evaluation versus outpatient evaluation. Lab Data Labs: Laboratory Results - last 24 hr 05/06/24 05/06/24 16:10 18:16 WBC 4.9 RBC 4.17 L Hgb 12.6 L Hct 38.2 L MCV 91.6 MCH 30.2 MCHC 33.0 RDW Std Deviation 43.5 RDW Coeff of Eduard 12.9 Plt Count 205 MPV 9.4 Immature Gran % (Auto) 0.200 Neut % (Auto) 57.8 Lymph % (Auto) 28.7 [place] % (Auto) 10.7 H Eos % (Auto) 1.6 Baso % (Auto) 1.0 Absolute Neuts (auto) 2.8 Absolute Lymphs (auto) 1.40 Nucleated RBC % 0 PT 13.9 INR 1.1 APTT 34.8 Sodium 139 Potassium 4.2 Chloride 103 Carbon Dioxide 26.8 Anion Gap 10 BUN 18 Creatinine 0.92 Estim Creat Clear Calc 67.07 Est GFR (MDRD) Non-Af 84 BUN/Creatinine Ratio 19.1 Glucose 103 H Calcium 9.2 Troponin T High Sens 17 Troponin T Hi Sens 2 Hr 18 Radiography Diagnostic Testing: Clinical Impression(s) from Imaging Studies Brain CT 05/06/24 16:04 IMPRESSION: 1. No acute intracranial finding. 2. Findings of chronic microvascular ischemic changes and age-related changes. Findings were discussed via telephone by Dr. Cee with Dr. Waters at 5:05 p.m. on 05/06/2024. Reading Location: [facility] Head/Neck CTA 05/06/24 16:05 IMPRESSION: 1. No large vessel occlusion, AVM or aneurysm. 2. Approximately 50% narrowing of the left common carotid artery. Unremarkable right common carotid artery. 3. Partially visualized left apical pleural thickening, which is indeterminate in etiology. Correlation with patient history and prior imaging recommended. Reading Location: [facility] Management Discussion w/another healthcare provider: Measurement Specialist (Spoke with the stroke neurologist at [facility]. He is in agreement patient can be worked up as an outpatient. He agrees to increase in his statin dose.), Radiologist (Radiologist contacted me regarding the CT of the head without contrast and CTA of the head and neck. These reported verbally as negative. The written report for the unenhanced scan has been completed and reviewed.) and PCP (Spoke with Dr. Jean-Pierre Villalba. He will complete workup as an outpatient. He was informed of patient's history physical recommendations by neurologist.) Treatment and Re-Evaluation Narrative: [place] was asked to page the [facility] stroke neurologist regarding patient and asked specifically if he will need an inpatient workup or if he can be safely discharged for outpatient workup with close follow-up with his doctor. If the latter is the case we will contact his physician Dr. Jean-Pierre Umanzor. Stroke Documentation Questions Stroke Team Activated: No Reviewed Inclusion/Exclusion criteria: No IV Thrombolytic Administered: No No contraindications from thrombolytic administration: No Discharge Plan Triage Chief Complaint: Neuro S/Sx ED Provider: Issa Waters Dx/Rx/DC Orders Clinical Impression: Brain TIA, Expressive aphasia, Hypercholesterolemia, Elevated blood-pressure reading without diagnosis of hypertension Instructions: ED Hypertension, To Be Confirmed, ED TIA: Transient Ischemic Attack Prescriptions: New atorvastatin 40 mg tablet 40 mg PO DAILY Qty: 30 2RF No Action aspirin 81 MG tablet,chewable 81 mg PO DAILY@0800 Patient Comments: heart health atorvastatin 20 MG tablet 20 mg PO QHS Qty: 30 0RF meloxicam 7.5 mg tablet 7.5 mg PO DAILY PRN (Reason: shoulder pain) Patient Comments: Take1 TABLET by mouth twice a day meclizine 25 mg tablet 25 mg PO TID PRN (Reason: dizziness) Qty: 14 0RF senna 600 mg Tablet 600 mg PO QHS Men's Multivitamin 400-20-300 mcg Tablet 1 tab PO DAILY oxycodone-acetaminophen [Percocet] 5-325 mg tablet 1 tab PO Q4H PRN (Reason: pain) 5 Days Qty: 20 0RF Primary Care Provider: Jean-Pierre Umanzor Referrals: Jean-Pierre Umanzor MD [Primary Care Provider] - Print Language: Kazakh Disposition Disposition: Home, Self Care What to do if you have Problems For any increased pain, shortness of breath, bleeding, nausea or vomiting, chestpain, or any unexpected problems, contact your Primary Care Provider. Call [facility] ([phone]) or report to the closest Emergency Room. Call 911 if necessary. 05/06/241912 <Electronically signed by Issa Waters MD> Cosigner Signature (if applicable): CC: Dr. Jean-Pierre Umanzor MD ~ Signed ADDENDUM by Dr. Issa Waters MD on 05/06/24 at 191 EKG sinus rhythm rate of 92 with a first-degree AV block. DC interval 220 ms. Cures duration 106 ms. QT duration 364 ms. [place] is normal. 05/06/241914<Electronically signed by Issa Waters MD> Cosigner Signature (if applicable): cc: Dr. Jean-Pierre Umanzor MD ~* Signed [facility] Work Phone: [phone]) 991-760001-29-2025 Note Discharge Instructions Thank you for allowing [facility] to assist you with your healthcare needs. The following is importantdischarge information regarding your hospital visit. Your Care Team DR CHERY/JENNIFER INPATIENT MEDICINE Your Diagnosis Hyperlipidemia Status post total right knee replacement Vertigo What to do next Follow Up Appointments Follow Up with [facility] When:03/18/2024 11:00 AM EST Where:[address] [place] [phone] Additional Information: This is your first physical therapy appointment. Follow- up as scheduled. Follow Up with TIERNEY CHERY MD When:03/28/2024 11:00 AM EST Where:[address] [facility] [place] [address]- [phone] Additional Information: This is your post-op appointment. Follow-up as scheduled. The Following Activity and Diet Have Been Ordered for You FOLLOW POST-OP INSTRUCTIONS. The Following Treatments Have Been Ordered for You Discharge Labs No qualifying data available. Discharge Radiology No qualifying data available. Other Therapies OUTPATIENT THERAPY. Post Acute Orders No qualifying data available. Allergies No Known Medication Allergies Medications Please ask your primary doctor or pharmacist before taking any other medication not listed, including over the counter drugs, herbal medications, vitamins and or supplements as they may interact withyour home medications. What How Much When Why Instructions Last Dose New acetaminophen (Tylenol) 1,000 Milligram by mouth Three (3) times a day not to exceed 3000 mg/ day New famotidine (Pepcid 20 mg oral tablet) 1 tab(s) by mouth Once a day Duration: 30 Days Pickup at [facility] New meloxicam (Mobic 7.5 mg oral tablet) 1 tab(s) by mouth Twice daily with meals Duration: 30 Days Do not take any other nonsteroidal anti-inflammatories while on meloxicam/ Mobic. Pickup at [facility] New oxyCODONE (oxyCODONE 5 mg oral tablet ( IMMEDIATE release )) See instructions Status post total right knee replacement 1-2 tab(s) Oral q4h, As needed for as needed for pain Pickup at [facility] Changed aspirin 81 Milligram by mouth Twice daily with meals Duration: 30 Days Take 81 mg aspirin twice daily with food for 4 weeks postoperatively for DVT prophylaxis. After 4 weeks will then go back to normal 81 mg aspirin daily Changed docusate-senna (Senokot S) 2 tab(s) by mouth Two (2) times a day Duration: 3 Days Take until first bowel movement, then as needed Unchanged atorvastatin (atorvastatin 20 mg oral tablet) TAKE 1 TABLET BY MOUTH EVERY DAY AT BEDTIME Unchanged multivitamin with minerals (Calcium, Magnesium and Zinc oral tablet) 1 tab(s) by mouth Once a day Unchanged multivitamin with minerals (Centrum Silver oral tablet) 1 tab(s) by mouth Once a day Unchanged tadalafil (Tadalafil (Eqv-Cialis) 20 mg oral tablet) Take 1 (one) Tablet by mouth as needed Pharmacy Information [facility]: [address] [place], [place] [phone] What How Much When Comments Stop Taking ascorbic acid/ chondroitin/ glucosa/ nandini (Glucosamine Chondroitin) by mouth Once a day Stop Taking biotin (Biotin 5000 mcg oral capsule) 1 cap by mouth Every day Stop Taking herbal/ nutritional product Binu Dumont Please take this list to your next doctor s visit. Bring all medications you take, including over the counter medications, herbals and other supplements with you to your doctor s visit. Patients and families are reminded to discard old lists and to update any records with all medication providers or retail pharmacies. Education Materials [facility] Post-operative Instructions PLEASE FOLLOW [facility] POST-OP INSTRUCTIONS GIVEN WATCH FOR SIGNS OF INFECTION: call the office ([phone]) if experencing any of the following: (Usually appears 36-48 hours after surgery) Increased temperature (101 degrees Fahrenheit or higher) Redness or swelling Increased uncontrolled pain Foul odor or drainage Calf discomfort Significant swelling Or if having any chest pain, shortness of breath, or difficulty breathing or swallowing call the office or go the nearest Emergency Room. If you have any questions, please call your doctor at the number listed on your follow up instructions. Form: 338A ([id number]) R: 06/22 Additional Information VACCINATE! IT SAVES LIVES! Members of the community who have not yet received the COVID-19 vaccine and would like to receive it can visit one of [facility] vaccine clinics. There are many vaccine clinic locations within the [facility]. For locations and available times, please visit [email or web address].[place].gov/. It is important to note that some COVID mobile vaccine clinics are held outdoors and may be canceled in rainy or stormy conditions. To learn more about pediatric vaccinations (ages 5-11), we invite you to visit the [facility] webpage. [email or web address]/[email or web address] [email or web address].htmlTo learn more about the COVID-19 vaccine, we invite you to visit the CDC website for a list of frequently asked questions.https://www.cdc.gov/coronavirus/2019-ncov/vaccines/faq.html [facility] Patient Portal Access Instructions: Stay connected with your healthcare team and access your personal medical information anytime with the [facility] Patient Portal. Please follow the directions below to create your [facility] account: 1.Access the email account you provided upon registration to the hospital/physician office.2.Look for an invitation email from [facility].3.Open the email and access the invitation link: AcceptInvitation to [facility].4.Fill in the required arnold to create your account. To access your account, visit [facility]/sharing.ithart. Click the blue button labeled Access Patient Portal and then log in with the username and password that you created in the steps above. You will be able to view your test results, lab results, a summary of your visits, upcoming appointments and more. There is also a convenient messaging option where you can send secure messages to your p [employer]. In addition, you will have the ability to download any documents or summaries to your computer and/or send the information securely to a physician. Remember that your healthcare information is confidential, so carefully consider who you will allowto register on the [facility] Patient Portal for access to your information. You can also access the [facility] Patient Portal on the [facility] margo. Simply click on Patient Portal and then log into your account. If you would like to receive a full copy of your medical records, please contact the [facility] Medical Records Department by calling [phone], Thursday through Thursday between 8 a.m. and 4:30 p.m. HOW TO SAFELY DISPOSE OF PRESCRIPTION MEDICATIONS Please use one of the following methods to safely dispose of your unused medications. 1.Use a drug disposal kit: the drug disposal pouch allows you to safely discard your old and unuseddrugs. Ask your nurse to give you one when you are discharged.2.Visit a local take-back location: Many local pharmacies and police departments have programs that collect old and unwanted prescriptiondrugs. Call your local pharmacy or go to http://bit.Zaggora/5T3Tq3h to find one close to you.3.Make use of household items: Use cat litter or old coffee grounds to dispose medications if other options arenot available. Mix your drugs with these household products, seal them in an airtight container andthrow it into the garbage. Call [facility]: [phone] to be sure your drugs can be disposed of in this way. Some medicines may require a different approach.4.Never flush your medications down the toilet. IF YOU HAVE BEEN PRESCRIBED AN OPIOID FOR PAIN If you have been prescribed an opioid (such as hydrocodone, oxycodone or morphine), it is critical to understand the possible side effects and risks of opioid pain medications. Even when taken as directed, opioids can have several side effects including: Tolerance, meaning you might need to take more of a medication for the same pain relief. Nausea, vomiting and/or constipation. Sleepiness, dizziness, dry mouth, confusion, depression or itching. Physical dependence, meaning you have withdrawal symptoms when a medication is stopped, can develop within a few days. KNOW YOUR RESPONSIBILITIES It is important to know exactly how much and how often to take the opioid pain medications you are prescribed. Never take opioids in higher amounts or more often than prescribed. Do not combine opioids with alcohol or other drugs that cause drowsiness, such as benzodiazepines, also known as benzos, including diazepam and alprazolam, muscle relaxants or sleep aids. Never sell or share prescription opioids. This is illegal. Store opioids in a secure place and out of reach of others (including children, family, friends and visitors). The last page of this document has been signed and retained as a CHART COPY. Signatures Patient Education Materials [facility] Post-op Instruction 09/2016 (35077) Medication Leaflets My discharge plan and instructions have been reviewed and explained to me and I,RACHEL SANDOVAL understand my current condition and have read and understand these discharge instructions. I have received a written copy of the plan/instructions. If I have questions, I am aware that I should contact my doctor. Patient/Security Assessor Signature: Date/Time: Relationship to Patient: Witness Name/Signature: Date/Time: [facility]01-29-2025 Hospital Discharge instructions Patient Education 03/16/2024 08:10:20 5 - [facility] Post-op Instruction 09/2016 (35351) [facility] Post-operative Instructions PLEASE FOLLOW [facility] POST-OP INSTRUCTIONS GIVEN WATCH FOR SIGNS OF INFECTION: call the office ([phone]) if experencing any of the following: (Usually appears 36-48 hours after surgery) Increased temperature (101 degrees Fahrenheit or higher) Redness or swelling Increased uncontrolled pain Foul odor or drainage Calf discomfort Significant swelling Or if having any chest pain, shortness of breath, or difficulty breathing or swallowing call the office or go the nearest Emergency Room. If you have any questions, please call your doctor at the number listed on your follow up instructions. Form: 338A (97090) R: 06/22 Follow Up Care 01/18/2024 13:17:07 With:[facility] Address: [address] [place] [phone] [phone] When:03/18/2024 11:00:00 Comments:This is your first physical therapy appointment. Follow-up as scheduled. With:TIERNEY CHERY MD Address: [address] [place], [place] [address] [address] [facility] [place] [address]- [phone] When:03/28/2024 11:00:00 Comments:This is your post-op appointment. Follow-up as scheduled. [facility] 01-29-2025 Pastoral care Progress note Pastoral Care Note Entered On: 03/16/2024 9:20 EST Performed On: 03/16/2024 9:17 EST by David Narvaez Pastoral Care Type of Pastoral Visit : Initial visit Spiritual Care Visit Initiated by : Cryogenics Engineer Spiritual Care Reason for Visit : General Spiritual Assessment : Spiritual, not Islam Spiritual Care Emotional Assessment : Accepting of Situation, Optimistic, Has Support Network Spiritual Care Intervention : Active listening, Words of Encouragement Spiritual Outcomes : Set realistic goals, Embraces Present Moment Spiritual Plan of Care : No Further Action Pastoral Care Comments : patient reports good care and is optimistic about his return to [facility]; SO is with him for support; casual conversation Pastoral Care Visit Length : 10 minute(s) David Narvaez - 03/16/2024 9:17 EST Digitally Signed by David Narvaez on 03/16/2024 09:17 AM [facility]01-29-2025 Note Date of Service March 16, 2024 Subjective The patient was sitting in bed with girlfriend present upon examination. Patient denies any chest pain, shortness of breath, dizziness, lightheadedness, nausea or vomiting, or calf pain. No adverse overnight events. Pain has been controlled on medications. Patient appears to be doing very well thismorning. Starting to have some increase in pain with the right knee. Objective Vitals and Measurements T: 36.9 C (Oral) TMIN: 35.6 C (Axillary) TMAX: 36.9 C (Oral) HR: 64 (Monitored) RR: 18 BP: 142/71 SpO2: 96% HT: 180.3 cm WT: 84.1 kg BMI: 25.87 Intake and Output 7AM Yesterday to 7AM Today Intake and Output (Last 24 hours) Intake Administration Information 1374.75 Output Intra-Op EBL 75.00 Urine Count 2.00 Total Summary Total Intake 1374.75 Total Output 75.00 Fluid Balance 1299.75 Physical Exam Vital signs stable, afebrile SCD's and SADIA Hose in place bilaterally Patient is able to plantarflex and dorsiflex actively Sensation is intact to saphenous, sural, superficial and deep peroneal, and tibial distribution Dressings are clean dry and intact Negative signs and symptoms of DVT, negative Homans bilaterally Weight Dosing Weight: 84.1 kg (03/15/24) Dosing Weight: 84.1 kg (03/15/24) Medications Medications (21) Active Scheduled: (10) acetaminophen 500 mg Tablet 1,000 mg 2 tab(s), Oral, q6h aspirin 81 mg EC 81 mg 1 tab(s), Oral, BIDM atorvastatin 10 mg tablet 20 mg 2 tab(s), Oral, qDay bisacodyl 5 mg EC tablet 10 mg 2 tab(s), Oral, Once docusate sodium 100 mg Capsule 100 mg 1 cap(s), Oral, BID docusate-senna (Senokot S) 50 mg-8.6 mg Tablet 2 tab(s), Oral, BID famotidine 20 mg tablet 20 mg 1 tab(s), Oral, qDay magnesium hydroxide 8% Suspension 30 mL UD 30 mL, Oral, Daily meloxicam 7.5 mg tablet 7.5 mg 1 tab(s), Oral, BIDM multivitamin (Myadec) with minerals Therapeutic Multiple Vitamins with Minerals Tablet 1 tab(s), Oral, qDayM Continuous: (1) Lactated Ringers 1,000 mL 1,000 mL, Intravenous, 100 mL/hr PRN: (10) acetaminophen 325 mg Tablet 650 mg 2 tab(s), Oral, q4h diphenhydramine 25 mg tablet 25 mg 1 tab(s), Oral, q6h diphenhyDRAMINE 50 mg/mL (1 mL) INJ 25 mg 0.5 mL, IV Push, q6h ketorolac 30 mg/mL (1 mL) vial 15 mg 0.5 mL, IV Push, q6h morphine 2 mg/mL 1 mL syringe 2 mg 1 mL, IV Push, q1h ondansetron 2 mg/ 1 mL 2 mL INJ 4 mg 2 mL, IV Push, q8h oxycodone 5 mg tablet (immediate release) 5 mg 1 tab(s), Oral, q4h oxycodone 5 mg tablet (immediate release) 10 mg 2 tab(s), Oral, q4h prochlorperazine 10 mg/2 mL vial 5 mg 1 mL, IV Push, q6h sodium biphosphate-sodium phosphate 19 gm-7 gm Enema 133 mL, Rectal, qDay Lab Results 03/16 05:34 WBC: 10.4 Hgb: 12.8 L Hct: 36.9 L Platelet: 185 Neutrophil %: 81.8 H Glucose Level: 127 H Sodium Level: 142 Potassium Level: 4.9 BUN: 19 H Creatinine Lvl (s): 0.92 EKG No qualifying data available. Assessment/Plan 1. Status post right robotic assisted total knee arthroplasty postop day #1 2. Continue pain medications: Tylenol, meloxicam, oxycodone. Do not take any other nonsteroidal anti-inflammatories while on meloxicam/Mobic. 3. DVT prophylaxis: Take 81 mg aspirin twice daily with food for 4 weeks postoperatively for DVT prophylaxis. Patient denies past history of DVT or pulmonary embolism. 4. Physical therapy: Weightbearing as tolerated with walker 5. H & H: 12.8/36.9, asymptomatic. Postoperative drop in hemoglibin from surgery without intraoperative complications. At this time there is no need for treatment. 6. Encouraged incentive spirometry 7. Continue postoperative medical management per medicine 8. Postoperative constipation: Discussed with the patient to continue stool softener until first bowel movement. After first bowel movement patient can then take as needed. They were also instructed that if they are not able to have a bowel movement within 3 days they are to contact our office for change of medication. Patient voiced understanding. 9. Disposition: Plan will be for discharge home today as long as patient remains medically stable, tolerates therapy, and pain is adequately controlled. Had a lengthy discussion about postoperative recovery and medications. Patient has outpatient physical therapy established. He would like his medications E scribed to [facility]. Upon discharge he will contact our office with any concerns or questions. I have reviewed the [place] Automated Rx Reporting System (OARRS) report for this patient for refill pattern and other prescriber involvement as part of the appropriate surveillance for the provision ofacute and chronic controlled medications. The report was requested and reviewed on the date of thisentry, and was considered in the prescribing process This dictation was created using voice recognition software. Phonetic and/or grammatical errors mayexist. Digitally Signed by DAVID WARE PA-C on 03/16/2024 08:09 AM [facility]01-28-2025 Note* Exam Date Time Procedure Performing Provider Status 03/15/24 1:52 PM XR Knee 1 or 2 Views Right DALY, CIRA VILLARREAL W DO; Auth (Verified) [id number] ORIGINAL EXAMINATION: TWO XRAY VIEWS OF THE RIGHT KNEE 03/15/2024 1:54 pm COMPARISON: None. HISTORY: ORDERING SYSTEM PROVIDED HISTORY: Reason for Exam: Status Post Arthroplasty FINDINGS: A new total right knee prosthesis in functional alignment. There is overlying subcutaneous emphysema and skin clips. No periprosthetic fracture or dislocation is seen. IMPRESSION: Total right knee prosthesis in functional alignment. Interpreted by: Carlos Umaña DO Preliminary Report By: Carlos Umaña DO Electronically signed By Carlos Umaña DO Dictated Date: 03/15/2024 2:07:12 PM Prelim Date: 03/15/2024 2:07:47 PM Sign Date: 03/15/2024 2:07:47 PM Ordering Provider: [facility]12-30-2024 Evaluation note* Diagnosis Onset Date Resolution Status Admit Date Viral URI acute February 15, 2024 1:03pm [facility] Work Phone: 1(691) 595-158612-30-2024 Evaluation note* Diagnosis Onset Date Resolution Status Admit Date Viral URI acute February 15, 2024 1:03pm Brain TIA acute May 14 4:44pm Carotid artery disease acute [facility] 2024 4:44pm Headache acute May 14 4:44pm Neurologic abnormality acute [facility] 2024 4:44pm Paresthesia acute May 14, 2 025 4:44pm [facility] Work Phone: 1(212) 556-538012-30-2024 Evaluation note* Diagnosis Onset Date Resolution Status Admit Date Viral URI resolved February 15, 2024 1:03pm Headache resolved May 14 4:44pm Neurologic abnormality resolved [facility] 2024 4:44pm Paresthesia resolved May 14, 2 025 4:44pm Brain TIA inactive May 14 4:44pm Carotid artery disease inactive [facility] 2024 4:44pm [facility] Work Phone: [phone]) 789-851203-07-2022 NoteHNO ID: [id number] Author: Danni Mccoy PA-C Service: ? Author Type: Physician Machine Iii Coremaker Type: Progress Notes Filed: 04/22/2021 4:59 PM Note Text: FOLLOW UP VISIT - HERNIA NAME: RACHEL Sandoval [facility] NO.: [id number] DATE OF SERVICE: 04/22/2021 : 1940 REFERRING PHYSICIAN: Jean-Pierre Umanzor MD Rachel is a patient I am following with Dr. Tyson for a bilateral inguinal hernias. Dr. Tyson performed a robotic assisted laparoscopic bilateral inguinal hernia repair with mesh on 04/12/21 at [facility]. The patient currently notes no major complaints. His appetite has been good. He denies fever, chills or abdominal pain. He does note some mild incisional discomfort. He notes some post-operative swelling on the right, otherwise no bulges at either operative site. Noted separately during review of patient's chart in Epic that in 2014 a pancreatic abnormality was noted incidentally on MRI which had been ordered to evaluate the gallbladder, with recommended 1 year follow up: IMPRESSION: 1. 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 ?Additional followup MRI in one year is recommended. 2. ?Cholelithiasis and stable borderline extrahepatic biliary ductal dilatation. That finding and recommendation were also noted in office visit with Dr. Horta 12/01/14 which was reviewed with patient. Per Dr. Horta's note from that date: PLAN: If the patient notes any problems or signs of biliary colic, the patient should contact me immediately. We discussed the findings of the small pancreatic system these are most likely benign. We covered the fact that there range of benign intermediate and malignant pancreatic issues. I feel his cysts are currently too small to accurately characterize. I do agree with followup MRI in a year. Diagnoses: (K80.20) Calculus of gallbladder without cholecystitis without obstruction (primary encounter diagnosis) (K86.2) Pancreatic cyst (HCC) ? Return to Clinic: The patient is instructed to follow-up with me in 12 months with an additional MRI. ? No further MRIs noted in patient's chart since that time. VITALS: Blood pressure 160/90, pulse 86, temperature 37.2 ?C (98.9 ?F), height 180.3 cm (5' 11), weight 86.6 kg (191 lb), SpO2 100 %. General: patient is alert, cooperative, pleasant and in no acute distress On examination, the abdomen is benign. The incisions are healing well without signs of infection or inflammation. There are no signs of recurrent hernia formation. Assessment IMPRESSION: status post robotic assisted laparoscopic bilateral inguinal hernia repair with mesh PLAN: If the patient notes any problems, he should contact me immediately. he may return to his regular activities as tolerated, with the exception of no lifting greater than 20 pounds for the next 7 weeks. If patient feels the urge to cough or sneeze, they should brace against the repair site with their hands or a pillow. Reviewed prior MRI findings with patient and confirmed that he had not had a repeat MRI at another facility since 2014. Patient stated he did not recall the pancreatic finding or the recommendation for repeat MRI at 1 year. I have discussed with patient repeating an MRI at this time for follow-up of prior incidental finding. He states he will consider this and will contact our office if he decides to proceed with scheduling MRI. Diagnoses: (Z98.890, Z87.19) S/P hernia repair (primary encounter diagnosis) (K86.2) Pancreatic cyst Patient verbalized understanding of all above and agreed with the plan. SANDRA [facility]02-15-2022 NoteHNO ID: [id number] Author: Silver Tyson MD Service: ? Author Type: Physician Type: Progress Notes Filed: 04/02/2021 9:32 AM Note Text: HISTORY AND PHYSICAL RACHEL Sandoval 1940 REFERRING PHYSICIAN: Self CHIEF COMPLAINT: Consult (Bilateral Inguinal Hernias) HPI: Rachel is a 79 year old male with a complaint of a bulge and discomfort in his right inguinal region and left inguinal region. The patient notes discomfort in this area mostly in the right inguinal area occasionally with coughing or lifting. The symptoms have increased, over the past 6 months. ? The patient notes no symptoms of bowel obstruction and denies nausea or vomiting. The patient was seen by his primary care physician who felt the patient has a hernia. Rachel was referred for evaluation and treatment. ? The patient presents today wanting information about repair of his hernias. 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 ? PAST MEDICAL HISTORY Diagnosis Date - Arthritis - Benign paroxysmal positional vertigo - Hyperlipemia - Inguinal hernia PAST SURGICAL HISTORY Procedure Laterality Date - APPENDECTOMY 02/15/14 - SHOULDER SURGERY HX age 19 Current Outpatient Medications Medication Sig - MELOXICAM ORAL Take by mouth as needed. - meclizine HCl (MECLIZINE ORAL) Take by mouth. Did not Start yet - Tadalafil (CIALIS) 20 mg tab(s) Take 20 mg by mouth once daily. Takes as needed. - atorvastatin (LIPITOR) 20 mg tablet Take 20 mg by mouth once daily. - Zinc Gluconate 100 mg tab Take by mouth. - Sennosides (SENNA) 8.6 mg cap Take by mouth. - MULTI-VITAMIN ORAL Take by mouth. - GLUC WEEKS 2KCL/CHONDR/VIT C/DANIELLE ([id number] C-MN ORAL) Take by mouth. - aspirin, enteric coated (ASPIRIN, ENTERIC COATED) 81 mg EC tablet Take 81 mg by mouth once daily. - SAW PALMETTO ORAL Take by mouth. - CALCIUM CARBONATE/VITAMIN D3 (CALCIUM + D ORAL) Take by mouth. No current facility-administered medications for this visit. ALLERGIES: Patient has no known allergies. PERSONAL HISTORY: Social History Tobacco Use - Smoking status: Never Smoker - Smokeless tobacco: Never Used Vaping Use - Vaping Use: Never used Substance Use Topics - Alcohol use: No - Drug use: Never FAMILY HISTORY: FAMILY HISTORY Problem Relation Age of Onset - Cancer Mother unsure type - Cancer Father unsure type - No Known Problems Sister - No Known Problems Brother - No Known Problems Brother - No Known Problems Brother - No Known Problems Maternal Grandmother - No Known Problems Maternal Grandfather - No Known Problems Paternal Grandmother - No Known Problems Paternal Grandfather REVIEW OF SYMPTOMS: The review of systems data was entered by the nurse and reviewed by ak Nursing Notes: Cyndi Nair 03/25/2021 3:07 PM Signed REVIEW OF SYSTEMS: General: The patient denies fatigue, denies weight loss, denies weight gain, denies feeling hot, and denies feelings of cold. Eyes: The patient denies glaucoma, denies eye injury/surgery, wears glasses or contacts. Ear/Nose/Throat: The patient denies allergies, denies hayfever, denies ear infections, and denies bloody noses. Cardiovascular: The patient denies chest pain, denies heart disease, denies high blood pressure,denies cardiac stent, denies prior heart attack, denies irregular heart beat, NOTES high cholesterol, denies poor circulation, denies heart failure, other cardiac issues, denies claudication, denies cold feet, denies peripheral arterial stent. Respiratory: The patient denies tuberculosis, denies pneumonia, denies frequent cough, denies pulmonary embolism, denies shortness of breath, and denies coughing up blood. Gastrointestinal: The patient denies difficulty swallowing, denies acid reflux, denies ulcers, denies vomiting, denies jaundice/hepatitis, denies gallbladder problems, denies black or tarry stools, NOTES hemorrhoids, denies bleeding from rectum, denies diverticulitis, denies constipation, denies diarrhea, denies loss of stool control, and NOTES hernias. Kidney/Bladder: The patient denies kidney stones, denies urine infections, and denies bloody urine. Skin: The patient denies a history of skin cancer, denies bleeding/changing moles, and denies a history of skin rash. Neurologic: The patient denies a history of epilepsy/convulsions, denies headaches, denies head/spinal injuries, and denies stroke/TIA. Psychiatric: The patient denies psychiatric medications, denies depression, and denies voices, denies substance abuse. Endocrine: The patient denies thyroid disorders, denies diabetes, and denies hormonal problems. Hematologic: The patient denies a history of bruising, denies bleeding, and denies anemia, denies blood clots. Infections: The patient denies a history of measles and mumps, denies rheumatic fever, and denies sexually transmitted dis (more content not included)...[facility]01-21-2022 NoteHNO ID: [id number] Author: Nghia Horta MD Service: ? Author Type: Physician Type: Progress Notes Filed: 03/08/2021 12:38 PM Note Text: HISTORY AND PHYSICAL RACHEL Sandoval 1940 REFERRING PHYSICIAN: Benito Salas MD CHIEF COMPLAINT: Bilateral inguinal hernias HPI: Rachel is a 79 year old male with a complaint of a bulge and discomfort in his right inguinal region and left inguinal region. The patient notes discomfort in this area mostly in the right inguinal area occasionally with coughing or lifting. The symptoms have increased, over the past 6 months. The patient notes no symptoms of bowel obstruction and denies nausea or vomiting. The patient was seen by his primary care physician who felt the patient has a hernia. Rachel was referred for evaluation and treatment. The patient presents today wanting information about repair of his hernias. 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 The patient is being seen by me today at the request of Dr. Salas for my opinion and advice regarding minimally symptomatic bilateral inguinal hernias. PAST MEDICAL HISTORY Diagnosis Date - Arthritis - Benign paroxysmal positional vertigo - Hyperlipemia - Inguinal hernia PAST SURGICAL HISTORY Procedure Laterality Date - APPENDECTOMY 02/15/14 - SHOULDER SURGERY HX age 19 Current Outpatient Medications Medication Sig - MELOXICAM ORAL Take by mouth as needed. - meclizine HCl (MECLIZINE ORAL) Take by mouth. Did not Start yet - Tadalafil (CIALIS) 20 mg tab(s) Take 20 mg by mouth once daily. - atorvastatin (LIPITOR) 20 mg tablet Take 20 mg by mouth once daily. - Zinc Gluconate 100 mg tab Take by mouth. - Sennosides (SENNA) 8.6 mg cap Take by mouth. - MULTI-VITAMIN ORAL Take by mouth. - GLUC WEEKS 2KCL/CHONDR/VIT C/DANIELLE ([id number] C-MN ORAL) Take by mouth. - aspirin, enteric coated (ASPIRIN, ENTERIC COATED) 81 mg EC tablet Take 81 mg by mouth once daily. - SAW PALMETTO ORAL Take by mouth. - CALCIUM CARBONATE/VITAMIN D3 (CALCIUM + D ORAL) Take by mouth. No current facility-administered medications for this visit. ALLERGIES: Patient has no known allergies. PERSONAL HISTORY: Social History Tobacco Use - Smoking status: Never Smoker - Smokeless tobacco: Never Used Substance Use Topics - Alcohol use: No - Drug use: Not on file FAMILY HISTORY: FAMILY HISTORY Problem Relation Age of Onset - Cancer Mother unsure type - Cancer Father unsure type REVIEW OF SYMPTOMS: The review of systems data was entered by the nurse and reviewed by me Nursing Notes: Cyndi Nair 03/07/2021 12:30 PM Signed REVIEW OF SYSTEMS: General: The patient denies fatigue, denies weight loss, denies weight gain, denies feeling hot, and denies feelings of cold. Eyes: The patient denies glaucoma, denies eye injury/surgery, does not wear glasses or contacts. Ear/Nose/Throat: The patient denies allergies, denies hayfever, denies ear infections, and denies bloody noses. Cardiovascular: The patient denies chest pain, denies heart disease, denies high blood pressure,denies cardiac stent, denies prior heart attack, denies irregular heart beat, NOTES high cholesterol, denies poor circulation, denies heart failure, other cardiac issues, denies claudication, denies cold feet, denies peripheral arterial stent. Respiratory: The patient denies tuberculosis, denies pneumonia, denies frequent cough, denies pulmonary embolism, denies shortness of breath, and denies coughing up blood. Gastrointestinal: The patient denies difficulty swallowing, denies acid reflux, denies ulcers, denies vomiting, denies jaundice/hepatitis, denies gallbladder problems, denies black or tarry stools, denies hemorrhoids, denies bleeding from rectum, denies diverticulitis, NOTES constipation, denies diarrhea, denies loss of stool control, and denies hernias. Kidney/Bladder: The patient denies kidney stones, denies urine infections, and denies bloody urine. Skin: The patient denies a history of skin cancer, denies bleeding/changing moles, and denies a history of skin rash. Neurologic: The patient denies a history of epilepsy/convulsions, denies headaches, denies head/spinal injuries, and denies stroke/TIA. Psychiatric: The patient denies psychiatric medications, denies depression, and denies voices, denies substance abuse. Endocrine: The patient denies thyroid disorders, denies diabetes, and denies hormonal problems. Hematologic: The patient denies a history of bruising, denies bleeding, and denies anemia, denies blood clots. Infections: The patient denies a history of measles and mumps, denies rheumatic fever, and denies sexually transmitted diseases. Musculoskeletal: The patient denies back pain/injury, denies back problems, denies sciatica, NOTES knee/foot trouble, NOTES arthritis, or denies gout. When was patie (more content not included)...[facility] 08-16-2020 NoteHNO ID: [id number] Author: Nghia Horta MD Service: ? Author Type: Physician Type: Progress Notes Filed: 08/16/2020 12:23 PM Note Text: HISTORY AND PHYSICAL RACHEL Sandoval 1940 REFERRING PHYSICIAN: Benito Salas MD CHIEF COMPLAINT: Bilateral inguinal hernias HPI: Rachel is a 79 year old male with a complaint of a bulge and discomfort in his right inguinal region and left inguinal region. The patient notes discomfort in this area mostly in the right inguinal area occasionally with coughing or lifting. The symptoms have increased, over the past 6 months. The patient notes no symptoms of bowel obstruction and denies nausea or vomiting. The patient was seen by his primary care physician who felt the patient has a hernia. Rachel was referred for evaluation and treatment. The patient presents today wanting information about repair of his hernias. 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 The patient is being seen by me today at the request of Dr. Salas for my opinion and advice regarding minimally symptomatic bilateral inguinal hernias. PAST MEDICAL HISTORY Diagnosis Date - Hyperlipemia PAST SURGICAL HISTORY Procedure Laterality Date - APPENDECTOMY 02/15/14 - SHOULDER SURGERY HX age 19 Current Outpatient Medications Medication Sig - Tadalafil (CIALIS) 20 mg tab(s) Take 20 mg by mouth once daily. - atorvastatin (LIPITOR) 20 mg tablet Take 20 mg by mouth once daily. - Zinc Gluconate 100 mg tab Take by mouth. - Sennosides (SENNA) 8.6 mg cap Take by mouth. - GLUC WEEKS 2KCL/CHONDR/VIT C/DANIELLE ([id number] C-MN ORAL) Take by mouth. - aspirin, enteric coated (ASPIRIN, ENTERIC COATED) 81 mg EC tablet Take 81 mg by mouth once daily. - SAW PALMETTO ORAL Take by mouth. - MULTI-VITAMIN ORAL Take by mouth. - CALCIUM CARBONATE/VITAMIN D3 (CALCIUM + D ORAL) Take by mouth. No current facility-administered medications for this visit. ALLERGIES: Patient has no known allergies. PERSONAL HISTORY: Social History Tobacco Use - Smoking status: Never Smoker Substance Use Topics - Alcohol use: No - Drug use: Not on file FAMILY HISTORY: FAMILY HISTORY Problem Relation Age of Onset - Cancer Mother unsure type - Cancer Father unsure type REVIEW OF SYMPTOMS: The review of systems data was entered by the nurse and reviewed by me Nursing Notes: Boogie Pardo LPN 08/16/2020 10:47 AM Signed REVIEW OF SYSTEMS: General: The patient denies fatigue, denies weight loss, denies weight gain, denies feeling hot, and denies feelings of cold. Eyes: The patient denies glaucoma, denies eye injury/surgery, wears glasses or contacts. Ear/Nose/Throat: The patient denies allergies, denies hayfever, denies ear infections, and denies bloody noses. Cardiovascular: The patient denies chest pain, denies heart disease, denies high blood pressure,denies cardiac stent, denies prior heart attack, denies irregular heart beat, denies high cholesterol, denies poor circulation, denies heart failure, other cardiac issues, denies claudication, denies cold feet, denies peripheral arterial stent. Respiratory: The patient denies tuberculosis, denies pneumonia, denies frequent cough, denies pulmonary embolism, denies shortness of breath, and denies coughing up blood. Gastrointestinal: The patient denies difficulty swallowing, denies acid reflux, denies ulcers, denies vomiting, denies jaundice/hepatitis, denies gallbladder problems, denies black or tarry stools, denies hemorrhoids, denies bleeding from rectum, denies diverticulitis, denies constipation, denies diarrhea, denies loss of stool control, and NOTES hernias. Kidney/Bladder: The patient denies kidney stones, denies urine infections, and denies bloody urine. Skin: The patient denies a history of skin cancer, denies bleeding/changing moles, and denies a history of skin rash. Neurologic: The patient denies a history of epilepsy/convulsions, denies headaches, denies head/spinal injuries, and denies stroke/TIA. Psychiatric: The patient denies psychiatric medications, denies depression, and denies voices, denies substance abuse. Endocrine: The patient denies thyroid disorders, denies diabetes, and denies hormonal problems. Hematologic: The patient denies a history of bruising, denies bleeding, and denies anemia, denies blood clots. Infections: The patient denies a history of measles and mumps, denies rheumatic fever, and denies sexually transmitted diseases. Musculoskeletal: The patient denies back pain/injury, denies back problems, denies sciatica, NOTES knee/foot trouble, denies arthritis, or denies gout. When was patient's last Mammogram screening? N/A Last Colonoscopy: unknown Boogie Pardo OMAR PHYSICAL EXAMINATION: General: The patient is 79 year old male, well nourished, well hydrated in no acute distress. The patient is oriente (more content not included)... [facility] summary Author Franklin Pablo [facility] Note Date/Time May 15, 2024 3:5 1pm [facility] Medical Records Department [address] [place] [address] Discharge Summary 05/15/24 1543 MR#: [id number] Acct: [id number] Name: RACHEL SANDOVAL Rep #:[id number] : 1940 83 From: Franklin Pablo DO PCP: Dr. Jean-Pierre Umanzor MD Status :ADM JAY Location: [place] [address] Providers Date of Admission: 05/14/24 Primary Care Physician: Dr. Jean-Pierre Umanzor MD Consultations 05/14/24 17:45 Consult: Tele-Neurology Routine Consulting Provider: [facility] Reason for Consult: TIA r/o, stroke call in ED EMERGENT Consult: No MD Notified: Yes Date Notified: 05/14/24 Time Notified: 22:44 Method of Notification: Answering Service Nursing Unit Staff Notify [facility] of Tele-Neurology Consult: Yes Reason For Visit: TIA/CVA R/O Diagnosis Discharge Diagnosis (1) Brain TIA: Status: Acute Code(s): G45.9 - Transient cerebral ischemic attack, unspecified Plan: Left face and hand paresthesias Neuro consulted Check TTE, therapy evals. 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 Medications at Discharge Home Medications meloxicam 7.5 mg tablet 7.5 mg PO DAILY PRN shoulder pain 02/09/21 atorvastatin 40 mg tablet 40 mg PO DAILY #30 tabs 05/06/24 cholecalciferol (vitamin D3) 25 mcg (1,000 unit) capsule (Vitamin D3) 25 mcg PO DAILY 05/14/24 oxycodone 5 mg tablet 5 - 10 mg PO Q6H PRN pain 03/29/25 aspirin 325 mg tablet 325 mg PO BREAKFAST #0 tabs 05/15/24 Hospital Course Operations None Procedures None Summary of Care Provided Minutes Spent on Discharge: 40 Hospital Course: Patient presents with left index and middle finger and left face paresthesias. Symptoms resolved and patient had no further issues. So he presented to the emergency room for further workup for stroke. She underwent CAT scan of the head, CT of the head and neck and brain MRI. No acute stroke were noted howeverpatient has had history of left MCA and right WAYNE stroke. Previous MRI from 2018, and on posttraumatic changes to the right side which is likely where that prior stroke was. Patient adamantly denies any head trauma. Patient was seen by neurology who recommends a TTE as well as full dose aspirin from the regular aspirin that he is taking daily. Patient had symptoms about a week ago that wasseen by his primary care doctor and had an echo ordered. Echo is already ordered for May 31. Given the fact that no acute stroke was noted and patientis asymptomatic at this time I think it is reasonable for him to be discharged home to have his echocardiogram and then to follow-up with neurology as outpatient. Patient was in agreement to the plan but patient was offered the opportunity to stay in the hospital to have 2D echocardiogram performed on the . Weight / BMI Weight Weight: 81.1 kg Body Mass Index (BMI) 24.9 ABG / Lab / Microbiology Data 05/15/24 04:48 05/15/24 04:48 Laboratory: Laboratory Results - last 24 hr 05/14/24 15:20: POC Glucose 109 H 05/14/24 15:25: PT 13.9, INR 1.1, APTT 36.0, Sodium 140, Potassium 4.2, [id number], Carbon Dioxide 25.2, Anion Gap 11, BUN 14, Creatinine 0.87, Estim Creat Clear Calc 70.92, Est GFR (MDRD) Non-Af 87, BUN/Creatinine Ratio 16.1, Glucose 106 H, Calcium 9.3, Troponin T High Sens 20 D, Troponin T Hi Sens 2 Hr Cancelled, Troponin T Hi Sens 4Hr Cancelled 05/14/24 20:35: Troponin T Hi Sens 2 Hr 16 05/14/24 22:21: Troponin T Hi Sens 4Hr 17 05/15/24 04:48: WBC 4.8, RBC 4.24 L, Hgb 13.0, Hct 38.0 L, MCV 89.6, MCH 30.7, MCHC 34.2, RDW Std Deviation 42.2, RDW Coeff of Eduard 12.8, Plt Count 204, MPV 9.7, Immature Gran % (Auto) 0.200, Neut % (Auto) 54.7, Lymph % (Auto) 30.0, [place]ion% (Auto) 11.2 H, Eos % (Auto) 2.9, Baso % (Auto) 1.0, Absolute Neuts (auto) 2.6,Absolute Lymphs (auto) 1.45, Nucleated RBC % 0, PT 14.2, INR 1.1, Sodium 140, Potassium 4.1, Chloride 105, Carbon Dioxide 22.6, Anion Gap 12, BUN 10, Creatinine 0.75, Estim Creat Clear Calc 77.13, Est GFR (MDRD) Non-Af 91, BUN/Creatinine Ratio 13.9, Glucose 91, Hemoglobin A1c 5.6 L, Calcium 9.3, Triglycerides 76, Cholesterol 113, LDL Cholesterol, Calc 52, VLDL Cholesterol 15, HDL Cholesterol 46, Cholesterol/HDL Ratio 2.45, TSH 12.300 H Radiography Diagnostic Testing: Radiology Impression Brain CT 05/14/24 15:23 IMPRESSION: 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 No acute process. No hemorrhage. Reading Location: [facility] Head/Neck CTA 05/14/24 15:23 IMPRESSION: 1. No large vessel occlusion, AVM or aneurysm.. 2. Narrowing of the left common carotid approaching 50%. Unremarkable right CCA. 9 partially visualized left apical pleural thickening of indeterminate etiology Reading Location: [facility] Brain MRI 05/15/24 17:01 IMPRESSION: No restricted diffusion to indicate acute infarct. 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 Reading Location: [facility] D/C Instructions Discharge Diet: Low fat / Low cholesterol DC O2, CPAP, BIPAP Needs Home O2 Discharge instructions: No Meaningful Use Info Meaningful Use Meaningful Use Diagnoses (Choose all that apply): Ischemic CVA CVA Therapy Assessed for PT,OT and/or ST?: Yes Ischemic Stroke Antithrombotic order at d/c?: Yes Dx of Atrial fib/flutter?: No Anticoagulant at discharge?: No Reason anticoagulant not ordered: Treatment not Indicated Statin Dosing Therapy Reference: STATIN DOSE THERAPY REFERENCE: * Patients > 75 years receive moderate or high dose statin therapy. * Patients 75 years or YOUNGER should receive HIGH intensity statin dose unless contraindicated. You will be required to document reason for non-treatment if statin daily dose does not meet guidelines. HIGH DOSE STATIN THERAPY DAILY Atorvastatin > than or = to 40 mg Rosuvastatin > than or = to 20 mg Amlodipine + Atorvastatin > than or = to 2.5/40 mg Ezetimibe + Simvastatin 10/80 mg Simvastatin 80mg Statins at discharge?: Yes Primary Dx Acute Ischemic CVA?: Yes IV thrombolytic ordered during stay?: No Reason IV thrombolytic not ordered: Treatment not Indicated Discharge Plan Admission Admit Date/Time: 05/14/24 16:44 Primary Reason for Your Visit: TIA Attending Provider: Franklin Pablo Primary Care Provider: Jean-Pierre Umanzor Consulting Providers: Everett Sparks; Albert Kay; Kiki Woodson; Miryam Norwood; Rebekah Marshall; Patrick Lambert; Yumiko Kate; Navin Barba; Rachel Wells; Gil Willoughby; Haleigh Lovett; Ankit Philippe; Julee Palmer; Dominick Tejeda; Surinder Cox; Rocky Encarnacion; Bhargavi Velazquez; Maynor Peterson; Carolina Vences; Dameon Colindres;Franchesca Green Instructions Additional Instructions / Restrictions: Yet symptoms concerning for a TIA. TIA or strokelike symptoms at last less in 24 hours usually for only minutes to hours. Your MRI of the brain shows that you have had prior strokes that have occurred sometime ago, longer than when youinitially had symptoms a week ago. Neurology has recommended that you have fulldose aspirin and continued other medications. Also recommended that you have your echocardiogram and you have already scheduled for May 31. And also follow-up with outpatient neurology with Dr. Rodriguez here or the following: [facility] [phone]. [facility] [place] [phone]. [facility] [place] [phone]. [phone]. [facility] [place] [phone] Discharge Orders/Prescriptions Prescriptions: New aspirin 325 mg Tablet 325 mg PO BREAKFAST Qty: 0 0RF Continued meloxicam 7.5 mg tablet 7.5 mg PO DAILY PRN (Reason: shoulder pain) Patient Comments: Take1 TABLET by mouth twice a day atorvastatin 40 mg tablet 40 mg PO DAILY Qty: 30 2RF cholecalciferol (vitamin D3) [Vitamin D3] 25 mcg (1,000 unit) capsule 25 mcg PO DAILY oxycodone 5 mg tablet 5 - 10 mg PO Q6H PRN Discontinued aspirin 81 MG tablet,chewable 81 mg PO DAILY@0800 Patient Comments: heart health Referrals / Follow Up: Jean-Pierre Umanzor MD [Primary Care Provider] - Within 2 Weeks [facility] [Provider Group] - Within 1 Month Disposition Disposition (needs filled in before D/C Order can be placed): Home, Self Care Charges/Coding Visit Charges Inpatient E&M: 54565 Disch Hosp >30min 05/15/24 1551 <Electronically signed by Franklin Pablo DO> Cosigner Signature (if applicable): CC: Dr. Jean-Pierre Umanzor MD; Dr. Franklin Pablo DO~ Signed [facility] Work Phone: Evaluation + Plan note Future Appointments [facility] Evaluation noteNo assessment information available [facility] Work Phone: Hospital course Narrative No data available for this section [facility] Discharge instructions No data available for this section [facility] Progress note No data available for this section [facility] Progress note Author Patrick Lambert [facility] Note Date/Time May 15, 2024 2:5 4pm [facility] Medical Records Department [address] [place] [address] Progress Note - Neurology 05/15/24 1448 MR#: [id number] Acct: [id number] Name: RACHEL SANDOVAL Rep #:[id number] : [id number] 83 From: Patrick Fitzpatrick PCP: Dr. Jean-Pierre Umanzor MD Status :ADM JAY Location: [place] [address] Assessment and Plan: Neuro Assessment/Plan 83 y/o man with h/o arthritis, DLD p/w after an episode of numbness/tingling in left hand (first two fingers) for 2 mins and then left perioral numbness along with mild lightheadedness. He reports of another episode a week ago with troublewith balance/dizziness and trouble getting out words. Workup- A1c-5.6. LDL-52. CTA- left CCA-50% stenosis. MRI brain - no acute stroke. Diagnosis: Possible TIA Plan: Increase ASA to 325mg daily along with statin. Follow up TTE. OT/PT/HOME HEALTH ADMINISTRATOR Please call us for any acute finding. I personally attended this patient and spent a total time of 35 minutes evaluating this patient including clinical assessment, review of chart, medical history imaging, and determining appropriate treatment and workup. Subject: Neurology Subjective No acute events overnight. This AM, patient reports feeling better with NIHSS-0. Workup- A1c-5.6. LDL-52. CTA- left CCA-50% stenosis. MRI brain - no acute stroke. NIHSS NIHSS Nursing Documentation NIHSS Nursing Documentation: NIHSS: Ischemic Stroke/TIA Start: 05/14/24 17:45 Text: For PCU Patients: NIH and Neuro Check every 4 Status: Active hours, PRN and with change in RN caregiver. Freq: [id number] Protocol: Activity Type Activity Date Activity User E-sign Co-sign Detail Recorded Client Recorded Date Recorded By Document 05/15/24 12:25 ML [id number] 05/15/24 12:30 ML 05/15/24 12:25 NIH Stroke Scale [NIHSS] A score of 0 is normal or asymptomatic . Total possible score is 42. Inpatient: RN or Physician to activate a stroke alert for onset of new stroke symptoms or with NIHSS increase >/= 3 points. Following change in neurological status, NIHSS will be performed per physician order or more frequently PRN. -1a. Level of Consciousness Alert; keenly responsive -1b. LOC Questions Answers BOTH questions correctly. -1c. LOC Commands Performs both tasks correctly . -2. Best Gaze Normal -3. Visual No visual loss -4. Facial Palsy Normal symmetrical movements -5a. Left Arm No drift; arm holds 90 (or 45 ) degrees for full 10 seconds -5b. Right Arm No drift; arm holds 90 (or 45 ) degrees for full 10 seconds -6a. Left Leg No drift; leg holds 30-degree position for full 5 seconds -6b. Right Leg No drift; leg holds 30-degree position for full 5 seconds -7. Limb Ataxia Absent -8. Sensory Normal; no sensory loss -9. Best Language No aphasia; normal -10. Dysarthria Normal -11. Extinction and Inattention No abnormality -Total 0 Query Text:A score of 0 is normal or asymptomatic. Total possible score is 42 . ED: Notify Physician for NIHSS increase by > / = 3 points. Inpatient: RN or Physician to activate a stroke alert for NIHSS increase of > / = 3 points. Coma Scale [Assess] -Eye Opening Spontaneous -Motor Obeys Commands -Verbal Oriented [Total] -Coma Scale Total 15 NIHSS 1a. Level of Consciousness: Alert; keenly responsive 1b. LOC Questions: Answers BOTH questions correctly. 1c. LOC Commands: Performs both tasks correctly. 2. Best Gaze: Normal 3. Visual: No visual loss 4. Facial Palsy: Normal symmetrical movements 5a. Left Arm: No drift; arm holds 90 (or 45) degrees for full 10 seconds 5b. Right Arm: No drift; arm holds 90 (or 45) degrees for full 10 seconds 6a. Left Leg: No drift; leg holds 30-degree position for full 5 seconds 6b. Right Leg: No drift; leg holds 30-degree position for full 5 seconds 7. Limb Ataxia: Absent 8. Sensory: Normal; no sensory loss 9. Best Language: No aphasia; normal 10. Dysarthria: Normal 11. Extinction and Inattention: No abnormality Total: 0 EEG Results Procedure Details EEG Procedure Details: RACHEL SANDOVAL is a 83 year old M with a past medical history of , who presents for evaluation of Electroencephalogram on DATE at TIME Objective Data Objective Data Vital Signs: Vital Signs Temp Pulse Resp BP Pulse Ox O2 Del Method O2 Flow Rate 97.9 F 94 16 140/86 H 99 Room Air 18 05/15/24 12:25 05/15/24 12:25 05/15/24 12:25 05/15/24 12:25 05/15/24 12:25 05/15/24 12:05/14/24 15:53 Oxygen Flow Rate (L/min) 18 Oxygen Delivery Method Room Air Weight: 81.1 kg Body Mass Index (BMI) 24.9 Intake & Output: Intake and Output for Last 24 Hours 05/13/24 05/14/24 05/15/24 23:59 23:59 23:59 Intake Total 420 / 420 Balance 420 / 420 Lab / Micro Data 05/15/24 04:48 05/15/24 04:48 Labs: Laboratory Results - last 24 hr 05/14/24 15:20: POC Glucose 109 H 05/14/24 15:25: WBC 6.3, RBC 4.35 L, Hgb 13.3, Hct 39.4 L, MCV 90.6, MCH 30.6, MCHC 33.8, RDW Std Deviation 42.5, RDW Coeff of Eduard 12.9, Plt Count 204, MPV 9.1, Immature Gran % (Auto) 0.300, Neut % (Auto) 54.4, Lymph % (Auto) 33.7, Obion % (Auto) 9.7, Eos % (Auto) 1.3, Baso % (Auto) 0.6, Absolute Neuts (auto) 3.4, Absolute Lymphs (auto) 2.11, Nucleated RBC % 0, PT 13.9, INR 1.1, APTT 36.0, Sodium 140, Potassium 4.2, Chloride 104, Carbon Dioxide 25.2, Anion Gap 11, BUN 14, Creatinine 0.87, Estim Creat Clear Calc 70.92, Est GFR (MDRD) Non-Af 87, BUN/Creatinine Ratio 16.1, Glucose 106 H, Calcium 9.3, Troponin T High Sens 20 D, Troponin T Hi Sens 2 Hr Cancelled, Troponin T Hi Sens 4Hr Cancelled 05/14/24 20:35: Troponin T Hi Sens 2 Hr 16 05/14/24 22:21: Troponin T Hi Sens 4Hr 17 03/30/25 04:48: WBC 4.8, RBC 4.24 L, Hgb 13.0, Hct 38.0 L, MCV 89.6, MCH 30.7, MCHC 34.2, RDW Std Deviation 42.2, RDW Coeff of Eduard 12.8, Plt Count 204, MPV 9.7, Immature Gran % (Auto) 0.200, Neut % (Auto) 54.7, Lymph % (Auto) 30.0, Obion % (Auto) 11.2 H, Eos % (Auto) 2.9, Baso % (Auto) 1.0, Absolute Neuts (auto) 2.6, Absolute Lymphs (auto) 1.45, Nucleated RBC % 0, PT 14.2, INR 1.1, Sodium 140, Potassium 4.1, Chloride 105, Carbon Dioxide 22.6, Anion Gap 12, BUN 10, Creatinine 0.75, Estim Creat Clear Calc 77.13, Est GFR (MDRD) Non-Af 91, BUN/Creatinine Ratio 13.9, Glucose 91, Hemoglobin A1c 5.6 L, Calcium 9.3, Triglycerides 76, Cholesterol 113, LDL Cholesterol, Calc 52, VLDL Cholesterol 15, HDL Cholesterol 46, Cholesterol/HDL Ratio 2.45, TSH 12.300 H Radiography Diagnostic Testing: Radiology Impression Brain CT 05/14/24 15:23 IMPRESSION: 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 No acute process. No hemorrhage. Reading Location[facility] Head/Neck CTA 05/14/24 15:23 IMPRESSION: 1. No large vessel occlusion, AVM or aneurysm.. 2. Narrowing of the left common carotid approaching 50%. Unremarkable right CCA. 9 partially visualized left apical pleural thickening of indeterminate etiology Reading Location: [facility] Brain MRI 05/15/24 17:01 IMPRESSION: No restricted diffusion to indicate acute infarct. 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 Reading Location: [facility] Physical Exam Narrative General: The patient appears nutritionally appropriate, well-groomed, and appears comfortable in no acute distress. Mental Status:? The patient?s mental status was normal including orientation.? Language was intact.? Cranial nerves:? Visual arnold full, and extra-ocular motion was intact. Symmetric face. Motor: Normal strength in all extremities. Sensation: Intact to touch in all extremities.? Coordination:? Bilateral finger to nose was normal.? There was no dysmetria. Gait:? deferred. 05/15/24 1458 <Electronically signed by Patrick Lambert MD> Cosigner Signature (if applicable): CC: ~ Signed [facility] Work Phone: Reason for referral (narrative)No reason for referral information availableWKettering Health [facility] Work Phone: Summary Purpose Family History No Family History Records Found Relationship Condition Age at Onset Recorded Date/T gage Unknown Family History?Cancer Unknown Januar y 2017 1:22pm Family History?Cancer Unknown Januar y 2017 1:22pm Relationship Condition Age at Onset Recorded Date/T gage Unknown Family History?Cancer Unknown Januar y 2017 12:22pm Family History?Cancer Unknown Januar y 2017 12:22pm Advance Directives No Advanced Directives Records Found Advance Directive Response Recorded Date/ Time Advance Directives Yes February 24, 2017 2:16pm Living Will Yes April 05 10:09am Power of Filler Room Attendant Yes April 05, 2021 10:09am Advance Directive Response Recorded Date/ Time Advance Directives Yes February 24, 2017 1:16pm Living Will Yes April 05 022 9:09am Power of Filler Room Attendant Yes April 05, 2021 9:09am Advance Directive Response Recorded Date/ Time Living Will Yes May 06, 2024 4:04pm Do you have a Healthcare Power of Filler Room Attendant? Yes May 06, 2024 4:04pm Name of Medical Power of Filler Room Attendant Dayana May 06, 2024 4:04pm Advance Directives Yes February 24, 2017 2:16pm Advance Directive Response Recorded Date/ Time Living Will Yes May 06, 2024 4:04pm Do you have a Healthcare Power of Filler Room Attendant? Yes May 06, 2024 4:04pm Name of Medical Power of Filler Room Attendant Dayana May 06, 2024 4:04pm Living Will Yes May 14, 2024 3:38pm Do you have a Healthcare Power of Filler Room Attendant? Yes May 14, 2024 3:38pm Name of Medical Power of Filler Room Attendant David Sandoval May 14, 2024 3:38pm Advance Directives Yes February 24, 2017 2:16pm Advance Directive Response Recorded Date/ Time Living Will Yes May 06, 2024 4:04pm Do you have a Healthcare Power of Filler Room Attendant? Yes May 06, 2024 4:04pm Name of Medical Power of Filler Room Attendant Dayana May 06, 2024 4:04pm Living Will Yes May 14, 2024 5:48pm Do you have a Healthcare Power of Filler Room Attendant? Yes May 14, 2024 5:48pm Name of Medical Power of Filler Room Attendant David Sandoval May 14, 2024 5:48pm Advance Directives Yes February 24, 2017 2:16pm Chief Complaint and Reason for Visit Chief Complaint VESTIBULAR. RX HERE Chief Complaint VESTIBULAR. 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 RX HERE Chief Complaint Admit Date EORDER January 28, 2024 12:35pm COUGH/SINUS CMP February 15, 2024 1:03pm MINI STROKE May 06, 2024 3:3 9pm Reason for Visit Admit Date Viral URI February 15, 2024 1:03pm Chief Complaint Admit Date EORDER January 28, 2024 12:35pm COUGH/SINUS CMP February 15, 2024 1:03pm MINI STROKE May 06, 2024 3:3 9pm TIA/CVA R/O May 14, 2024 4:4 4pm Reason for Visit Admit Date Viral URI February 15, 2024 1:03pm Brain TIA May 14, 2024 4:4 4pm Carotid artery disease May 14, 2024 4:44pm Headache May 14, 2024 4:4 4pm Neurologic abnormality May 14, 2024 4:44pm Paresthesia May 14, 2024 4:4 4pm Chief Complaint Admit Date EORDER January 28, 2024 12:35pm COUGH/SINUS CMP February 15, 2024 1:03pm MINI STROKE May 06, 2024 3:3 9pm TIA/CVA R/O May 14, 2024 4:4 4pm TIA/CVA R/O May 15, 2024 8:5 7am Chief Complaint Admit Date COUGH/SINUS CMP February 15, 2024 1:03pm MINI STROKE May 06, 2024 3:3 9pm TIA/CVA R/O May 14, 2024 4:4 4pm TIA/CVA R/O May 15, 2024 8:5 7am TRANSIENT CEREBRAL ISCHEMIC ATTACK, UNSP ECIFIED May 31, 2024 12:29pm Reason for Visit Admit Date Viral URI February 15, 2024 1:03pm Headache May 14, 2024 4:4 4pm Neurologic abnormality May 14, 2024 4:44pm Paresthesia May 14, 2024 4:4 4pm Brain TIA May 14, 2024 4:4 4pm Carotid artery disease May 14, 2024 4:44pm Additional Source Comments (unrecognized sect ion and content) No Status Records FoundNo Status Records FoundNo Status Records Found INFORMATION SOURCE (unrecogn ized section and content) DATE CREATED AUTHOR 05/05/2021 [facility] DATE CREATED AUTHOR AUTHOR'S ORGANIZ ATION 05/26/2024 [facility] DATE CREATED AUTHOR AUTHOR'S ORGANIZ ATION 06/04/2024 [facility] Goals (unrecognized section and content) Goals may be documented in a n alternate sectionGoals may be documented in an alternate sectionGoals may be documented in an alternate sectionGoals may be documented in an alternate section No data available for this section No data available for this section No data available for this sectionGoals may be documented in an alternate sectionGoals may be documented in an alternate section Care Teams (unrecognized sec tion and content) Team Status: Active Member Role Status Dates Dr. Jerald Umanzor MD Family Provider Active Dr. Jerald Umanzor MD Primary Care Provider Activ e Team Status: Inactive Member Role Status Dates Dr. Jerald Umanzor MD Primary Care Provider, Attending Provider, Referring Provider Active Team Status: Inactive Member Role Status Dates Dr. Jerald Umanzor MD Primary Care Provider Activ e Dr. Tierney Chery MD Attending Provider, Referring P hayes Active Team Status: Active Member Role Status Dates Dr. Jean-Pierre Umanzor MD Primary Care Provider Acti ve Team Status: Inactive Member Role Status Dates Dr. Jean-Pierre Umanzor MD Primary Care Provider Acti ve Start: January 28, 2024 End: January 28, 2024 Dr. Jean-Pierre Umanzor MD Attending Provider Active Start: January 28, 2024 End: January 28, 2024 Dr. Jean-Pierre Umanzor MD Referring Provider Active Start: January 28, 2024 End: January 28, 2024 Team Status: Inactive Member Role Status Dates Dr. Jean-Pierre Umanzor MD Primary Care Provider Acti ve Start: February 15, 2024 End: February 15, 2024 Dr. Jean-Pierre Umanzor MD Referring Provider Active Start: February 15, 2024 End: February 15, 2024 MARCELO Ni Attending Provider Active Star t: February 15, 2024 End: February 15, 2024 Team Status: Inactive Member Role Status Dates Dr. Jean-Pierre Umanzor MD Primary Care Provider Acti ve Start: May 06, 2024 End: May 06, 2024 Dr. Issa Waters MD Emergency Provider Active Sta rt: May 06, 2024 End: May 06, 2024 Team Status: Inactive Member Role Status Dates Dr. Jean-Pierre Umanzor MD Primary Care Provider Acti ve Start: May 06, 2024 End: May 06, 2024 Dr. Issa Waters MD Attending Provider Active Sta rt: May 06, 2024 End: May 06, 2024 Dr. Issa Waters MD Emergency Provider Active Sta rt: May 06, 2024 End: May 06, 2024 Team Status: Active Member Role Status Dates Dr. Jean-Pierre Umanzor MD Primary Care Provider Acti ve Start: May 14, 2024 Dr. Abiel Dunne DO Emergency Provider Active Start : May 14, 2024 Dr. Franchesca Green MD Admit Provider Active Star t: May 14, 2024 Dr. Franchesca Green MD Attending Provider Active Start: May 14, 2024 Team Status: Inactive Member Role Status Dates Dr. Jean-Pierre Umanzor MD Primary Care Provider Acti ve Start: May 14, 2024 End: May 15, 2024 Dr. Abiel Dunne DO Emergency Provider Active Start : May 14, 2024 End: May 15, 2024 Dr. Franchesca Green MD Admit Provider Active Star t: May 14, 2024 End: May 15, 2024 Dr. Franchesca Green MD Other Provider Active Star t: May 14, 2024 End: May 15, 2024 Everett Sparks MD Other Provider Active Start: [facility] 2024 End: May 15, 2024 Dr. Albert Kay MD Other Provider Active Start: May 14, 2024 End: May 15, 2024 Kiki Woodson MD Other Provider Active Start : May 14, 2024 End: May 15, 2024 Dr. Miryam Norwood DO Other Provider Active St art: May 14, 2024 End: May 15, 2024 Dr. Rebekah Marshall MD Other Provider Active Start: May 14, 2024 End: May 15, 2024 Dr. Patrick Lambert MD Other Provider Active Sta rt: May 14, 2024 End: May 15, 2024 Dr. Yumiko Kate MD Other Provider Active Start : May 14, 2024 End: May 15, 2024 Dr. Navin Barba MD Other Provider Active Start: May 14, 2024 End: May 15, 2024 Dr. Rachel Wells MD Other Provider Active Start : May 14, 2024 End: May 15, 2024 Dr. Gil Willoughby MD Other Provider Active Sta rt: May 14, 2024 End: May 15, 2024 Haleigh Lovett MD Other Provider Active Start : May 14, 2024 End: May 15, 2024 Dr. Ankit Philippe MD Other Provider Active St art: May 14, 2024 End: May 15, 2024 Dr. Julee Palmer MD Other Provider Active Start : May 14, 2024 End: May 15, 2024 Dr. Dominick Tejeda MD Other Provider Active Sta rt: May 14, 2024 End: May 15, 2024 Dr. Surinder Cox MD Other Provider Active Start: May 14, 2024 End: May 15, 2024 Dr. Rocky Encarnacion MD Other Provider Active St art: May 14, 2024 End: May 15, 2024 Dr. Bhargavi Velazquez MD Other Provider Active Star t: May 14, 2024 End: May 15, 2024 Dr. Maynor Peterson MD Other Provider Active St art: May 14, 2024 End: May 15, 2024 Dr. Carolina Vences MD Other Provider Active Start: May 14, 2024 End: May 15, 2024 Dameon Colindres MD Other Provider Active Start: May 14, 2024 End: May 15, 2024 Dr. Franklin Pablo DO Attending Provider Active Start: May 14, 2024 End: May 15, 2024 Team Status: Active Member Role Status Dates Dr. Jean-Pierre Umanzor MD Primary Care Provider Acti ve Start: May 15, 2024 Dr. Abiel Dunne DO Emergency Provider Active Start : May 15, 2024 Dr. Franchesca Green MD Admit Provider Active Star t: May 15, 2024 Dr. Franchesca Green MD Other Provider Active Star t: May 15, 2024 Everett Sparks MD Other Provider Active Start: [facility] 2024 Dr. Albert Kay MD Other Provider Active Start: May 15, 2024 Kiki Woodson MD Other Provider Active Start : May 15, 2024 Dr. Miryam Norwood DO Other Provider Active St art: May 15, 2024 Dr. Rebekah Marshall MD Other Provider Active Start: May 15, 2024 Dr. Patrick Lambert MD Other Provider Active Sta rt: May 15, 2024 Dr. Yumiko Kate MD Other Provider Active Start : May 15, 2024 Dr. Navin Barba MD Other Provider Active Start: May 15, 2024 Dr. Rachel Wells MD Other Provider Active Start : May 15, 2024 Dr. Gil Willoughby MD Other Provider Active Sta rt: May 15, 2024 Haleigh Lovett MD Other Provider Active Start : May 15, 2024 Dr. Ankit Philippe MD Other Provider Active St art: May 15, 2024 Dr. Julee Palmer MD Other Provider Active Start : May 15, 2024 Dr. Dominick Tejeda MD Other Provider Active Sta rt: May 15, 2024 Dr. Surinder Ardonh , MD Other Provider Active Start: May 15, 2024 Dr. Rocky Encarnacion MD Other Provider Active St art: May 15, 2024 Dr. Bhargavi Velazquez MD Other Provider Active Star t: May 15, 2024 Dr. Maynor Peterson MD Other Provider Active St art: May 15, 2024 Dr. Carolina Vences MD Other Provider Active Start: May 15, 2024 Dameon Colindres MD Other Provider Active Start: May 15, 2024 Dr. Franklin Pablo DO Attending Provider Active Start: May 15, 2024 Dr. Franklin Pablo DO Other Provider Active Star t: May 15, 2024 Team Status: Inactive Member Role Status Dates Dr. Jean-Pierre Umanzor MD Primary Care Provider Acti ve Start: May 31, 2024 End: May 31, 2024 Dr. Jean-Pierre Umanzor MD Attending Provider Active Start: May 31, 2024 End: May 31, 2024 Dr. Jean-Pierre Umanzor MD Referring Provider Active Start: May 31, 2024 End: May 31, 2024 Team Status: Active Member Role Status Dates Dr. Jean-Pierre Umanzor MD Primary Care Provider Acti ve Start: May 31, 2024 Dr. Tommie Mack MD Attending Provider Active S tart: May 31, 2024 FOR RECORDS PERTAINING TO PATIENTS WHO ARE OR HAVE BEEN ENROLLED IN A CHEMICAL DEPENDENCY/SUBSTANCEABUSE PROGRAM, SOME INFORMATION MAY BE OMITTED. This clinical summary was aggregated from multiple sources. Caution should be exercised in using it in the provision of clinical care. This summary normalizes information from multiple sources, and as a consequence, information in this document may materially change the coding, format and clinical context of patient data. In addition, data may be omitted in some cases. CLINICAL DECISIONS SHOULD BE BASED ON THE PRIMARY CLINICAL RECORDS. [facility] [employer] provides no warranty or guarantee of the accuracy or completeness of information in this document.
== END | disposition home or self-care (01) ==
LOC: MFPLAB 14:19
PROVIDERS: PCP Family Medicine; Referring Provider Family Medicine; Visit Provider Family Medicine
DX: R79.89 Other specified abnormal findings of blood chemistry (principal)
CPT/HCPCS: 36415; 84439; 84443

== ENCOUNTER 2024-08-05 12:35 | Emergency (ER) | payer MEDICARE, SELFPAY ==
[2024-08-05] VITALS (12 sets, daily range): BP systolic 128–163; BP diastolic 78–105; PULSE 63–108; RESP 18–30; TEMP 36.5–36.9; O2SAT 96–100; BMI 26.0
--- NOTE | 2024-08-05 12:45 | RAD_ITS ---
PROCEDURE: CHEST PA AND LATERAL 08/05/2024 REASON FOR EXAM: DYSPNEA TECHNIQUE: CHEST PA AND LATERAL COMPARISON: Prior study dated August 17, 2018. FINDINGS: Hardware: EKG electrodes are seen. Large left pleural effusion with shift of the heart and mediastinal structures towards the right side of the midline. Degenerative changes of the thoracic vertebrae. RAD/Chest PA and Lateral IMPRESSION: Large left pleural effusion with the shift of the heart and mediastinal structu res towards the right side of the midline. Reading Location: [place] [address]
[2024-08-05 13:00] LABS: Absolute Lymphocyte Count 1.66 X10^3/uL (0.83-4.51); Absolute Neutrophil Count 3.1 X10^3/uL (2.0-7.7); Basophil# 0.04 X10^3/uL; Basophil% 0.7 % (0-1); Eosinophil# 0.11 X10^3/uL; Hematocrit 43.8 % (40-54); Hemoglobin 14.4 g/dL (13.0-16.5); Lymphocyte # 1.66 X10^3/ul (0.83-4.51); Lymphocyte % 30.7 % (19-41); Mean Corp Hgb Conc 32.9 g/dL (32-36); Mean Corpuscular Hgb 29.6 pg (27.0-32.0); Mean Corpuscular Volume 90.1 fL (80-94); Mean Platelet Vol. 9.5 fl (6.2-12.0); Monocyte# 0.53 X10^3/uL; Monocyte% 9.8 % (0-10); NRBC Flagged by Analyzer 0 % (0-5); Neutrophil # 3.05 X10^3/uL (2.7-7.7); Neutrophil % 56.6 % (47-70); Platelet Count 196 K/mm3 (150-450); RBC Distribution Width CV 12.7 % (11.6-14.6); RBC Distribution Width SD 41.9 fl (35.1-43.9); Red Blood Count 4.86 M/mm3 (4.6-6.2); White Blood Count 5.4 K/mm3 (4.4-11.0)
--- NOTE | 2024-08-05 13:06 | EKG12_ITS ---
Test Reason : CHEST HEAVINESS Blood Pressure : */* mmHG Vent. Rate : 103 BPM Atrial Rate : 103 BPM P-R Int : 184 ms QRS Dur : 80 ms QT Int : 340 ms P-R-T Axes : 30 12 68 degrees QTcB Int : 445 ms Sinus tachycardia Nonspecific T wave abnormality Abnormal ECG Confirmed by Collin See ([id number]), editorial cartoonist MICHEAL BEAN ([id number]) on 08/09/2024 11:39:40 AM Referred By: Maryellen Cherry Confirmed By: Collin See
--- NOTE | 2024-08-05 13:09 | EDS_ITS ---
HPI <SANDRA Stockton - Last Filed: 08/05/24 18:35> History of Present Illness Chief Complaint: Shortness of Breath Narrative Narrative: 83-year-old male with PMH of H HLD, TIA states over the last few weeks he said progressive dyspnea on exertion. He feels winded after a flight of stairs and states if he has to do 2 sets of steps in his home he is extremely out of breath. Occasionally he feels lightheaded. He denies chest pain or nausea vomiting or diaphoresis. He has had a productive cough over the last month which seem to improve over the last 2 weeks. He has had some left posterior rib cage pain which he thought was a pulled muscle from coughing. He states his primary care doctor switched his lisinopril to losartan about 2 weeks ago. He denies smoking. He denies history of cardiac disease or DVT/PE or risk factors. He bought a pulse oximeter and after a flight of steps and walking around today it dropped to 84% so he called EMS. He does not wear home oxygen. PFSH <SANDRA Stockton - Last Filed: 08/05/24 18:35> [facility], [facility] Medical History Viral URI History of steroid therapy Wears glasses Arthritis Vertigo Non-smoker Leg cramps History of echocardiogram Home Medications ?Medication ?Instructions ?Recorded ?Last Taken ?Type atorvastatin 40 mg tablet 40 mg PO DAILY #30 tabs 04/1705/13/24 Rx aspirin 325 mg tablet 325 mg PO BREAKFAST #0 tabs 05/15/24 Unknown Rx acetaminophen 325 mg tablet 325 mg PO Q6H PRN pain Unknown History (Tylenol) aspirin 81 mg tablet,delayed 81 mg PO DAILY 08/05/24 U nknown History release (Adult Aspirin Regimen) losartan 100 mg tablet 100 mg PO DAILY 08/05/24 Unk nown History sennosides 8.6 mg tablet (Senokot) 8.6 mg PO DAILY Unknown History Allergy/AdvReac Type Severity Reaction Status Date / Time No Known Allergies Allergy Verified 08/05/24 12:36 Surgical History History of appendectomy History of shoulder surgery Social History household members: spouse Smoking Status: Never smoker ROS <SANDRA Stockton - Last Filed: 08/05/24 18:35> ROS ED ROS Narrative Constitutional: Negative for fever, chills, malaise. CVS: Negative for palpitations, chest pain, syncope. Respiratory: Positive for shortness of breath, cough. GI: Negative for abdominal pain, nausea, vomiting. EXAM <SANDRA Stockton - Last Filed: 08/05/24 18:35> Physical Exam Narrative Exam Narrative: CONST: Patient sitting in no acute distress. EYES: Normal inspection. NECK: Normal inspection. RESP: Slightly tachypneic at 24 breaths/minute, left lung sounds diminished. CVS: Slightly tachycardic with regular rhythm, no murmur, no gallop. ABD: Soft and nontender, no guarding or rebound, nondistended. SKIN: Color normal, no rash, warm, dry, intact. EXTREMITIES: Normal appearance, no pedal edema. NEURO: Alert and answering questions appropriately. PSYCH: Normal affect. Const Vital Signs: 08/05/24 12:38 08/05/24 12:41 08/05/24 13:30 Temperature 97.7 F L Temperature Source Oral Pulse Rate 106 H 90 Respiratory Rate 24 H 30 H Respiratory Effort Short of Breath Labored Respiratory Depth Shallow Respiratory Pattern Tachypnea Blood Pressure 144/86 H 145/94 H Blood Pressure Mean 105 109 Pulse Ox 96 96 Oxygen Delivery Method Room Air Room Air 08/05/24 14:00 08/05/24 15:00 08/05/24 15:24 Temperature 97.8 F Temperature Source Oral Pulse Rate 92 91 Respiratory Rate 22 H 20 H Respiratory Effort Respiratory Depth Respiratory Pattern Blood Pressure 163/97 H 152/98 H Blood Pressure Mean 114 115 Pulse Ox 100 97 Oxygen Delivery Method 08/05/24 16:00 08/05/24 17:00 08/05/24 18:00 Temperature Temperature Source Pulse Rate 63 108 H 97 Respiratory Rate 18 20 H 27 H Respiratory Effort Respiratory Depth Respiratory Pattern Blood Pressure 137/105 H Blood Pressure Mean 115 Pulse Ox 99 100 100 Oxygen Delivery Method Room Air <Dr. Maryellen Cherry DO - Last Filed: 08/07/24 07:55> Physical Exam Const Vital Signs: 08/05/24 12:38 08/05/24 12:41 08/05/24 13:30 Temperature 97.7 F L Temperature Source Oral Pulse Rate 106 H 90 Respiratory Rate 24 H 30 H Respiratory Effort Short of Breath Labored Respiratory Depth Shallow Respiratory Pattern Tachypnea Blood Pressure 144/86 H 145/94 H Blood Pressure Mean 105 109 Pulse Ox 96 96 Oxygen Delivery Method Room Air Room Air 08/05/24 14:00 08/05/24 15:00 08/05/24 15:24 Temperature 97.8 F Temperature Source Oral Pulse Rate 92 91 Respiratory Rate 22 H 20 H Respiratory Effort Respiratory Depth Respiratory Pattern Blood Pressure 163/97 H 152/98 H Blood Pressure Mean 114 115 Pulse Ox 100 97 Oxygen Delivery Method 08/05/24 16:00 08/05/24 17:00 08/05/24 18:00 Temperature Temperature Source Pulse Rate 63 108 H 97 Respiratory Rate 18 20 H 27 H Respiratory Effort Respiratory Depth Respiratory Pattern Blood Pressure 137/105 H Blood Pressure Mean 115 Pulse Ox 99 100 100 Oxygen Delivery Method Room Air MDM <SANDRA Stockton - Last Filed: 08/05/24 18:35> [facility] MDM Narrative Medical decision making narrative: Differential includes but not limited to pneumonia, pleural effusion, ACS, PE Consults: [facility] hospitalist for transfer 83-year-old male was had several weeks of dyspnea on exertion. He noted an ambulatory pulse ox reading of 84% at home today prompting him to call EMS. He is stable on room air at 96% but is tachypneic around 26/minute. Left lung sounds are diminished. CBC and BMP are unremarkable. EKG is nonischemic and troponin is 22. Chest x-ray shows a large left pleural effusion with shift of the mediastinal structures towards the right side of the midline. He remained stable on room air but requires admission. I discussed the case with the hospitalist who recommended I consult pulmonology to see if thoracentesis is available on the weekend. Dr. Sutherland states he is not on this weekend and is unable to do it. IR services are not available this weekend. For this reason patient will need transferred. I discussed the case with [facility] and he was accepted by the hospitalist Dr. Jara. Lab Data Attestation: I reviewed the patient's lab results. Labs: Laboratory Results - last 24 hr 08/05/24 12:48 WBC 5.4 RBC 4.86 Hgb 14.4 Hct 43.8 MCV 90.1 MCH 29.6 MCHC 32.9 RDW Std Deviation 41.9 RDW Coeff of Eduard 12.7 Plt Count 196 MPV 9.5 Immature Gran % (Auto) 0.200 Neut % (Auto) 56.6 Lymph % (Auto) 30.7 [place] % (Auto) 9.8 Eos % (Auto) 2.0 Baso % (Auto) 0.7 Absolute Neuts (auto) 3.1 Absolute Lymphs (auto) 1.66 Nucleated RBC % 0 Sodium 139 Potassium 4.2 Chloride 104 Carbon Dioxide 21.2 Anion Gap 14 BUN 15 Creatinine 0.93 Estim Creat Clear Calc 66.35 Est GFR (MDRD) Non-Af 83 BUN/Creatinine Ratio 16.2 Glucose 109 H Calcium 9.4 Troponin T High Sens 22 D Radiography Diagnostic Testing: Clinical Impression(s) from Imaging Studies Chest X-Ray 08/05/24 12:45 IMPRESSION: Large left pleural effusion with the shift of the heart and mediastinal structures towards the right side of the midline. [facility] 08/05/24 14:20 IMPRESSION: No PE. Very large left pleural effusion with airspace consolidation/atelectasis or possible pneumonia Reading [facility] ED attending interpretation of 2 view chest x-ray shows very large left pleural effusion. EKG Initial EKG: Attestation: I personally reviewed and interpreted this EKG as follows: Interpretation: No Acute Injury Pattern and Sinus Tachycardia Comments: Sinus tachycardia at 103 bpm Nonspecific T wave changes No STEMI <Dr. Maryellen Cherry, DO - Last Filed: 08/07/24 07:55> [facility] MDM Narrative Medical decision making narrative: Differential includes but not limited to pneumonia, pleural effusion, ACS, PE Consults: [facility] hospitalist for transfer 83-year-old male was had several weeks of dyspnea on exertion. He noted an ambulatory pulse ox reading of 84% at home today prompting him to call EMS. He is stable on room air at 96% but is tachypneic around 26/minute. Left lung sounds are diminished. CBC and BMP are unremarkable. EKG is nonischemic and troponin is 22. Chest x-ray shows a large left pleural effusion with shift of the mediastinal structures towards the right side of the midline. He remained stable on room air but requires admission. I discussed the case with the hospitalist who recommended I consult pulmonology to see if thoracentesis is available on the weekend. Dr. Sutherland states he is not on this weekend and is unable to do it. IR services are not available this weekend. For this reason patient will need transferred. I discussed the case with [facility] and he was accepted by the hospitalist Dr. Jara. I have personally performed a face to face assessment of the patient and have reviewed the OTONIEL Note. I performed a substantive portion of the visit including all aspects of the following. My watson findings include: History is patient is an overall healthy 83-year-old male with history of hyperlipidemia and TIA presenting with worsening cough, shortness of breath and dyspnea on exertion. He purchased a home pulse oximeter and with ambulation is a drop to 84% so he called EMS. Does have some mild left-sided rib discomfort. Denies any fevers. Patient is relatively asymptomatic at rest. No JVD present. Head normocephalic atraumatic. Lungs greatly diminished breath sounds on the left. Heart regular rate and rhythm. Abdomen soft and nontender. No peripheral edema present. On workup patient has significant left-sided pleural effusion on chest x-ray reviewed by myself as well as radiology. Because of this with unknown cause CT of the chest obtained to also rule out PE and better evaluate the effusion. CTA does not show any PE but does show very large left pleural effusion with airspace consolidation and atelectasis or possible pneumonia. Kandis FLORES, spoke with cardiology pulmonology who is agreeable to admission. Unfortunately do not have anyone available for thoracentesis tonight or this weekend so patient will require transfer. He is excepted at [facility]. He remains hemodynamically stable in the emergency room and is agreeable to this plan of care. His workup was otherwise largely normal with normal CBC, BMP and only mildly elevated high- sensitivity troponin of 22. EKG showed sinus tachycardia but no ischemic pattern. Other additions or changes: [None] Lab Data Labs: Laboratory Results - last 24 hr 08/05/24 12:48 WBC 5.4 RBC 4.86 Hgb 14.4 Hct 43.8 MCV 90.1 MCH 29.6 MCHC 32.9 RDW Std Deviation 41.9 RDW Coeff of Eduard 12.7 Plt Count 196 MPV 9.5 Immature Gran % (Auto) 0.200 Neut % (Auto) 56.6 Lymph % (Auto) 30.7 [place] % (Auto) 9.8 Eos % (Auto) 2.0 Baso % (Auto) 0.7 Absolute Neuts (auto) 3.1 Absolute Lymphs (auto) 1.66 Nucleated RBC % 0 Sodium 139 Potassium 4.2 Chloride 104 Carbon Dioxide 21.2 Anion Gap 14 BUN 15 Creatinine 0.93 Estim Creat Clear Calc 66.35 Est GFR (MDRD) Non-Af 83 BUN/Creatinine Ratio 16.2 Glucose 109 H Calcium 9.4 Troponin T High Sens 22 D Radiography Diagnostic Testing: Clinical Impression(s) from Imaging Studies Chest X-Ray 08/05/24 12:45 IMPRESSION: Large left pleural effusion with the shift of the heart and mediastinal structures towards the right side of the midline. [facility] 08/05/24 14:20 IMPRESSION: No PE. Very large left pleural effusion with airspace consolidation/atelectasis or possible pneumonia [facility] Plan Triage Chief Complaint: Shortness of Breath ED Midlevel Provider: Kandis Hernandez ED Provider: Maryellen Cherry Dx/Rx/DC Orders Clinical Impression: Dyspnea, Hypoxia, Pleural effusion on left Prescriptions: No Action atorvastatin 40 mg tablet 40 mg PO DAILY Qty: 30 2RF aspirin 325 mg Tablet 325 mg PO BREAKFAST Qty: 0 0RF losartan 100 mg tablet 100 mg PO DAILY sennosides [Senokot] 8.6 mg tablet 8.6 mg PO DAILY aspirin [Adult Aspirin Regimen] 81 mg tablet,delayed release (DR/EC) 81 mg PO DAILY acetaminophen [Tylenol] 325 mg tablet 325 mg PO Q6H PRN (Reason: pain) Primary Care Provider: George Umanzor Referrals: George Umanzor MD [Primary Care Provider] - Print Language: Marshallese Disposition Disposition: Acute Care Hospital Discharge Location: [facility] Discharge Date/Time: 08/05/24 20:41
[2024-08-05 13:21] LABS: Anion Gap 14 (5-15); BUN 15 mg/dL (4-19); BUN/Creat Ratio 16.2 RATIO (10-20); Calcium,Total 9.4 mg/dL (7.6-11.0); Carbon Dioxide 21.2 mmol/L (21.0-32.0); Chloride 104 mmol/L (98-108); Creatinine, Serum 0.93 mg/dL (0.70-1.20); EST Glomerular Filtration Rate 83 (>60); Estimated Creatinine Clearance 66.35 ml/min (50-250); Glucose 109 mg/dL (70-99); Potassium 4.2 mmol/L (3.3-5.1); Sodium Level 139 mmol/L (133-145); Troponin T High Sensitivity 22 ng/L (<=22)
--- NOTE | 2024-08-05 14:20 | CT_ITS ---
PROCEDURE: CTA CHEST W/WO CONTRAST 08/05/2024 REASON FOR EXAM: DYSPNEA TECHNIQUE: CTA CHEST W/WO CONTRAST Multiplanar Sagittal and Coronal images were obtained. CONTRAST: Isovue 370 VOLUME: 100 mL One or more dose reduction techniques were used (e.g., Automated exposure control, adjustment of the mA and/or kV according to patient size, use of iterative reconstruction technique). RADIATION DOSE SUMMARY: CTDlvol: 11.87 in 12.03 mGy DLP: 464.9 mGycm COMPARISON: Chest radiograph August 05, 2024 FINDINGS: Thoracic Aorta: Normal caliber Heart: Normal size Pulmonary Vessels: No PE. Hardware: None Lymph nodes: No adenopathy Lungs and Airways: Massive left pleural effusion with is of atelectasis/consolidation/possible pneumonia Pleura: Massive left pleural effusion Upper Abdomen: No acute process identified in the limited included images Bones: No aggressive process. CT/CTA Chest W/WO Contrast IMPRESSION: No PE. Very large left pleural effusion with airspace consolidation/atelectasi s or possible pneumonia [facility]
[2024-08-05] MEDS: Ceftriaxone 1 GM/50 ML BAG IV (17:12)
[2024-08-05] MEDS: Azithromycin 500 MG in 0.9% Normal Saline (250mL Bag) 250 ML 255 MG IV (17:12)
--- NOTE | 2024-08-05 18:08 | PCA ---
ACCEPTED AT [facility] AT 3471 WAITING BED ASSIGNMENT
== END 2024-08-05 20:41 | disposition short-term general hospital (02) ==
LOC: ED 13:05
PROVIDERS: Physician Assistant; Emergency Provider Emergency Medicine; PCP Family Medicine; Referring Provider Emergency Medicine; Visit Provider Emergency Medicine
DX: J90 Pleural effusion, not elsewhere classified (principal); R09.02 Hypoxemia; E78.5 Hyperlipidemia, unspecified; R06.00 Dyspnea, unspecified; Z86.73 Personal history of transient ischemic attack (TIA), and cerebral infarction without residual deficits; Z90.49 Acquired absence of other specified parts of digestive tract
CPT/HCPCS: 71046; 71275; 80048; 84484; 85025; 93005; 96365; 96367; 99285; Q9967; A4216